=== PATIENT | male | born 1955 | race African-American/Black ===

== ENCOUNTER 2018-12-05 15:51 | Inpatient (IN) | payer MEDICAID ==
[~2018-12-05] VITALS: Ht 177.8 cm; Wt 69.9 kg
--- NOTE | 2018-12-05 16:22 | NUR ---
ED Nurse Note: Accu check result 469mg/dl reported to [facility].
--- NOTE | 2018-12-05 16:48 | Emergency Room Report ---
History of Present Illness General Chief Complaint: Abnormal Labs Source: Patient Present Illness HPI Disclaimer: Please note that this report is being documented using [employer] technology. This can lead to erroneous entry secondary to incorrect interpretation by the dictating instrument. HPI: 63-year-old male with a history of metastatic prostate cancer having undergone first chemotherapy session 4 days ago, insulin-dependent diabetes, polysubstance abuse, alcohol abuse presents for evaluation of elevated blood sugar. Patient has not had insulin in approximately 4 to 5 days that he states he was not being approved by his insurance company. He took his readings today at home showing a blood sugar of 499. He notes fatigue but denies abdominal cramping, vomiting, chest pain, shortness of breath, vertiginous symptoms, headache, double vision, neck or back pain, fever, dysuria, hematuria. He noted some loose stools over the past 2 days. No prior history of DKA. Last use of cocaine was last night. Last drink was yesterday. PMH: Insulin dependent diabetes, prostate cancer with metastases to right hip PSH: Prostatectomy Allergies: Denies Social Hx: Smokes cocaine, uses marijuana, regular alcohol use, regular tobacco use Allergies: Coded Allergies: No Known Allergies (Unverified , 12/05/18) Nursing Documentation-PMH Past Medical History: No History, Except For Hx Diabetes: Yes Hx Cancer: Yes - Prostate CA, metastatic to bone Review of Systems All Other Systems: negative except mentioned in HPI Physical Exam Vital Signs Date Time Temp Pulse Resp B/P (MAP) Pulse Ox O2 Delivery O2 Flow Rate FiO2 12/05/18 16:13 97.0 109 19 111/74 (86) 98 Room Air General: Awake and alert, no acute distress, thin and cachectic HEENT: NC/AT. EOMI. anicteric sclera. Dry knees membranes Cardiovascular: Tachycardic. S1 and S2 normal. No murmur appreciated Resp: Normal work of breathing. No cough, wheezing or crackles appreciated Abdomen: Abdomen is soft, nondistended. Nontender Skin: Intact. No abrasions, laceration or rash over the exposed skin MSK: Normal tone and bulk. Moving all extremities. No obvious deformity. Neuro: Awake and alert. Mentating appropriately. Medical Decision Making ER Course 63-year-old insulin-dependent diabetic with history of metastatic prostate cancer currently receiving chemotherapy presents for evaluation of elevated blood sugar readings at home. We will send extensive labs to evaluate for DKA. Patient is receiving IV fluids. Will monitor closely in the emergency department. May require admission depending on lab results. Laboratory Tests Test 12/05/18 16:15 12/05/18 16:40 12/05/18 17:30 Arterial Blood pH 7.423 (7.350-7.450) Arterial Blood Partial Pressure CO2 36.1 mmHg (35.0-45.0) Arterial Blood Partial Pressure O2 76.0 mmHg (75.0-100.0) Arterial Blood HCO3 23.0 mmol/L (22.0-26.0) Arterial Blood Oxygen Saturation 94.8 % (95-100) L Arterial Blood Base Excess -1.0 (-2-2) Noé Test Positive White Blood Count 2.9 K/UL (4.8-10.8) L Red Blood Count 3.76 M/UL (4.70-6.10) L Hemoglobin 11.2 G/DL (14.2-18.0) L Hematocrit 33.5 % (42.0-52.0) L Mean Corpuscular Volume 89 FL (80-99) Mean Corpuscular Hemoglobin 29.7 PG (27.0-31.0) Mean Corpuscular Hemoglobin Concent 33.4 G/DL (32.0-36.0) Red Cell Distribution Width 13.2 % (11.6-14.8) Platelet Count 59 K/UL (150-450) L Mean Platelet Volume 7.8 FL (6.5-10.1) Neutrophils (%) (Auto) % (45.0-75.0) Lymphocytes (%) (Auto) % (20.0-45.0) Monocytes (%) (Auto) % (1.0-10.0) Eosinophils (%) (Auto) % (0.0-3.0) Basophils (%) (Auto) % (0.0-2.0) Differential Total Cells Counted 100 Neutrophils % (Manual) 69 % (45-75) Lymphocytes % (Manual) 28 % (20-45) Monocytes % (Manual) 3 % (1-10) Eosinophils % (Manual) 0 % (0-3) Basophils % (Manual) 0 % (0-2) Band Neutrophils 0 % (0-8) Platelet Estimate Decreased L Platelet Morphology Normal Red Blood Cell Morphology Normal Sodium Level 127 MMOL/L (136-145) L Potassium Level 4.3 MMOL/L (3.5-5.1) Chloride Level 92 MMOL/L (98-107) L Carbon Dioxide Level 24 MMOL/L (21-32) Anion Gap 11 mmol/L (5-15) Blood Urea Nitrogen 31 mg/dL (7-18) H Creatinine 1.5 MG/DL (0.55-1.30) H Estimat Glomerular Filtration Rate 57.4 mL/min (>60) Glucose Level 493 MG/DL (74-106) H Calcium Level 8.4 MG/DL (8.5-10.1) L Magnesium Level 2.2 MG/DL (1.8-2.4) Total Bilirubin 0.3 MG/DL (0.2-1.0) Aspartate Amino Transf (AST/SGOT) 59 U/L (15-37) H Alanine Aminotransferase (ALT/SGPT) 31 U/L (12-78) Alkaline Phosphatase 1479 U/L (46-116) H Troponin I 0.000 ng/mL (0.000-0.056) Total Protein 7.3 G/DL (6.4-8.2) Albumin 3.4 G/DL (3.4-5.0) Globulin 3.9 g/dL Albumin/Globulin Ratio 0.9 (1.0-2.7) L Acetone Level Negative (NEGATIVE) Urine Color Pale yellow Urine Appearance Clear Urine pH 5 (4.5-8.0) Urine Specific [place] 1.015 (1.005-1.035) Urine Protein 3+ (NEGATIVE) H Urine Glucose (UA) 4+ (NEGATIVE) H Urine Ketones 1+ (NEGATIVE) H Urine Blood 2+ (NEGATIVE) H Urine Nitrite Negative (NEGATIVE) Urine Bilirubin Negative (NEGATIVE) Urine Urobilinogen Normal MG/DL (0.0-1.0) Urine Leukocyte Esterase 1+ (NEGATIVE) H Urine RBC 2-4 /HPF (0 - 0) H Urine WBC 0-2 /HPF (0 - 0) Urine Squamous Epithelial Cells None /LPF (NONE/OCC) Urine Bacteria Few /HPF (NONE) EKG Diagnostic Results EKG Time: 16:26 Rate: tachycardiac Rhythm: NSR ST Segments: no acute changes Other Impression Sinus tachycardia. Normal intervals. Slight left axis deviation. No acute ischemic changes Rhythm Strip Diag. Results Rhythm Strip Time: 16:26 EP Interpretation: yes Rate: 100s Reevaluation Time: 07:50 Last Vital Signs Date Time Temp Pulse Resp B/P (MAP) Pulse Ox O2 Delivery O2 Flow Rate FiO2 12/05/18 16:13 97.0 109 19 111/74 (86) 98 Room Air Status: unchanged Reevaluation Impression Labs show no anion gap, no acidosis, negative ketones. Patient has isolated hyperglycemia will be treated with intravenous insulin. Also hyponatremia consistent with dehydration from his recent diarrhea. He continues to receive IV fluids. He remains tachycardic and appears fatigued/weak. The patient is no longer able to get his own insulin and states he will not be able to for the next 3 days. He will be admitted to telemetry for further IV hydration, correction of his hyperglycemia, social work evaluation to assess his medication needs. He understands and agrees with this treatment plan. Disposition: ADMITTED INPATIENT Condition: Serious Grant Mcfarlane MD Dec 05, 2018 16:48
[2018-12-05] MEDS ORDERED: LORAZEPAM0.5 MG ORAL (16:57)
[2018-12-05] MEDS ORDERED: PROCHLORPERAZINE5 MG ORAL (16:57)
--- NOTE | 2018-12-05 16:58 | NUR ---
ED Nurse Note: pt relates he hasnt had insulin in 4 days. also recent start of chemo 1st dose for proastate cancer. denies n/v/ or abd pain. does relates cocaine use recently. does states some diarrhea recently. family at bs with pt. pt tolerates iv start and labs well.
--- NOTE | 2018-12-05 17:02 | NUR ---
ED Nurse Note: pt aware to obtain urine sample
[2018-12-05 17:34] LABS: HEMATOCRIT 33.5 % (42.0-52.0); HEMOGLOBIN 11.2 G/DL (14.2-18.0); MEAN CORPUSCULAR VOLUME 89 FL (80-99); PLATELET COUNT 59 K/UL (150-450); RED BLOOD COUNT 3.76 M/UL (4.70-6.10); RED CELL DISTRIBUTION WIDTH 13.2 % (11.6-14.8); WHITE BLOOD COUNT 2.9 K/UL (4.8-10.8)
[2018-12-05 17:41] LABS: ANION GAP 11 mmol/L (5-15); BLOOD UREA NITROGEN 31 mg/dL (7-18); CALCIUM 8.4 MG/DL (8.5-10.1); CARBON DIOXIDE 24 MMOL/L (21-32); CHLORIDE 92 MMOL/L (98-107); CREATININE 1.5 MG/DL (0.55-1.30); POTASSIUM 4.3 MMOL/L (3.5-5.1); SODIUM 127 MMOL/L (136-145)
[2018-12-05 17:44] LABS: APPEARANCE,URINE CLEAR; BILIRUBIN, URINE NEGATIVE (NEGATIVE); COLOR,URINE PALE YELLOW; GLUCOSE, URINE (UA) 4+ (NEGATIVE); KETONES,URINE 1+ (NEGATIVE); LEUKOCYTE ESTERASE ,URINE 1+ (NEGATIVE); NITRITE,URINE NEGATIVE (NEGATIVE); PH,URINE 5 (4.5-8.0); PROTEIN,URINE 3+ (NEGATIVE); UROBILINOGEN,URINE NORMAL MG/DL (0.0-1.0)
--- NOTE | 2018-12-05 17:47 | NUR ---
ED Nurse Note: voided urine sample sent as ordered. pt tolerating ivf well.
[2018-12-05 17:54] LABS: ALANINE AMINOTRANSFERASE 31 U/L (12-78); ALBUMIN 3.4 G/DL (3.4-5.0); ALBUMIN/GLOBULIN RATIO 0.9 (1.0-2.7); ALKALINE PHOSPHATASE 1479 U/L (46-116); ASPARTATE AMINO TRANSFERASE 59 U/L (15-37); BILIRUBIN,TOTAL 0.3 MG/DL (0.2-1.0)
[2018-12-05] MEDS ORDERED: Insulin Human Regular 100units/ml 3ml IV ONE (18:00)
--- NOTE | 2018-12-05 18:16 | NUR ---
ED Nurse Note: pt aware of plan for insulin and ivf with recheck accucheck when completed with possible dc home.
[2018-12-05 19:05] VITALS: BP 136/77
--- NOTE | 2018-12-05 19:14 | NUR ---
ED Nurse Note: pt aware to be admitted here and agrees.
--- NOTE | 2018-12-05 20:25 | NUR ---
ED Nurse Note: TELEPHONE REPORT GIVEN TO VINCENT CASTLE
--- NOTE | 2018-12-05 20:30 | NUR ---
ED Nurse Note: PT SENT UP WITH VINCENT BARROW AND [facility]FR[facility]O EMT. PT SHOWS NO ACUTE SIGNS OF DISTRESS. PT IS AOX4, ALL BELONGINGS GIVEN TO PT. VSS.
--- NOTE | 2018-12-05 21:00 | NUR ---
ADMISSION: rECVD pt. AOX4, RA, PT being admitted for hyperglycemia, bedtime BS 263, pt is ambulatory, skin is intact, will cotninue with plan of care
[2018-12-05] MEDS: NovoLOG Insulin Flexpen SUBQ SCH (22:06)
[2018-12-05] MEDS: Levemir Flexpen SUBQ SCH (22:07)
--- NOTE | 2018-12-05 23:15 | History and Physical Report ---
DATE OF ADMISSION: 12/05/2018 REASON FOR ADMISSION: Hyperglycemia. HISTORY OF PRESENT ILLNESS: The patient is a 63-year-old gentleman with known metastatic prostate cancer, undergoing his first chemotherapy session approximately four days ago. The patient is insulin dependent. Also, has a history of polysubstance and alcohol abuse. Presented to the emergency room, not feeling well when noted to have a blood sugar level of over 400. The patient was not in DKA. Serum sodium 127 with a creatinine of 1.5 and a serum glucose of 493. The patient states that he recently had his insurance change and he was trying to have his insulin pay for, however, due to insurance change, he ran out of medication, such for the emergency room for further evaluation and care. Currently, feeling just tired and fatigued, otherwise well. PAST MEDICAL HISTORY: 1. Insulin-dependent diabetes. 2. Prostate cancer with metastasis to right hip. PAST SURGICAL HISTORY: Prostatectomy. ALLERGIES: No known drug allergies. SOCIAL HISTORY: Known cocaine, marijuana, and alcohol regular use along with cigarettes. FAMILY HISTORY: Positive for hypertension. REVIEW OF SYSTEMS: NEUROLOGIC: The patient denies headache, change in vision, syncope, presyncopal episode. CARDIOVASCULAR: No current chest pain, palpitations, or angina. PULMONARY: No difficulty breathing, productive cough, or sputum. GASTROINTESTINAL/GENITOURINARY: No change in his bowel habits. No nausea, vomiting, or diarrhea. ENDOCRINOLOGY: No night sweats, fevers, or chills. LABORATORY DATA: Labs dated 12/05/2018. Acetone level negative. Hemoglobin 11.2, white cell count 2.9, and platelet count 59,000. Sodium 127, creatinine 1.5, troponin 0, alkaline phosphatase 1479. PHYSICAL EXAMINATION: VITAL SIGNS: Blood pressure 136/77, 99% oxygen saturation on room air, pulse 103, temperature 97.6 degrees. GENERAL: The patient is awake, alert, not in distress. HEENT: Extraocular muscles intact. No lymphadenopathy noted. Oropharyngeal mucosa clear and dry. CARDIOVASCULAR: S1, S2. No rubs or gallops. Regular rate. PULMONARY: Clear to auscultation bilaterally. No rales, rhonchi, or wheezes. ABDOMINAL: Soft, nontender. EXTREMITIES: No edema. ASSESSMENT AND PLAN: 1. Hyperglycemia, insulin-dependent diabetes. Secondary to the patient medical coverage, not being able to pay for his medication at this time. We will hydrate the patient and adjust his insulin doses during his inpatient stay. piping manager has been consulted to arrange for medications in the morning. Plan is if hyperglycemia is resolved, the patient is hydrated and feeling better, and has coverage for his insulin therapy, he will be discharged. 2. Metastatic prostate cancer. He has recently started chemotherapy. Plans to discharge tomorrow once we can secure his insulin medications. 3. Dehydration. We will continue IV fluids. 4. DVT prophylaxis with SCDs. 5. Acute kidney injury secondary to volume depletion. We will continue IV fluids. 6. Hyponatremia, pseudo in nature due to hyperglycemia. We will correct with IV fluids. Nico Avendano MD DR: LISANDRA/STACY JOB#: [id number] CC:
[2018-12-06] MEDS: NovoLOG Insulin Flexpen SUBQ SCH ×4 (05:52→20:57)
--- NOTE | 2018-12-06 06:07 | NUR ---
HAND-OFF: Report given to Chris KAUR.
--- NOTE | 2018-12-06 07:00 | NUR ---
NURSE NOTES: Nurse report given by VINCENT Nichols. Patient's awake, comfortable and AO x 4, denies pain, no s/s of distress or SOB. Bed at lowest position, break engaged, call light within reach, belonging bag is at bed side. IV site is running fluid, patent, asymptomatic. Will continue to monitor.
[2018-12-06 07:27] LABS: HEMATOCRIT 36.3 % (42.0-52.0); HEMOGLOBIN 11.9 G/DL (14.2-18.0); MEAN CORPUSCULAR VOLUME 92 FL (80-99); PLATELET COUNT 83 K/UL (150-450); RED BLOOD COUNT 3.96 M/UL (4.70-6.10); RED CELL DISTRIBUTION WIDTH 13.6 % (11.6-14.8); WHITE BLOOD COUNT 3.4 K/UL (4.8-10.8)
[2018-12-06 07:43] LABS: ANION GAP 9 mmol/L (5-15); BLOOD UREA NITROGEN 23 mg/dL (7-18); CALCIUM 8.1 MG/DL (8.5-10.1); CARBON DIOXIDE 23 MMOL/L (21-32); CHLORIDE 100 MMOL/L (98-107); CREATININE 1.3 MG/DL (0.55-1.30); POTASSIUM 4.3 MMOL/L (3.5-5.1); SODIUM 132 MMOL/L (136-145)
[2018-12-06 08:05] VITALS: BP 115/80
--- NOTE | 2018-12-06 08:26 | Nephrology Progress Note ---
Assessment/Plan Assessment/Plan: A/P 1) DM OOC- improving, insulin restarted - DC patient once insulin as outpt secured 2) Metastatic Prostate Cancer- chemo 5 days ago. DC back to his Urologist 3) Dehydration- IVFs 4) DVT prophylaxsis- SCDs 5) AP- due o prerenal. Cr down to 1.3 on IVFs Subjective Date patient seen: Dec 06, 2018 Time patient seen: 08:23 ROS Limited/Unobtainable: No Allergies: Coded Allergies: No Known Allergies (Unverified , 12/05/18) Subjective Patient in no distress. No CP or SOB Objective Last 24 Hour Vital Signs Date Time Temp Pulse Resp B/P (MAP) Pulse Ox O2 Delivery O2 Flow Rate FiO2 12/06/18 08:05 98.6 110 20 115/80 (92) 97 12/06/18 04:00 117 12/06/18 00:00 121 12/05/18 23:29 Room Air 12/05/18 20:30 97.4 104 23 135/78 98 Room Air 12/05/18 19:05 97.6 103 18 136/77 99 Room Air 12/05/18 16:13 97.0 109 19 111/74 (86) 98 Room Air Intake and Output 12/05/18 12/06/18 19:00 07:00 Intake Total 1000 ml 0 ml Output Total 1000 ml Balance 1000 ml -1000 ml Intake Oral 0 ml 0 ml IV Total 1000 ml Output Urine Total 1000 ml # Voids 3 Laboratory Tests 12/05/18 16:15: Arterial Blood pH 7.423, Arterial Blood Partial Pressure CO2 36.1, Arterial Blood Partial Pressure O2 76.0, Arterial Blood HCO3 23.0, Arterial Blood Oxygen Saturation 94.8L, Arterial Blood Base Excess -1.0, Noé Test Positive 12/05/18 16:40: White Blood Count 2.9L, Red Blood Count 3.76L, Hemoglobin 11.2L, Hematocrit 33.5L, Mean Corpuscular Volume 89, Mean Corpuscular Hemoglobin 29.7, Mean Corpuscular Hemoglobin Concent 33.4, Red Cell Distribution Width 13.2, Platelet Count 59L, Mean Platelet Volume 7.8, Neutrophils (%) (Auto) , Lymphocytes (%) ( Auto) , Monocytes (%) (Auto) , Eosinophils (%) (Auto) , Basophils (%) (Auto) , Differential Total Cells Counted 100, Neutrophils % (Manual) 69, Lymphocytes % ( Manual) 28, Monocytes % (Manual) 3, Eosinophils % (Manual) 0, Basophils % ( Manual) 0, Band Neutrophils 0, Platelet Estimate DecreasedL, Platelet Morphology Normal, Red Blood Cell Morphology Normal, Sodium Level 127L, Potassium Level 4.3, Chloride Level 92L, Carbon Dioxide Level 24, Anion Gap 11, Blood Urea Nitrogen 31H, Creatinine 1.5H, Estimat Glomerular Filtration Rate 57.4, Glucose Level 493H, Calcium Level 8.4L, Magnesium Level 2.2, Total Bilirubin 0.3, Aspartate Amino Transf (AST/SGOT) 59H, Alanine Aminotransferase ( ALT/SGPT) 31, Alkaline Phosphatase 1479H, Troponin I 0.000, Total Protein 7.3, Albumin 3.4, Globulin 3.9, Albumin/Globulin Ratio 0.9L, Acetone Level Negative 12/05/18 17:30: Urine Color Pale yellow, Urine Appearance Clear, Urine pH 5, Urine Specific [place] 1.015, Urine Protein 3+H, Urine Glucose (UA) 4+H, Urine Ketones 1+H, Urine Blood 2+H, Urine Nitrite Negative, Urine Bilirubin Negative, Urine Urobilinogen Normal, Urine Leukocyte Esterase 1+H, Urine RBC 2-4H, Urine WBC 0-2 , Urine Squamous Epithelial Cells None, Urine Bacteria Few 12/06/18 05:36: White Blood Count 3.4L, Red Blood Count 3.96L, Hemoglobin 11.9L, Hematocrit 36.3L, Mean Corpuscular Volume 92, Mean Corpuscular Hemoglobin 30.1, Mean Corpuscular Hemoglobin Concent 32.8, Red Cell Distribution Width 13.6, Platelet Count 83L, Mean Platelet Volume 7.2, Neutrophils (%) (Auto) , Lymphocytes (%) ( Auto) , Monocytes (%) (Auto) , Eosinophils (%) (Auto) , Basophils (%) (Auto) , Differential Total Cells Counted 100, Neutrophils % (Manual) 57, Lymphocytes % ( Manual) 40, Monocytes % (Manual) 3, Eosinophils % (Manual) 0, Basophils % ( Manual) 0, Band Neutrophils 0, Platelet Estimate DecreasedL, Platelet Morphology Normal, Sodium Level 132L, Potassium Level 4.3, Chloride Level 100, Carbon Dioxide Level 23, Anion Gap 9, Blood Urea Nitrogen 23H, Creatinine 1.3, Estimat Glomerular Filtration Rate > 60, Glucose Level 353#H, Calcium Level 8.1L , Hypochromasia 1+ Height (Feet): 5 Height (Inches): 10.00 Weight (Pounds): 160 General Appearance: no apparent distress, alert EENT: normal ENT inspection Neck: normal alignment, supple Cardiovascular: normal rate, regular rhythm Respiratory/Chest: lungs clear, normal breath sounds Abdomen: non tender, soft Edema: no edema noted Arm (L), no edema noted Arm (R), no edema noted Leg (L), no edema noted Leg (R), no edema noted Pedal (L), no edema noted Pedal (R), no edema noted Generalized Nico Avendano MD Dec 06, 2018 08:26
[2018-12-06] MEDS: Aspirin Baby 81mg ORAL SCH (09:52)
--- NOTE | 2018-12-06 11:20 | NUR ---
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
[2018-12-06 12:00] VITALS: BP 126/89
[2018-12-06 16:00] VITALS: BP 112/70
--- NOTE | 2018-12-06 19:10 | NUR ---
HAND-OFF: Report given to VINCENT Nichols. Plan of care endorsed. Patient's in stable condition.
[2018-12-06 20:00] VITALS: BP 154/95
[2018-12-06] MEDS: Levemir Flexpen SUBQ SCH (20:58)
[2018-12-07] VITALS: BP 140/87
[2018-12-07 04:00] VITALS: BP 140/87
--- NOTE | 2018-12-07 04:48 | NUR ---
NURSE NOTES: Recvd pt. Pt is AOX4, on room air with no sign of sob or resp distress. Bed in lowest position will continue with plan of care
[2018-12-07] MEDS: NovoLOG Insulin Flexpen SUBQ SCH ×4 (06:37→21:31)
--- NOTE | 2018-12-07 07:00 | NUR ---
NURSE NOTES: Nurse report given by VINCENT Nichols. Patient's in stable condition, no s/s of acute distress or SOB. Denies pain. IV is running fluid, patent and asymptomatic. will continue to monitor.
--- NOTE | 2018-12-07 07:00 | NUR ---
NURSE NOTES: Bed at lowest position, call light within reach, break engaged, will continue to monitor.
[2018-12-07 08:00] VITALS: BP 132/79
--- NOTE | 2018-12-07 08:13 | Nephrology Progress Note ---
Assessment/Plan Assessment/Plan: A/P 1) DM OOC- improving, insulin - DC patient once insulin as outpt secured - DC today 2) Metastatic Prostate Cancer- chemo 5 days ago. DC back to his Urologist 3) Dehydration- IVFs 4) DVT prophylaxsis- SCDs 5) AP- due o prerenal. Cr down to 1.3 on IVFs - am labs pending Subjective Date patient seen: Dec 07, 2018 Time patient seen: 08:11 ROS Limited/Unobtainable: No Allergies: Coded Allergies: No Known Allergies (Unverified , 12/05/18) Subjective Patient sleeping comfortably Objective Last 24 Hour Vital Signs Date Time Temp Pulse Resp B/P (MAP) Pulse Ox O2 Delivery O2 Flow Rate FiO2 12/07/18 08:07 Room Air 12/07/18 04:00 98.9 112 20 140/87 (104) 96 12/07/18 04:00 112 12/07/18 00:00 98.6 110 20 140/87 (104) 96 12/07/18 00:00 106 12/06/18 21:00 Room Air 12/06/18 20:00 99.0 116 18 154/95 (114) 97 12/06/18 20:00 129 12/06/18 16:00 118 12/06/18 16:00 96.6 84 18 112/70 (84) 96 12/06/18 12:00 98.3 85 18 126/89 (101) 97 12/06/18 12:00 108 12/06/18 09:00 Room Air Intake and Output 12/06/18 12/07/18 19:00 07:00 Intake Total 140 ml Balance 140 ml Intake Oral 140 ml # Voids 3 3 Height (Feet): 5 Height (Inches): 10.00 Weight (Pounds): 154 General Appearance: no apparent distress EENT: normal ENT inspection Neck: normal alignment, supple Cardiovascular: normal rate, regular rhythm Respiratory/Chest: lungs clear, normal breath sounds Abdomen: non tender, soft Edema: no edema noted Arm (L), no edema noted Arm (R), no edema noted Leg (L), no edema noted Leg (R), no edema noted Pedal (L), no edema noted Pedal (R), no edema noted Generalized Nico Avendano MD Dec 07, 2018 08:13
[2018-12-07 08:30] LABS: ANION GAP 10 mmol/L (5-15); BLOOD UREA NITROGEN 29 mg/dL (7-18); CALCIUM 7.9 MG/DL (8.5-10.1); CARBON DIOXIDE 20 MMOL/L (21-32); CHLORIDE 104 MMOL/L (98-107); CREATININE 1.2 MG/DL (0.55-1.30); POTASSIUM 4.6 MMOL/L (3.5-5.1); SODIUM 134 MMOL/L (136-145)
[2018-12-07] MEDS: Aspirin Baby 81mg ORAL SCH (09:00)
--- NOTE | 2018-12-07 10:30 | NUR ---
NURSE NOTES:HAND-OFF: Report given to VINCENT Turpin on 3E. Patient's being transferred safely to 3E. Patient's stable and ambulates, Ao x4. No s/s of distress or SOB, denies pain. Went over belonging list with patient before transferring and again with VINCENT Turpin on 3E. identification technician is removed. Transferred order is in. Insulin medications passed to the 3E charge nurse.
--- NOTE | 2018-12-07 10:30 | NUR ---
NURSE NOTES: REC'D FROM 2E. 63 YR OLD MALE WITH DX OF HYPERGLYCEMIA. AWAKE/ALERT. NO C/O PAIN. IN NO DISTRESS.
--- NOTE | 2018-12-07 10:35 | NUR ---
Social Work This SW received a consult to assist with a home safety evaluation, as well as patient will need insulin upon discharge. This Sw met with patient who appears alert/oriented, states he lives with his friend and remains independent with ADLs, ambulation (with a cane). Patient has Medi kyle and states will follow up with [facility] to obtain his insulin (will need a prescription). No other needs or concerns identified at this time. Nursing updated.
[2018-12-07 12:00] VITALS: BP 121/77
[2018-12-07 16:00] VITALS: BP 131/72
--- NOTE | 2018-12-07 19:00 | NUR ---
NURSE NOTES: RESTING IN BED. IN NO ACUTE DISTRESS.
--- NOTE | 2018-12-07 19:31 | NUR ---
HAND-OFF: Report given to John WILLIAM RN.
--- NOTE | 2018-12-07 19:46 | NUR ---
NURSE NOTES: Received report from VINCENT Turpin. Patient awake and alert. On room air, no signs of distress or labored breathing. IV intact, patent, and saline locked. Bed in lowest position. Will continue with plan of care.
[2018-12-07 20:00] VITALS: BP 108/66
[2018-12-07] MEDS ORDERED: Levemir Flexpen SUBQ SCH ×3 (21:00)
[2018-12-08] VITALS: BP 106/74
[2018-12-08] MEDS ORDERED: NovoLOG Insulin Flexpen SUBQ SCH
[2018-12-08] MEDS ORDERED: Zolpidem 5mg tab ORAL PRN (01:30)
[2018-12-08 04:00] VITALS: BP 109/68
[2018-12-08 05:31] LABS: ANION GAP 9 mmol/L (5-15); BLOOD UREA NITROGEN 20 mg/dL (7-18); CALCIUM 8.2 MG/DL (8.5-10.1); CARBON DIOXIDE 20 MMOL/L (21-32); CHLORIDE 106 MMOL/L (98-107); POTASSIUM 4.5 MMOL/L (3.5-5.1); SODIUM 135 MMOL/L (136-145)
[2018-12-08] MEDS: NovoLOG Insulin Flexpen SUBQ SCH ×2 (06:33→12:35)
--- NOTE | 2018-12-08 07:15 | NUR ---
HAND-OFF: Report given to VINCENT Rust.
[2018-12-08 08:00] VITALS: BP 104/68
--- NOTE | 2018-12-08 08:19 | NUR ---
NURSE NOTES: Pt received awake, eating breakfast. Will be monitored for s/s of hyperglycemic episode. Current plan of care will be followed. Pt is ambulatory, gait is steady. No signs of distress or complaints of pain at this time
[2018-12-08] MEDS: Aspirin Baby 81mg ORAL SCH ×2 (09:00→09:04)
--- NOTE | 2018-12-08 09:12 | NUR ---
NURSE NOTES: Pt noted with nose bleed . 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 ASA held will follow up with
--- NOTE | 2018-12-08 10:13 | Nephrology Progress Note ---
Assessment/Plan Assessment/Plan: A/P 1) DM OOC- glu 170 - DC patient on levemir and 70/30 - DC today 2) Metastatic Prostate Cancer- chemo 5 days ago. DC back to his Urologist 3) Dehydration- IVFs 4) DVT prophylaxsis- SCDs 5) AP- resolved Subjective Date patient seen: Dec 08, 2018 Time patient seen: 10:11 ROS Limited/Unobtainable: No Allergies: Coded Allergies: No Known Allergies (Unverified , 12/05/18) Subjective Patient glucose better. DC today Objective Last 24 Hour Vital Signs Date Time Temp Pulse Resp B/P (MAP) Pulse Ox O2 Delivery O2 Flow Rate FiO2 12/08/18 08:00 98.9 110 20 104/68 (80) 97 12/08/18 04:00 97.5 72 18 109/68 (82) 96 12/08/18 00:00 98.2 115 19 106/74 (85) 98 12/07/18 21:00 Room Air 12/07/18 20:00 97.5 112 18 108/66 (80) 97 12/07/18 16:00 97.1 77 20 131/72 (91) 94 12/07/18 12:00 97.2 72 21 121/77 (92) 99 Intake and Output 12/07/18 12/08/18 19:00 07:00 Intake Total 960 ml Output Total 1600 ml Balance -640 ml Intake Oral 960 ml Output Urine Total 1600 ml # Voids 2 4 Laboratory Tests 12/08/18 04:51: Sodium Level 135L, Potassium Level 4.5, Chloride Level 106, Carbon Dioxide Level 20L, Anion Gap 9, Blood Urea Nitrogen 20H, Creatinine 1.0, Estimat Glomerular Filtration Rate > 60, Glucose Level 170#H, Calcium Level 8.2L Height (Feet): 5 Height (Inches): 10.00 Weight (Pounds): 154 General Appearance: no apparent distress, alert EENT: normal ENT inspection Neck: normal alignment, supple Cardiovascular: normal rate, regular rhythm Respiratory/Chest: lungs clear, normal breath sounds Abdomen: non tender, soft Edema: no edema noted Arm (L), no edema noted Arm (R), no edema noted Leg (L), no edema noted Leg (R), no edema noted Pedal (L), no edema noted Pedal (R), no edema noted Generalized Nico Avendano MD Dec 08, 2018 10:13
--- NOTE | 2018-12-08 10:14 | Discharge Instructions ---
Discharge Instructions Discharge Instructions Services at Discharge: day care Diet: diabetic calorie control Resume Normal Activity?: Yes Activity: light activity Follow Up Orders Follow up PCP 1 week For Congestive Heart Failure Reminder Report to your physician any weight gain of 5 pounds or more in one week. Nico Avendano MD Dec 08, 2018 10:14
--- NOTE | 2018-12-08 11:32 | NUR ---
NURSE NOTES: Dr Araiza here gave clearance to discharge pt. Orders faxed to pharmacy. Per pt family member will pick him up at 1330. Diabetic Teaching and Safety measures provided. Diabetic food choices, placed in discharge packet. No questions at this time. Family Friend called to inquire about pt. Assembler Dc Field Ring asked pt for approval, with refusal. " She can ask me" Informed of [place]IP[place] laws and regulations. Current plan of care will be followed
[2018-12-08 12:00] VITALS: BP 118/79
[2018-12-08] MEDS ORDERED: Levemir Flexpen SUBQ SCH ×5 (14:06→21:00)
--- NOTE | 2018-12-08 15:00 | NUR ---
NURSE NOTES: Pt required encouragement to return to his room. Pt left his room and was downstairs smoking. Pt returned to room. " I just wanted some air" Pt teaching provided for insulin, onset and peak times for various insulin , regular, 70/30, and long acting insulin. Pt teaching on food combinations to stabilize blood sugar levels as well as what to do in a hypoglycemic crisis. Teaching reinforced in reference to areas on body to administer insulin and rotating spots to prevent scarring. IV removed insulin pens, safety needles, and information inserts provided. Verbalized understanding of pt teaching after reinforcement .
[2018-12-08] MEDS ORDERED: D5 1/2NS 1000ml IV ONE (15:29)
--- NOTE | 2018-12-09 14:44 | Discharge Summary ---
Discharge Summary Discharge Summary _ DATE OF ADMISSION: [] 12/05/2018 DATE OF DISCHARGE: 12/08/2018 DISCHARGED BY: Dr Sanford REASON FOR ADMISSION: 63 years old male with metastatic prostate cancer, status post chemotherapy session 4 days ago, insulin-dependent diabetes mellitus, polysubstance abuse , presented to emergency room with complaint of not feeling well. Vital signs revealed tachycardia. Laboratory work-up revealed leukopenia with WBC 2.9, hemoglobin 11.2 hematocrit 33.5. Platelet count 59. Sodium 127, anion gap 11. BUN 31, creatinine 1.5. AST 59, ALT 31. Troponin negative. Urinalysis revealed +3 protein ,+4 glucose, +1 ketones . EKG revealed sinus tachycardia , no acute ischemic changes. ABG revealed no evidence of acidosis. Patient was admitted to medical surgical floor for further management. HOSPITAL COURSE: Patient admitted and started on IV fluid . Blood sugar was managed with long-acting insulin , 70/30 insulin and sliding scale of short-acting insulin as needed. Acute kidney injury was likely due to volume depletion. Renal parameters and electrolytes were closely monitored. Electrolytes corrected as needed and nephrotoxins were avoided. Hyponatremia was pseudo hyponatremia due to hyperglycemia. With IV hydration sodium up to 135. BUN 20 creatinine 1.0 . Acute kidney injury resolved with rehydration. Glucose down to 170. Pancytopenia was likely due to recent chemotherapy . Patient clinically stabilized and was ready for discharge home. FINAL DIAGNOSES: Diabetes mellitus out of control Metastatic prostate cancer Acute kidney injury Dehydration DISCHARGE MEDICATIONS: See Medication Reconciliation list. DISCHARGE INSTRUCTIONS: Patient was discharged home . Follow up with primary care provider in one week. Follow-up with outpatient oncologist I have been assigned to dictate discharge summary for this account. I was not involved in the patient's management. Gunjan Moody NP Dec 09, 2018 14:44
== END 2018-12-08 15:30 | disposition home or self-care (01) | DRG 420 ==
LOC: EMR 18:00 → 2E 18:52 → EDBEDREQ 19:08 → EDBEDREQSVC 19:08 → EDBEDREQ 20:15 → 3E 12-07 10:33
DX: E11.65 Type 2 diabetes mellitus with hyperglycemia (principal); N17.9 Acute kidney failure, unspecified; D61.810 Antineoplastic chemotherapy induced pancytopenia; C61 Malignant neoplasm of prostate; E86.0 Dehydration; C79.89 Secondary malignant neoplasm of other specified sites; Z90.79 Acquired absence of other genital organ(s); E87.1 Hypo-osmolality and hyponatremia; F10.11 Alcohol abuse, in remission; F19.11 Other psychoactive substance abuse, in remission
CPT/HCPCS: 36415; 36600; 80048; 80053; 81003; 82009; 82803; 82962; 83735; 84484; 85007; 85025; 93005; 96361; 96374; 99285; J1815; S5561

== ENCOUNTER 2019-05-07 19:52 | Inpatient (IN) | payer MEDICAID ==
[~2019-05-07] VITALS: Ht 172.7 cm; Wt 58.7 kg
--- NOTE | 2019-05-07 19:50 | Emergency Room Report ---
History of Present Illness General Chief Complaint: Weakness Source: Patient Present Illness HPI 64-year-old male possible history of stage IV cancer patient hemorrhoid source he had chemo 2 weeks ago initially was on hospice then was switched to full code , over the past day he has been having fever/chills/body aches, no chest pain or shortness of breath, no nausea no vomiting, no known aggravating relieving factors severity is moderate, constant patient does endorse a dry cough, no dysuria patient presents for evaluation Allergies: Coded Allergies: No Known Allergies (Unverified , 12/05/18) Patient History Past Medical History: see triage record Social History: Reports: smoking, alcohol use, drug use Reviewed Nursing Documentation: PMH: Agreed; PSxH: Agreed Review of Systems All Other Systems: negative except mentioned in HPI Physical Exam Sp02 EP Interpretation: reviewed, normal General Appearance: alert, cachetic, Chronically Ill Head: normocephalic, atraumatic Eyes: bilateral eye PERRL, bilateral eye EOMI ENT: uvula midline, dry mucus membranes Neck: supple, thyroid normal, supple/symm/no masses Respiratory: lungs clear, no respiratory distress, no retraction, no accessory muscle use Cardiovascular #1: normal peripheral pulses, regular rate, rhythm, no edema, no gallop, no murmur Gastrointestinal: non tender, soft, no guarding, no rebound Musculoskeletal: normal inspection Neurologic: alert, oriented x3 Psychiatric: mood/affect normal Skin: no rash, warm/dry Medical Decision Making Diagnostic Impression: Primary Impression: Dehydration Additional Impression: Sepsis Qualified Codes: A41.9 - Sepsis, unspecified organism ER Course 64-year-old male history of stage IV cancer, metastatic, initially hospice now full code, receiving treatment Presents with fever and chills concerning for possible bacteremia, patient given cefepime, vancomycin additionally patient given 3 L of NS We will admit patient for immunocompromise state sepsis Broad-spectrum antibiotic started, pain well controlled Patient admitted to Dr. Gracia Laboratory Tests Test 05/07/19 20:20 05/07/19 21:30 White Blood Count 8.0 K/UL (4.8-10.8) Red Blood Count 4.53 M/UL (4.70-6.10) L Hemoglobin 12.8 G/DL (14.2-18.0) L Hematocrit 39.8 % (42.0-52.0) L Mean Corpuscular Volume 88 FL (80-99) Mean Corpuscular Hemoglobin 28.2 PG (27.0-31.0) Mean Corpuscular Hemoglobin Concent 32.2 G/DL (32.0-36.0) Red Cell Distribution Width 12.9 % (11.6-14.8) Platelet Count 186 K/UL (150-450) Mean Platelet Volume 6.0 FL (6.5-10.1) L Neutrophils (%) (Auto) % (45.0-75.0) Lymphocytes (%) (Auto) % (20.0-45.0) Monocytes (%) (Auto) % (1.0-10.0) Eosinophils (%) (Auto) % (0.0-3.0) Basophils (%) (Auto) % (0.0-2.0) Differential Total Cells Counted 100 Neutrophils % (Manual) 77 % (45-75) H Lymphocytes % (Manual) 5 % (20-45) L Monocytes % (Manual) 3 % (1-10) Eosinophils % (Manual) 0 % (0-3) Basophils % (Manual) 0 % (0-2) Band Neutrophils 15 % (0-8) H Platelet Estimate Adequate Platelet Morphology Normal Red Blood Cell Morphology Normal Prothrombin Time 12.5 SEC (9.30-11.50) H Prothrombin Time INR 1.2 (0.9-1.1) H PTT 32 SEC (23-33) Sodium Level 138 MMOL/L (136-145) Potassium Level 3.8 MMOL/L (3.5-5.1) Chloride Level 98 MMOL/L (98-107) Carbon Dioxide Level 24 MMOL/L (21-32) Anion Gap 16 mmol/L (5-15) H Blood Urea Nitrogen 33 mg/dL (7-18) H Creatinine 1.1 MG/DL (0.55-1.30) Estimate Glomerular Filtration Rate > 60 mL/min (>60) Glucose Level 282 MG/DL (74-106) H Lactic Acid Level 4.00 mmol/L (0.4-2.0) H Calcium Level 9.1 MG/DL (8.5-10.1) Phosphorus Level 2.6 MG/DL (2.5-4.9) Magnesium Level 2.2 MG/DL (1.8-2.4) Total Bilirubin 0.4 MG/DL (0.2-1.0) Aspartate Amino Transferase (AST) 33 U/L (15-37) Alanine Aminotransferase (ALT) 25 U/L (12-78) Alkaline Phosphatase 210 U/L (46-116) H Total Creatine Kinase 109 U/L (26-308) Pro-B-Type Natriuretic Peptide 687 pg/mL (0-125) H Total Protein 7.7 G/DL (6.4-8.2) Albumin 2.1 G/DL (3.4-5.0) L Globulin 5.6 g/dL Albumin/Globulin Ratio 0.4 (1.0-2.7) L Lipase 60 U/L (73-393) L Urine Color Pending Urine Appearance Pending Urine pH Pending Urine Specific [place] Pending Urine Protein Pending Urine Glucose (UA) Pending Urine Ketones Pending Urine Blood Pending Urine Nitrite Pending Urine Bilirubin Pending Urine Urobilinogen Pending Urine Leukocyte Esterase Pending EKG Diagnostic Results EKG Time: 20:14 EP Interpretation: Sinus tachycardia, rate 128, QTc 473, no acute ST elevations , left axis dev Rhythm Strip Diag. Results Rhythm Strip Time: 21:51 EP Interpretation: yes Rate: 121 Rhythm: other - Sinus tachycardia Chest X-Ray Diagnostic Results Chest X-Ray Diagnostic Results : Chest X-Ray Ordered: Yes # of Views/Limited/Complete: 1 View Indication: Other - Cough EP Interpretation: Yes Interpretation: no consolidation, no effusion, no pneumothorax, no acute cardiopulmonary disease Impression: No acute disease Electronically Signed by: Cedric Valdez MD Disposition: ADMITTED INPATIENT Condition: Stable Cedric Valdez MD May 07, 2019 19:50
[~2019-05-07 19:52] MED LIST: LORAZEPAM0.5 MG ORAL; PROCHLORPERAZINE5 MG ORAL
[2019-05-07 20:00] VITALS: BP 109/70
[2019-05-07] MEDS ORDERED: Vancomycin 1 GM in NS 275 ML IV ONE (20:00)
[2019-05-07] MEDS ORDERED: Cefepime HCl 2 GM in NS 110 ML IV ONE (20:00)
[2019-05-07] MEDS ORDERED: HYDROmorphone 1mg/ml Carpuject IVP ONE (20:00)
--- NOTE | 2019-05-07 20:00 | NUR ---
ED Nurse Note: Pt brought into ED from home by RA 68 for c/o generalized body pain. Pt has stage 4 cancer and is receiving chemo at this time. Pt is aaox4, breathing is normal and unlabored. 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 Pt states he did cocaine earlier today. Will continue to monitor.
--- NOTE | 2019-05-07 20:20 | NUR ---
ED Nurse Note: IV line established, blood drawn by RN and blood sent to lab. xray at bedside.
[2019-05-07] MEDS ORDERED: Vancomycin 1gm vial IVPB ONE (20:40)
[2019-05-07 20:48] LABS: HEMATOCRIT 39.8 % (42.0-52.0); HEMOGLOBIN 12.8 G/DL (14.2-18.0); MEAN CORPUSCULAR VOLUME 88 FL (80-99); PLATELET COUNT 186 K/UL (150-450); RED BLOOD COUNT 4.53 M/UL (4.70-6.10); RED CELL DISTRIBUTION WIDTH 12.9 % (11.6-14.8)
[2019-05-07 20:57] LABS: ANION GAP 16 mmol/L (5-15); BLOOD UREA NITROGEN 33 mg/dL (7-18); CALCIUM 9.1 MG/DL (8.5-10.1); CARBON DIOXIDE 24 MMOL/L (21-32); CHLORIDE 98 MMOL/L (98-107); CREATININE 1.1 MG/DL (0.55-1.30); POTASSIUM 3.8 MMOL/L (3.5-5.1); SODIUM 138 MMOL/L (136-145)
[2019-05-07 20:59] LABS: INR 1.2 (0.9-1.1)
[2019-05-07 21:07] LABS: ALANINE AMINOTRANSFERASE 25 U/L (12-78); ALBUMIN 2.1 G/DL (3.4-5.0); ALBUMIN/GLOBULIN RATIO 0.4 (1.0-2.7); ALKALINE PHOSPHATASE 210 U/L (46-116); ASPARTATE AMINO TRANSFERASE 33 U/L (15-37); BILIRUBIN,TOTAL 0.4 MG/DL (0.2-1.0); CREATINE KINASE 109 U/L (26-308); PHOSPHORUS 2.6 MG/DL (2.5-4.9)
[2019-05-07 21:55] LABS: APPEARANCE,URINE CLEAR; BILIRUBIN, URINE NEGATIVE (NEGATIVE); COLOR,URINE PALE YELLOW; GLUCOSE, URINE (UA) 4+ (NEGATIVE); KETONES,URINE 3+ (NEGATIVE); LEUKOCYTE ESTERASE ,URINE NEGATIVE (NEGATIVE); NITRITE,URINE NEGATIVE (NEGATIVE); PH,URINE 5 (4.5-8.0); PROTEIN,URINE 2+ (NEGATIVE); UROBILINOGEN,URINE NORMAL MG/DL (0.0-1.0)
[2019-05-07] MEDS ORDERED: Cefepime 2gm ONE (22:41)
[2019-05-07 23:00] VITALS: BP 117/77
--- NOTE | 2019-05-07 23:00 | NUR ---
ED Nurse Note: Pt is in no acute distress at this time. Pt is sleeping in bed comfortably, safety measures in place. IV fluids infusing as ordered. Pt HR is tachy at 114. Will continue to monitor.
--- NOTE | 2019-05-07 23:58 | History & Physical ---
History and Physical History & Physicial History and Physical HPI Patient is a 64-year-old man with previous history of stage IV Prostate cancer s /p recent chemotherapy 2 weeks ago, previously on hospice then was switched to full code, admitted with UTI, sepsis, complaining of fever/chills/body aches, dry cough, denies chest pain, no shortness of breath, no nausea no vomiting, denies dysuria. Allergies: No Known Allergies Past Medical History: Stage IV Prostate cancer s/p recent chemotherapy All Other Systems: negative except mentioned in HPI Physical Exam Vital signs noted General Appearance: alert, cachetic, chronically Ill appearing Head: normocephalic, atraumatic Eyes: bilateral eye PERRL, bilateral eye EOMI ENT: uvula midline, dry mucus membranes Neck: supple, thyroid normal, no LN, no masses, no neck stiffness Respiratory: lungs clear, no respiratory distress, no retraction, no accessory muscle use Cardiovascular: normal peripheral pulses, regular rate, rhythm, HS1, HS2 normal , no gallop, no murmur Gastrointestinal: non tender, soft, no guarding, no rebound Musculoskeletal: generally weak Neurologic: alert, oriented x3 Skin: no rash, warm/dry Impression: Dehydration Stage IV Prostate cancer s/p recent chemotherapy Sepsis Possible UTI Plan IV Antibiotics: cefepime, vancomycin 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 Monitor Labs PPX O2 PRN Pain medications Laboratory Tests Test 05/07/19 20:20 05/07/19 21:30 White Blood Count 8.0 K/UL (4.8-10.8) Red Blood Count 4.53 M/UL (4.70-6.10) L Hemoglobin 12.8 G/DL (14.2-18.0) L Hematocrit 39.8 % (42.0-52.0) L Mean Corpuscular Volume 88 FL (80-99) Mean Corpuscular Hemoglobin 28.2 PG (27.0-31.0) Mean Corpuscular Hemoglobin Concent 32.2 G/DL (32.0-36.0) Red Cell Distribution Width 12.9 % (11.6-14.8) Platelet Count 186 K/UL (150-450) Mean Platelet Volume 6.0 FL (6.5-10.1) L Neutrophils (%) (Auto) % (45.0-75.0) Lymphocytes (%) (Auto) % (20.0-45.0) Monocytes (%) (Auto) % (1.0-10.0) Eosinophils (%) (Auto) % (0.0-3.0) Basophils (%) (Auto) % (0.0-2.0) Differential Total Cells Counted 100 Neutrophils % (Manual) 77 % (45-75) H Lymphocytes % (Manual) 5 % (20-45) L Monocytes % (Manual) 3 % (1-10) Eosinophils % (Manual) 0 % (0-3) Basophils % (Manual) 0 % (0-2) Band Neutrophils 15 % (0-8) H Platelet Estimate Adequate Platelet Morphology Normal Red Blood Cell Morphology Normal Prothrombin Time 12.5 SEC (9.30-11.50) H Prothrombin Time INR 1.2 (0.9-1.1) H PTT 32 SEC (23-33) Sodium Level 138 MMOL/L (136-145) Potassium Level 3.8 MMOL/L (3.5-5.1) Chloride Level 98 MMOL/L (98-107) Carbon Dioxide Level 24 MMOL/L (21-32) Anion Gap 16 mmol/L (5-15) H Blood Urea Nitrogen 33 mg/dL (7-18) H Creatinine 1.1 MG/DL (0.55-1.30) Estimate Glomerular Filtration Rate > 60 mL/min (>60) Glucose Level 282 MG/DL (74-106) H Lactic Acid Level 4.00 mmol/L (0.4-2.0) H Calcium Level 9.1 MG/DL (8.5-10.1) Phosphorus Level 2.6 MG/DL (2.5-4.9) Magnesium Level 2.2 MG/DL (1.8-2.4) Total Bilirubin 0.4 MG/DL (0.2-1.0) Aspartate Amino Transferase (AST) 33 U/L (15-37) Alanine Aminotransferase (ALT) 25 U/L (12-78) Alkaline Phosphatase 210 U/L (46-116) H Total Creatine Kinase 109 U/L (26-308) Pro-B-Type Natriuretic Peptide 687 pg/mL (0-125) H Total Protein 7.7 G/DL (6.4-8.2) Albumin 2.1 G/DL (3.4-5.0) L Globulin 5.6 g/dL Albumin/Globulin Ratio 0.4 (1.0-2.7) L Lipase 60 U/L (73-393) L Urine Color Pending Urine Appearance Pending Urine pH Pending Urine Specific [place] Pending Urine Protein Pending Urine Glucose (UA) Pending Urine Ketones Pending Urine Blood Pending Urine Nitrite Pending Urine Bilirubin Pending Urine Urobilinogen Pending Urine Leukocyte Esterase Pending EKG Diagnostic Results EKG Time: 20:14 EKG: Sinus tachycardia, rate 128, QTc 473, no acute ST elevations, left axis deviation Chest X-Ray: no consolidation, no effusion, no pneumothorax, no acute cardiopulmonary disease Mamadou Charles MD May 07, 2019 23:58
[2019-05-08] VITALS (8 sets, daily range): BP systolic 112–133; BP diastolic 61–89
--- NOTE | 2019-05-08 01:00 | NUR ---
ED Nurse Note: Pt is sleeping comfortably at this time. No acute distress noted. Will continue to monitor. Vital signs are stable for pt as charted, ERMD aware of elevated HR.
--- NOTE | 2019-05-08 02:00 | NUR ---
ED Nurse Note: Pt placed in ta bed. Pt able to urinate at bedside via urinal.
--- NOTE | 2019-05-08 04:00 | NUR ---
ED Nurse Note: Pt is sleeping comfortably at this time. No acute distress noted. Will continue to monitor.
--- NOTE | 2019-05-08 06:30 | NUR ---
ED Nurse Note: Pt is still sleeping comfortably at this time, no acute distress noted. Vital signs are stable for patient as charted. Will continue to monitor.
--- NOTE | 2019-05-08 07:10 | NUR ---
HAND-OFF: Report given to VINCENT Delatorre and endorsed plan of care.
--- NOTE | 2019-05-08 07:11 | NUR ---
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
[2019-05-08] MEDS ORDERED: UNOBMED (07:37)
--- NOTE | 2019-05-08 08:02 | NUR ---
ED Nurse Note: patient transferred to 2E on ACLS protocol with all of his belongings, report given to and endorsed plan of care to VINCENT Bro.
--- NOTE | 2019-05-08 08:15 | NUR ---
NURSE NOTES: Patient transferred to Tele floor @ 08:15 via hospital bed, awake and alert, on room air no acute distress/SOB noted. Able to make needs known. group marketing vp placed, reading sinus tachy. Vital signs taken., Patient is in stable condition. belonging check done with transferring nurse. Iv on Left forearm patent, no bleeding or infiltration noted. Skin intact. Bed in low position and locked, Call light within reach. Encouraged to use call light when needed. Will continue plan of care.
--- NOTE | 2019-05-08 08:24 | General Progress Note ---
Assessment/Plan Assessment/Plan: Impression: Dehydration Stage IV Prostate cancer s/p recent chemotherapy Sepsis, possible Possible UTI Plan IV Antibiotics: cefepime, vancomycin; and check cultures IV fluids as sis [employer] MECH[employer]IC Medications Monitor Labs PPX O2 PRN Pain medications will follow up and assist with dc impression, plan, and exam edited and reviewed in detail care discussed with RN Subjective Allergies: Coded Allergies: No Known Allergies (Unverified , 12/05/18) Subjective reviewed care and discussed on iv hydration and antibiotics Objective Last 24 Hour Vital Signs Date Time Temp Pulse Resp B/P (MAP) Pulse Ox O2 Delivery O2 Flow Rate FiO2 05/08/19 08:02 99.3 102 22 121/72 98 Room Air 05/08/19 06:30 99.3 117 17 124/70 95 Room Air 05/08/19 05:00 113 19 117/67 95 Room Air 05/08/19 03:00 120 16 124/76 95 Room Air 05/08/19 01:00 100.2 122 17 133/72 95 Room Air 05/07/19 23:00 100.2 114 15 117/77 95 Room Air 05/07/19 21:12 100.2 05/07/19 20:00 100.2 130 20 109/70 95 Room Air 05/07/19 19:47 100.2 130 20 109/70 (83) 95 Room Air Intake and Output 05/07/19 05/08/19 19:00 07:00 Output Total 200 ml Balance -200 ml Output Urine Total 200 ml Laboratory Tests 05/07/19 20:20: White Blood Count 8.0, Red Blood Count 4.53L, Hemoglobin 12.8L, Hematocrit 39.8L , Mean Corpuscular Volume 88, Mean Corpuscular Hemoglobin 28.2, Mean Corpuscular Hemoglobin Concent 32.2, Red Cell Distribution Width 12.9, Platelet Count 186, Mean Platelet Volume 6.0L, Neutrophils (%) (Auto) , Lymphocytes (%) ( Auto) , Monocytes (%) (Auto) , Eosinophils (%) (Auto) , Basophils (%) (Auto) , Differential Total Cells Counted 100, Neutrophils % (Manual) 77H, Lymphocytes % (Manual) 5L, Monocytes % (Manual) 3, Eosinophils % (Manual) 0, Basophils % ( Manual) 0, Band Neutrophils 15H, Platelet Estimate Adequate, Platelet Morphology Normal, Red Blood Cell Morphology Normal, Prothrombin Time 12.5H, Prothromb Time International Ratio 1.2H, Activated Partial Thromboplast Time 32 , Sodium Level 138, Potassium Level 3.8, Chloride Level 98, Carbon Dioxide Level 24, Anion Gap 16H, Blood Urea Nitrogen 33H, Creatinine 1.1, Estimat Glomerular Filtration Rate > 60, Glucose Level 282H, Lactic Acid Level 4.00H, Calcium Level 9.1, Phosphorus Level 2.6, Magnesium Level 2.2, Total Bilirubin 0.4, Aspartate Amino Transf (AST/SGOT) 33, Alanine Aminotransferase (ALT/SGPT) 25, Alkaline Phosphatase 210H, Total Creatine Kinase 109, Pro-B-Type Natriuretic Peptide 687H, Total Protein 7.7, Albumin 2.1L, Globulin 5.6, Albumin /Globulin Ratio 0.4L, Lipase 60L 05/07/19 21:30: Urine Color Pale yellow, Urine Appearance Clear, Urine pH 5, Urine Specific [place] 1.015, Urine Protein 2+H, Urine Glucose (UA) 4+H, Urine Ketones 3+H, Urine Blood 2+H, Urine Nitrite Negative, Urine Bilirubin Negative, Urine Urobilinogen Normal, Urine Leukocyte Esterase Negative, Urine RBC 2-4H, Urine WBC 0-2, Urine Squamous Epithelial Cells None, Urine Bacteria Few, Urine Yeast ManyH 05/07/19 22:20: Lactic Acid Level 3.50H Height (Feet): 5 Height (Inches): 8.00 Weight (Pounds): 125 Objective WDWN NAD clear breath sounds bilaterally without rhonchi or wheeze [id number] without MRG NABS nontender no HSM no CCE nonfocal weak Jason Garcia MD May 08, 2019 08:24
[2019-05-08] MEDS: Heparin 5000 units/ml inj SUBQ SCH ×2 (10:07→20:51)
--- NOTE | 2019-05-08 11:33 | Diagnostic Imaging Report ---
Indication: Chest pain Technique: One view of the chest Comparison: 09/03/2005 Findings: Interim development of hazy opacity throughout the left mid and lower lung. The right lung and bilateral pleural spaces are clear. The heart size is normal. Impression: Left lung hazy infiltrate, likely pneumonia.
[2019-05-08] MEDS: NovoLOG Insulin Flexpen SUBQ SCH ×3 (11:51→20:50)
--- NOTE | 2019-05-08 12:15 | NUR ---
RD ASSESSMENT & RECOMMENDATIONS SEE CARE ACTIVITY FOR COMPLETE ASSESSMENT DAILY ESTIMATED NEEDS: Needs based on CA, underweight/ 55.6kg 30-40 kcals/kg 9217-0541 total kcals 1-2 g protein/kg 56-112 g total protein 25-30 mL/kg 7574-9293 total fluid mLs NUTRITION DIAGNOSIS: Increased kcal/prot needs R/T catabolic dx and underweight status as evidenced by h/o stage IV Prostate cancer s/p recent chemotherapy, pt @ 79% IBW, underweight BMI per guidelines. CURRENT DIET:CCHO MED, soft easy chew PO DIET RECOMMENDATIONS: CCHO MED/ texture as tolerated + Glucerna TID w/ meals ADDITIONAL RECOMMENDATIONS: * Calibtated or standing wt for accurate CBW * Monitor PO acceptance and tolerance -h/o stage 4 CA, s/p recent chemo * Consider appetite stimulant w/ continued poor PO intake * Monitor need for long acting insulin : BGs 200's, A1C 14.6 -> pt w/ poor PO at this time -> Monitor for hypoglycemia w/ continued poor PO
[2019-05-08] MEDS: Cefepime HCl 1 GM in D5W 55 ML IVPB SCH ×2 (12:23→20:49)
--- NOTE | 2019-05-08 15:20 | NUR ---
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
--- NOTE | 2019-05-08 16:45 | Consultation ---
DATE OF CONSULTATION: 05/08/2019 INFECTIOUS DISEASES CONSULTATION CONSULTING PHYSICIAN: Gumaro Barakat M.D. REFERRING PHYSICIAN: Jason Garcia M.D. REASON FOR CONSULTATION: Urinary tract infection. HISTORY OF PRESENTING ILLNESS: This is a 64-year-old gentleman with history of prostate cancer, diabetes, hypertension, who has had chemotherapy, who came in with fever, chills, and dry cough. He was found to have urinary tract infection and an Infectious Diseases consultation has been obtained for antibiotics. PAST MEDICAL HISTORY: 1. History of diabetes. 2. Hypertension. 3. Prostate cancer, status post chemotherapy. SOCIAL HISTORY: He is a smoker. He drinks alcohol. He smokes cocaine. FAMILY HISTORY: Noncontributory. REVIEW OF SYSTEMS: RESPIRATORY: He has fever and chills. He has a dry cough. No shortness of breath or chest pain. CARDIAC: No chest pain. No palpitations. No dizziness. No syncope. GASTROINTESTINAL: No nausea. No vomiting. No abdominal pain or diarrhea. MEDICATIONS: As an inpatient, he is on IV vancomycin, subcutaneous heparin, Tylenol, and Dilaudid. ALLERGIES: No known drug allergies. PHYSICAL EXAMINATION: VITAL SIGNS: Temperature of 99.3, T-max of 100.2, pulse of 102, respiratory rate 22, blood pressure 121/72, O2 saturation of 98%. HEENT: Pupils equally reactive to light and accommodation. Mouth appears clean without thrush. NECK: Supple. No adenopathy. No JVD. CARDIOVASCULAR: Regular rate and rhythm. No murmurs. LUNGS: Clear to auscultation bilaterally. No crackles. No wheezes. ABDOMEN: Soft and nontender. No organomegaly. EXTREMITIES: No cyanosis, no clubbing, no edema. LABORATORY AND DIAGNOSTIC DATA: White count of 8, hemoglobin 12.8, hematocrit 39.8, MCV 88, platelet count of 186. Sodium 138, potassium 3.8, chloride 98, bicarb 24, BUN 33, creatinine 1.1, glucose 282, calcium 9.1. Total bilirubin 0.4. AST 33, ALT 25, alkaline phosphatase 210. CK of 109. Beta natriuretic peptide 687. Total protein 7.7. Albumin 2.1. Lipase of 60. UA is showing 0 to 2 white cells. ASSESSMENT: This is a 64-year-old gentleman with history of diabetes, hypertension, prostate cancer, status post chemotherapy, who comes in with fever and chills and possible to have, 1. Urinary tract infection. 2. Would like to rule out pneumonia as a possibility. PLAN: 1. Continue IV vancomycin. 2. We will start the patient on cefepime. 3. We will order urine cultures. 4. We will follow up cultures and adjust antibiotics accordingly. I would like to thank, Dr. Garcia for this consultation. Gumaro Barakat M.D. DR: MARTI JOB#: [id number] CC: Jason Garcia M.D.; Fax#: [phone]
--- NOTE | 2019-05-08 19:46 | NUR ---
HAND-OFF: Report given to Tyrese/RN, Patient is in stable condition. Endorsed plan of care.
--- NOTE | 2019-05-08 19:49 | NUR ---
Received pt from VINCENT Bro. Pt is awake and resting in bed in no acute distress. Bed locked in lowest position, bed alarm on, call light within reach. Will continue with plan of care.
[2019-05-08] MEDS: Hydromorphone 0.5mg/0.5ml inj IVP PRN (19:53)
[2019-05-08] MEDS ORDERED: Vancomycin 1gm/D5W 275ml IVPB SCH ×2 (21:00)
[2019-05-09] VITALS: BP 133/77
[2019-05-09 04:00] VITALS: BP 123/75
[2019-05-09] MEDS: NovoLOG Insulin Flexpen SUBQ SCH ×4 (06:37→20:52)
[2019-05-09 07:11] LABS: HEMATOCRIT 32.8 % (42.0-52.0); HEMOGLOBIN 10.8 G/DL (14.2-18.0); MEAN CORPUSCULAR VOLUME 88 FL (80-99); PLATELET COUNT 127 K/UL (150-450); RED BLOOD COUNT 3.74 M/UL (4.70-6.10); RED CELL DISTRIBUTION WIDTH 12.9 % (11.6-14.8); WHITE BLOOD COUNT 7.1 K/UL (4.8-10.8)
--- NOTE | 2019-05-09 07:21 | NUR ---
HAND-OFF: Report given to VINCENT Bro, Patient is in stable condition. Endorsed plan of care.
--- NOTE | 2019-05-09 07:27 | NUR ---
NURSE NOTES: Received report from Tyrese/RN, Patient is asleep, lying semi-pascual's, resting comfortable, On room air, no acute distress/SOB noted. IV on left FA, patent, NS running at 100cc/hr. Bed in low position and locked, Call light within reach, Encouraged to use call light when needed. Will continue plan of care.
[2019-05-09 08:00] VITALS: BP 137/81
[2019-05-09 08:04] LABS: ANION GAP 12 mmol/L (5-15); BLOOD UREA NITROGEN 21 mg/dL (7-18); CALCIUM 8.1 MG/DL (8.5-10.1); CARBON DIOXIDE 24 MMOL/L (21-32); CHLORIDE 104 MMOL/L (98-107); CREATININE 0.8 MG/DL (0.55-1.30); SODIUM 140 MMOL/L (136-145)
[2019-05-09 08:19] LABS: POTASSIUM 2.7 MMOL/L (3.5-5.1)
[2019-05-09] MEDS: Cefepime HCl 1 GM in D5W 55 ML IVPB SCH ×2 (08:34→20:45)
[2019-05-09] MEDS: Hydromorphone 0.5mg/0.5ml inj IVP PRN ×4 (08:35→23:50)
[2019-05-09] MEDS: Heparin 5000 units/ml inj SUBQ SCH ×2 (08:36→20:43)
--- NOTE | 2019-05-09 08:45 | General Progress Note ---
Assessment/Plan Assessment/Plan: Impression: Dehydration Stage IV Prostate cancer s/p recent chemotherapy Sepsis, possible Possible UTI low K Plan IV Antibiotics: cefepime, vancomycin; and check cultures IV fluids as is ID follow up replace K [employer] Medications Monitor Labs PPX O2 PRN Pain medications will follow up and assist with dc impression, plan, and exam edited and reviewed in detail care discussed with RN Subjective Allergies: Coded Allergies: No Known Allergies (Unverified , 12/05/18) Subjective reviewed care and discussed on iv hydration and antibiotics low K Objective Last 24 Hour Vital Signs Date Time Temp Pulse Resp B/P (MAP) Pulse Ox O2 Delivery O2 Flow Rate FiO2 05/09/19 08:00 97.9 123 18 137/81 (99) 96 05/09/19 04:00 16 05/09/19 04:00 97.9 106 16 123/75 (91) 93 05/09/19 00:00 104 05/09/19 00:00 98.2 104 16 133/77 (95) 94 05/08/19 21:00 Room Air 05/08/19 20:00 116 05/08/19 20:00 98.1 116 20 112/61 (78) 93 05/08/19 16:00 97.8 114 20 113/65 (81) 100 05/08/19 16:00 114 05/08/19 12:00 97.9 114 20 117/89 (98) 91 05/08/19 12:00 116 05/08/19 11:56 Room Air Intake and Output 05/08/19 05/09/19 19:00 07:00 Intake Total 590 ml Output Total 1500 ml Balance -910 ml Intake Oral 590 ml Output Urine Total 1500 ml # Voids 2 Laboratory Tests 05/08/19 10:00: Hemoglobin A1c 14.6H 05/09/19 06:52: White Blood Count 7.1, Red Blood Count 3.74L, Hemoglobin 10.8L, Hematocrit 32.8L , Mean Corpuscular Volume 88, Mean Corpuscular Hemoglobin 28.8, Mean Corpuscular Hemoglobin Concent 32.8, Red Cell Distribution Width 12.9, Platelet Count 127L, Mean Platelet Volume 6.3L, Neutrophils (%) (Auto) , Lymphocytes (%) (Auto) , Monocytes (%) (Auto) , Eosinophils (%) (Auto) , Basophils (%) (Auto) , Neutrophils % (Manual) [Pending], Lymphocytes % (Manual) [Pending], Platelet Estimate [Pending], Platelet Morphology [Pending], Sodium Level 140, Potassium Level 2.7*L, Chloride Level 104, Carbon Dioxide Level 24, Anion Gap 12, Blood Urea Nitrogen 21H, Creatinine 0.8, Estimat Glomerular Filtration Rate > 60, Glucose Level 265H, Calcium Level 8.1L Height (Feet): 5 Height (Inches): 8.00 Weight (Pounds): 125 Objective WDWN NAD clear breath sounds bilaterally without rhonchi or wheeze [id number] without MRG NABS nontender no HSM no CCE nonfocal weak Jason Garcia MD May 09, 2019 08:45
--- NOTE | 2019-05-09 10:20 | Infectious Diseases Prog Note ---
Assessment/Plan Assessment/Plan A; 1. Urinary tract infection. 2. left lung pneumonia 3. Bacteremia 4. Prostate cancer 5. DM 6. HPN PLAN: 1. Continue IV vancomycin & cefepime. 3. We will follow cultures. Subjective ROS Limited/Unobtainable: No Constitutional: Reports: other - dosen't feel good Respiratory: Reports: productive cough Cardiovascular: Reports: no symptoms Gastrointestinal/Abdominal: Reports: no symptoms Genitourinary: Reports: no symptoms Musculoskeletal: Reports: pain, other - upper back pain Allergies: Coded Allergies: No Known Allergies (Unverified , 12/05/18) Objective Vital Signs Last 24 Hour Vital Signs Date Time Temp Pulse Resp B/P (MAP) Pulse Ox O2 Delivery O2 Flow Rate FiO2 05/09/19 08:00 97.9 123 18 137/81 (99) 96 05/09/19 04:00 16 05/09/19 04:00 97.9 106 16 123/75 (91) 93 05/09/19 00:00 104 05/09/19 00:00 98.2 104 16 133/77 (95) 94 05/08/19 21:00 Room Air 05/08/19 20:00 116 05/08/19 20:00 98.1 116 20 112/61 (78) 93 05/08/19 16:00 97.8 114 20 113/65 (81) 100 05/08/19 16:00 114 05/08/19 12:00 97.9 114 20 117/89 (98) 91 05/08/19 12:00 116 05/08/19 11:56 Room Air Height (Feet): 5 Height (Inches): 8.00 Weight (Pounds): 125 General Appearance: no acute distress HEENT: mucous membranes moist Respiratory/Chest: lungs clear Cardiovascular: tachycardia Abdomen: soft, non tender Genitourinary: other - condom catheter Extremities: no edema Neurologic/Psychiatric: alert, oriented x 3, responsive Microbiology Date/Time Source Procedure Growth Status 05/07/19 20:35 Blood Blood Culture - Preliminary Resulted 05/07/19 20:20 Blood Blood Culture - Preliminary NO GROWTH AFTER 24 HOURS Resulted 05/07/19 22:00 Nasal Nares - Final Complete 05/07/19 22:00 Nasal Nares - Final Complete 05/07/19 21:30 Urine,Clean Catch Urine Culture - Preliminary NO GROWTH AFTER 24 HOURS Resulted Laboratory Tests Test 05/09/19 06:52 White Blood Count 7.1 K/UL (4.8-10.8) Red Blood Count 3.74 M/UL (4.70-6.10) L Hemoglobin 10.8 G/DL (14.2-18.0) L Hematocrit 32.8 % (42.0-52.0) L Mean Corpuscular Volume 88 FL (80-99) Mean Corpuscular Hemoglobin 28.8 PG (27.0-31.0) Mean Corpuscular Hemoglobin Concent 32.8 G/DL (32.0-36.0) Red Cell Distribution Width 12.9 % (11.6-14.8) Platelet Count 127 K/UL (150-450) L Mean Platelet Volume 6.3 FL (6.5-10.1) L Neutrophils (%) (Auto) % (45.0-75.0) Lymphocytes (%) (Auto) % (20.0-45.0) Monocytes (%) (Auto) % (1.0-10.0) Eosinophils (%) (Auto) % (0.0-3.0) Basophils (%) (Auto) % (0.0-2.0) Neutrophils % (Manual) Pending Lymphocytes % (Manual) Pending Platelet Estimate Pending Platelet Morphology Pending Sodium Level 140 MMOL/L (136-145) Potassium Level 2.7 MMOL/L (3.5-5.1) *L Chloride Level 104 MMOL/L (98-107) Carbon Dioxide Level 24 MMOL/L (21-32) Anion Gap 12 mmol/L (5-15) Blood Urea Nitrogen 21 mg/dL (7-18) H Creatinine 0.8 MG/DL (0.55-1.30) Estimat Glomerular Filtration Rate > 60 mL/min (>60) Glucose Level 265 MG/DL (74-106) H Calcium Level 8.1 MG/DL (8.5-10.1) L Current Medications Medications (Trade) Dose Ordered Sig/Sanjeev Route PRN Reason Start Time Stop Time Status Last Admin Dose Admin Acetaminophen (Tylenol) 650 mg Q6H PRN ORAL Mild Pain/Temp > 100.5 05/08/19 08:45 06/07/19 08:44 Cefepime HCl 1 gm/ Dextrose 55 ml @ 110 mls/hr EVERY 12 HOURS IVPB 05/08/19 12:00 05/15/19 11:59 05/09/19 08:34 Dextrose (Dextrose 50%) 25 ml Q30M PRN IV Hypoglycemia 05/08/19 09:00 06/07/19 08:59 Dextrose (Dextrose 50%) 50 ml Q30M PRN IV Hypoglycemia 05/08/19 09:00 06/07/19 08:59 Heparin Sodium (Porcine) (Heparin 5000 units/ml) 5,000 units EVERY 12 HOURS SUBQ 05/08/19 09:00 06/07/19 08:59 05/08/19 20:51 Hydromorphone HCl (Dilaudid) 0.5 mg Q3H PRN IVP Severe Pain (Pain Scale 7-10) 05/08/19 08:45 05/15/19 08:44 05/09/19 08:35 Insulin Aspart (NovoLOG) BEFORE MEALS AND HS SUBQ 05/08/19 11:30 06/07/19 11:29 05/09/19 06:37 Ondansetron HCl (Zofran) 4 mg Q6H PRN IVP Nausea & Vomiting 05/08/19 16:45 06/07/19 16:44 Potassium Chloride (K-Dur) 40 meq ONCE ORAL 05/09/19 09:00 05/09/19 11:00 05/09/19 08:58 Sodium Chloride 1,000 ml @ 100 mls/hr Q10H IV 05/08/19 10:00 06/07/19 09:59 05/09/19 08:34 Vancomycin HCl (Vanco rx to dose) 1 ea DAILY PRN MISC per rx protocol 05/08/19 11:00 06/07/19 08:59 Vancomycin HCl 1 gm/Dextrose 275 ml @ 183.708 mls/hr Q24H IVPB 05/08/19 21:00 05/13/19 20:59 05/08/19 22:08 Rod Carballo MD May 09, 2019 10:20
--- NOTE | 2019-05-09 10:25 | CDS Physician Query ---
Clarification is required for compliance, coding accuracy, and to reflect severity of illness for this patient Dear Dr. Jason Garcia Date: 05/09/2019 Rn Lpn Cna/CDS Name: Eloisa Morillo Clinical Documentation states: HNP: 64-year-old man with previous history of stage IV Prostate cancer s/p recent chemotherapy 2 weeks ago... admitted with UTI, sepsis ED note: General Appearance: alert, cachetic, Chronically Ill RD note: Increased kcal/prot needs R/T catabolic dx and underweight status as evidenced by h/o stage IV Prostate cancer s/p recent chemotherapy, pt @ 79% IBW , underweight BMI per guidelines. BMI 19.0, Albumin 2.1 Please select the most appropriate option: [x] Protein/Calorie Malnutrition [] Mild [x] Moderate [] Severe [x] Hypoalbuminemia [x] Cachexia [] Underweight [] Intestinal malabsorption [] Other [] Unable to determine [] Not Applicable Present on Admission: [x] Yes [] No [] Clinically Undetermined Physician signature Date Please also document in your Progress Notes and/or Discharge Summary and indicate if the condition was present on admission. MTDD
[2019-05-09 12:00] VITALS: BP 116/69
--- NOTE | 2019-05-09 13:40 | NUR ---
PT NOTE Received MD order for PT evaluation. Patient declining to participate with PT at this time, c/o LBP rated at 9/10 (medicated earlier for pain per RN). Per patient he lives with 3 friends in a second floor apartment without elevator access. Prior to hospitalization patient was independent with all functional mobility without an assistive device. Will follow up tomorrow, Adali RN notified.
--- NOTE | 2019-05-09 15:50 | NUR ---
CASE MANAGEMENT:REVIEW 05/09/19 SI: POSSIBLE SEPSIS. DEHYDRATION STAGE IV PROSTATE CANCER S/P RECENT CHEMOTHERAPY 98.2 123 18 137/81 96% ON RA K-2.7 PLT-127 IS: IV VANCOMYCIN Q24 IV CEFEPIME Q12 IVF@100/HR HEPARIN SQ Q12 IV DILAUDID Q3HRS PRN : TELEMETRY STATUS DCP: FROM HOME
[2019-05-09 16:00] VITALS: BP 117/74
--- NOTE | 2019-05-09 17:58 | NUR ---
NURSE NOTES: Patient got skin tear on Left ankle, 7cm by 5.6cm received order from for treatment. Order carried out with wound care nurse/ Mahendra.
--- NOTE | 2019-05-09 19:28 | NUR ---
HAND-OFF: Report given to Maryanne/RN, Patient is in stable condition. Endorsed plan of care.
--- NOTE | 2019-05-09 19:38 | NUR ---
NURSE NOTES: Received report from VINCENT Bro. Patient is awake lying semi-pascual's; resting comfortably. No signs of acute distress noted; complains of pain. Friend at bedside. AOx4; able to make needs known. Checked IV site; patent and flushed. No erythema, bleeding, or infiltration noted. Condom catheter draining well to gravity. Bed at lowest position, brakes on, siderails up x3. Call light within reach. Will continue to monitor.
[2019-05-09 20:00] VITALS: BP 141/97
[2019-05-09] MEDS ORDERED: Vancomycin 1gm/D5W 275ml IVPB SCH ×2 (22:00)
[2019-05-10] VITALS: BP 132/88
--- NOTE | 2019-05-10 01:21 | NUR ---
NURSE NOTES: Notified Dr. Garcia regarding patient's potassium level of 3.2. Awaiting callback.
[2019-05-10 04:00] VITALS: BP 144/79
--- NOTE | 2019-05-10 05:55 | NUR ---
NURSE NOTES: Received new order from Dr. Garcia. Noted and carried out.
[2019-05-10] MEDS: NovoLOG Insulin Flexpen SUBQ SCH ×4 (05:59→22:06)
--- NOTE | 2019-05-10 07:36 | NUR ---
HAND-OFF: Report given to VINCENT Brunner. Patient is asleep lying semi-pascual's; resting comfortably. In stable condition.
[2019-05-10 07:40] LABS: HEMATOCRIT 35.6 % (42.0-52.0); HEMOGLOBIN 11.3 G/DL (14.2-18.0); MEAN CORPUSCULAR VOLUME 89 FL (80-99); PLATELET COUNT 127 K/UL (150-450); RED BLOOD COUNT 4.01 M/UL (4.70-6.10); WHITE BLOOD COUNT 7.2 K/UL (4.8-10.8)
--- NOTE | 2019-05-10 07:40 | NUR ---
NURSE NOTES: Received report from VINCENT Madden. Patient in bed resting, no active s/s cardiac, respiratory distress noticed at this time. Patient AOx4, ST with HR 112. Patient on room air, IV on left FA 20G, asymptomatic, patent, intact. IVF running as prescribed rate. Endorsed KCl replacement given last night. Bed in lowest position, side rails upx3, call light within reach, bed alarm on. Will continue to monitor.
[2019-05-10 07:53] LABS: ANION GAP 10 mmol/L (5-15); BLOOD UREA NITROGEN 21 mg/dL (7-18); CALCIUM 8.1 MG/DL (8.5-10.1); CARBON DIOXIDE 25 MMOL/L (21-32); CHLORIDE 106 MMOL/L (98-107); CREATININE 0.7 MG/DL (0.55-1.30); POTASSIUM 3.3 MMOL/L (3.5-5.1); SODIUM 141 MMOL/L (136-145)
[2019-05-10 08:00] VITALS: BP 120/76
[2019-05-10] MEDS: Hydromorphone 0.5mg/0.5ml inj IVP PRN ×3 (08:09→22:02)
[2019-05-10] MEDS: Cefepime HCl 1 GM in D5W 55 ML IVPB SCH (08:09)
[2019-05-10] MEDS: Heparin 5000 units/ml inj SUBQ SCH ×2 (08:53→21:54)
--- NOTE | 2019-05-10 10:52 | Infectious Diseases Prog Note ---
Assessment/Plan Assessment/Plan antibiotics : vancomycin iv, cefepime A 1. streptococcus sepsis 2. pneumonia 3. prostate cancer 4. diabetes mellitus 5. hypertension P 1. d/c iv vancomycin, cefepime 2. start ceftriaxone 3. 2 d echo 4. will follow up cultures Subjective Constitutional: Denies: fever, chills Respiratory: Denies: shortness of breath, dry cough Gastrointestinal/Abdominal: Denies: nausea, vomiting, diarrhea Musculoskeletal: Reports: pain Allergies: Coded Allergies: No Known Allergies (Unverified , 12/05/18) Objective Vital Signs Last 24 Hour Vital Signs Date Time Temp Pulse Resp B/P (MAP) Pulse Ox O2 Delivery O2 Flow Rate FiO2 05/10/19 04:00 112 05/10/19 04:00 98.2 102 18 144/79 (100) 96 05/10/19 00:00 104 05/10/19 00:00 98.1 105 19 132/88 (103) 91 05/09/19 21:00 Room Air 05/09/19 20:00 98.2 102 18 141/97 (112) 93 05/09/19 20:00 102 05/09/19 16:00 102 05/09/19 16:00 98.1 104 18 117/74 (88) 95 05/09/19 12:00 105 05/09/19 12:00 98.2 99 20 116/69 (85) 96 Height (Feet): 5 Height (Inches): 8.00 Weight (Pounds): 129 Respiratory/Chest: lungs clear Cardiovascular: normal rate, regular rhythm, no gallop/murmur Abdomen: soft, non tender Extremities: no edema Microbiology Date/Time Source Procedure Growth Status 05/07/19 20:35 Blood Blood Culture - Preliminary Strep Species, Alpha Hemolytic Resulted 05/07/19 20:20 Blood Blood Culture - Preliminary Strep Species, Alpha Hemolytic Resulted 05/07/19 22:00 Nasal Nares - Final Complete 05/07/19 22:00 Nasal Nares - Final Complete 05/07/19 21:30 Urine,Clean Catch Urine Culture - Preliminary Resulted Laboratory Tests Test 05/09/19 12:45 05/10/19 00:50 05/10/19 07:17 Potassium Level 2.9 MMOL/L (3.5-5.1) L 3.2 MMOL/L (3.5-5.1) L 3.3 MMOL/L (3.5-5.1) L White Blood Count 7.2 K/UL (4.8-10.8) Red Blood Count 4.01 M/UL (4.70-6.10) L Hemoglobin 11.3 G/DL (14.2-18.0) L Hematocrit 35.6 % (42.0-52.0) L Mean Corpuscular Volume 89 FL (80-99) Mean Corpuscular Hemoglobin 28.2 PG (27.0-31.0) Mean Corpuscular Hemoglobin Concent 31.7 G/DL (32.0-36.0) L Red Cell Distribution Width 15.0 % (11.6-14.8) H Platelet Count 127 K/UL (150-450) L Mean Platelet Volume 7.0 FL (6.5-10.1) Neutrophils (%) (Auto) % (45.0-75.0) Lymphocytes (%) (Auto) % (20.0-45.0) Monocytes (%) (Auto) % (1.0-10.0) Eosinophils (%) (Auto) % (0.0-3.0) Basophils (%) (Auto) % (0.0-2.0) Neutrophils % (Manual) Pending Lymphocytes % (Manual) Pending Platelet Estimate Pending Platelet Morphology Pending Sodium Level 141 MMOL/L (136-145) Chloride Level 106 MMOL/L (98-107) Carbon Dioxide Level 25 MMOL/L (21-32) Anion Gap 10 mmol/L (5-15) Blood Urea Nitrogen 21 mg/dL (7-18) H Creatinine 0.7 MG/DL (0.55-1.30) Estimat Glomerular Filtration Rate > 60 mL/min (>60) Glucose Level 288 MG/DL (74-106) H Calcium Level 8.1 MG/DL (8.5-10.1) L Current Medications Medications (Trade) Dose Ordered Sig/Sanjeev Route PRN Reason Start Time Stop Time Status Last Admin Dose Admin Acetaminophen (Tylenol) 650 mg Q6H PRN ORAL Mild Pain/Temp > 100.5 05/08/19 08:45 06/07/19 08:44 05/10/19 10:40 Cefepime HCl 1 gm/ Dextrose 55 ml @ 110 mls/hr EVERY 12 HOURS IVPB 05/08/19 12:00 05/15/19 11:59 05/10/19 08:09 Dextrose (Dextrose 50%) 25 ml Q30M PRN IV Hypoglycemia 05/08/19 09:00 06/07/19 08:59 Dextrose (Dextrose 50%) 50 ml Q30M PRN IV Hypoglycemia 05/08/19 09:00 06/07/19 08:59 Heparin Sodium (Porcine) (Heparin 5000 units/ml) 5,000 units EVERY 12 HOURS SUBQ 05/08/19 09:00 06/07/19 08:59 05/08/19 20:51 Hydromorphone HCl (Dilaudid) 0.5 mg Q3H PRN IVP Severe Pain (Pain Scale 7-10) 05/08/19 08:45 05/15/19 08:44 05/10/19 08:09 Insulin Aspart (NovoLOG) BEFORE MEALS AND HS SUBQ 05/08/19 11:30 06/07/19 11:29 05/10/19 05:59 Ondansetron HCl (Zofran) 4 mg Q6H PRN IVP Nausea & Vomiting 05/08/19 16:45 06/07/19 16:44 Sodium Chloride 1,000 ml @ 100 mls/hr Q10H IV 05/08/19 10:00 06/07/19 09:59 05/10/19 01:54 Vancomycin HCl (Vanco rx to dose) 1 ea DAILY PRN MISC per rx protocol 05/08/19 11:00 06/07/19 08:59 Vancomycin HCl 1 gm/Dextrose 275 ml @ 183.708 mls/hr Q24H IVPB 05/09/19 22:00 05/14/19 21:59 05/09/19 22:51 Gumaro Barakat MD May 10, 2019 10:52
[2019-05-10 12:00] VITALS: BP 112/79
--- NOTE | 2019-05-10 12:13 | Pulmonology Progress Note ---
Assessment/Plan Assessment/Plan Pulmonary Progress Note Assessment/Plan: Impression: Dehydration Stage IV Prostate cancer s/p recent chemotherapy Strep Sepsis Pneumonia low K Plan IV Antibiotics: ceftriaxone per iD IV fluids as is ID follow replace K [employer]GER Medications Monitor Labs PPX O2 PRN Pain medications dc planning - ? SNF impression, plan, and exam edited and reviewed in detail care discussed with RN Subjective Allergies: Coded Allergies: No Known Allergies (Unverified , 12/05/18) Subjective reviewed care and discussed on iv hydration and antibiotics low K Objective Vital Signs Noted Laboratory Tests 05/08/19 10:00: Hemoglobin A1c 14.6H 05/09/19 06:52: White Blood Count 7.1, Red Blood Count 3.74L, Hemoglobin 10.8L, Hematocrit 32.8L , Mean Corpuscular Volume 88, Mean Corpuscular Hemoglobin 28.8, Mean Corpuscular Hemoglobin Concent 32.8, Red Cell Distribution Width 12.9, Platelet Count 127L, Mean Platelet Volume 6.3L, Neutrophils (%) (Auto) , Lymphocytes (%) (Auto) , Monocytes (%) (Auto) , Eosinophils (%) (Auto) , Basophils (%) (Auto) , Neutrophils % (Manual) [Pending], Lymphocytes % (Manual) [Pending], Platelet Estimate [Pending], Platelet Morphology [Pending], Sodium Level 140, Potassium Level 2.7*L, Chloride Level 104, Carbon Dioxide Level 24, Anion Gap 12, Blood Urea Nitrogen 21H, Creatinine 0.8, Estimat Glomerular Filtration Rate > 60, Glucose Level 265H, Calcium Level 8.1L Height (Feet): 5 Height (Inches): 8.00 Weight (Pounds): 125 Objective WDWN NAD clear breath sounds bilaterally without rhonchi or wheeze [id number] without MRG NABS nontender no HSM no CCE nonfocal weak Subjective ROS Limited/Unobtainable: No Allergies: Coded Allergies: No Known Allergies (Unverified , 12/05/18) Objective Last 24 Hour Vital Signs Date Time Temp Pulse Resp B/P (MAP) Pulse Ox O2 Delivery O2 Flow Rate FiO2 05/10/19 04:00 112 05/10/19 04:00 98.2 102 18 144/79 (100) 96 05/10/19 00:00 104 05/10/19 00:00 98.1 105 19 132/88 (103) 91 05/09/19 21:00 Room Air 05/09/19 20:00 98.2 102 18 141/97 (112) 93 05/09/19 20:00 102 05/09/19 16:00 102 05/09/19 16:00 98.1 104 18 117/74 (88) 95 Intake and Output 05/09/19 05/10/19 19:00 07:00 Intake Total 460 ml 1440 ml Output Total 2700 ml Balance 460 ml -1260 ml Intake Oral 360 ml 200 ml IV Total 100 ml 1240 ml Output Urine Total 2700 ml # Voids 3 Microbiology Date/Time Source Procedure Growth Status 05/07/19 20:35 Blood Blood Culture - Preliminary Strep Species, Alpha Hemolytic Resulted 05/07/19 20:20 Blood Blood Culture - Preliminary Strep Species, Alpha Hemolytic Resulted 05/07/19 22:00 Nasal Nares - Final Complete 05/07/19 22:00 Nasal Nares - Final Complete 05/07/19 21:30 Urine,Clean Catch Urine Culture - Preliminary Resulted Laboratory Tests 05/09/19 12:45: Potassium Level 2.9L 05/10/19 00:50: Potassium Level 3.2L 05/10/19 07:17: Potassium Level 3.3L, White Blood Count 7.2, Red Blood Count 4.01L, Hemoglobin 11.3L, Hematocrit 35.6L, Mean Corpuscular Volume 89, Mean Corpuscular Hemoglobin 28.2, Mean Corpuscular Hemoglobin Concent 31.7L, Red Cell Distribution Width 15.0H, Platelet Count 127L, Mean Platelet Volume 7.0, Neutrophils (%) (Auto) , Lymphocytes (%) (Auto) , Monocytes (%) (Auto) , Eosinophils (%) (Auto) , Basophils (%) (Auto) , Differential Total Cells Counted 100, Neutrophils % (Manual) 86H, Lymphocytes % (Manual) 8L, Monocytes % (Manual) 6, Eosinophils % (Manual) 0, Basophils % (Manual) 0, Band Neutrophils 0 , Platelet Estimate DecreasedL, Platelet Morphology Normal, Anisocytosis 1+, Sodium Level 141, Chloride Level 106, Carbon Dioxide Level 25, Anion Gap 10, Blood Urea Nitrogen 21H, Creatinine 0.7, Estimat Glomerular Filtration Rate > 60 , Glucose Level 288H, Calcium Level 8.1L Current Medications Medications (Trade) Dose Ordered Sig/Sanjeev Route PRN Reason Start Time Stop Time Status Last Admin Dose Admin Acetaminophen (Tylenol) 650 mg Q6H PRN ORAL Mild Pain/Temp > 100.5 05/08/19 08:45 06/07/19 08:44 05/10/19 10:40 Ceftriaxone Sodium 1 gm/ Dextrose 55 ml @ 110 mls/hr Q24H IVPB 05/10/19 14:00 05/17/19 13:59 Dextrose (Dextrose 50%) 25 ml Q30M PRN IV Hypoglycemia 05/08/19 09:00 06/07/19 08:59 Dextrose (Dextrose 50%) 50 ml Q30M PRN IV Hypoglycemia 05/08/19 09:00 06/07/19 08:59 Heparin Sodium (Porcine) (Heparin 5000 units/ml) 5,000 units EVERY 12 HOURS SUBQ 05/08/19 09:00 06/07/19 08:59 05/08/19 20:51 Hydromorphone HCl (Dilaudid) 0.5 mg Q3H PRN IVP Severe Pain (Pain Scale 7-10) 05/08/19 08:45 05/15/19 08:44 05/10/19 08:09 Insulin Aspart (NovoLOG) BEFORE MEALS AND HS SUBQ 05/08/19 11:30 06/07/19 11:29 05/10/19 05:59 Ondansetron HCl (Zofran) 4 mg Q6H PRN IVP Nausea & Vomiting 05/08/19 16:45 06/07/19 16:44 Sodium Chloride 1,000 ml @ 100 mls/hr Q10H IV 05/08/19 10:00 06/07/19 09:59 05/10/19 01:54 Mamadou Charles MD May 10, 2019 12:13
--- NOTE | 2019-05-10 14:07 | NUR ---
CASE MANAGEMENT:REVIEW 05/10/19 SI: SEPSIS. PNA. DEHYDRATION STAGE IV PROSTATE CANCER S/P RECENT CHEMOTHERAPY 98.2 112 18 144/79 96% ON RA PLT-127 K-3.3 IS: IV ROCEPHIN Q24 IV KCL Q1HRS X2 IVF@100/HR IV DILAUDID Q3HRS PRN : TELEMETRY STATUS DCP: FROM HOME PLAN: PT MARGA
[2019-05-10] MEDS: cefTRIAXone 1 GM in D5W 55 ML IVPB SCH (15:36)
[2019-05-10 16:00] VITALS: BP 122/83
--- NOTE | 2019-05-10 16:29 | NUR ---
DISCHARGE PLANNING DISCHARGE PLANNING ORDER NOTED FOR HOME HEALTH
--- NOTE | 2019-05-10 18:50 | NUR ---
HAND-OFF: Report given to VINCENT Gregorio.
--- NOTE | 2019-05-10 19:15 | NUR ---
NURSE NOTES: Received report from VINCENT Gregorio. Patient is awake lying semi-pascual's; resting comfortably. No signs of acute distress noted; complains of pain. AOx4; able to make needs known. Checked IV site, lines, and IV rate; patent and running. No erythema, bleeding, or infiltration noted. Bed at lowest position, brakes on, siderails up x3. Call light within reach. Will continue to monitor.
[2019-05-10 20:00] VITALS: BP 93/57
[2019-05-11] VITALS: BP 124/79
[2019-05-11] MEDS: Hydromorphone 0.5mg/0.5ml inj IVP PRN ×6 (02:05→23:18)
[2019-05-11 04:00] VITALS: BP 117/71
[2019-05-11] MEDS: NovoLOG Insulin Flexpen SUBQ SCH ×3 (06:51→16:30)
[2019-05-11 07:08] LABS: BASOPHILS % (AUTO) 0.2 % (0.0-2.0); EOSINOPHILS % (AUTO) 0.1 % (0.0-3.0); HEMATOCRIT 31.4 % (42.0-52.0); HEMOGLOBIN 10.2 G/DL (14.2-18.0); LYMPHOCYTES % (AUTO) 8.8 % (20.0-45.0); MEAN CORPUSCULAR VOLUME 88 FL (80-99); MONOCYTES % (AUTO) 7.5 % (1.0-10.0); NEUTROPHILS % (AUTO) 83.4 % (45.0-75.0); PLATELET COUNT 122 K/UL (150-450); RED BLOOD COUNT 3.56 M/UL (4.70-6.10); RED CELL DISTRIBUTION WIDTH 15.2 % (11.6-14.8); WHITE BLOOD COUNT 9.3 K/UL (4.8-10.8)
[2019-05-11 07:18] LABS: ANION GAP 6 mmol/L (5-15); BLOOD UREA NITROGEN 18 mg/dL (7-18); CARBON DIOXIDE 27 MMOL/L (21-32); CHLORIDE 107 MMOL/L (98-107); CREATININE 0.7 MG/DL (0.55-1.30); POTASSIUM 3.3 MMOL/L (3.5-5.1); SODIUM 140 MMOL/L (136-145)
--- NOTE | 2019-05-11 07:31 | NUR ---
HAND-OFF: Report given to VINCENT Latham. Patient is asleep lying semi-pascual's; resting comfortably. In stable condition.
--- NOTE | 2019-05-11 07:42 | NUR ---
NURSE NOTES: Received patient from Charles Madden. Patient is awake lying comfortably in bed. No complain of pain or discomfort. Fall precautions in place. Call osborn within patients reach. Will follow.
[2019-05-11 08:00] VITALS: BP 133/81
--- NOTE | 2019-05-11 08:14 | General Progress Note ---
Assessment/Plan Assessment/Plan: Impression: Dehydration Stage IV Prostate cancer s/p recent chemotherapy Sepsis, possible Possible UTI low K Sepsis Plan IV Antibiotics: ceftriaxone dc fluids ID follow up replace K [employer] CHIEF Medications Monitor Labs PPX O2 PRN Pain medications await ID clearance impression, plan, and exam edited and reviewed in detail care discussed with RN Subjective Allergies: Coded Allergies: No Known Allergies (Unverified , 12/05/18) Subjective reviewed care and discussed on iv antibiotics low K Objective Last 24 Hour Vital Signs Date Time Temp Pulse Resp B/P (MAP) Pulse Ox O2 Delivery O2 Flow Rate FiO2 05/11/19 04:00 92 05/11/19 04:00 98.1 97 17 117/71 (86) 98 05/11/19 00:00 91 05/11/19 00:00 97.7 96 18 124/79 (94) 95 05/10/19 21:00 Room Air 05/10/19 20:00 100 05/10/19 20:00 97.3 101 16 93/57 (69) 97 05/10/19 16:00 102 05/10/19 16:00 98.2 108 18 122/83 (96) 95 05/10/19 12:00 105 05/10/19 12:00 97.7 98 18 112/79 (90) 95 05/10/19 09:00 Room Air Intake and Output 05/10/19 05/11/19 19:00 07:00 Intake Total 300 ml 1437 ml Output Total 1000 ml 800 ml Balance -700 ml 637 ml Intake Oral 200 ml 240 ml IV Total 100 ml 1197 ml Output Urine Total 1000 ml 800 ml # Bowel Movements 1 Laboratory Tests 05/11/19 05:30: White Blood Count 9.3, Red Blood Count 3.56L, Hemoglobin 10.2L, Hematocrit 31.4L , Mean Corpuscular Volume 88, Mean Corpuscular Hemoglobin 28.7, Mean Corpuscular Hemoglobin Concent 32.6, Red Cell Distribution Width 15.2H, Platelet Count 122L, Mean Platelet Volume 7.9, Neutrophils (%) (Auto) 83.4H, Lymphocytes (%) (Auto) 8.8L, Monocytes (%) (Auto) 7.5, Eosinophils (%) (Auto) 0.1, Basophils (%) (Auto) 0.2, Sodium Level 140, Potassium Level 3.3L, Chloride Level 107, Carbon Dioxide Level 27, Anion Gap 6, Blood Urea Nitrogen 18, Creatinine 0.7, Estimat Glomerular Filtration Rate > 60, Glucose Level 212H, Calcium Level 8.0L Height (Feet): 5 Height (Inches): 8.00 Weight (Pounds): 129 Objective WDWN NAD clear breath sounds bilaterally without rhonchi or wheeze [id number] without MRG NABS nontender no HSM no CCE nonfocal weak Jason Garcia MD May 11, 2019 08:14
[2019-05-11] MEDS: Heparin 5000 units/ml inj SUBQ SCH ×2 (08:41→20:12)
--- NOTE | 2019-05-11 11:56 | Infectious Diseases Prog Note ---
Assessment/Plan Assessment/Plan A; 1. Urinary tract infection. 2. left lung pneumonia 3. Pneumococcal sepsis 4. Prostate cancer 5. DM 6. HPN PLAN: 1. Continue ceftriaxone 2. We will follow cultures. Subjective ROS Limited/Unobtainable: No Constitutional: Reports: no symptoms Respiratory: Reports: productive cough Gastrointestinal/Abdominal: Reports: no symptoms Genitourinary: Reports: no symptoms Musculoskeletal: Reports: pain, other - back pain Allergies: Coded Allergies: No Known Allergies (Unverified , 12/05/18) Objective Vital Signs Last 24 Hour Vital Signs Date Time Temp Pulse Resp B/P (MAP) Pulse Ox O2 Delivery O2 Flow Rate FiO2 05/11/19 09:00 Room Air 05/11/19 08:00 109 05/11/19 08:00 97.3 104 19 133/81 (98) 94 05/11/19 04:00 92 05/11/19 04:00 98.1 97 17 117/71 (86) 98 05/11/19 00:00 91 05/11/19 00:00 97.7 96 18 124/79 (94) 95 05/10/19 21:00 Room Air 05/10/19 20:00 100 05/10/19 20:00 97.3 101 16 93/57 (69) 97 05/10/19 16:00 102 05/10/19 16:00 98.2 108 18 122/83 (96) 95 05/10/19 12:00 105 05/10/19 12:00 97.7 98 18 112/79 (90) 95 Height (Feet): 5 Height (Inches): 8.00 Weight (Pounds): 129 General Appearance: no acute distress Respiratory/Chest: lungs clear Cardiovascular: tachycardia Abdomen: soft, non tender Extremities: no edema Skin: ulcers Neurologic/Psychiatric: alert, responsive Laboratory Tests Test 05/11/19 05:30 White Blood Count 9.3 K/UL (4.8-10.8) Red Blood Count 3.56 M/UL (4.70-6.10) L Hemoglobin 10.2 G/DL (14.2-18.0) L Hematocrit 31.4 % (42.0-52.0) L Mean Corpuscular Volume 88 FL (80-99) Mean Corpuscular Hemoglobin 28.7 PG (27.0-31.0) Mean Corpuscular Hemoglobin Concent 32.6 G/DL (32.0-36.0) Red Cell Distribution Width 15.2 % (11.6-14.8) H Platelet Count 122 K/UL (150-450) L Mean Platelet Volume 7.9 FL (6.5-10.1) Neutrophils (%) (Auto) 83.4 % (45.0-75.0) H Lymphocytes (%) (Auto) 8.8 % (20.0-45.0) L Monocytes (%) (Auto) 7.5 % (1.0-10.0) Eosinophils (%) (Auto) 0.1 % (0.0-3.0) Basophils (%) (Auto) 0.2 % (0.0-2.0) Sodium Level 140 MMOL/L (136-145) Potassium Level 3.3 MMOL/L (3.5-5.1) L Chloride Level 107 MMOL/L (98-107) Carbon Dioxide Level 27 MMOL/L (21-32) Anion Gap 6 mmol/L (5-15) Blood Urea Nitrogen 18 mg/dL (7-18) Creatinine 0.7 MG/DL (0.55-1.30) Estimat Glomerular Filtration Rate > 60 mL/min (>60) Glucose Level 212 MG/DL (74-106) H Calcium Level 8.0 MG/DL (8.5-10.1) L Current Medications Medications (Trade) Dose Ordered Sig/Sanjeev Route PRN Reason Start Time Stop Time Status Last Admin Dose Admin Acetaminophen (Tylenol) 650 mg Q6H PRN ORAL Mild Pain/Temp > 100.5 05/08/19 08:45 06/07/19 08:44 05/10/19 16:53 Ceftriaxone Sodium 1 gm/ Dextrose 55 ml @ 110 mls/hr Q24H IVPB 05/10/19 14:00 05/17/19 13:59 05/10/19 15:36 Dextrose (Dextrose 50%) 25 ml Q30M PRN IV Hypoglycemia 05/08/19 09:00 06/07/19 08:59 Dextrose (Dextrose 50%) 50 ml Q30M PRN IV Hypoglycemia 05/08/19 09:00 06/07/19 08:59 Heparin Sodium (Porcine) (Heparin 5000 units/ml) 5,000 units EVERY 12 HOURS SUBQ 05/08/19 09:00 06/07/19 08:59 05/11/19 08:41 Hydromorphone HCl (Dilaudid) 0.5 mg Q3H PRN IVP Severe Pain (Pain Scale 7-10) 05/08/19 08:45 05/15/19 08:44 05/11/19 08:39 Insulin Aspart (NovoLOG) BEFORE MEALS AND HS SUBQ 05/08/19 11:30 06/07/19 11:29 05/11/19 06:51 Ondansetron HCl (Zofran) 4 mg Q6H PRN IVP Nausea & Vomiting 05/08/19 16:45 06/07/19 16:44 Potassium Chloride (K-Dur) 40 meq ONCE ORAL 05/11/19 11:15 05/11/19 12:15 Sodium Chloride 1,000 ml @ 100 mls/hr Q10H IV 05/08/19 10:00 06/07/19 09:59 05/11/19 08:00 Rod Carballo MD May 11, 2019 11:56
[2019-05-11 12:00] VITALS: BP 128/68
[2019-05-11] MEDS: cefTRIAXone 1 GM in D5W 55 ML IVPB SCH (13:12)
--- NOTE | 2019-05-11 15:35 | NUR ---
CASE MANAGEMENT:REVIEW 05/11/19 SI: SEPSIS. PNA.BACTEREMIA. DEHYDRATION STAGE IV PROSTATE CANCER S/P RECENT CHEMOTHERAPY 97.3 104 19 133/81 94% ON RA H/H-10.2/31.4 K-3.3 IS: IV ROCEPHIN Q24 IVF@100/HR HEPARIN SQ Q12 IV DILAUDID Q3HRS PRN : TELEMETRY STATUS DCP: FROM HOME PLAN: NOT READY FOR DISCHARGE TODAY PER ID...... BLOOD CULTURE (+) STREP PNEUMONIAE...WAITING FOR BLOOD CULTURE SENSITIVITY BEFORE DISCHARGE PLAN: PT MARGA
[2019-05-11 16:00] VITALS: BP 131/63
--- NOTE | 2019-05-11 19:42 | NUR ---
HAND-OFF: Report given to Charles Oscar. Plan iof care endorsed.
--- NOTE | 2019-05-11 19:45 | NUR ---
NURSE NOTES: Patient is awake with eyes closed, in supine position, resting comfortably. No signs of acute distress noted; mild complaints of pain, however cannot receive pain med at this time. AOx4; able to make needs known. Checked IV site, patent and asymptomatic. No erythema, bleeding, or infiltration noted. Bed at lowest position, locked, siderails up x3. Call light within reach. Will continue to monitor.
[2019-05-11 20:00] VITALS: BP 123/76
--- NOTE | 2019-05-11 20:02 | NUR ---
NURSE NOTES: Pt will be transferred to 4th floor to 409.
--- NOTE | 2019-05-11 21:26 | NUR ---
TRANSFER TO FLOOR: Patient transferred to 4th floor [id number],Report given to VINCENT Brito. Belongings signed and accounted for. Pt in no acute distress. Is resting at this time.
--- NOTE | 2019-05-11 23:37 | NUR ---
NURSE NOTES: Pt transferred from tele @ 2049. Report received from VINCENT Ferguson. AAO x 4, on room air. Belongings reviewed. Vitals stable. Able to make needs known. IV intact and running IVF. No acute distress noted. Bed locked, lowest position, alarm on, side rails up, call light within reach. Will continue to monitor.
[2019-05-12] VITALS: BP 109/63
[2019-05-12 04:00] VITALS: BP 111/73
[2019-05-12] MEDS: Hydromorphone 0.5mg/0.5ml inj IVP PRN ×5 (05:02→20:17)
[2019-05-12] MEDS: NovoLOG Insulin Flexpen SUBQ SCH ×4 (05:50→20:26)
--- NOTE | 2019-05-12 06:53 | NUR ---
NURSE NOTES: Received call from kim Maradiaga that pt has strptococcus PNA from blood Addendum: 05/12/19 at 0656 by TRAVON URIBE RN RN NURSE NOTES: Left message to Dr. Haris Hooper Waiting for call back.
--- NOTE | 2019-05-12 07:06 | NUR ---
HAND-OFF: Report given to VINCENT Soares.
--- NOTE | 2019-05-12 07:08 | NUR ---
NURSE NOTES: received report from VINCENT Brito. patient in bed. sleeping. no respiratory distress noted. no facial grimacing. IV on LFA running NS@ 100/hr. bed in the lowest position and locked. call light within reach. will continue to provide plan of care.
[2019-05-12 08:00] VITALS: BP 127/88
--- NOTE | 2019-05-12 08:08 | NUR ---
P.T Note: late entry for 05/11/2019 1300 P.T evaluation completed and and tx initiated. Please refer to P.T evaluation for current functional status. Pt is alert, O x 4 . Pt denied c/o pain but generalized weakness and poor energy . Pt currently require extended time and intermittent rest breaks to initiate and complete mobility tasks. MIN A X 1 for transfers, MIN A X for bed mobilities. Pt too weak to ambulate at this time. Overall poor activity tolerance. Pt will benefit from skilled P.T services to improve his strength and endurance to increase mobility independence and safety. Recommend home P.T and FWW at [place]. Thank you for this referral.
--- NOTE | 2019-05-12 08:39 | General Progress Note ---
Assessment/Plan Assessment/Plan: Impression: Dehydration Stage IV Prostate cancer s/p recent chemotherapy Sepsis, possible Possible UTI low K Sepsis Plan IV Antibiotics: ceftriaxone ? PO ID follow up and clearance Monitor Labs PPX O2 PRN Pain medications home with HH when cleared impression, plan, and exam edited and reviewed in detail care discussed with RN Subjective Allergies: Coded Allergies: No Known Allergies (Unverified , 12/05/18) Subjective reviewed care and discussed on iv antibiotics awaiting ID clearance Objective Last 24 Hour Vital Signs Date Time Temp Pulse Resp B/P (MAP) Pulse Ox O2 Delivery O2 Flow Rate FiO2 05/12/19 04:00 99.5 100 16 111/73 (86) 92 05/12/19 00:00 97.2 91 14 109/63 (78) 95 05/11/19 21:00 Room Air 05/11/19 20:03 101 05/11/19 20:00 97.9 100 16 123/76 (92) 98 05/11/19 16:00 104 05/11/19 16:00 98.1 105 20 131/63 (85) 97 05/11/19 12:00 96.8 60 20 128/68 (88) 97 05/11/19 12:00 107 05/11/19 09:00 Room Air Intake and Output 05/11/19 05/12/19 19:00 07:00 Intake Total 1000 ml 1700 ml Output Total 1200 ml Balance -200 ml 1700 ml Intake Oral 1000 ml IV Total 700 ml Other 1000 ml Output Urine Total 1200 ml # Voids 3 Height (Feet): 5 Height (Inches): 8.00 Weight (Pounds): 129 Objective WDWN NAD clear breath sounds bilaterally without rhonchi or wheeze [id number] without MRG NABS nontender no HSM no CCE nonfocal weak Jason Garcia MD May 12, 2019 08:39
[2019-05-12] MEDS: Heparin 5000 units/ml inj SUBQ SCH ×2 (08:59→20:22)
--- NOTE | 2019-05-12 10:06 | NUR ---
RD ASSESSMENT & RECOMMENDATIONS SEE CARE ACTIVITY FOR COMPLETE ASSESSMENT DAILY ESTIMATED NEEDS: Needs based on CA, underweight/ 55.6kg 30-40 kcals/kg 6390-9530 total kcals 1-2 g protein/kg 56-112 g total protein 25-30 mL/kg 8444-5124 total fluid mLs NUTRITION DIAGNOSIS: Increased kcal/prot needs R/T catabolic dx and underweight status as evidenced by h/o stage IV Prostate cancer s/p recent chemotherapy, pt @ 79% IBW, underweight BMI per guidelines. CURRENT DIET:CCHO MED, soft easy chew PO DIET RECOMMENDATIONS: CCHO MED/ texture as tolerated + Glucerna TID w/ meals ADDITIONAL RECOMMENDATIONS: * Calibtated or standing wt for accurate CBW * Monitor PO acceptance and tolerance-> variable -h/o stage 4 CA, s/p recent chemo * Consider appetite stimulant w/ continued poor PO intake * Monitor need for long acting insulin : BGs 200's, A1C 14.6 -> pt w/ poor PO at this time, monitor for hypoglycemia * Add snacks in b/w meals
--- NOTE | 2019-05-12 10:14 | NUR ---
CASE MANAGEMENT:REVIEW 05/12/19 SI: SEPSIS. PNA.BACTEREMIA. DEHYDRATION STAGE IV PROSTATE CANCER S/P RECENT CHEMOTHERAPY 97.7 82 17 127/88 96% ON RA IS: IV ROCEPHIN Q24 IVF@100/HR HEPARIN SQ Q12 IV DILAUDID Q3HRS PRN : TELEMETRY STATUS DCP: FROM HOME
[2019-05-12 12:00] VITALS: BP 94/60
--- NOTE | 2019-05-12 12:21 | Infectious Diseases Prog Note ---
Assessment/Plan Assessment/Plan A; 1. Urinary tract infection. 2. left lung pneumonia 3. Pneumococcal sepsis 4. Prostate cancer 5. DM 6. HPN PLAN: 1. Can be discharged with PO Bactrim X 4 days 2. We will follow cultures. Subjective ROS Limited/Unobtainable: No Constitutional: Denies: fever Respiratory: Reports: productive cough Cardiovascular: Reports: no symptoms Gastrointestinal/Abdominal: Reports: no symptoms Genitourinary: Reports: no symptoms Allergies: Coded Allergies: No Known Allergies (Unverified , 12/05/18) Objective Vital Signs Last 24 Hour Vital Signs Date Time Temp Pulse Resp B/P (MAP) Pulse Ox O2 Delivery O2 Flow Rate FiO2 05/12/19 09:00 Room Air 05/12/19 08:00 97.7 82 17 127/88 (101) 96 05/12/19 04:00 99.5 100 16 111/73 (86) 92 05/12/19 00:00 97.2 91 14 109/63 (78) 95 05/11/19 21:00 Room Air 05/11/19 20:03 101 05/11/19 20:00 97.9 100 16 123/76 (92) 98 05/11/19 16:00 104 05/11/19 16:00 98.1 105 20 131/63 (85) 97 Height (Feet): 5 Height (Inches): 8.00 Weight (Pounds): 129 General Appearance: no acute distress HEENT: mucous membranes moist Respiratory/Chest: lungs clear Cardiovascular: normal rate Abdomen: soft, non tender Extremities: no edema Neurologic/Psychiatric: alert, oriented x 3, responsive Current Medications Medications (Trade) Dose Ordered Sig/Sanjeev Route PRN Reason Start Time Stop Time Status Last Admin Dose Admin Acetaminophen (Tylenol) 650 mg Q6H PRN ORAL Mild Pain/Temp > 100.5 05/11/19 21:35 06/10/19 21:34 Ceftriaxone Sodium 1 gm/ Dextrose 55 ml @ 110 mls/hr Q24H IVPB 05/12/19 14:00 05/17/19 13:59 Dextrose (Dextrose 50%) 25 ml Q30M PRN IV Hypoglycemia 05/11/19 21:30 06/07/19 08:59 Dextrose (Dextrose 50%) 50 ml Q30M PRN IV Hypoglycemia 05/11/19 21:30 06/07/19 08:59 Heparin Sodium (Porcine) (Heparin 5000 units/ml) 5,000 units EVERY 12 HOURS SUBQ 05/12/19 09:00 06/07/19 08:59 Hydromorphone HCl (Dilaudid) 0.5 mg Q3H PRN IVP Severe Pain (Pain Scale 7-10) 05/11/19 23:45 05/15/19 08:44 05/12/19 09:05 Insulin Aspart (NovoLOG) BEFORE MEALS AND HS SUBQ 05/12/19 06:30 06/07/19 11:29 05/12/19 12:17 Ondansetron HCl (Zofran) 4 mg Q6H PRN IVP Nausea & Vomiting 05/11/19 21:50 06/07/19 21:49 Sodium Chloride 1,000 ml @ 100 mls/hr Q10H IV 05/11/19 22:00 06/07/19 21:59 05/12/19 08:00 Rod Carballo MD May 12, 2019 12:21
--- NOTE | 2019-05-12 15:00 | NUR ---
P.T. NOTES ADDENDUM S/P: APPROACHED PATIENT'S ROOM 3X TODAY. EACH TIME PATIENT DECLINED P.T. TX. RN. NOTIFIED. WILL F/U NEXT TX. TIME AND CONT W/P.T. PLAN. RSABADO.
[2019-05-12] MEDS: cefTRIAXone 1 GM in D5W 55 ML IVPB SCH (15:31)
[2019-05-12 16:00] VITALS: BP 92/62
--- NOTE | 2019-05-12 19:10 | NUR ---
NURSE NOTES: Pt received in bed awake, able to make needs known, call light within reach, no c/o pain or signs of distress, head of bed elevated, will continue to monitor.
--- NOTE | 2019-05-12 19:10 | NUR ---
HAND-OFF: Report given to VINCENT Galindo.
[2019-05-12 20:00] VITALS: BP 114/74
[2019-05-13] VITALS: BP 118/72
[2019-05-13] MEDS: Hydromorphone 0.5mg/0.5ml inj IVP PRN ×7 (01:06→23:42)
[2019-05-13 04:00] VITALS: BP 112/67
[2019-05-13] MEDS: NovoLOG Insulin Flexpen SUBQ SCH ×4 (06:12→20:35)
--- NOTE | 2019-05-13 07:25 | NUR ---
HAND-OFF: Report given to VINCENT stein.
--- NOTE | 2019-05-13 07:29 | NUR ---
NURSE NOTES: Received report from VINCENT Navarrete. Patient in bed, alert, and eating breakfast. On room air, no signs of distress or labored breathing. IV intact, patent, and infusing IV fluids. Bed in lowest position with call light in reach. Will continue with plan of care.
[2019-05-13 08:00] VITALS: BP 99/70
[2019-05-13] MEDS: Heparin 5000 units/ml inj SUBQ SCH ×2 (09:00→20:36)
--- NOTE | 2019-05-13 09:01 | General Progress Note ---
Assessment/Plan Assessment/Plan: Impression: Dehydration Stage IV Prostate cancer s/p recent chemotherapy Sepsis, possible Possible UTI low K Sepsis Hematuria, resolved Plan PO bactrim dc home impression, plan, and exam edited and reviewed in detail care discussed with RN Subjective Allergies: Coded Allergies: No Known Allergies (Unverified , 12/05/18) Subjective reviewed care and discussed cleared by ID patient notes she needs rehab Objective Last 24 Hour Vital Signs Date Time Temp Pulse Resp B/P (MAP) Pulse Ox O2 Delivery O2 Flow Rate FiO2 05/13/19 04:00 97.6 93 16 112/67 (82) 96 05/13/19 00:00 98.1 105 18 118/72 (87) 98 05/12/19 21:00 Room Air 05/12/19 20:00 97.9 106 16 114/74 (87) 90 05/12/19 16:00 98.1 97 18 92/62 (72) 98 05/12/19 12:00 97.8 85 19 94/60 (71) 98 Intake and Output 05/12/19 05/13/19 19:00 07:00 Intake Total 1910 ml 2400 ml Output Total 400 ml Balance 1510 ml 2400 ml Intake Oral 800 ml 1400 ml IV Total 1110 ml 1000 ml Output Urine Total 400 ml # Voids 5 Height (Feet): 5 Height (Inches): 8.00 Weight (Pounds): 129 Objective WDWN NAD clear breath sounds bilaterally without rhonchi or wheeze [id number] without MRG NABS nontender no HSM no CCE nonfocal weak Jason Garcia MD May 13, 2019 09:01
--- NOTE | 2019-05-13 11:49 | Infectious Diseases Prog Note ---
Assessment/Plan Assessment/Plan A; 1. Urinary tract infection. 2. left lung pneumonia 3. Pneumococcal sepsis 4. Prostate cancer 5. DM 6. HPN PLAN: 1. Can be discharged with PO Bactrim X 4 days 2. We will follow cultures. Subjective ROS Limited/Unobtainable: Yes Constitutional: Reports: no symptoms Musculoskeletal: Reports: pain, other - in left knee Allergies: Coded Allergies: No Known Allergies (Unverified , 12/05/18) Objective Vital Signs Last 24 Hour Vital Signs Date Time Temp Pulse Resp B/P (MAP) Pulse Ox O2 Delivery O2 Flow Rate FiO2 05/13/19 09:00 Room Air 05/13/19 08:00 97.8 119 19 99/70 (80) 94 05/13/19 04:00 97.6 93 16 112/67 (82) 96 05/13/19 00:00 98.1 105 18 118/72 (87) 98 05/12/19 21:00 Room Air 05/12/19 20:00 97.9 106 16 114/74 (87) 90 05/12/19 16:00 98.1 97 18 92/62 (72) 98 05/12/19 12:00 97.8 85 19 94/60 (71) 98 Height (Feet): 5 Height (Inches): 8.00 Weight (Pounds): 129 General Appearance: no acute distress HEENT: mucous membranes moist Respiratory/Chest: lungs clear Cardiovascular: tachycardia Abdomen: soft, non tender Extremities: no edema Skin: ulcers, other - left knee Neurologic/Psychiatric: alert, responsive Current Medications Medications (Trade) Dose Ordered Sig/Sanjeev Route PRN Reason Start Time Stop Time Status Last Admin Dose Admin Acetaminophen (Tylenol) 650 mg Q6H PRN ORAL Mild Pain/Temp > 100.5 05/11/19 21:35 06/10/19 21:34 Ceftriaxone Sodium 1 gm/ Dextrose 55 ml @ 110 mls/hr Q24H IVPB 05/12/19 14:00 05/17/19 13:59 05/12/19 15:31 Dextrose (Dextrose 50%) 25 ml Q30M PRN IV Hypoglycemia 05/11/19 21:30 06/07/19 08:59 Dextrose (Dextrose 50%) 50 ml Q30M PRN IV Hypoglycemia 05/11/19 21:30 06/07/19 08:59 Heparin Sodium (Porcine) (Heparin 5000 units/ml) 5,000 units EVERY 12 HOURS SUBQ 05/12/19 09:00 06/07/19 08:59 Hydromorphone HCl (Dilaudid) 0.5 mg Q3H PRN IVP Severe Pain (Pain Scale 7-10) 05/11/19 23:45 05/15/19 08:44 05/13/19 11:26 Insulin Aspart (NovoLOG) BEFORE MEALS AND HS SUBQ 05/12/19 06:30 06/07/19 11:29 05/13/19 06:12 Ondansetron HCl (Zofran) 4 mg Q6H PRN IVP Nausea & Vomiting 05/11/19 21:50 06/07/19 21:49 Sodium Chloride 1,000 ml @ 100 mls/hr Q10H IV 05/11/19 22:00 06/07/19 21:59 05/13/19 03:48 Rod Carballo MD May 13, 2019 11:49
[2019-05-13 12:00] VITALS: BP 96/61
[2019-05-13] MEDS: cefTRIAXone 1 GM in D5W 55 ML IVPB SCH (15:09)
[2019-05-13 16:00] VITALS: BP 99/70
--- NOTE | 2019-05-13 19:20 | NUR ---
HAND-OFF: Report given to VINCENT Navarrete.
--- NOTE | 2019-05-13 19:41 | NUR ---
NURSE NOTES: Pt received in bed awake, no c/o pain, able to make needs known, call light within reach, will continue to monitor.
[2019-05-13 20:00] VITALS: BP 106/76
[2019-05-14] VITALS: BP 115/70
[2019-05-14] MEDS: Hydromorphone 0.5mg/0.5ml inj IVP PRN ×6 (03:32→20:36)
[2019-05-14 04:00] VITALS: BP 118/74
[2019-05-14] MEDS: NovoLOG Insulin Flexpen SUBQ SCH ×4 (06:13→20:36)
--- NOTE | 2019-05-14 07:35 | NUR ---
HAND-OFF: Report given to VINCENT Lucero.
--- NOTE | 2019-05-14 07:48 | General Progress Note ---
Assessment/Plan Assessment/Plan: Impression: Dehydration Stage IV Prostate cancer s/p recent chemotherapy Sepsis, possible Possible UTI low K Sepsis Hematuria, resolved Plan PO bactrim dc home pending PT eval and safety clearance impression, plan, and exam edited and reviewed in detail care discussed with RN Subjective Allergies: Coded Allergies: No Known Allergies (Unverified , 12/05/18) Subjective reviewed care and discussed cleared by ID dc held due to safe discharge Objective Last 24 Hour Vital Signs Date Time Temp Pulse Resp B/P (MAP) Pulse Ox O2 Delivery O2 Flow Rate FiO2 05/14/19 04:00 97.8 103 20 118/74 (89) 95 05/14/19 00:00 98.4 95 22 115/70 (85) 97 05/13/19 21:00 Room Air 05/13/19 20:00 97.6 102 20 106/76 (86) 95 05/13/19 16:00 98.0 86 18 99/70 (80) 97 05/13/19 12:00 97.6 101 18 96/61 (73) 91 05/13/19 09:00 Room Air 05/13/19 08:00 97.8 119 19 99/70 (80) 94 Intake and Output 05/13/19 05/14/19 19:00 07:00 Intake Total 1800 ml Balance 1800 ml Other 1800 ml Height (Feet): 5 Height (Inches): 8.00 Weight (Pounds): 129 Objective WDWN NAD clear breath sounds bilaterally without rhonchi or wheeze [id number] without MRG NABS nontender no HSM no CCE nonfocal weak Jason Garcia MD May 14, 2019 07:48
[2019-05-14 08:00] VITALS: BP 110/79
--- NOTE | 2019-05-14 08:20 | NUR ---
NURSE NOTES: received patient in bed, no complaint of pain or discomfort. Receiving IVF through RFA access, no sign of infiltration or leakage noted. Bed locked at the lowest position possible, call light within easy reach, siderails up x2. Urinal at the bedside. Will continue to monitor patient and follow up with the plan of care.
[2019-05-14] MEDS: Heparin 5000 units/ml inj SUBQ SCH ×2 (08:25→21:00)
[2019-05-14 12:00] VITALS: BP 100/66
[2019-05-14] MEDS: cefTRIAXone 1 GM in D5W 55 ML IVPB SCH (13:43)
[2019-05-14] MEDS ORDERED: Tubing IV Secondary IV ONE (15:42)
[2019-05-14 16:00] VITALS: BP 122/83
--- NOTE | 2019-05-14 20:00 | NUR ---
NURSE NOTES: Received patient comfortably resting in bed, no SOB noted, watching television.
[2019-05-14 20:19] VITALS: BP 92/66
[2019-05-15] MEDS: Hydromorphone 0.5mg/0.5ml inj IVP PRN ×5 (00:20→15:09)
[2019-05-15 00:24] VITALS: BP 114/70
[2019-05-15 04:19] VITALS: BP 112/74
[2019-05-15] MEDS: NovoLOG Insulin Flexpen SUBQ SCH ×3 (05:18→16:31)
[2019-05-15] MEDS: Levemir Flexpen SUBQ SCH ×2 (05:18→12:07)
--- NOTE | 2019-05-15 07:07 | NUR ---
HAND-OFF: Report given to Jazmine Ayoub RN.
[2019-05-15 08:00] VITALS: BP 111/75
--- NOTE | 2019-05-15 08:03 | General Progress Note ---
Assessment/Plan Assessment/Plan: Impression: Dehydration Stage IV Prostate cancer s/p recent chemotherapy Sepsis, possible Possible UTI low K Sepsis Hematuria, resolved diabetes Plan PO bactrim ? dc in am dc home pending PT eval and safety clearance [facility] impression, plan, and exam edited and reviewed in detail care discussed with RN Subjective Allergies: Coded Allergies: No Known Allergies (Unverified , 12/05/18) Subjective reviewed care and discussed cleared by ID dc held due to safe discharge sugars elevated Objective Last 24 Hour Vital Signs Date Time Temp Pulse Resp B/P (MAP) Pulse Ox O2 Delivery O2 Flow Rate FiO2 05/15/19 04:33 98.0 05/15/19 04:19 98.0 102 23 112/74 (87) 97 05/15/19 00:24 98.2 100 20 114/70 (85) 98 05/14/19 21:32 Room Air 05/14/19 20:19 97.8 102 20 92/66 (75) 96 05/14/19 17:53 98.1 05/14/19 16:00 98.1 109 19 122/83 (96) 99 05/14/19 12:00 98.9 98 19 100/66 (77) 94 05/14/19 09:00 Room Air Intake and Output 05/14/19 05/15/19 19:00 07:00 Intake Total 1355 ml 4200 ml Output Total 1850 ml Balance 1355 ml 2350 ml Intake Oral 1800 ml IV Total 155 ml 1200 ml Other 1200 ml 1200 ml Output Urine Total 1850 ml # Voids 2 4 # Bowel Movements 1 Height (Feet): 5 Height (Inches): 8.00 Weight (Pounds): 129 Objective WDWN NAD clear breath sounds bilaterally without rhonchi or wheeze [id number] without MRG NABS nontender no HSM no CCE nonfocal weak Jason Garcia MD May 15, 2019 08:03
[2019-05-15] MEDS: Heparin 5000 units/ml inj SUBQ SCH (09:00)
--- NOTE | 2019-05-15 09:05 | NUR ---
DISCHARGE PLANNING FAXED CLINICALS TO [facility] T:[phone] Addendum: 05/15/19 at 1113 by JIGAR PATRICIA CM DIVYA WITH [facility] CALLED STATING SHE DOES NOT HAVE ANY MALE BEDS SHE IS ANTICIPATING D/C BUT NO MALES. Addendum: 05/15/19 at 1157 by TURNER OLSEN LVN LVN DR CESAR NOTIFIED OF ABOVE FAXED CLINICALS TO [facility]
--- NOTE | 2019-05-15 11:35 | Infectious Diseases Prog Note ---
Assessment/Plan Assessment/Plan antibiotics : ceftriaxone A 1. streptococcus sepsis 2. pneumonia 3. prostate cancer 4. diabetes mellitus 5. hypertension P 1. d/c ceftriaxone 2. start and continue po levoquin 5 more days 3. will follow up cultures Subjective Constitutional: Denies: fever, chills Respiratory: Denies: shortness of breath, dry cough Gastrointestinal/Abdominal: Denies: nausea, vomiting, diarrhea Musculoskeletal: Reports: pain Allergies: Coded Allergies: No Known Allergies (Unverified , 12/05/18) Objective Vital Signs Last 24 Hour Vital Signs Date Time Temp Pulse Resp B/P (MAP) Pulse Ox O2 Delivery O2 Flow Rate FiO2 05/15/19 09:00 98.0 05/15/19 08:00 98.2 101 17 111/75 (87) 95 05/15/19 04:19 98.0 102 23 112/74 (87) 97 05/15/19 00:24 98.2 100 20 114/70 (85) 98 05/14/19 21:32 Room Air 05/14/19 20:19 97.8 102 20 92/66 (75) 96 05/14/19 17:53 98.1 05/14/19 16:00 98.1 109 19 122/83 (96) 99 05/14/19 12:00 98.9 98 19 100/66 (77) 94 Height (Feet): 5 Height (Inches): 8.00 Weight (Pounds): 129 Respiratory/Chest: lungs clear Cardiovascular: normal rate, regular rhythm, no gallop/murmur Abdomen: soft, non tender Extremities: other - + edema Current Medications Medications (Trade) Dose Ordered Sig/Sanjeev Route PRN Reason Start Time Stop Time Status Last Admin Dose Admin Acetaminophen (Tylenol) 650 mg Q6H PRN ORAL Mild Pain/Temp > 100.5 05/11/19 21:35 06/10/19 21:34 Ceftriaxone Sodium 1 gm/ Dextrose 55 ml @ 110 mls/hr Q24H IVPB 05/12/19 14:00 05/17/19 13:59 05/14/19 13:43 Dextrose (Dextrose 50%) 25 ml Q30M PRN IV Hypoglycemia 05/11/19 21:30 06/07/19 08:59 Dextrose (Dextrose 50%) 50 ml Q30M PRN IV Hypoglycemia 05/11/19 21:30 06/07/19 08:59 Heparin Sodium (Porcine) (Heparin 5000 units/ml) 5,000 units EVERY 12 HOURS SUBQ 05/12/19 09:00 06/07/19 08:59 Hydromorphone HCl (Dilaudid) 0.5 mg Q3H PRN IVP Severe Pain (Pain Scale 7-10) 05/14/19 20:45 05/18/19 05:44 05/15/19 08:30 Insulin Aspart (NovoLOG) BEFORE MEALS AND HS SUBQ 05/12/19 06:30 06/07/19 11:29 05/15/19 05:18 Insulin Detemir (Levemir) 8 units BIDBL SUBQ 05/15/19 06:30 06/14/19 06:29 05/15/19 05:18 Ondansetron HCl (Zofran) 4 mg Q6H PRN IVP Nausea & Vomiting 05/11/19 21:50 06/07/19 21:49 Sodium Chloride 1,000 ml @ 100 mls/hr Q10H IV 05/11/19 22:00 06/07/19 21:59 05/15/19 04:03 Gumaro Barakat MD May 15, 2019 11:35
[2019-05-15 12:00] VITALS: BP 128/84
[2019-05-15] MEDS ORDERED: Levofloxacin 500mg tab ORAL SCH (12:00)
[2019-05-15] MEDS ORDERED: Levemir Flexpen SUBQ SCH (13:15)
--- NOTE | 2019-05-15 14:00 | NUR ---
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
--- NOTE | 2019-05-15 15:09 | NUR ---
DISCHARGE PLANNED PATIENT HAS BEEN ACCEPTED TO: [facility] [id number] [address] [address] SKILLED NURSING T: [phone] FOR NURSE TO NURSE REPORT [facility] HAS BEEN ARRANGED FOR 1730 BUS INFO CONSULTANT
[2019-05-15 16:00] VITALS: BP 96/64
--- NOTE | 2019-05-15 17:00 | NUR ---
NURSE NOTES: Patient has been discharged to [facility], report given to facility's nurse coffee supervisor Sameer. Patient signed belongings list and left with all his belongigns. Patient left with 2L O2/min, baseline tachycardia, notified Sameer RN. Patient left by [place] to ambulance [facility], report given to EMT Mumtaz Elmore from [phone]. Patient is in stable condition, no respiratory distress noted. MAYUR Roach was notified of patient's discharge and transportation to [facility].
[2019-05-15 17:56] VITALS: BP 96/64
[2019-05-16] MEDS ORDERED: Levemir Flexpen SUBQ SCH (06:30)
--- NOTE | 2019-05-16 08:13 | Discharge Summary ---
Discharge Summary Discharge Summary _ DATE OF ADMISSION: 05/07/2019 DATE OF DISCHARGE: 05/15/2019 DISCHARGED BY: Dr. Garcia REASON FOR ADMISSION: 64 years old male with possible history of stage IV cancer , had chemo 2 weeks ago , initially was on hospice and then switched to full code, presented with fever, chills , body aches and dry cough. He denied chest pain or shortness of breath; he denied dysuria. He denied nausea , vomiting or abdominal pain . Patient was febrile , tachycardic. Lactic acid 4.0. Chest x-ray revealed left lung infiltrate , likely pneumonia. EKG revealed sinus tachycardia , no acute ischemic changes . Septic work-up initiated . Patient pancultured , started on empiric antibiotics and admitted for further management. CONSULTANTS: ID specialist Dr. Barakat HOSPITAL COURSE: Patient admitted to medical surgical floor . Patient started on IV fluids and continued on broad-spectrum antibiotic . ID specialist followed. Blood culture revealed Strep pneumonia. Influenza swab was negative . Urine culture revealed [place]. Antibiotic regimen was optimized as per ID specialist recommendation. Prior to discharge IV antibiotic changed to oral to complete the course as outpatient. No leukocytosis , fevers resolved. Renal parameters and electrolytes were closely monitored. Potassium was replaced , magnesium stable. With IV hydration BUN from 33 down to 18 , creatinine 0.7. Blood sugar was managed with sliding scale of insulin and long-acting Levemir was initiated. Dose was uptitrated due to uncontrolled blood sugar. Hemoglobin A1c over 14. Diabetic diet provided. Patient was counseled on importance of compliance with medication regimen. Patient will need further optimization of antiglycemic regimen to bring blood sugar under control. DVT prophylaxis provided. Home medication resumed. Blood pressure was closely monitored and remained stable without antihypertensive medication. Patient had evidence of hematuria , which resolved , possibly was related to UTI. Hemoglobin and hematocrit remained at the baseline ; prior to discharge hemoglobin 10.2 hematocrit 31.4. Patient was working with physical therapist. Per physical therapist, patient will benefit from the intermediate facility placement and skilled PT services. Protein supplements provided as per registered respiratory technician recommendation. Placement was found and secured at the intermediate facility . Patient was stable for transfer. FINAL DIAGNOSES: Sepsis with Streptococci bacteremia Pneumonia Probable UTI Stage IV prostate cancer , status post recent therapy Dehydration Hypokalemia Diabetes mellitus [id number] Hypertension Hematuria Moderate protein calorie malnutrition with cachexia and hypoalbuminemia DISCHARGE MEDICATIONS: List of medication was sent to accepting facility DISCHARGE INSTRUCTIONS: Patient was discharged to the intermediate facility. Follow up with medical doctor at the facility. I have been assigned to dictate discharge summary for this account. I was not involved in the patient's management. Gunjan Moody NP May 16, 2019 08:13
== END 2019-05-15 18:25 | DRG 871 ==
LOC: EDBD 19:52 → EMR 20:10 → 2E 21:40 → EDBEDREQSVC 21:51 → EDBEDREQ 21:51 → 4E 05-11 21:28
DX: A40.9 Streptococcal sepsis, unspecified (principal); J18.9 Pneumonia, unspecified organism; E44.0 Moderate protein-calorie malnutrition; N39.0 Urinary tract infection, site not specified; Z68.1 Body mass index [BMI] 19.9 or less, adult; E86.0 Dehydration; C61 Malignant neoplasm of prostate; E87.6 Hypokalemia; E11.65 Type 2 diabetes mellitus with hyperglycemia; I10 Essential (primary) hypertension; F17.200 Nicotine dependence, unspecified, uncomplicated
CPT/HCPCS: 36415; 71045; 80048; 80053; 81003; 82550; 82962; 83036; 83605; 83690; 83735; 83880; 84100; 84132; 85007; 85025; 85610; 85730; 86710; 87040; 87086; 87181; 93005; 93306; 96365; 96368; 96375; 99285; J1815; J2405; J7030; J8499; S5561

== ENCOUNTER 2019-06-18 22:04 | Inpatient (IN) | payer MEDICAID ==
[~2019-06-18] VITALS: Ht 180.3 cm; Wt 55.8 kg
[~2019-06-18 22:04] MED LIST changes: +UNOBMED
--- NOTE | 2019-06-18 22:16 | NUR ---
ED Nurse Note: Pt brought in by ambulance from [facility], staff reported pt with worsening pitting edema in bilateral legs. Pt spo2 in 80's on roomair, placed on 2L nc, 96%, pt placed on pvc monitor. Pt denies sob, pt is A&OX4
--- NOTE | 2019-06-18 22:16 | Emergency Room Report ---
History of Present Illness General Chief Complaint: Edema Source: Patient, Medical Record, EMS Present Illness HPI This is a 64-year-old male who is a detention patient. He has a history of stage IV prostate cancer. He is bedbound. He presents with complaint of lower extremity edema. This is been ongoing issue for months progressively worse. He was admitted here last month for dehydration. He denies any shortness of breath. No fever chills but no nausea no vomiting. Throbbing pain. Swelling is bilateral. Denies any chest pain. Nothing made it better. Nothing made it worse. Allergies: Coded Allergies: No Known Allergies (Unverified , 12/05/18) Patient History Past Medical History: see triage record, old chart reviewed, DM, HTN Past Surgical History: other Pertinent Family History: none Social History: Denies: smoking Immunizations: other Reviewed Nursing Documentation: PMH: Agreed; PSxH: Agreed Nursing Documentation-PMH Hx Diabetes: Yes Hx Cancer: Yes - Bone Review of Systems Eye: Denies: eye pain, blurred vision ENT: Denies: ear pain, nose congestion, throat swelling Respiratory: Denies: cough, shortness of breath Cardiovascular: Denies: chest pain, palpitations Gastrointestinal: Denies: abdominal pain, diarrhea, nausea, vomiting Musculoskeletal: Denies: back pain, joint pain Skin: Denies: rash Neurological: Denies: headache, numbness Endocrine: Denies: increased thirst, increased urine Hematologic/Lymphatic: Denies: easy bruising All Other Systems: negative except mentioned in HPI Physical Exam Vital Signs Date Time Temp Pulse Resp B/P (MAP) Pulse Ox O2 Delivery O2 Flow Rate FiO2 06/18/19 22:05 99.0 102 20 124/68 (86) Room Air Vitals normal. Pulse ox 100% Sp02 EP Interpretation: reviewed, normal General Appearance: well appearing, no apparent distress, alert Head: normocephalic, atraumatic Eyes: bilateral eye PERRL, bilateral eye EOMI ENT: hearing grossly normal, normal pharynx Neck: full range of motion, supple, no meningismus Respiratory: chest non-tender, rales Cardiovascular #1: regular rate, rhythm, no murmur Gastrointestinal: normal bowel sounds, non tender, no mass, no organomegaly, no bruit, non-distended Musculoskeletal: back normal, normal range of motion, swelling - 1-2+ pitting edema Psychiatric: mood/affect normal Medical Decision Making Diagnostic Impression: Primary Impression: CHF exacerbation Qualified Codes: I50.9 - Heart failure, unspecified Additional Impressions: Diabetes mellitus Qualified Codes: E11.9 - Type 2 diabetes mellitus without complications; 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 He has CHF. No evidence of ACS, PE, dissection. White count is elevated. This may be secondary to UTI. Patient is otherwise comfortable. Lasix given. Patient will be admitted for further work-up and ACS rule out. EKG Diagnostic Results Rate: normal Rhythm: NSR ST Segments: other - NSST changes Rhythm Strip Diag. Results EP Interpretation: yes Rate: 99 Rhythm: NSR, no PVC's, no ectopy Chest X-Ray Diagnostic Results Chest X-Ray Diagnostic Results : Chest X-Ray Ordered: Yes # of Views/Limited/Complete: 1 View Indication: Shortness of Breath EP Interpretation: Yes Interpretation: no consolidation, no pneumothorax, other - Vascular congestion Impression: Other - chf Electronically Signed by: Vince Sorensen MD Last Vital Signs Date Time Temp Pulse Resp B/P (MAP) Pulse Ox O2 Delivery O2 Flow Rate FiO2 06/18/19 22:05 99.0 102 20 124/68 (86) Room Air Status: improved Disposition: ADMITTED INPATIENT Condition: Serious Vince Sorensen MD Jun 18, 2019 22:16
[2019-06-18 22:18] VITALS: BP 124/68
[2019-06-18 22:30] LABS: HEMATOCRIT 22.6 % (42.0-52.0); HEMOGLOBIN 7.4 G/DL (14.2-18.0); MEAN CORPUSCULAR VOLUME 85 FL (80-99); PLATELET COUNT 150 K/UL (150-450); RED BLOOD COUNT 2.64 M/UL (4.70-6.10); RED CELL DISTRIBUTION WIDTH 20.1 % (11.6-14.8); WHITE BLOOD COUNT 16.9 K/UL (4.8-10.8)
[2019-06-18] MEDS ORDERED: LEVEMIR100 UNIT/1 SUBQ (22:37)
[2019-06-18] MEDS ORDERED: NOVOLOG100 UNIT/4 SQ (22:37)
[2019-06-18] MEDS ORDERED: NORCO 5-325 TA1 EACH ORAL (22:37)
[2019-06-18] MEDS ORDERED: ACETAMINOPHEN500 M5 ORAL (22:37)
[2019-06-18 22:55] LABS: ANION GAP 11 mmol/L (5-15); BLOOD UREA NITROGEN 13 mg/dL (7-18); CALCIUM 7.9 MG/DL (8.5-10.1); CARBON DIOXIDE 27 MMOL/L (21-32); CHLORIDE 106 MMOL/L (98-107); CREATININE 0.8 MG/DL (0.55-1.30); SODIUM 142 MMOL/L (136-145)
[2019-06-18 23:00] LABS: POTASSIUM 2.7 MMOL/L (3.5-5.1)
[2019-06-18 23:19] LABS: BILIRUBIN, URINE NEGATIVE (NEGATIVE); COLOR,URINE PALE YELLOW; GLUCOSE, URINE (UA) 4+ (NEGATIVE); KETONES,URINE NEGATIVE (NEGATIVE); LEUKOCYTE ESTERASE ,URINE 2+ (NEGATIVE); NITRITE,URINE NEGATIVE (NEGATIVE); PH,URINE 6.5 (4.5-8.0); PROTEIN,URINE 2+ (NEGATIVE); UROBILINOGEN,URINE NORMAL MG/DL (0.0-1.0)
[2019-06-18 23:33] LABS: APPEARANCE,URINE CLOUDY
[2019-06-19] VITALS (10 sets, daily range): BP systolic 106–141; BP diastolic 64–88
[2019-06-19] MEDS ORDERED: cefTRIAXone 1 GM in NS 55 ML IVPB ONE ×2
--- NOTE | 2019-06-19 00:20 | NUR ---
ED Nurse Note: Pt with 2 episodes of diarrhea, urinated 1400ml pale yellow urine
--- NOTE | 2019-06-19 01:00 | NUR ---
ED Nurse Note: ERMD aware of hemoglobin levels, receiving nurse notififed.
--- NOTE | 2019-06-19 01:05 | NUR ---
TRANSFER TO FLOOR: Patient transferred to as ordered, per Dr Garcia. Report given to VINCENT Thomas. Belongings and medications given to . Family and or S/O informed of transfer.
--- NOTE | 2019-06-19 01:15 | NUR ---
NURSE NOTES: ADMITTED PATIENT FROM ER. PATIENT ALERT AND ORIENTED X4, DENIES PAIN AT THIS TIME. BELONGINGS CHECKED. PATIENT DECLINED TO PUT VALUABLES IN HOSPITAL SAFE. PLACED PATIENT ON A MONITOR, SR ON TELE. NOTED SMALL WOUND ON SACRAL AREA, RIGHT ANKLE AND LEFT KNEE, PICTURE TAKEN. PLAN OF CARE REVIEWED.
--- NOTE | 2019-06-19 02:15 | NUR ---
NURSE NOTES: CALLED DR. CESAR FOR ADMISSION ORDERS. AWAITING MD CALL.
[2019-06-19] MEDS ORDERED: MULTIVITAMINS1 EAC8 ORAL (02:33)
--- NOTE | 2019-06-19 07:15 | NUR ---
NURSE NOTES: DR. CESAR CALLED WITH NEW ORDERS.
--- NOTE | 2019-06-19 07:16 | NUR ---
HAND-OFF: Report given to Sandie CADET RN.PATIENT ASLEEP, NO SIGNS OF DISTRESS NOTED.
--- NOTE | 2019-06-19 07:33 | NUR ---
NURSE NOTES: Received report from Martha KAUR. Pt in bed awake an orientedx3. On 2LPM via N/C. Call light and urinal within easy reach. Bed in lowest position and locked. IV site right hand 20G SL patent and asymptomatic. Side railsx3 up for safety. Will continue to plan of care.
--- NOTE | 2019-06-19 07:46 | NUR ---
NURSE NOTES: PER DR. CESAR NO ORDER DVT PROPHYLAXIS AT THIS TIME.
[2019-06-19] MEDS ORDERED: Levemir Flexpen SUBQ SCH ×2 (09:00→21:00)
[2019-06-19] MEDS ORDERED: cefTRIAXone 1gm/D5W 55ml IVPB SCH ×2 (09:00)
--- NOTE | 2019-06-19 09:25 | Diagnostic Imaging Report ---
Indication: Shortness of Technique: One view of the chest Comparison: 05/07/2019 Findings: Interim development of fairly extensive bilateral diffuse interstitial and airspace disease. Interim development of bilateral pleural effusions. The heart size is upper limits normal. There are degenerative changes of the thoracic spine Impression: Bilateral interstitial and airspace infiltrates versus edema, new since prior study 05/07/2019 Bilateral pleural effusions
[2019-06-19 09:51] LABS: HEMATOCRIT 22.5 % (42.0-52.0); HEMOGLOBIN 7.5 G/DL (14.2-18.0); MEAN CORPUSCULAR VOLUME 84 FL (80-99); PLATELET COUNT 155 K/UL (150-450); RED BLOOD COUNT 2.67 M/UL (4.70-6.10); RED CELL DISTRIBUTION WIDTH 20.4 % (11.6-14.8); WHITE BLOOD COUNT 13.8 K/UL (4.8-10.8)
[2019-06-19 10:09] LABS: ANION GAP 8 mmol/L (5-15); BLOOD UREA NITROGEN 11 mg/dL (7-18); CALCIUM 7.9 MG/DL (8.5-10.1); CARBON DIOXIDE 30 MMOL/L (21-32); CHLORIDE 104 MMOL/L (98-107); CREATININE 0.7 MG/DL (0.55-1.30); POTASSIUM 3.3 MMOL/L (3.5-5.1); SODIUM 142 MMOL/L (136-145)
--- NOTE | 2019-06-19 11:15 | NUR ---
RADIOLOGY DEPT., CHEST X-RAY DONE.-P.DYE
--- NOTE | 2019-06-19 11:27 | NUR ---
RD ASSESSMENT & RECOMMENDATIONS SEE CARE ACTIVITY FOR COMPLETE ASSESSMENT DAILY ESTIMATED NEEDS: Needs based on CA, 68.2kg 30-35 kcals/kg 1079-1793 total kcals 1-2 g protein/kg 68-136 g total protein 25-30 mL/kg 4962-6594 total fluid mLs NUTRITION DIAGNOSIS: Increased kcal/prot needs R/T catabolic dx and underweight status as evidenced by h/o stage IV Prostate cancer s/p chemotherapy, pt @87% IBW. CURRENT DIET: Cardiac PO DIET RECOMMENDATIONS--->>> CCHO MED/ texture as tolerated + Glucerna TID w/ meals ADDITIONAL RECOMMENDATIONS: * Calibrated bed scale wt for accurate CBW * Monitor po intake, need for snacks -h/o stage 4 CA, w/ chemo * BG in the 300's, consider increasing levemir -> rec HgA1C * WOUND CARE: add JERRY BID + Vit C 250mg daily F/up w/ WC eval
[2019-06-19] MEDS: NovoLOG Insulin Flexpen SUBQ SCH ×3 (11:50→21:17)
--- NOTE | 2019-06-19 11:57 | Diagnostic Imaging Report ---
. Indication: Shortness of breath Technique: One view of the chest Comparison: 06/18/2019 Findings: Again demonstrated are bilateral large pleural effusions, right greater than left. Generalized interstitial and airspace opacities appear slightly increased. The heart size is normal. Impression: Increased interstitial and airspace infiltrates versus edema, over one day. Persistent large bilateral pleural effusions
--- NOTE | 2019-06-19 12:30 | NUR ---
NURSE NOTES: Ice packs applied.
--- NOTE | 2019-06-19 12:55 | Diagnostic Imaging Report ---
Indication: Pain in both legs, ulcers, bilateral leg edema Technique: Grayscale and duplex images of the bilateral lower extremity veins Comparison: Findings: Bilaterally, grayscale and duplex images demonstrate no evidence of intraluminal thrombus. Normal phasic Doppler waveforms, demonstrating normal augmentation response and no evidence of valvular insufficiency. Greater saphenous vein(s) and tibial veins are patent. Normal compressibility. Incidentally noted is a cyst in the left popliteal fossa measuring 3.4 x 1.1 cm. Also noted is bilateral edema of the subcutaneous fat Impression: Negative for evidence of lower extremity deep venous thrombosis bilaterally Bilateral lower extremity edema Incidental finding left posterior popliteal fossa presumed popliteal cyst
--- NOTE | 2019-06-19 13:46 | Consultation ---
History of Present Illness General Date patient seen: Jun 19, 2019 Reason for Hospitalization: Edema Present Illness HPI This is a very pleasant 64-year-old male with multiple medical comorbidities and known history of stage IV prostate cancer with history of lower extremity edema who presents with worsening edema lower extremities for the past few days. Patient is a long term resident who is otherwise awake alert and responsive stating he feels well but notes some heaviness in his legs and feet. No nausea vomiting fever chills. Labs showed leukocytosis and abnormal electrolyte. Patient admitted for further care and management. Considerations for lower extremity cellulitis given the edema and infectious process as well as multiple wounds being identified surgery called to evaluate and assist with care. Patient seen, patient [place], chart reviewed. Patient states he is near 6 5 tall and hangs over most beds. States his heel rests on a lot of the bedpost occasionally. States he has decreased feeling in his lower extremities. Allergies: Coded Allergies: No Known Allergies (Unverified , 12/05/18) Medication History Scheduled Insulin Detemir (Levemir), 5 UNITS SUBQ BIDAC, (Reported) Lorazepam* (Lorazepam*), Unknown Dose ORAL THREE TIMES A DAY, (Reported) Multivitamin With Minerals (Multivitamins With Minerals*), 1 TAB ORAL DAILY, ( Reported) Prochlorperazine Maleate* (Compazine*), Unknown Dose ORAL Q6H, (Reported) Scheduled PRN Acetaminophen (Acetaminophen), 325 MG ORAL Q4H PRN for Prn Headache/Temp > 101, (Reported) Hydrocodone Bit/Acetaminophen 5-325* (Caballo 5-325*), 1 TAB ORAL Q4H PRN for For Pain, (Reported) Miscellaneous Medications Insulin Aspart (Novolog), 100 UNIT SQ, (Reported) Unable to Obtain Medications (Unable To Obtain Meds), (Reported) Patient History History Provided By: Patient, Medical Record, PMD Healthcare decision maker Resuscitation status Full Code Advanced Directive on File Past Medical/Surgical History Past Medical/Surgical History: (1) Leukocytosis (2) Malnutrition (3) Decubitus skin ulcer (4) Deep tissue injury (5) Abnormal laboratory test result (6) UTI (urinary tract infection) (7) Diabetes mellitus (8) Anemia (9) CHF exacerbation Review of Systems Review of Symptoms General ROS: no weight loss or fever Psychological ROS: no depression or mood changes, no memory loss Ophthalmic ROS: no visual changes or eye irritation ENT ROS: no nasal congestion, hearing loss, dizziness Allergy and Immunology ROS: no allergic symptoms or urticaria Hematological and Lymphatic ROS: no swollen glands, unusual bleeding or bruising Endocrine ROS: no polyuria, polydipsia, weight changes, temperature intolerance Respiratory ROS: no cough, shortness of breath, or wheezing Cardiovascular ROS: no chest pain or dyspnea on exertion Gastrointestinal ROS: denies abdominal pain, bright red blood in stool. Musculoskeletal ROS: no myalgias or arthralgias Neurological ROS: no TIA or stroke symptoms Dermatological ROS: no new or changing skin lesions, rashes or pruritis Physical Exam Physical Exam General appearance: alert, cooperative, no distress, appears stated age Head: Normocephalic, without obvious abnormality, atraumatic Eyes: conjunctivae/corneas clear. PERRL, EOM's intact. Fundi benign Throat: Lips, mucosa, and tongue normal. Teeth and gums normal Neck: supple, symmetrical, trachea midline, no adenopathy, thyroid: not enlarged, symmetric, no tenderness/mass/nodules, no carotid bruit and no JVD Lungs: clear to auscultation bilaterally Heart: regular rate and rhythm, S1, S2 normal, no murmur, click, rub or gallop Abdomen: soft, non-tender. Bowel sounds normal. No masses, no organomegaly Extremities: extremities edema Pulses: 2+ and symmetric Skin: Skin color, texture, turgor normal. No rashes or lesions Neurologic: Grossly normal Last 24 Hour Vital Signs Date Time Temp Pulse Resp B/P (MAP) Pulse Ox O2 Delivery O2 Flow Rate FiO2 06/19/19 13:28 100.0 06/19/19 12:00 95 06/19/19 12:00 98.2 80 20 141/78 (99) 97 06/19/19 09:00 Room Air 06/19/19 08:00 94 06/19/19 08:00 97.4 96 22 134/86 (102) 94 06/19/19 06:00 97.7 88 20 132/88 (103) 90 06/19/19 04:00 91 06/19/19 04:00 97.7 88 20 132/88 (103) 90 06/19/19 03:09 Nasal Cannula 2.0 06/19/19 01:30 98.0 96 24 132/81 (98) 90 06/19/19 01:05 99.0 102 20 124/68 84 Room Air 06/19/19 00:30 98.4 96 18 118/72 100 Nasal Cannula 2.0 06/18/19 22:18 99.0 102 20 124/68 84 Room Air 06/18/19 22:18 102 20 Room Air 06/18/19 22:05 99.0 102 20 124/68 (86) Room Air Intake and Output 06/18/19 06/19/19 19:00 07:00 Intake Total 240 ml Output Total 600 ml Balance -360 ml Intake Oral 240 ml Output Urine Total 600 ml # Voids 3 Laboratory Tests Test 06/18/19 22:20 06/18/19 22:22 06/18/19 23:20 06/19/19 08:05 White Blood Count 16.9 K/UL (4.8-10.8) H 13.8 K/UL (4.8-10.8) H Red Blood Count 2.64 M/UL (4.70-6.10) L 2.67 M/UL (4.70-6.10) L Hemoglobin 7.4 G/DL (14.2-18.0) L 7.5 G/DL (14.2-18.0) L Hematocrit 22.6 % (42.0-52.0) L 22.5 % (42.0-52.0) L Mean Corpuscular Volume 85 FL (80-99) 84 FL (80-99) Mean Corpuscular Hemoglobin 28.0 PG (27.0-31.0) 28.0 PG (27.0-31.0) Mean Corpuscular Hemoglobin Concent 32.7 G/DL (32.0-36.0) 33.1 G/DL (32.0-36.0) Red Cell Distribution Width 20.1 % (11.6-14.8) H 20.4 % (11.6-14.8) H Platelet Count 150 K/UL (150-450) 155 K/UL (150-450) Mean Platelet Volume 6.8 FL (6.5-10.1) 7.1 FL (6.5-10.1) Neutrophils (%) (Auto) % (45.0-75.0) % (45.0-75.0) Lymphocytes (%) (Auto) % (20.0-45.0) % (20.0-45.0) Monocytes (%) (Auto) % (1.0-10.0) % (1.0-10.0) Eosinophils (%) (Auto) % (0.0-3.0) % (0.0-3.0) Basophils (%) (Auto) % (0.0-2.0) % (0.0-2.0) Differential Total Cells Counted 100 100 Neutrophils % (Manual) 75 % (45-75) 75 % (45-75) Lymphocytes % (Manual) 15 % (20-45) L 20 % (20-45) Monocytes % (Manual) 5 % (1-10) 3 % (1-10) Eosinophils % (Manual) 0 % (0-3) 1 % (0-3) Basophils % (Manual) 0 % (0-2) 1 % (0-2) Band Neutrophils 5 % (0-8) 0 % (0-8) Platelet Estimate Adequate Adequate Platelet Morphology Normal Normal Hypochromasia 2+ 3+ Anisocytosis 2+ 2+ Microcytosis 1+ Macrocytosis Occasional Sodium Level 142 MMOL/L (136-145) 142 MMOL/L (136-145) Potassium Level 2.7 MMOL/L (3.5-5.1) *L 3.3 MMOL/L (3.5-5.1) L Chloride Level 106 MMOL/L (98-107) 104 MMOL/L (98-107) Carbon Dioxide Level 27 MMOL/L (21-32) 30 MMOL/L (21-32) Anion Gap 11 mmol/L (5-15) 8 mmol/L (5-15) Blood Urea Nitrogen 13 mg/dL (7-18) 11 mg/dL (7-18) Creatinine 0.8 MG/DL (0.55-1.30) 0.7 MG/DL (0.55-1.30) Estimat Glomerular Filtration Rate > 60 mL/min (>60) > 60 mL/min (>60) Glucose Level 381 MG/DL (74-106) H 340 MG/DL (74-106) H Calcium Level 7.9 MG/DL (8.5-10.1) L 7.9 MG/DL (8.5-10.1) L Troponin I 0.010 ng/mL (0.000-0.056) Pro-B-Type Natriuretic Peptide 1352 pg/mL (0-125) H Urine Color Pale yellow Urine Appearance Cloudy Urine pH 6.5 (4.5-8.0) Urine Specific [place]orman 1.010 (1.005-1.035) Urine Protein 2+ (NEGATIVE) H Urine Glucose (UA) 4+ (NEGATIVE) H Urine Ketones Negative (NEGATIVE) Urine Blood 1+ (NEGATIVE) H Urine Nitrite Negative (NEGATIVE) Urine Bilirubin Negative (NEGATIVE) Urine Urobilinogen Normal MG/DL (0.0-1.0) Urine Leukocyte Esterase 2+ (NEGATIVE) H Urine RBC 0-2 /HPF (0 - 0) H Urine WBC 20-30 /HPF (0 - 0) H Urine Squamous Epithelial Cells None /LPF (NONE/OCC) Urine Bacteria Moderate /HPF (NONE) H Urine Yeast Many /HPF (NONE) H Urine Opiates Screen Negative (NEGATIVE) Urine Barbiturates Screen Negative (NEGATIVE) Phencyclidine (PCP) Screen Negative (NEGATIVE) Urine Amphetamines Screen Negative (NEGATIVE) Urine Benzodiazepines Screen Negative (NEGATIVE) Urine Cocaine Screen Negative (NEGATIVE) Urine Marijuana (THC) Screen Negative (NEGATIVE) Spherocytes 1+ Height (Feet): 5 Height (Inches): 11.00 Weight (Pounds): 174 Medications Current Medications Medications (Trade) Dose Ordered Sig/Sanjeev Route PRN Reason Start Time Stop Time Status Last Admin Dose Admin Acetaminophen (Tylenol) 650 mg Q6H PRN ORAL Mild Pain/Temp > 100.5 06/19/19 07:45 07/19/19 07:44 06/19/19 12:06 Acetaminophen/ Hydrocodone Bitart (Caballo 5/325) 1 tab Q4H PRN ORAL Moderate Pain (Pain Scale 4-6) 06/19/19 07:45 06/26/19 07:44 Ceftriaxone Sodium 1 gm/ Dextrose 55 ml @ 110 mls/hr Q24H IVPB 06/19/19 21:00 06/26/19 20:59 Dextrose (Dextrose 50%) 25 ml Q30M PRN IV Hypoglycemia 06/19/19 07:45 07/19/19 07:44 Dextrose (Dextrose 50%) 50 ml Q30M PRN IV Hypoglycemia 06/19/19 07:45 07/19/19 07:44 Furosemide (Lasix) 40 mg DAILY IV 06/19/19 09:00 07/19/19 08:59 06/19/19 08:57 Insulin Aspart (NovoLOG) BEFORE MEALS AND HS SUBQ 06/19/19 11:30 07/19/19 11:29 06/19/19 11:50 Insulin Detemir (Levemir) 5 units Q12HR SUBQ 06/19/19 21:00 07/19/19 20:59 Multivitamins (Multivitamins) 1 tab DAILY ORAL 06/19/19 09:00 07/19/19 08:59 06/19/19 08:57 Potassium Chloride (K-Dur) 40 meq DAILY ORAL 06/19/19 12:00 07/19/19 11:59 06/19/19 11:23 Assessment/Plan Problem List: (1) Leukocytosis Assessment & Plan: Patient presents with leukocytosis abnormal labs. Bilateral lower extremity edema. Multiple decubitus ulcers. UTI. UTI likely etiology of patient's leukocytosis and infectious process. The wounds were evaluated and unlikely etiology. Lower extremity edema unlikely cellulitis. We will continue to follow the recommendations monitor. Antibiotics as per ID. Trend labs. ICD Codes: D72.829 - Elevated white blood cell count, unspecified SNOMED: 019053414, 248174962 (2) Decubitus skin ulcer Assessment & Plan: Patient presents on admission with multiple decubitus ulcer. Stage III a somewhat resolving sacral decubitus ulcer 2 cm x 1 cm x 5 mm deep no active drainage no signs of active acute infection. Right trochanteric resolving deep tissue injury with Skin changes Bilateral heel boggy nontender Patient is very tall and feet hanging over the side of the bed occasionally and states that when he is not in the hospital his feet are occasionally on the bedpost. Discussed this with patient and information given as well as care plan. Wash sacral decubitus ulcer daily with normal saline apply Thera honey followed by protective foam dressing. Skin protectant to bilateral trochanteric hips followed by foam dressing Keep heels elevated with pillows. Do not allow heels to be on the bedpost but extension necessary Foam dressings for heels thank you will follow with recommendations Nutritional optimization ICD Codes: L89.90 - Pressure ulcer of unspecified site, unspecified stage SNOMED: 575048022 (3) Malnutrition Assessment & Plan: DAILY ESTIMATED NEEDS: Needs based on CA, 68.2kg 30-35 kcals/kg 5781-7296 total kcals 1-2 g protein/kg 68-136 g total protein 25-30 mL/kg 7272-2335 total fluid mLs NUTRITION DIAGNOSIS: Increased kcal/prot needs R/T catabolic dx and underweight status as evidenced by h/o stage IV Prostate cancer s/p chemotherapy, pt @87% IBW. CURRENT DIET: Cardiac PO DIET RECOMMENDATIONS--->>> CCHO MED/ texture as tolerated + Glucerna TID w/ meals ADDITIONAL RECOMMENDATIONS: * Calibrated bed scale wt for accurate CBW * Monitor po intake, need for snacks -h/o stage 4 CA, w/ chemo * BG in the 300's, consider increasing levemir -> rec HgA1C * WOUND CARE: add JERRY BID + Vit C 250mg daily F/up w/ WC eval ICD Codes: E46 - Unspecified protein-calorie malnutrition SNOMED: 44009190 (4) Deep tissue injury ICD Codes: T14.8XXA - Other injury of unspecified body region, initial encounter SNOMED: 383048710 Juan Carlos Tucker Jun 19, 2019 13:46
--- NOTE | 2019-06-19 14:04 | NUR ---
NURSE NOTES:WOUND CARE NOTES:Pt presented on admission with full thickness sacral pressure injury (L)1.1cm x (W)0.5cm x (D)0.6cm. Base of wound is moist and pink. Borders are macerated. Periwound is black and fluctuant. Pt complained of tenderness when palpated. Full thickness pressure injury R hip. Biofilm at base of wound. Edges adherent to base of wound. Periwound is black without induration or fluctuance.(L)0.6cm x (W)0.7cm. Wound L knee with semi-detached necrotic cap, moist erythematous borders. No exudate noted. Periwound without erythema induration or fluctuance (L)8cm x (W)8.3cm. Unstageable pressure injury lateral R malleolus. Base of wound has 100% dry yellow cap. Edges adherent to base of wound. Periwound is black and indurated with marginal erythema.(L)2cm x (W)2cm. Both heels are dry, firm and blanchable. Tx.plan:Cleanse Sacral wound with Saline. Apply Therahoney. Apply Moisture Barrier periwound.Cover with Optifoam drsg every 3 days and prn. Cleanse wound R hip with Saline. Apply Therahoney. Apply Cavilon Periwound. Cover with Optifoam drsg every 3 days and prn. Apply Betadine to R knee. Cover with Optifoam drsg. Change every 3days and prn. Apply Betadine to R lateral malleolus. Cover with Optifoam drsg. Change every 3 days and prn. Apply Cavilon Skin Barrier to both heels.Cover each heel with Optifoam drsg. Change every 7 days and prn. Reposition at least every 2hours or as tolerated. Off-load heels with pillow.
--- NOTE | 2019-06-19 15:30 | History and Physical Report ---
DATE OF ADMISSION: 06/18/2019 REASON FOR ADMISSION: Congestive heart failure. HISTORY OF PRESENT ILLNESS: This is a 64-year-old male admitted from the retirement with worsening lower extremity edema. The patient has a history of stage IV prostate cancer, bedbound, poorly ambulatory. The patient is noted with progressive edema and presents for further evaluation and intervention. PAST MEDICAL HISTORY: Diabetes, hypertension, and prostate cancer. MEDICATIONS: Reviewed. ALLERGIES: Reviewed. SOCIAL HISTORY: Currently in a retirement. Nonsmoker and nondrinker. REVIEW OF SYSTEMS: Otherwise negative. PHYSICAL EXAMINATION: GENERAL: A well-developed male, chronically ill. VITAL SIGNS: Reviewed, otherwise stable. HEENT: Negative. NECK: Supple. LUNGS: Clear. CARDIAC: S1 and S2. Regular rate and rhythm. ABDOMEN: Soft. EXTREMITIES: With noted edema. LABORATORY DATA: Reviewed. Potassium 2.7, blood sugar elevated. BNP 1352. Urine tox screen is negative. White cell count 16.9, hemoglobin 10.4. IMPRESSION: 1. Anemia. 2. Congestive heart failure. 3. Lower extremity edema, concern for DVT. 4. Prostate cancer. 5. Leukocytosis, possibly leukemoid. 6. Diabetes. 7. Low potassium. RECOMMENDATIONS: 1. Supportive care. 2. Resume retirement medications. 3. Obtain duplex. 4. Transfuse. 5. Wound care. 6. Empiric antibiotics. 7. ID evaluation. 8. Potassium replaced by the ER physician. We will follow up labs and recommend further. 9. Monitor blood sugars and discharge the patient back to the [facility] facility when improved. Jason Garcia M.D. DR: ABIOLA JOB#: [id number] CC: AMADEO
--- NOTE | 2019-06-19 15:52 | NUR ---
NURSE NOTES: Per previous shift RNMartha dr. stated that the patient does not need DVT PPX
--- NOTE | 2019-06-19 17:50 | NUR ---
NURSE NOTES: Made Dr. Garcia aware that the patient has been running low grade fever since 11:30am. Blood transfusion will be started after fever subsided as ordered.
--- NOTE | 2019-06-19 18:35 | NUR ---
NURSE NOTES: 1 unit of blood transfusion started
[2019-06-19] MEDS ORDERED: ACETAMINOPHEN325 M1 ORAL (18:48)
--- NOTE | 2019-06-19 19:20 | NUR ---
NURSE NOTES: Report received from VINCENT Del Rio
--- NOTE | 2019-06-19 19:27 | NUR ---
HAND-OFF: Report given to Benjy KAUR. Pt remains stable.
--- NOTE | 2019-06-19 19:35 | NUR ---
Seen pt for initial rounding, resting in bed. PRBC transfusion in progress, infusing well to right hand intact/patent. no sx noted, resp even, no discomfort noted. VS stable. continue to monitor.
[2019-06-19] MEDS: cefTRIAXone 1gm/D5W 55ml IVPB SCH ×2 (21:16)
--- NOTE | 2019-06-19 21:45 | NUR ---
NURSE NOTES: Pt completed transfusion, VS stable. No sob, denies pain, pt tolerated transfusion well, asymptomatic. cleared up all tubing and bag, completed form for labs.
[2019-06-20 04:00] VITALS: BP 127/79
[2019-06-20] MEDS: NovoLOG Insulin Flexpen SUBQ SCH ×4 (05:58→20:40)
--- NOTE | 2019-06-20 07:15 | NUR ---
HAND-OFF: Report given to Quang Mojica RN.
[2019-06-20 08:00] VITALS: BP 114/68
--- NOTE | 2019-06-20 08:22 | NUR ---
CASE MANAGEMENT:INITITAL REVIEW 64YR OLD MALE BIBA FROM [facility] CC: EDEMA SI:CHF EXACERBATION . DM . ANEMIA . UTI 99.0 102 84 124/68 86% ON RA WBC 16.9 H/H 7.4/22.6 K+ 2.7 BG 361 CA+ 7.9 BNP 1352 IS:IV KCL X1 IV ROCEPHIN X1 IV LASIX X1 K-DUR X1 CHEST X-RAY-SOB- BILATERAL PLEURAL EFFUSION EKG- NSR \: RETURING TO [facility] WHEN STABLE PLAN: X1 BLOOD TX PRBC CHEST X-RAY REPEAT CASE MANAGEMENT: REVIEW 06/19/19 SI:CHF EXACERBATION . DM . ANEMIA . UTI 99.9 81 16 121/64 94% ON RA WBC 13.8 H/H 7.5/22.5 K+ 3.3 BG 340 CA+ 7.9 IS:IV ROCEPHIN Q24HR IV LASIX QD K-DUR PO QD LEVEMIR SQ BID NOVOLOG SQ AC&HS TYLENOL Q6HR.PRN \: RETURNING TO [facility] WHEN STABLE PLAN: X1 BLOOD TX PRBC CHEST X-RAY REPEAT PATIENT AND POA REQUESTING NEW PLACEMENT
--- NOTE | 2019-06-20 08:34 | NUR ---
NURSE NOTES: Received report from Benjy RN. Pt in bed awake and orientedx4 and able to make needs known. IV site in right hand 20G SL patent and asymptomatic. On O2 2LPM via N/C. Side railsx2 up for safety. Bed in lowest position and locked. Call light and urinal within easy each. Will continue to plan of care.
[2019-06-20] MEDS ORDERED: Tubing IV Secondary IV ONE (08:50)
--- NOTE | 2019-06-20 09:03 | General Progress Note ---
Assessment/Plan Assessment/Plan: 1. Anemia. 2. Congestive heart failure. 3. Lower extremity edema, concern for DVT. 4. Prostate cancer. 5. Leukocytosis, possibly leukemoid. 6. Diabetes. 7. Low potassium. PLAN adjust levimir repeat labs ID to follow monitor HH wound care dc planning in am if stable impression, plan, and exam edited and reviewed in detail care discussed with RN Subjective Allergies: Coded Allergies: No Known Allergies (Unverified , 12/05/18) Subjective improved alert Objective Last 24 Hour Vital Signs Date Time Temp Pulse Resp B/P (MAP) Pulse Ox O2 Delivery O2 Flow Rate FiO2 06/20/19 04:24 98.6 06/20/19 04:00 99 06/20/19 04:00 98.6 91 18 127/79 (95) 96 06/20/19 00:00 93 06/19/19 23:22 99.1 96 17 130/74 (92) 94 06/19/19 21:00 99.1 94 16 115/70 (85) 95 06/19/19 21:00 Room Air 06/19/19 20:00 99.9 81 16 121/64 (83) 94 06/19/19 20:00 98 06/19/19 18:30 98.9 06/19/19 18:20 100.2 06/19/19 17:00 100.0 06/19/19 16:00 104 06/19/19 16:00 99.6 100 20 106/64 (78) 94 06/19/19 15:39 99.0 06/19/19 14:55 99.6 06/19/19 13:28 100.0 06/19/19 12:00 95 06/19/19 12:00 98.2 80 20 141/78 (99) 97 Intake and Output 06/19/19 06/20/19 19:00 07:00 Intake Total 720 ml 340 ml Output Total 3050 ml 1300 ml Balance -2330 ml -960 ml Intake Oral 720 ml 340 ml Output Urine Total 3050 ml 1300 ml # Bowel Movements 2 1 Height (Feet): 5 Height (Inches): 11.00 Weight (Pounds): 174 Objective WDWN NAD clear breath sounds bilaterally without rhonchi or wheeze [id number] without MRG NABS nontender no HSM no CC minimal edema nonfocal Ishaaya,Jason M MD Jun 20, 2019 09:02
--- NOTE | 2019-06-20 10:12 | Surgery Progress Note ---
Surgery Progress Note Subjective Additional Comments no acute events comfortable stable labs noted Objective Last 24 Hour Vital Signs Date Time Temp Pulse Resp B/P (MAP) Pulse Ox O2 Delivery O2 Flow Rate FiO2 06/20/19 04:24 98.6 06/20/19 04:00 99 06/20/19 04:00 98.6 91 18 127/79 (95) 96 06/20/19 00:00 93 06/19/19 23:22 99.1 96 17 130/74 (92) 94 06/19/19 21:00 99.1 94 16 115/70 (85) 95 06/19/19 21:00 Room Air 06/19/19 20:00 99.9 81 16 121/64 (83) 94 06/19/19 20:00 98 06/19/19 18:30 98.9 06/19/19 18:20 100.2 06/19/19 17:00 100.0 06/19/19 16:00 104 06/19/19 16:00 99.6 100 20 106/64 (78) 94 06/19/19 15:39 99.0 06/19/19 14:55 99.6 06/19/19 13:28 100.0 06/19/19 12:00 95 06/19/19 12:00 98.2 80 20 141/78 (99) 97 I&O Intake and Output 06/19/19 06/20/19 19:00 07:00 Intake Total 720 ml 340 ml Output Total 3050 ml 1300 ml Balance -2330 ml -960 ml Intake Oral 720 ml 340 ml Output Urine Total 3050 ml 1300 ml # Bowel Movements 2 1 Dressing: other Wound: other Drains: other Cardiovascular: RSR Respiratory: decreased breath sounds Abdomen: soft, non-tender, present bowel sounds Extremities: no cyanosis, other Plan Problems: (1) Leukocytosis Assessment & Plan: Patient presents with leukocytosis abnormal labs. Bilateral lower extremity edema. Multiple decubitus ulcers. UTI. UTI likely etiology of patient's leukocytosis and infectious process. The wounds were evaluated and unlikely etiology. Lower extremity edema unlikely cellulitis. We will continue to follow the recommendations monitor. Antibiotics as per ID. Trend labs. (2) Decubitus skin ulcer Assessment & Plan: Patient presents on admission with multiple decubitus ulcer. Stage III a somewhat resolving sacral decubitus ulcer 2 cm x 1 cm x 5 mm deep no active drainage no signs of active acute infection. Right trochanteric resolving deep tissue injury with Skin changes Bilateral heel boggy nontender Patient is very tall and feet hanging over the side of the bed occasionally and states that when he is not in the hospital his feet are occasionally on the bedpost. Discussed this with patient and information given as well as care plan. Wash sacral decubitus ulcer daily with normal saline apply Thera honey followed by protective foam dressing. Skin protectant to bilateral trochanteric hips followed by foam dressing Keep heels elevated with pillows. Do not allow heels to be on the bedpost but extension necessary Foam dressings for heels thank you will follow with recommendations Nutritional optimization presented on admission with full thickness sacral pressure injury (L)1.1cm x (W) 0.5cm x (D)0.6cm. Base of wound is moist and pink. Borders are macerated. Periwound is black and fluctuant. Pt complained of tenderness when palpated. Full thickness stage 3 pressure injury R hip. Biofilm at base of wound. Edges adherent to base of wound. Periwound is black without induration or fluctuance.( L)0.6cm x (W)0.7cm. Wound L knee with semi-detached necrotic cap, moist erythematous borders. No exudate noted. Periwound without erythema induration or fluctuance (L)8cm x (W) 8.3cm. Unstageable pressure injury lateral R malleolus. Base of wound has 100% dry yellow cap. Edges adherent to base of wound. Periwound is black and indurated with marginal erythema.(L)2cm x (W)2cm. Both heels are dry, firm and blanchable. Tx.plan: Cleanse Sacral wound with Saline. Apply Therahoney. Apply Moisture Barrier periwound.Cover with Optifoam drsg every 3 days and prn. Cleanse wound R hip with Saline. Apply Therahoney. Apply Cavilon Periwound. Cover with Optifoam drsg every 3 days and prn. Apply Betadine to R knee. Cover with Optifoam drsg. Change every 3days and prn. Apply Betadine to R lateral malleolus. Cover with Optifoam drsg. Change every 3 days and prn. Apply Cavilon Skin Barrier to both heels.Cover each heel with Optifoam drsg. Change every 7 days and prn. Reposition at least every 2hours or as tolerated. Off-load heels with pillow. (3) Malnutrition Assessment & Plan: DAILY ESTIMATED NEEDS: Needs based on CA, 68.2kg 30-35 kcals/kg 7417-9223 total kcals 1-2 g protein/kg 68-136 g total protein 25-30 mL/kg 8876-9841 total fluid mLs NUTRITION DIAGNOSIS: Increased kcal/prot needs R/T catabolic dx and underweight status as evidenced by h/o stage IV Prostate cancer s/p chemotherapy, pt @87% IBW. CURRENT DIET: Cardiac PO DIET RECOMMENDATIONS--->>> CCHO MED/ texture as tolerated + Glucerna TID w/ meals ADDITIONAL RECOMMENDATIONS: * Calibrated bed scale wt for accurate CBW * Monitor po intake, need for snacks -h/o stage 4 CA, w/ chemo * BG in the 300's, consider increasing levemir -> rec HgA1C * WOUND CARE: add JERRY BID + Vit C 250mg daily F/up w/ WC eval (4) Deep tissue injury Juan Carlos Tucker Jun 20, 2019 10:12
[2019-06-20 10:30] LABS: BASOPHILS % (AUTO) 2.1 % (0.0-2.0); EOSINOPHILS % (AUTO) 0.5 % (0.0-3.0); HEMATOCRIT 27.6 % (42.0-52.0); HEMOGLOBIN 9.2 G/DL (14.2-18.0); LYMPHOCYTES % (AUTO) 26.5 % (20.0-45.0); MEAN CORPUSCULAR VOLUME 84 FL (80-99); MONOCYTES % (AUTO) 8.8 % (1.0-10.0); NEUTROPHILS % (AUTO) 62.1 % (45.0-75.0); PLATELET COUNT 169 K/UL (150-450); RED BLOOD COUNT 3.28 M/UL (4.70-6.10); RED CELL DISTRIBUTION WIDTH 20.2 % (11.6-14.8); WHITE BLOOD COUNT 13.1 K/UL (4.8-10.8)
[2019-06-20 10:43] LABS: ANION GAP 8 mmol/L (5-15); BLOOD UREA NITROGEN 11 mg/dL (7-18); CALCIUM 8.3 MG/DL (8.5-10.1); CARBON DIOXIDE 32 MMOL/L (21-32); CHLORIDE 102 MMOL/L (98-107); CREATININE 0.7 MG/DL (0.55-1.30); POTASSIUM 3.4 MMOL/L (3.5-5.1); SODIUM 142 MMOL/L (136-145)
--- NOTE | 2019-06-20 10:56 | NUR ---
P.T Note: P.T evaluation completed and treatment initiated. Please refer to P.T evaluation for current functional status. Pt is alert , O x 4, pleasant and cooperative. No c/o pain. Pt is appeared generally weak and deconditioned affecting overall mobility independence. Pt. currently requires MIN A X 1 for bed mobility and MOD A X 1 for transfer activities. Pt c/o fatigue and mild SOB after ambulating 5-6 unsteady steps using the FWW , MIN. A x 1. Vitals were stable all throughout. Skilled P.T service is warranted to increased his strength, balance and endurance to increase his mobility independence and safety. Recommend DC to SNF with further rehab intervention DC. Thank you for this referral.
--- NOTE | 2019-06-20 11:05 | CDS Physician Query ---
Clarification is required for compliance, coding accuracy, and to reflect severity of illness for this patient Dear Dr. Tucker Date: 06.20.19 CDS: Sharla Cerrato Please select the most appropriate option:Needs based on CA, 68.2kg [id number] kcals/kg 9402-3164 total kcals 1-2 g protein/kg 68-136 g total protein 25-30 mL/kg 8035-5033 total fluid mLs NUTRITION DIAGNOSIS: Increased kcal/prot needs R/T catabolic dx and underweight status as evidenced by h/o stage IV Prostate cancer s/p chemotherapy, pt @87% IBW. CURRENT DIET: Cardiac PO DIET RECOMMENDATIONS--->>> CCHO MED/ texture as tolerated + Glucerna TID w/ meals [ ] Protein/Calorie Malnutrition [ ] Mild [ xx] Moderate [ ] Severe [ ] Hypoalbuminemia [ ] Cachexia [ ] Underweight [ ] Intestinal malabsorption [ ] Other [ ] Unable to determine [ ] Not Applicable Present on Admission: [ xx] Yes [ ] No [ ] Clinically Undetermined Physician signature Date Please also document in your Progress Notes and/or Discharge Summary and indicate if the condition was present on admission. MTDD
--- NOTE | 2019-06-20 11:18 | CDS Physician Query ---
Clarification is required for compliance, coding accuracy, and to reflect severity of illness for this patient Dear Dr. Gtz Date: 06.20.19 CDS: Sharla Cerrato "Heart Failure / CHF" documented in progress note. IV lasix 40 mg administered. Please Clarify: Acuity [ ] Acute [ ] Chronic [ x] Acute on Chronic Type [ x] Systolic [ ] Diastolic [ ] Systolic & Diastolic (Combined) [ ] Other: Present on Admission: [x ] Yes [ ] No [ ] Clinically Undetermined Physician signature Date Please also document in your Progress Notes and/or Discharge Summary and indicate if the condition was present on admission. MTDD
--- NOTE | 2019-06-20 11:35 | NUR ---
NURSE NOTES: Novolog 5units given due to NPO status for and US
[2019-06-20 12:00] VITALS: BP 121/65
--- NOTE | 2019-06-20 12:05 | NUR ---
CASE MANAGEMENT: REVIEW 06/20/19 SI:CHF EXACERBATION . DM . ANEMIA . UTI . BILATERAL LE EDEMA 98.6 94 20 114/68 94% ON RA WBC 13.1 H/H 9.2/27.6 K+ 3.4 BG 341 CA+ 8.3 IS:IV ROCEPHIN Q24HR IV LASIX QD K-DUR PO QD LEVEMIR SQ BID NOVOLOG SQ AC&HS TYLENOL Q6HR.PRN \: RETURNING TO [facility] WHEN STABLE PLAN: X1 BLOOD TX PRBC CHEST X-RAY REPEAT PATIENT AND POA REQUESTING NEW PLACEMENT PATIENT NEEDS TO APPLY FOR SECONDARY INSURANCE TO TRANSFER OUT OF CURRENT [facility] ABD - RO ABSCESS
--- NOTE | 2019-06-20 14:00 | Consultation ---
DATE OF CONSULTATION: 06/20/2019 INFECTIOUS DISEASES CONSULTATION CONSULTING PHYSICIAN: Gumaro Barakat M.D. REFERRING PHYSICIAN: Jason Garcia M.D. REASON FOR CONSULTATION: Leukocytosis. HISTORY OF PRESENTING ILLNESS: This is a 64-year-old gentleman with history of diabetes, hypertension, prostate cancer who came in with fever, cough, shortness of breath, and lower extremity edema. He was found to have a leukocytosis and an Infectious Diseases consultation has been obtained for antibiotics. PAST MEDICAL HISTORY: 1. History of diabetes. 2. Hypertension. 3. Hypercholesterolemia. 4. History of prostate cancer. SOCIAL HISTORY: He used to be a smoker. He does not smoke anymore. He used to drink alcohol. He does not drink anymore. No history of drug use. FAMILY HISTORY: Noncontributory. REVIEW OF SYSTEMS: RESPIRATORY: He had fever and chills. He had cough that is improved. He has shortness of breath that is improved. No chest pain. CARDIAC: No chest pain. No palpitation. No dizziness. No syncope. GASTROINTESTINAL: No nausea. No vomiting. No abdominal pain or diarrhea. MEDICATIONS: As an inpatient, he is on insulin, ceftriaxone, furosemide, multivitamin, [place], Tylenol. ALLERGIES: No known drug allergies. PHYSICAL EXAMINATION: VITAL SIGNS: Temperature of 98.6, T-max of 100.2, pulse of 94, respiratory rate 20, blood pressure 114/68, O2 saturation of 94%. HEENT: Pupils equally reactive to light and accommodation. Mouth appears clean without thrush. NECK: Supple. No adenopathy. No JVD. CARDIOVASCULAR: Regular rate and rhythm. No murmurs. LUNGS: Clear to auscultation bilaterally. No crackles. No wheezes. ABDOMEN: Soft, nontender. No organomegaly. EXTREMITIES: No cyanosis. No clubbing. Edema noted bilaterally. LABORATORY AND DIAGNOSTIC DATA: White count 13.1 today, white count of 16.9 on 06/18/2019, hemoglobin 9.2, hematocrit 27.6, MCV 84, platelet count 169 with neutrophils of 62%. Sodium 142, potassium 3.4, chloride 102, bicarb 32, BUN 11, creatinine 0.7, glucose 341, calcium 8.3. Beta natriuretic peptide 1352. UA showing 20 to 30 white cells. Urine cultures are pending. Stool for C. difficile colitis is negative. Chest x-ray is showing increased interstitial and airspace infiltrates versus edema. Persistent large bilateral pleural effusion. Ultrasound of legs showed no evidence of DVT. ASSESSMENT: This is a 64-year-old gentleman with history of diabetes, hypertension, hypercholesterolemia, and prostate cancer who comes in with fever, cough, shortness of breath and is found to have. 1. Likely urinary tract infection. 2. Leukocytosis is improving. 3. Prostate cancer. 4. Hypertension. PLAN: 1. Continue ceftriaxone for now. 2. We will follow up cultures and adjust antibiotics accordingly. 3. We will order an ultrasound of abdomen. I would like to thank, Dr. Garcia, for this consultation. Gumaro Barakat M.D. DR: LIO JOB#: [id number] CC: Jason Garcia M.D.; Fax#: [phone]
[2019-06-20 16:00] VITALS: BP 121/79
--- NOTE | 2019-06-20 16:55 | Diagnostic Imaging Report ---
Indication: Abdominal pain Technique: Grayscale and duplex Doppler imaging of the abdomen performed. Comparison: None Findings: The liver is unremarkable. Doppler interrogation of the main portal vein shows patency with hepatopedal, monophasic flow. There is no biliary ductal dilatation identified. Gallbladder is unremarkable. CBD is 4 mm. Bilateral pleural effusions are demonstrated. There is trace ascites. There is prominence in the area of the pancreatic head. There demonstrated part of the aorta and IVC show no definite abnormalities. Both kidneys appear echogenic. There is no hydronephrosis. IMPRESSION: Bilateral pleural effusions Prominent pancreatic head. This may be related to body habitus. Consider further evaluation with contrast CT. Trace ascites Suspected medical renal disease.
[2019-06-20] MEDS: Lomotil 2.5mg tab ORAL PRN (17:30)
--- NOTE | 2019-06-20 19:46 | NUR ---
HAND-OFF: Report given to Evelia KAUR. Pt remains stable.
--- NOTE | 2019-06-20 19:47 | NUR ---
NURSE NOTES: Received report from Galina Abel at Tele unit. Pt is AO x3 calm and comfortable. Call light is within reach. Bed is in the lowest position and rails are upx3. Will continue to follow the plan of care.
[2019-06-20 20:00] VITALS: BP 118/83
[2019-06-20] MEDS: cefTRIAXone 1gm/D5W 55ml IVPB SCH ×2 (20:38)
[2019-06-20] MEDS: Levemir Flexpen SUBQ SCH (20:40)
[2019-06-20] MEDS: HYDROcodone/Acetamin 5/325 tab ORAL PRN (20:59)
[2019-06-21] VITALS: BP 118/68
[2019-06-21 04:00] VITALS: BP 111/75
[2019-06-21] MEDS: NovoLOG Insulin Flexpen SUBQ SCH ×4 (06:28→21:30)
--- NOTE | 2019-06-21 07:36 | NUR ---
HAND-OFF: Report given to Magdalena KAUR.
[2019-06-21 07:42] LABS: ANION GAP 10 mmol/L (5-15); BLOOD UREA NITROGEN 12 mg/dL (7-18); CALCIUM 7.9 MG/DL (8.5-10.1); CARBON DIOXIDE 28 MMOL/L (21-32); CHLORIDE 106 MMOL/L (98-107); CREATININE 0.7 MG/DL (0.55-1.30); POTASSIUM 3.3 MMOL/L (3.5-5.1); SODIUM 144 MMOL/L (136-145)
[2019-06-21 08:00] VITALS: BP 107/73
[2019-06-21 08:00] LABS: HEMOGLOBIN 8.2 G/DL (14.2-18.0); MEAN CORPUSCULAR VOLUME 86 FL (80-99); PLATELET COUNT 171 K/UL (150-450); RED BLOOD COUNT 2.91 M/UL (4.70-6.10); RED CELL DISTRIBUTION WIDTH 18.9 % (11.6-14.8); WHITE BLOOD COUNT 19.8 K/UL (4.8-10.8)
--- NOTE | 2019-06-21 08:00 | NUR ---
NURSE NOTES: RECVD PT. PT IS AOX4, PT IS ON NC @2L AND LYING IN BED COMFORTABLY. PT APPEARS TO BE IN NO DISTRESS. BED IN LOWEST POSITION, CALL LIGHT WITHIN REACH, WILL CONTINUE WITH PLAN OF CARE
[2019-06-21] MEDS: Levemir Flexpen SUBQ SCH ×2 (09:33→21:30)
[2019-06-21] MEDS: Lomotil 2.5mg tab ORAL PRN (09:41)
--- NOTE | 2019-06-21 10:18 | Infectious Diseases Prog Note ---
Assessment/Plan Assessment/Plan antibiotics : ceftriaxone A 1. UTI 2. pneumonia 3. pleural effusions, large 4. leucocytosis increasing 5. prostate cancer P 1. start zosyn 2. d/c ceftriaxone 3. sputum culture 4. consider thoracentesis 5. will follow up cultures Subjective Constitutional: Denies: fever, chills Respiratory: Denies: shortness of breath, dry cough Gastrointestinal/Abdominal: Denies: nausea, vomiting, diarrhea Musculoskeletal: Denies: pain Allergies: Coded Allergies: No Known Allergies (Unverified , 12/05/18) Objective Vital Signs Last 24 Hour Vital Signs Date Time Temp Pulse Resp B/P (MAP) Pulse Ox O2 Delivery O2 Flow Rate FiO2 06/21/19 09:00 Room Air 06/21/19 08:00 96.6 89 20 107/73 (84) 96 06/21/19 04:00 90 06/21/19 04:00 99.1 90 16 111/75 (87) 95 06/21/19 00:00 99.0 97 16 118/68 (85) 94 06/21/19 00:00 95 06/20/19 21:00 Room Air 06/20/19 20:00 98 06/20/19 20:00 99.9 98 18 118/83 (95) 93 06/20/19 16:00 99.1 94 20 121/79 (93) 94 06/20/19 16:00 96 06/20/19 12:00 88 06/20/19 12:00 98.1 96 20 121/65 (83) 95 Height (Feet): 5 Height (Inches): 11.00 Weight (Pounds): 149 Respiratory/Chest: lungs clear Cardiovascular: normal rate, regular rhythm, no gallop/murmur Abdomen: soft, non tender Extremities: no edema Microbiology Date/Time Source Procedure Growth Status 06/19/19 00:00 Nasal Nares MRSA Culture - Final Staphylococcus Aureus - Mrsa Complete 06/19/19 09:30 Stool Clostridium difficile Toxin Assay - Final Complete 06/18/19 22:22 Urine,Clean Catch Urine Culture - Preliminary Mixed Gram Positive Organism Resulted 06/19/19 00:00 Rectum - Final NO CARBAPENEM-RESISTANT ENTEROBACTERI... Complete 06/19/19 00:00 Rectum VRE Culture - Final NO VANCOMYCIN RESISTANT ENTEROCOCCUS ... Complete Laboratory Tests Test 06/21/19 06:09 White Blood Count 19.8 K/UL (4.8-10.8) #H Red Blood Count 2.91 M/UL (4.70-6.10) L Hemoglobin 8.2 G/DL (14.2-18.0) L Hematocrit 25.0 % (42.0-52.0) L Mean Corpuscular Volume 86 FL (80-99) Mean Corpuscular Hemoglobin 28.3 PG (27.0-31.0) Mean Corpuscular Hemoglobin Concent 32.9 G/DL (32.0-36.0) Red Cell Distribution Width 18.9 % (11.6-14.8) H Platelet Count 171 K/UL (150-450) Mean Platelet Volume 7.7 FL (6.5-10.1) Neutrophils (%) (Auto) % (45.0-75.0) Lymphocytes (%) (Auto) % (20.0-45.0) Monocytes (%) (Auto) % (1.0-10.0) Eosinophils (%) (Auto) % (0.0-3.0) Basophils (%) (Auto) % (0.0-2.0) Differential Total Cells Counted 100 Neutrophils % (Manual) 56 % (45-75) Lymphocytes % (Manual) 31 % (20-45) Monocytes % (Manual) 10 % (1-10) Eosinophils % (Manual) 0 % (0-3) Basophils % (Manual) 0 % (0-2) Band Neutrophils 3 % (0-8) Nucleated Red Blood Cells 2 /100 WBC Platelet Estimate Adequate Platelet Morphology Normal Anisocytosis 1+ Target Cells 1+ Sodium Level 144 MMOL/L (136-145) Potassium Level 3.3 MMOL/L (3.5-5.1) L Chloride Level 106 MMOL/L (98-107) Carbon Dioxide Level 28 MMOL/L (21-32) Anion Gap 10 mmol/L (5-15) Blood Urea Nitrogen 12 mg/dL (7-18) Creatinine 0.7 MG/DL (0.55-1.30) Estimat Glomerular Filtration Rate > 60 mL/min (>60) Glucose Level 194 MG/DL (74-106) #H Calcium Level 7.9 MG/DL (8.5-10.1) L Current Medications Medications (Trade) Dose Ordered Sig/Sanjeev Route PRN Reason Start Time Stop Time Status Last Admin Dose Admin Acetaminophen (Tylenol) 650 mg Q6H PRN ORAL Mild Pain/Temp > 100.5 06/19/19 07:45 07/19/19 07:44 06/20/19 03:54 Acetaminophen/ Hydrocodone Bitart ([place] 5/325) 1 tab Q4H PRN ORAL Moderate Pain (Pain Scale 4-6) 06/19/19 07:45 06/26/19 07:44 06/20/19 20:59 Ascorbic Acid (Vitamin C) 250 mg TWICE A DAY ORAL 06/21/19 18:00 07/21/19 17:59 Ceftriaxone Sodium 1 gm/ Dextrose 55 ml @ 110 mls/hr Q24H IVPB 06/19/19 21:00 06/26/19 20:59 06/20/19 20:38 Dextrose (Dextrose 50%) 25 ml Q30M PRN IV Hypoglycemia 06/19/19 07:45 07/19/19 07:44 Dextrose (Dextrose 50%) 50 ml Q30M PRN IV Hypoglycemia 06/19/19 07:45 07/19/19 07:44 Diphenoxylate HCl/ Atropine (Lomotil) 2.5 mg Q6H PRN ORAL Diarrhea 06/20/19 16:45 07/20/19 16:44 06/21/19 09:41 Furosemide (Lasix) 40 mg DAILY IV 06/19/19 09:00 07/19/19 08:59 06/21/19 09:22 Insulin Aspart (NovoLOG) BEFORE MEALS AND HS SUBQ 06/19/19 11:30 07/19/19 11:29 06/21/19 06:28 Insulin Detemir (Levemir) 10 units Q12HR SUBQ 06/20/19 21:00 07/19/19 20:59 06/21/19 09:33 Multivitamins (Multivitamins) 1 tab DAILY ORAL 06/19/19 09:00 07/19/19 08:59 06/21/19 09:23 Potassium Chloride (K-Dur) 40 meq DAILY ORAL 06/19/19 12:00 07/19/19 11:59 06/21/19 09:23 Gumaro Barakat MD Jun 21, 2019 10:18
--- NOTE | 2019-06-21 11:01 | NUR ---
CASE MANAGEMENT: REVIEW 06/21/19 SI:BILATERAL PLEURAL EFFUSION . TRACE ASCITES . CHF EXACERBATION . DM . ANEMIA . UTI . BILATERAL LE EDEMA 99.1 90 16 111/75 95% ON RA WBC 19.8 H/H 8.2/25.0 K+ 3.3 BG 194 CA+ 7.9 IS:IV ROCEPHIN Q24HR IV LASIX QD K-DUR PO QD LEVEMIR SQ BID NOVOLOG SQ AC&HS TYLENOL Q6HR.PRN MTV PO QD \: RETURNING TO [facility] WHEN STABLE PLAN: X1 BLOOD TX PRBC CHEST X-RAY REPEAT PATIENT AND POA REQUESTING NEW PLACEMENT - SENT CLINICALS TO- NO ONE ACCEPTING PATIENT NEEDS TO APPLY FOR SECONDARY INSURANCE TO TRANSFER OUT OF CURRENT [facility] ABD - RO ABSCESS DC IV ABX CONTROL FEVERS
[2019-06-21 12:00] VITALS: BP 122/71
--- NOTE | 2019-06-21 12:53 | Pulmonology Progress Note ---
Assessment/Plan Assessment/Plan Pulmonary Progress Note Assessment/Plan: 1. Anemia. 2. Congestive heart failure. 3. Lower extremity edema, concern for DVT. 4. Prostate cancer. 5. Leukocytosis, possibly leukemoid. 6. Diabetes. 7. Low potassium. PLAN adjust levimir repeat labs ID to follow monitor [facility] wound care dc planning impression, plan, and exam edited and reviewed in detail care discussed with RN Subjective Allergies: Coded Allergies: No Known Allergies Subjective improved sob, less leg swelling alert Objective Vital Signs Noted Height (Feet): 5 Height (Inches): 11.00 Weight (Pounds): 174 Objective WDWN NAD clear breath sounds bilaterally, no crackles [id number] without MRG NABS nontender no HSM no CC minimal edema nonfocal Subjective ROS Limited/Unobtainable: No Allergies: Coded Allergies: No Known Allergies (Unverified , 12/05/18) Objective Last 24 Hour Vital Signs Date Time Temp Pulse Resp B/P (MAP) Pulse Ox O2 Delivery O2 Flow Rate FiO2 06/21/19 12:00 98.5 94 19 122/71 (88) 96 06/21/19 09:00 Room Air 06/21/19 08:00 96.6 89 20 107/73 (84) 96 06/21/19 08:00 92 06/21/19 04:00 90 06/21/19 04:00 99.1 90 16 111/75 (87) 95 06/21/19 00:00 99.0 97 16 118/68 (85) 94 06/21/19 00:00 95 06/20/19 21:00 Room Air 06/20/19 20:00 98 06/20/19 20:00 99.9 98 18 118/83 (95) 93 06/20/19 16:00 99.1 94 20 121/79 (93) 94 06/20/19 16:00 96 Intake and Output 06/20/19 06/21/19 18:59 06:59 Intake Total 500 ml Output Total 4800 ml Balance -4300 ml Intake Oral 500 ml Output Urine Total 4800 ml # Voids 5 3 # Bowel Movements 6 2 Microbiology Date/Time Source Procedure Growth Status 06/19/19 00:00 Nasal Nares MRSA Culture - Final Staphylococcus Aureus - Mrsa Complete 06/19/19 09:30 Stool Clostridium difficile Toxin Assay - Final Complete 06/18/19 22:22 Urine,Clean Catch Urine Culture - Preliminary Mixed Gram Positive Organism Resulted 06/19/19 00:00 Rectum - Final NO CARBAPENEM-RESISTANT ENTEROBACTERI... Complete 06/19/19 00:00 Rectum VRE Culture - Final NO VANCOMYCIN RESISTANT ENTEROCOCCUS ... Complete Laboratory Tests 06/21/19 06:09: White Blood Count 19.8#H, Red Blood Count 2.91L, Hemoglobin 8.2L, Hematocrit 25.0L, Mean Corpuscular Volume 86, Mean Corpuscular Hemoglobin 28.3, Mean Corpuscular Hemoglobin Concent 32.9, Red Cell Distribution Width 18.9H, Platelet Count 171, Mean Platelet Volume 7.7, Neutrophils (%) (Auto) , Lymphocytes (%) (Auto) , Monocytes (%) (Auto) , Eosinophils (%) (Auto) , Basophils (%) (Auto) , Differential Total Cells Counted 100, Neutrophils % ( Manual) 56, Lymphocytes % (Manual) 31, Monocytes % (Manual) 10, Eosinophils % ( Manual) 0, Basophils % (Manual) 0, Band Neutrophils 3, Nucleated Red Blood Cells 2, Platelet Estimate Adequate, Platelet Morphology Normal, Anisocytosis 1+ , Target Cells 1+, Sodium Level 144, Potassium Level 3.3L, Chloride Level 106, Carbon Dioxide Level 28, Anion Gap 10, Blood Urea Nitrogen 12, Creatinine 0.7, Estimat Glomerular Filtration Rate > 60, Glucose Level 194#H, Calcium Level 7.9L Current Medications Medications (Trade) Dose Ordered Sig/Sanjeev Route PRN Reason Start Time Stop Time Status Last Admin Dose Admin Acetaminophen (Tylenol) 650 mg Q6H PRN ORAL Mild Pain/Temp > 100.5 06/19/19 07:45 07/19/19 07:44 06/20/19 03:54 Acetaminophen/ Hydrocodone Bitart ([place] 5/325) 1 tab Q4H PRN ORAL Moderate Pain (Pain Scale 4-6) 06/19/19 07:45 06/26/19 07:44 06/20/19 20:59 Ascorbic Acid (Vitamin C) 250 mg TWICE A DAY ORAL 06/21/19 18:00 07/21/19 17:59 Dextrose (Dextrose 50%) 25 ml Q30M PRN IV Hypoglycemia 06/19/19 07:45 07/19/19 07:44 Dextrose (Dextrose 50%) 50 ml Q30M PRN IV Hypoglycemia 06/19/19 07:45 07/19/19 07:44 Diphenoxylate HCl/ Atropine (Lomotil) 2.5 mg Q6H PRN ORAL Diarrhea 06/20/19 16:45 07/20/19 16:44 06/21/19 09:41 Furosemide (Lasix) 40 mg DAILY IV 06/19/19 09:00 07/19/19 08:59 06/21/19 09:22 Insulin Aspart (NovoLOG) BEFORE MEALS AND HS SUBQ 06/19/19 11:30 07/19/19 11:29 06/21/19 06:28 Insulin Detemir (Levemir) 10 units Q12HR SUBQ 06/20/19 21:00 07/19/19 20:59 06/21/19 09:33 Multivitamins (Multivitamins) 1 tab DAILY ORAL 06/19/19 09:00 07/19/19 08:59 06/21/19 09:23 Piperacillin Sod/ Tazobactam Sod 3.375 gm/Sodium Chloride 110 ml @ 27.5 mls/hr EVERY 8 HOURS IVPB 06/21/19 14:00 06/26/19 13:59 Potassium Chloride (K-Dur) 40 meq DAILY ORAL 06/19/19 12:00 07/19/19 11:59 06/21/19 09:23 Mamadou Charles MD Jun 21, 2019 12:53
--- NOTE | 2019-06-21 13:33 | Surgery Progress Note ---
Surgery Progress Note Subjective Symptoms: improved Additional Comments US noted exam stable leukocytosis 19k Objective Last 24 Hour Vital Signs Date Time Temp Pulse Resp B/P (MAP) Pulse Ox O2 Delivery O2 Flow Rate FiO2 06/21/19 12:00 91 06/21/19 12:00 98.5 94 19 122/71 (88) 96 06/21/19 09:00 Room Air 06/21/19 08:00 96.6 89 20 107/73 (84) 96 06/21/19 08:00 92 06/21/19 04:00 90 06/21/19 04:00 99.1 90 16 111/75 (87) 95 06/21/19 00:00 99.0 97 16 118/68 (85) 94 06/21/19 00:00 95 06/20/19 21:00 Room Air 06/20/19 20:00 98 06/20/19 20:00 99.9 98 18 118/83 (95) 93 06/20/19 16:00 99.1 94 20 121/79 (93) 94 06/20/19 16:00 96 I&O Intake and Output 06/20/19 06/21/19 19:00 07:00 Intake Total 500 ml Output Total 4800 ml Balance -4300 ml Intake Oral 500 ml Output Urine Total 4800 ml # Voids 5 3 # Bowel Movements 6 2 Dressing: saturated Wound: clean Cardiovascular: RSR Respiratory: clear Abdomen: soft, non-tender, present bowel sounds Extremities: no cyanosis, other Laboratory Tests Test 06/21/19 06:09 White Blood Count 19.8 K/UL (4.8-10.8) #H Red Blood Count 2.91 M/UL (4.70-6.10) L Hemoglobin 8.2 G/DL (14.2-18.0) L Hematocrit 25.0 % (42.0-52.0) L Mean Corpuscular Volume 86 FL (80-99) Mean Corpuscular Hemoglobin 28.3 PG (27.0-31.0) Mean Corpuscular Hemoglobin Concent 32.9 G/DL (32.0-36.0) Red Cell Distribution Width 18.9 % (11.6-14.8) H Platelet Count 171 K/UL (150-450) Mean Platelet Volume 7.7 FL (6.5-10.1) Neutrophils (%) (Auto) % (45.0-75.0) Lymphocytes (%) (Auto) % (20.0-45.0) Monocytes (%) (Auto) % (1.0-10.0) Eosinophils (%) (Auto) % (0.0-3.0) Basophils (%) (Auto) % (0.0-2.0) Differential Total Cells Counted 100 Neutrophils % (Manual) 56 % (45-75) Lymphocytes % (Manual) 31 % (20-45) Monocytes % (Manual) 10 % (1-10) Eosinophils % (Manual) 0 % (0-3) Basophils % (Manual) 0 % (0-2) Band Neutrophils 3 % (0-8) Nucleated Red Blood Cells 2 /100 WBC Platelet Estimate Adequate Platelet Morphology Normal Anisocytosis 1+ Target Cells 1+ Sodium Level 144 MMOL/L (136-145) Potassium Level 3.3 MMOL/L (3.5-5.1) L Chloride Level 106 MMOL/L (98-107) Carbon Dioxide Level 28 MMOL/L (21-32) Anion Gap 10 mmol/L (5-15) Blood Urea Nitrogen 12 mg/dL (7-18) Creatinine 0.7 MG/DL (0.55-1.30) Estimat Glomerular Filtration Rate > 60 mL/min (>60) Glucose Level 194 MG/DL (74-106) #H Calcium Level 7.9 MG/DL (8.5-10.1) L Plan Problems: (1) Leukocytosis Assessment & Plan: Patient presents with leukocytosis abnormal labs. Bilateral lower extremity edema. Multiple decubitus ulcers. UTI. UTI likely etiology of patient's leukocytosis and infectious process. The wounds were evaluated and unlikely etiology. Lower extremity edema unlikely cellulitis. We will continue to follow the recommendations monitor. Antibiotics as per ID. Trend labs. The liver is unremarkable. Doppler interrogation of the main portal vein shows patency with hepatopedal, monophasic flow. There is no biliary ductal dilatation identified. Gallbladder is unremarkable. CBD is 4 mm. Bilateral pleural effusions are demonstrated. There is trace ascites. There is prominence in the area of the pancreatic head. There demonstrated part of the aorta and IVC show no definite abnormalities. Both kidneys appear echogenic. There is no hydronephrosis. IMPRESSION: Bilateral pleural effusions Prominent pancreatic head. This may be related to body habitus. Consider further evaluation with contrast CT. Trace ascites Suspected medical renal disease. (2) Decubitus skin ulcer Assessment & Plan: Patient presents on admission with multiple decubitus ulcer. Stage III a somewhat resolving sacral decubitus ulcer 2 cm x 1 cm x 5 mm deep no active drainage no signs of active acute infection. Right trochanteric resolving deep tissue injury with Skin changes Bilateral heel boggy nontender Patient is very tall and feet hanging over the side of the bed occasionally and states that when he is not in the hospital his feet are occasionally on the bedpost. Discussed this with patient and information given as well as care plan. Wash sacral decubitus ulcer daily with normal saline apply Thera honey followed by protective foam dressing. Skin protectant to bilateral trochanteric hips followed by foam dressing Keep heels elevated with pillows. Do not allow heels to be on the bedpost but extension necessary Foam dressings for heels thank you will follow with recommendations Nutritional optimization presented on admission with full thickness sacral pressure injury (L)1.1cm x (W) 0.5cm x (D)0.6cm. Base of wound is moist and pink. Borders are macerated. Periwound is black and fluctuant. Pt complained of tenderness when palpated. Full thickness stage 3 pressure injury R hip. Biofilm at base of wound. Edges adherent to base of wound. Periwound is black without induration or fluctuance.( L)0.6cm x (W)0.7cm. Wound L knee with semi-detached necrotic cap, moist erythematous borders. No exudate noted. Periwound without erythema induration or fluctuance (L)8cm x (W) 8.3cm. Unstageable pressure injury lateral R malleolus. Base of wound has 100% dry yellow cap. Edges adherent to base of wound. Periwound is black and indurated with marginal erythema.(L)2cm x (W)2cm. Both heels are dry, firm and blanchable. Tx.plan: Cleanse Sacral wound with Saline. Apply Therahoney. Apply Moisture Barrier periwound.Cover with Optifoam drsg every 3 days and prn. Cleanse wound R hip with Saline. Apply Therahoney. Apply Cavilon Periwound. Cover with Optifoam drsg every 3 days and prn. Apply Betadine to R knee. Cover with Optifoam drsg. Change every 3days and prn. Apply Betadine to R lateral malleolus. Cover with Optifoam drsg. Change every 3 days and prn. Apply Cavilon Skin Barrier to both heels.Cover each heel with Optifoam drsg. Change every 7 days and prn. Reposition at least every 2hours or as tolerated. Off-load heels with pillow. (3) Malnutrition Assessment & Plan: DAILY ESTIMATED NEEDS: Needs based on CA, 68.2kg 30-35 kcals/kg [id number] total kcals 1-2 g protein/kg 68-136 g total protein 25-30 mL/kg 4591-3798 total fluid mLs NUTRITION DIAGNOSIS: Increased kcal/prot needs R/T catabolic dx and underweight status as evidenced by h/o stage IV Prostate cancer s/p chemotherapy, pt @87% IBW. CURRENT DIET: Cardiac PO DIET RECOMMENDATIONS--->>> CCHO MED/ texture as tolerated + Glucerna TID w/ meals ADDITIONAL RECOMMENDATIONS: * Calibrated bed scale wt for accurate CBW * Monitor po intake, need for snacks -h/o stage 4 CA, w/ chemo * BG in the 300's, consider increasing levemir -> rec HgA1C * WOUND CARE: add JERRY BID + Vit C 250mg daily F/up w/ WC eval (4) Deep tissue injury Juan Carlos Tucker Jun 21, 2019 13:33
[2019-06-21] MEDS: Piperacillin/Tazobactam 3.375 GM in NS 110 ML IVPB SCH ×2 (14:05→21:29)
[2019-06-21 16:00] VITALS: BP 119/80
[2019-06-21] MEDS: Ascorbic Acid 500mg tab ORAL SCH (17:48)
--- NOTE | 2019-06-21 19:30 | NUR ---
NURSE NOTES: Received report from VINCENT Nichols. Patient is in bed, awake, alert, and responsive. Breathing regular and unlabored with no s/s of SOB noted at this time. Patient denies any pain or discomfort at this time. IV access on the R hand, intact, patent, and saline locked. Bed remains in lowest position, breaks engaged, and call light is within reach at all times. All other needs attended to, patient remains stable, will continue to monitor.
[2019-06-21 20:00] VITALS: BP 119/65
--- NOTE | 2019-06-21 21:15 | NUR ---
NURSE NOTES: Patient requested sleeping medication due to inability to sleep well throughout the night. Informed primary MD in regards to patient's request. No response yet, will await for orders.
[2019-06-22] VITALS: BP 118/72
[2019-06-22 04:00] VITALS: BP 123/76
[2019-06-22] MEDS: Piperacillin/Tazobactam 3.375 GM in NS 110 ML IVPB SCH ×3 (05:54→20:56)
[2019-06-22] MEDS: NovoLOG Insulin Flexpen SUBQ SCH ×4 (05:55→20:54)
--- NOTE | 2019-06-22 07:26 | NUR ---
HAND-OFF: Report given to VINCENT Nichols. Patient remains stable, plan of care endorsed.
--- NOTE | 2019-06-22 07:56 | NUR ---
NURSE NOTES: recvd pt. Pt is AOX4, Pt is on NC @2L with no sign of sob or resp distress. Pt has IV site intact with no sign of redness or infiltration. Bed in lowest locked position, call light within reach, will continue with plan of care
[2019-06-22 08:00] VITALS: BP 120/77
--- NOTE | 2019-06-22 08:09 | General Progress Note ---
Assessment/Plan Assessment/Plan: 1. Anemia. 2. Congestive heart failure. 3. Lower extremity edema, 4. Prostate cancer. 5. Leukocytosis, possibly leukemoid. 6. Diabetes. 7. Low potassium. 8. pleural effusions PLAN monitor blood sugars tap repeat labs ID to follow monitor wound care dc planning pending improvement impression, plan, and exam edited and reviewed in detail care discussed with RN Subjective Allergies: Coded Allergies: No Known Allergies (Unverified , 12/05/18) Subjective large effusions wbc worse alert Objective Last 24 Hour Vital Signs Date Time Temp Pulse Resp B/P (MAP) Pulse Ox O2 Delivery O2 Flow Rate FiO2 06/22/19 04:00 98.4 100 20 123/76 (92) 99 06/22/19 04:00 95 06/22/19 00:00 98.4 103 20 118/72 (87) 95 06/22/19 00:00 100 06/21/19 21:00 Room Air 06/21/19 20:00 102 06/21/19 20:00 98.2 101 20 119/65 (83) 94 06/21/19 16:00 97.3 88 17 119/80 (93) 97 06/21/19 16:00 105 06/21/19 12:00 91 06/21/19 12:00 98.5 94 19 122/71 (88) 96 06/21/19 09:00 Room Air Intake and Output 06/21/19 06/22/19 19:00 07:00 Intake Total 1200 ml Balance 1200 ml Other 1200 ml # Voids 6 # Bowel Movements 1 2 Labs Test 06/20/19 10:00 06/21/19 06:09 White Blood Count 13.1 K/UL (4.8-10.8) 19.8 K/UL (4.8-10.8) Red Blood Count 3.28 M/UL (4.70-6.10) 2.91 M/UL (4.70-6.10) Hemoglobin 9.2 G/DL (14.2-18.0) 8.2 G/DL (14.2-18.0) Hematocrit 27.6 % (42.0-52.0) 25.0 % (42.0-52.0) Mean Corpuscular Volume 84 FL (80-99) 86 FL (80-99) Mean Corpuscular Hemoglobin 28.1 PG (27.0-31.0) 28.3 PG (27.0-31.0) Mean Corpuscular Hemoglobin Concent 33.3 G/DL (32.0-36.0) 32.9 G/DL (32.0-36.0) Red Cell Distribution Width 20.2 % (11.6-14.8) 18.9 % (11.6-14.8) Platelet Count 169 K/UL (150-450) 171 K/UL (150-450) Mean Platelet Volume 7.4 FL (6.5-10.1) 7.7 FL (6.5-10.1) Neutrophils (%) (Auto) 62.1 % (45.0-75.0) % (45.0-75.0) Lymphocytes (%) (Auto) 26.5 % (20.0-45.0) % (20.0-45.0) Monocytes (%) (Auto) 8.8 % (1.0-10.0) % (1.0-10.0) Eosinophils (%) (Auto) 0.5 % (0.0-3.0) % (0.0-3.0) Basophils (%) (Auto) 2.1 % (0.0-2.0) % (0.0-2.0) Sodium Level 142 MMOL/L (136-145) 144 MMOL/L (136-145) Potassium Level 3.4 MMOL/L (3.5-5.1) 3.3 MMOL/L (3.5-5.1) Chloride Level 102 MMOL/L (98-107) 106 MMOL/L (98-107) Carbon Dioxide Level 32 MMOL/L (21-32) 28 MMOL/L (21-32) Anion Gap 8 mmol/L (5-15) 10 mmol/L (5-15) Blood Urea Nitrogen 11 mg/dL (7-18) 12 mg/dL (7-18) Creatinine 0.7 MG/DL (0.55-1.30) 0.7 MG/DL (0.55-1.30) Estimat Glomerular Filtration Rate > 60 mL/min (>60) > 60 mL/min (>60) Glucose Level 341 MG/DL (74-106) 194 MG/DL (74-106) Calcium Level 8.3 MG/DL (8.5-10.1) 7.9 MG/DL (8.5-10.1) Differential Total Cells Counted 100 Neutrophils % (Manual) 56 % (45-75) Lymphocytes % (Manual) 31 % (20-45) Monocytes % (Manual) 10 % (1-10) Eosinophils % (Manual) 0 % (0-3) Basophils % (Manual) 0 % (0-2) Band Neutrophils 3 % (0-8) Nucleated Red Blood Cells 2 /100 WBC Platelet Estimate Adequate Platelet Morphology Normal Anisocytosis 1+ Target Cells 1+ Height (Feet): 5 Height (Inches): 11.00 Weight (Pounds): 149 Objective WDWN NAD reduced breath sounds bilaterally without rhonchi or wheeze [id number] without MRG NABS nontender no HSM no CC minimal edema nonfocal Jason Garcia MD Jun 22, 2019 08:09
[2019-06-22] MEDS: Ascorbic Acid 500mg tab ORAL SCH ×2 (09:07→17:46)
[2019-06-22] MEDS: Levemir Flexpen SUBQ SCH ×2 (09:08→20:54)
[2019-06-22 09:25] LABS: INR 1.1 (0.9-1.1)
--- NOTE | 2019-06-22 11:04 | Infectious Diseases Prog Note ---
Assessment/Plan Assessment/Plan 1. UTI 2. pneumonia 3. pleural effusions, large 4. leucocytosis increasing 5. prostate cancer 6. 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 Continue Zosyn 2. Add IV Vancomycin 3. f/u CBC 4. consider thoracentesis 5. will follow up cultures Subjective ROS Limited/Unobtainable: No Constitutional: Reports: no symptoms Respiratory: Reports: shortness of breath, dry cough Cardiovascular: Reports: no symptoms Gastrointestinal/Abdominal: Reports: no symptoms Genitourinary: Reports: frequency Allergies: Coded Allergies: No Known Allergies (Unverified , 12/05/18) Objective Vital Signs Last 24 Hour Vital Signs Date Time Temp Pulse Resp B/P (MAP) Pulse Ox O2 Delivery O2 Flow Rate FiO2 06/22/19 08:18 Room Air 06/22/19 08:00 99.1 96 20 120/77 (91) 96 06/22/19 08:00 100 06/22/19 04:00 98.4 100 20 123/76 (92) 99 06/22/19 04:00 95 06/22/19 00:00 98.4 103 20 118/72 (87) 95 06/22/19 00:00 100 06/21/19 21:00 Room Air 06/21/19 20:00 102 06/21/19 20:00 98.2 101 20 119/65 (83) 94 06/21/19 16:00 97.3 88 17 119/80 (93) 97 06/21/19 16:00 105 06/21/19 12:00 91 06/21/19 12:00 98.5 94 19 122/71 (88) 96 Height (Feet): 5 Height (Inches): 11.00 Weight (Pounds): 149 HEENT: mucous membranes moist Respiratory/Chest: lungs clear Cardiovascular: normal rate Abdomen: soft, non tender Extremities: no edema Skin: ulcers, other - sacrum, left knee & R ankle pressure ulcers Neurologic/Psychiatric: alert, responsive Musculoskeletal: atrophy Laboratory Tests Test 06/22/19 08:50 Prothrombin Time 11.9 SEC (9.30-11.50) H Prothromb Time International Ratio 1.1 (0.9-1.1) Activated Partial Thromboplast Time 29 SEC (23-33) Current Medications Medications (Trade) Dose Ordered Sig/Sanjeev Route PRN Reason Start Time Stop Time Status Last Admin Dose Admin Acetaminophen (Tylenol) 650 mg Q6H PRN ORAL Mild Pain/Temp > 100.5 06/19/19 07:45 07/19/19 07:44 06/20/19 03:54 Acetaminophen/ Hydrocodone Bitart ([place] 5/325) 1 tab Q4H PRN ORAL Moderate Pain (Pain Scale 4-6) 06/19/19 07:45 06/26/19 07:44 06/20/19 20:59 Ascorbic Acid (Vitamin C) 250 mg TWICE A DAY ORAL 06/21/19 18:00 07/21/19 17:59 06/22/19 09:07 Dextrose (Dextrose 50%) 25 ml Q30M PRN IV Hypoglycemia 06/19/19 07:45 07/19/19 07:44 Dextrose (Dextrose 50%) 50 ml Q30M PRN IV Hypoglycemia 06/19/19 07:45 07/19/19 07:44 Diphenoxylate HCl/ Atropine (Lomotil) 2.5 mg Q6H PRN ORAL Diarrhea 06/20/19 16:45 07/20/19 16:44 06/21/19 09:41 Furosemide (Lasix) 40 mg DAILY IV 06/19/19 09:00 07/19/19 08:59 06/22/19 09:07 Insulin Aspart (NovoLOG) BEFORE MEALS AND HS SUBQ 06/19/19 11:30 07/19/19 11:29 06/22/19 05:55 Insulin Detemir (Levemir) 10 units Q12HR SUBQ 06/20/19 21:00 07/19/19 20:59 06/22/19 09:08 Multivitamins (Multivitamins) 1 tab DAILY ORAL 06/19/19 09:00 07/19/19 08:59 06/22/19 09:07 Piperacillin Sod/ Tazobactam Sod 3.375 gm/Sodium Chloride 110 ml @ 27.5 mls/hr EVERY 8 HOURS IVPB 06/21/19 14:00 06/26/19 13:59 06/22/19 05:54 Potassium Chloride (K-Dur) 40 meq DAILY ORAL 06/19/19 12:00 07/19/19 11:59 06/22/19 09:07 Rod Carballo MD Jun 22, 2019 11:04
--- NOTE | 2019-06-22 11:29 | Surgery Progress Note ---
Surgery Progress Note Subjective Additional Comments no acute events resting comfortable dressings intact doing well no complaints Objective Last 24 Hour Vital Signs Date Time Temp Pulse Resp B/P (MAP) Pulse Ox O2 Delivery O2 Flow Rate FiO2 06/22/19 08:18 Room Air 06/22/19 08:00 99.1 96 20 120/77 (91) 96 06/22/19 08:00 100 06/22/19 04:00 98.4 100 20 123/76 (92) 99 06/22/19 04:00 95 06/22/19 00:00 98.4 103 20 118/72 (87) 95 06/22/19 00:00 100 06/21/19 21:00 Room Air 06/21/19 20:00 102 06/21/19 20:00 98.2 101 20 119/65 (83) 94 06/21/19 16:00 97.3 88 17 119/80 (93) 97 06/21/19 16:00 105 06/21/19 12:00 91 06/21/19 12:00 98.5 94 19 122/71 (88) 96 I&O Intake and Output 06/21/19 06/22/19 19:00 07:00 Intake Total 1200 ml Balance 1200 ml Other 1200 ml # Voids 6 # Bowel Movements 1 2 Dressing: dry Wound: clean Cardiovascular: RSR Respiratory: clear Abdomen: soft, non-tender, present bowel sounds Extremities: no cyanosis, other Laboratory Tests Test 06/22/19 08:50 Prothrombin Time 11.9 SEC (9.30-11.50) H Prothromb Time International Ratio 1.1 (0.9-1.1) Activated Partial Thromboplast Time 29 SEC (23-33) Plan Problems: (1) Leukocytosis Assessment & Plan: Patient presents with leukocytosis abnormal labs. Bilateral lower extremity edema. Multiple decubitus ulcers. UTI. UTI likely etiology of patient's leukocytosis and infectious process. The wounds were evaluated and unlikely etiology. Lower extremity edema unlikely cellulitis. We will continue to follow the recommendations monitor. Antibiotics as per ID. Trend labs. The liver is unremarkable. Doppler interrogation of the main portal vein shows patency with hepatopedal, monophasic flow. There is no biliary ductal dilatation identified. Gallbladder is unremarkable. CBD is 4 mm. Bilateral pleural effusions are demonstrated. There is trace ascites. There is prominence in the area of the pancreatic head. There demonstrated part of the aorta and IVC show no definite abnormalities. Both kidneys appear echogenic. There is no hydronephrosis. IMPRESSION: Bilateral pleural effusions Prominent pancreatic head. This may be related to body habitus. Consider further evaluation with contrast CT. Trace ascites Suspected medical renal disease. (2) Decubitus skin ulcer Assessment & Plan: Patient presents on admission with multiple decubitus ulcer. Stage III a somewhat resolving sacral decubitus ulcer 2 cm x 1 cm x 5 mm deep no active drainage no signs of active acute infection. Right trochanteric resolving deep tissue injury with Skin changes Bilateral heel boggy nontender Patient is very tall and feet hanging over the side of the bed occasionally and states that when he is not in the hospital his feet are occasionally on the bedpost. Discussed this with patient and information given as well as care plan. Wash sacral decubitus ulcer daily with normal saline apply Thera honey followed by protective foam dressing. Skin protectant to bilateral trochanteric hips followed by foam dressing Keep heels elevated with pillows. Do not allow heels to be on the bedpost but extension necessary Foam dressings for heels thank you will follow with recommendations Nutritional optimization presented on admission with full thickness sacral pressure injury (L)1.1cm x (W) 0.5cm x (D)0.6cm. Base of wound is moist and pink. Borders are macerated. Periwound is black and fluctuant. Pt complained of tenderness when palpated. Full thickness stage 3 pressure injury R hip. Biofilm at base of wound. Edges adherent to base of wound. Periwound is black without induration or fluctuance.( L)0.6cm x (W)0.7cm. Wound L knee with semi-detached necrotic cap, moist erythematous borders. No exudate noted. Periwound without erythema induration or fluctuance (L)8cm x (W) 8.3cm. Unstageable pressure injury lateral R malleolus. Base of wound has 100% dry yellow cap. Edges adherent to base of wound. Periwound is black and indurated with marginal erythema.(L)2cm x (W)2cm. Both heels are dry, firm and blanchable. Tx.plan: Cleanse Sacral wound with Saline. Apply Therahoney. Apply Moisture Barrier periwound.Cover with Optifoam fouziag every 3 days and prn. Cleanse wound R hip with Saline. Apply Therahoney. Apply Cavilon Periwound. Cover with Optifoam drsg every 3 days and prn. Apply Betadine to R knee. Cover with Optifoam drsg. Change every 3days and prn. Apply Betadine to R lateral malleolus. Cover with Optifoam drsg. Change every 3 days and prn. Apply Cavilon Skin Barrier to both heels.Cover each heel with Optifoam drsg. Change every 7 days and prn. Reposition at least every 2hours or as tolerated. Off-load heels with pillow. nutritional optimization improving d/c planning (3) Malnutrition Assessment & Plan: DAILY ESTIMATED NEEDS: Needs based on CA, 68.2kg 30-35 kcals/kg 0466-5263 total kcals 1-2 g protein/kg 68-136 g total protein 25-30 mL/kg 2122-6395 total fluid mLs NUTRITION DIAGNOSIS: Increased kcal/prot needs R/T catabolic dx and underweight status as evidenced by h/o stage IV Prostate cancer s/p chemotherapy, pt @87% IBW. CURRENT DIET: Cardiac PO DIET RECOMMENDATIONS--->>> CCHO MED/ texture as tolerated + Glucerna TID w/ meals ADDITIONAL RECOMMENDATIONS: * Calibrated bed scale wt for accurate CBW * Monitor po intake, need for snacks -h/o stage 4 CA, w/ chemo * BG in the 300's, consider increasing levemir -> rec HgA1C * WOUND CARE: add JERRY BID + Vit C 250mg daily F/up w/ WC eval moderate given condition bmi 20, hx cancer nutritional optimization alb 2 (4) Deep tissue injury Juan Carlos Tucker Jun 22, 2019 11:29
[2019-06-22 12:00] VITALS: BP 105/76
--- NOTE | 2019-06-22 12:09 | NUR ---
RD ASSESSMENT & RECOMMENDATIONS SEE CARE ACTIVITY FOR COMPLETE ASSESSMENT DAILY ESTIMATED NEEDS: Needs based on CA, wound 68.2kg 30-35 kcals/kg 1342-9070 total kcals 1.25-2 g protein/kg 85-136 g total protein 25-30 mL/kg 4709-5715 total fluid mLs NUTRITION DIAGNOSIS: Increased kcal/prot needs R/T catabolic dx, wound, and underweight status as evidenced by h/o stage IV Prostate cancer s/p chemotherapy, pt @87% IBW, pt w/ stage 3 sacral wound. CURRENT DIET: Regular-> now CCHO MED W/ HIGH PROT. PO DIET RECOMMENDATIONS: CCHO MED/ texture as tolerated + 2X proteins ADDITIONAL RECOMMENDATIONS: * Calibrated bed scale wt for accurate CBW * Monitor po intake, need for snacks- Pt w/ good po intake -h/o stage 4 CA, w/ chemo * BG in the 300's, consider increasing levemir- now at 15units BID -> rec HgA1C * WOUND CARE: add JERRY BID + Vit C 250mg BID, continue MVI qd .
--- NOTE | 2019-06-22 13:01 | Pre-Procedure Note/Attestation ---
Pre-Procedure Note/Attestation Complete Prior to Procedure Planned Procedure: right Procedure Narrative: THORACENTESIS Indications for Procedure Pre-Operative Diagnosis: Pleural effusion Attestation I attest that I discussed the nature of the procedure; its benefits; risks and complications; and alternatives (and the risks and benefits of such alternatives ), prior to the procedure, with the patient (or the patient's legal technical services representative). I attest that, if there was a reasonable possibility of needing a blood transfusion, the patient (or the patient's legal technical services representative) was given the [facility] standardized written summary, pursuant to the [place] Blood Safety Act ([place] Health and Safety Code # 1645, as amended). I attest that I re-evaluated the patient just prior to the surgery and that there has been no change in the patient's H&P, except as documented below: Ed Medina MD Jun 22, 2019 13:01
--- NOTE | 2019-06-22 13:02 | Brief Operative Note ---
Immediate Post Operative Note Operative Note Pre-op Diagnosis: Pleural effusion Procedure: Thoracentesis Post-op Diagnosis: same as pre-op Surgeon: Adela Chavez Specimen: yes - 50 ml fluid sent to lab Complications: none Condition: stable Fluids: none Implant(s) used?: No Ed Chavez MD Jun 22, 2019 13:02
--- NOTE | 2019-06-22 13:09 | Diagnostic Imaging Report ---
Indication: Shortness of breath, status post thoracentesis Technique: One view of the chest Comparison: 06/19/2019 Findings: Interim complete or near complete resolution of previously demonstrated right pleural effusion. There is still some blunting of the right costophrenic sulcus and indistinctness of the right hemidiaphragm. This may reflect residual pleural fluid or atelectasis. No pneumothorax is demonstrated. Left-sided pleural effusion is unchanged. Borderline interstitial congestive changes persist Impression: Markedly decreased right pleural effusion, status post thoracentesis. No radiographically evident complication
[2019-06-22] MEDS: Vancomycin 1.5gm/NS Premix q24h IVPB SCH (13:31)
--- NOTE | 2019-06-22 13:33 | Diagnostic Imaging Report ---
Indications: Pleural effusion Technique: Ultrasound used to localize optimal puncture site. Sterile prepping and draping right chest. Local anesthesia with 1% lidocaine. Under real-time ultrasound guidance, puncture pleural space using thoracentesis needle. Stylet removed. Catheter placed to suction. Total 1100 milliliters of fluid aspirated. Patient tolerated procedure well, without immediate complication. Findings: Followup sonography demonstrates complete resolution of pleural fluid. Impression: Successful ultrasound-guided thoracentesis, yielding 1100 milliliters of fluid
[2019-06-22 16:00] VITALS: BP 129/79
--- NOTE | 2019-06-22 19:06 | NUR ---
HAND-OFF: Report given to Fabiana KAUR.
--- NOTE | 2019-06-22 19:33 | NUR ---
NURSE NOTES: Received report from VINCENT Nichols. Patient is in bed, awake, alert and responsive. Breathing regular and unlabored with no s/s of SOB noted at this time. Patient remains on a NC 2L, saturations remain in the 90's. Patient denies any pain or discomfort at this time. IV patent, intact, and saline locked. Bed remains in the lowest positions, breaks engaged, and call light is within reach at all times. All other needs attended to, patient remains stable, will continue to monitor.
[2019-06-22 20:00] VITALS: BP 149/59
[2019-06-23] VITALS: BP 113/80
[2019-06-23 04:00] VITALS: BP 119/60
[2019-06-23] MEDS: Piperacillin/Tazobactam 3.375 GM in NS 110 ML IVPB SCH ×3 (06:44→21:08)
[2019-06-23] MEDS: NovoLOG Insulin Flexpen SUBQ SCH ×4 (06:44→21:15)
[2019-06-23 07:08] LABS: HEMATOCRIT 28.7 % (42.0-52.0); HEMOGLOBIN 9.4 G/DL (14.2-18.0); MEAN CORPUSCULAR VOLUME 87 FL (80-99); PLATELET COUNT 179 K/UL (150-450); RED BLOOD COUNT 3.28 M/UL (4.70-6.10); RED CELL DISTRIBUTION WIDTH 19.8 % (11.6-14.8)
[2019-06-23 07:16] LABS: WHITE BLOOD COUNT 25.6 K/UL (4.8-10.8)
--- NOTE | 2019-06-23 07:30 | NUR ---
NURSE NOTES: Received pt from DIVYA KAUR. Pt is awake and alert, pt is in RA, no SOB or acute respiratory distress noted. pt has intact iv access RFA 22G SL. Pt is eating breakfast by observation. pt is on continues cardiac monitoring. all neds attended, bed is locked and is in the lowest position, call light within easy reach. will continue to monitor.
--- NOTE | 2019-06-23 07:42 | NUR ---
HAND-OFF: Report given to VINCENT Pruitt. Patient is stable, plan of care endorsed.
[2019-06-23 08:00] VITALS: BP 106/73
--- NOTE | 2019-06-23 08:29 | General Progress Note ---
Assessment/Plan Assessment/Plan: 1. Anemia. 2. Congestive heart failure. 3. Lower extremity edema, 4. Prostate cancer. 5. Leukocytosis, possibly leukemoid. 6. Diabetes. 7. Low potassium. 8. pleural effusions s/p tap PLAN monitor blood sugars tap completed repeat labs ID to follow; wbc worse and needs to be addressed monitor HH wound care dc planning on hold pending wbc improvement impression, plan, and exam edited and reviewed in detail care discussed with RN Subjective Allergies: Coded Allergies: No Known Allergies (Unverified , 12/05/18) Subjective large effusions snd s/p tap wbc worse but appears nontoxic alert Objective Last 24 Hour Vital Signs Date Time Temp Pulse Resp B/P (MAP) Pulse Ox O2 Delivery O2 Flow Rate FiO2 06/23/19 04:00 97.7 94 18 119/60 (79) 95 06/23/19 04:00 94 06/23/19 00:00 96.6 99 18 113/80 (91) 96 06/23/19 00:00 97 06/22/19 21:00 Room Air 06/22/19 20:00 99.3 104 19 149/59 (89) 96 06/22/19 20:00 103 06/22/19 16:00 99 06/22/19 16:00 99.7 99 20 129/79 (96) 96 06/22/19 12:00 95 06/22/19 12:00 100.9 97 20 105/76 (86) 96 Intake and Output 06/22/19 06/23/19 19:00 07:00 Intake Total 600 ml Output Total 4200 ml Balance -3600 ml Intake Oral 600 ml Output Urine Total 4200 ml # Voids 8 2 # Bowel Movements 1 1 Laboratory Tests 06/22/19 08:50: Prothrombin Time 11.9H, Prothromb Time International Ratio 1.1, Activated Partial Thromboplast Time 29 06/23/19 05:54: White Blood Count 25.6*H, Red Blood Count 3.28L, Hemoglobin 9.4L, Hematocrit 28.7L, Mean Corpuscular Volume 87, Mean Corpuscular Hemoglobin 28.5, Mean Corpuscular Hemoglobin Concent 32.6, Red Cell Distribution Width 19.8H, Platelet Count 179, Mean Platelet Volume 7.1, Neutrophils (%) (Auto) , Lymphocytes (%) (Auto) , Monocytes (%) (Auto) , Eosinophils (%) (Auto) , Basophils (%) (Auto) , Neutrophils % (Manual) [Pending], Lymphocytes % (Manual) [Pending], Platelet Estimate [Pending], Platelet Morphology [Pending] Height (Feet): 5 Height (Inches): 11.00 Weight (Pounds): 149 Objective WDWN NAD reduced breath sounds bilaterally without rhonchi or wheeze; now improved [id number] without MRG NABS nontender no HSM no CC minimal edema alert and oriented nonfocal Jason Garcia MD Jun 23, 2019 08:29
--- NOTE | 2019-06-23 08:46 | NUR ---
CASE MANAGEMENT: REVIEW 06/22/19 SI:SP THORACENTESIS . BILATERAL PLEURAL EFFUSION . TRACE ASCITES . CHF EXACERBATION . DM . ANEMIA . UTI . BILATERAL LE EDEMA 100.9 97 20 105/76 96% ON RA PT 11.9 IS:IV ROCEPHIN Q24HR IV LASIX QD K-DUR PO QD LEVEMIR SQ BID NOVOLOG SQ AC&HS TYLENOL Q6HR.PRN MTV PO QD \: RETURNING TO [facility] WHEN STABLE PLAN: X1 BLOOD TX PRBC CHEST X-RAY REPEAT PATIENT AND POA REQUESTING NEW PLACEMENT - SENT CLINICALS TO- NO ONE ACCEPTING PATIENT NEEDS TO APPLY FOR SECONDARY INSURANCE TO TRANSFER OUT OF CURRENT [facility] ABD - RO ABSCESS DC IV ABX CONTROL [facility] CASE MANAGEMENT: REVIEW 06/23/19 SI:SP THORACENTESIS . BILATERAL PLEURAL EFFUSION . TRACE ASCITES . CHF EXACERBATION . DM . ANEMIA . UTI . BILATERAL LE EDEMA 98.5 96 20 106/73 97% ON RA WBC 25.6 H/H 9.4/28.7 IS:IV ZOSYN TID IV VANCOMYCIN Q24 IV LASIX QD K-DUR PO QD LEVEMIR SQ BID NOVOLOG SQ AC&HS TYLENOL Q6HR.PRN MTV PO QD \: RETURNING TO [facility] WHEN STABLE PLAN: S/P THORACENTESIS -YIELD 50ML CHEST X-RAY REPEAT -Left-sided pleural effusion is unchanged; decreased right pleural effusion
[2019-06-23] MEDS: Ascorbic Acid 500mg tab ORAL SCH ×2 (08:50→18:08)
[2019-06-23] MEDS: HYDROcodone/Acetamin 5/325 tab ORAL PRN (08:57)
[2019-06-23] MEDS: Lomotil 2.5mg tab ORAL PRN (09:52)
[2019-06-23] MEDS: Levemir Flexpen SUBQ SCH ×2 (09:56→18:11)
--- NOTE | 2019-06-23 10:00 | NUR ---
NURSE NOTES: Dr ALVAREZ visited pt and is aware about WBC 25.6, she will F/U. will continue to monitor.
--- NOTE | 2019-06-23 10:15 | Infectious Diseases Prog Note ---
"Assessment/Plan Assessment/Plan antibiotics : vancomycin iv, zosyn A 1. UTI 2. pneumonia 3. pleural effusions s/p thoracentesis 4. leucocytosis increasing 5. prostate cancer P 1. continue iv vancomycin, zosyn 2. CT chest | abdomen | pelvis 3. will follow up cultures Subjective Constitutional: Denies: fever, chills Respiratory: Reports: shortness of breath - decreased; Denies: dry cough Gastrointestinal/Abdominal: Reports: diarrhea - decreased; Denies: nausea, vomiting Musculoskeletal: Denies: pain Allergies: Coded Allergies: No Known Allergies (Unverified , 12/05/18) Objective Vital Signs Last 24 Hour Vital Signs Date Time Temp Pulse Resp B/P (MAP) Pulse Ox O2 Delivery O2 Flow Rate FiO2 06/23/19 08:00 98.5 96 20 106/73 (84) 97 06/23/19 04:00 97.7 94 18 119/60 (79) 95 06/23/19 04:00 94 06/23/19 00:00 96.6 99 18 113/80 (91) 96 06/23/19 00:00 97 06/22/19 21:00 Room Air 06/22/19 20:00 99.3 104 19 149/59 (89) 96 06/22/19 20:00 103 06/22/19 16:00 99 06/22/19 16:00 99.7 99 20 129/79 (96) 96 06/22/19 12:00 95 06/22/19 12:00 100.9 97 20 105/76 (86) 96 Height (Feet): 5 Height (Inches): 11.00 Weight (Pounds): 149 Respiratory/Chest: lungs clear Cardiovascular: normal rate, regular rhythm, no gallop/murmur Abdomen: soft, non tender Extremities: no edema Laboratory Tests Test 06/23/19 05:54 White Blood Count 25.6 K/UL (4.8-10.8) *H Red Blood Count 3.28 M/UL (4.70-6.10) L Hemoglobin 9.4 G/DL (14.2-18.0) L Hematocrit 28.7 % (42.0-52.0) L Mean Corpuscular Volume 87 FL (80-99) Mean Corpuscular Hemoglobin 28.5 PG (27.0-31.0) Mean Corpuscular Hemoglobin Concent 32.6 G/DL (32.0-36.0) Red Cell Distribution Width 19.8 % (11.6-14.8) H Platelet Count 179 K/UL (150-450) Mean Platelet Volume 7.1 FL (6.5-10.1) Neutrophils (%) (Auto) % (45.0-75.0) Lymphocytes (%) (Auto) % (20.0-45.0) Monocytes (%) (Auto) % (1.0-10.0) Eosinophils (%) (Auto) % (0.0-3.0) Basophils (%) (Auto) % (0.0-2.0) Neutrophils % (Manual) Pending Lymphocytes % (Manual) Pending Platelet Estimate Pending Platelet Morphology Pending Current Medications Medications (Trade) Dose Ordered Sig/Sanjeev Route PRN Reason Start Time Stop Time Status Last Admin Dose Admin Acetaminophen (Tylenol) 650 mg Q6H PRN ORAL Mild Pain/Temp > 100.5 06/19/19 07:45 07/19/19 07:44 06/20/19 03:54 Acetaminophen/ Hydrocodone Bitart (Mather 5/325) 1 tab Q4H PRN ORAL Moderate Pain (Pain Scale 4-6) 06/19/19 07:45 06/26/19 07:44 06/23/19 08:57 Ascorbic Acid (Vitamin C) 250 mg TWICE A DAY ORAL 06/21/19 18:00 07/21/19 17:59 06/23/19 08:50 Dextrose (Dextrose 50%) 25 ml Q30M PRN IV Hypoglycemia 06/19/19 07:45 07/19/19 07:44 Dextrose (Dextrose 50%) 50 ml Q30M PRN IV Hypoglycemia 06/19/19 07:45 07/19/19 07:44 Diphenoxylate HCl/ Atropine (Lomotil) 2.5 mg Q6H PRN ORAL Diarrhea 06/20/19 16:45 07/20/19 16:44 06/23/19 09:52 Furosemide (Lasix) 40 mg DAILY IV 06/19/19 09:00 07/19/19 08:59 06/23/19 08:50 Insulin Aspart (NovoLOG) BEFORE MEALS AND HS SUBQ 06/19/19 11:30 07/19/19 11:29 06/23/19 06:44 Insulin Detemir (Levemir) 15 units BID SUBQ 06/22/19 21:00 07/22/19 20:59 06/23/19 09:56 Multivitamins (Multivitamins) 1 tab DAILY ORAL 06/19/19 09:00 07/19/19 08:59 06/23/19 08:49 Piperacillin Sod/ Tazobactam Sod 3.375 gm/Sodium Chloride 110 ml @ 27.5 mls/hr EVERY 8 HOURS IVPB 06/21/19 14:00 06/26/19 13:59 06/23/19 06:44 Potassium Chloride (K-Dur) 40 meq DAILY ORAL 06/19/19 12:00 07/19/19 11:59 06/23/19 08:50 Vancomycin HCl (Vanco rx to dose) 1 ea DAILY PRN MISC Per rx protocol 06/22/19 11:15 07/22/19 11:14 Vancomycin/Sodium Chloride 275 ml @ 137.5 mls/ hr Q24H IVPB 06/22/19 12:00 06/27/19 11:59 06/22/19 13:31 Zolpidem Tartrate (Ambien) 5 mg HSPRN PRN ORAL Insomnia 06/22/19 11:00 06/29/19 10:59 Gumaro Barakat MD Jun 23, 2019 10:15"
[2019-06-23] MEDS ORDERED: Omnipaque-300 100ml vial INJ PRN (10:21)
[2019-06-23 12:00] VITALS: BP 100/55
[2019-06-23] MEDS: Vancomycin 1.5gm/NS Premix q24h IVPB SCH (12:39)
--- NOTE | 2019-06-23 14:28 | Surgery Progress Note ---
Surgery Progress Note Subjective Symptoms: improved Objective Last 24 Hour Vital Signs Date Time Temp Pulse Resp B/P (MAP) Pulse Ox O2 Delivery O2 Flow Rate FiO2 06/23/19 12:00 98.1 94 20 100/55 (70) 94 06/23/19 11:54 94 06/23/19 09:00 Room Air 06/23/19 08:13 99 06/23/19 08:00 98.5 96 20 106/73 (84) 97 06/23/19 04:00 97.7 94 18 119/60 (79) 95 06/23/19 04:00 94 06/23/19 00:00 96.6 99 18 113/80 (91) 96 06/23/19 00:00 97 06/22/19 21:00 Room Air 06/22/19 20:00 99.3 104 19 149/59 (89) 96 06/22/19 20:00 103 06/22/19 16:00 99 06/22/19 16:00 99.7 99 20 129/79 (96) 96 I&O Intake and Output 06/22/19 06/23/19 19:00 07:00 Intake Total 600 ml Output Total 4200 ml Balance -3600 ml Intake Oral 600 ml Output Urine Total 4200 ml # Voids 8 2 # Bowel Movements 1 1 Dressing: saturated Wound: clean Cardiovascular: RSR Respiratory: clear Abdomen: soft, flat, non-tender, present bowel sounds Extremities: no cyanosis Laboratory Tests Test 06/23/19 05:54 White Blood Count 25.6 K/UL (4.8-10.8) *H Red Blood Count 3.28 M/UL (4.70-6.10) L Hemoglobin 9.4 G/DL (14.2-18.0) L Hematocrit 28.7 % (42.0-52.0) L Mean Corpuscular Volume 87 FL (80-99) Mean Corpuscular Hemoglobin 28.5 PG (27.0-31.0) Mean Corpuscular Hemoglobin Concent 32.6 G/DL (32.0-36.0) Red Cell Distribution Width 19.8 % (11.6-14.8) H Platelet Count 179 K/UL (150-450) Mean Platelet Volume 7.1 FL (6.5-10.1) Neutrophils (%) (Auto) % (45.0-75.0) Lymphocytes (%) (Auto) % (20.0-45.0) Monocytes (%) (Auto) % (1.0-10.0) Eosinophils (%) (Auto) % (0.0-3.0) Basophils (%) (Auto) % (0.0-2.0) Differential Total Cells Counted 100 Neutrophils % (Manual) 72 % (45-75) Lymphocytes % (Manual) 19 % (20-45) L Monocytes % (Manual) 9 % (1-10) Eosinophils % (Manual) 0 % (0-3) Basophils % (Manual) 0 % (0-2) Band Neutrophils 0 % (0-8) Nucleated Red Blood Cells 3 /100 WBC Platelet Estimate Adequate Platelet Morphology Normal Polychromasia 2+ Hypochromasia 1+ Anisocytosis 2+ Plan Problems: (1) Leukocytosis Assessment & Plan: Patient presents with leukocytosis abnormal labs. Bilateral lower extremity edema. Multiple decubitus ulcers. UTI. UTI likely etiology of patient's leukocytosis and infectious process. The wounds were evaluated and unlikely etiology. Lower extremity edema unlikely cellulitis. We will continue to follow the recommendations monitor. Antibiotics as per ID. Trend labs. The liver is unremarkable. Doppler interrogation of the main portal vein shows patency with hepatopedal, monophasic flow. There is no biliary ductal dilatation identified. Gallbladder is unremarkable. CBD is 4 mm. Bilateral pleural effusions are demonstrated. There is trace ascites. There is prominence in the area of the pancreatic head. There demonstrated part of the aorta and IVC show no definite abnormalities. Both kidneys appear echogenic. There is no hydronephrosis. IMPRESSION: Bilateral pleural effusions Prominent pancreatic head. This may be related to body habitus. Consider further evaluation with contrast CT. Trace ascites Suspected medical renal disease. (2) Decubitus skin ulcer Assessment & Plan: Patient presents on admission with multiple decubitus ulcer. Stage III a somewhat resolving sacral decubitus ulcer 2 cm x 1 cm x 5 mm deep no active drainage no signs of active acute infection. Right trochanteric resolving deep tissue injury with Skin changes Bilateral heel boggy nontender Patient is very tall and feet hanging over the side of the bed occasionally and states that when he is not in the hospital his feet are occasionally on the bedpost. Discussed this with patient and information given as well as care plan. Wash sacral decubitus ulcer daily with normal saline apply Thera honey followed by protective foam dressing. Skin protectant to bilateral trochanteric hips followed by foam dressing Keep heels elevated with pillows. Do not allow heels to be on the bedpost but extension necessary Foam dressings for heels thank you will follow with recommendations Nutritional optimization presented on admission with full thickness sacral pressure injury (L)1.1cm x (W) 0.5cm x (D)0.6cm. Base of wound is moist and pink. Borders are macerated. Periwound is black and fluctuant. Pt complained of tenderness when palpated. Full thickness stage 3 pressure injury R hip. Biofilm at base of wound. Edges adherent to base of wound. Periwound is black without induration or fluctuance.( L)0.6cm x (W)0.7cm. Wound L knee with semi-detached necrotic cap, moist erythematous borders. No exudate noted. Periwound without erythema induration or fluctuance (L)8cm x (W) 8.3cm. Unstageable pressure injury lateral R malleolus. Base of wound has 100% dry yellow cap. Edges adherent to base of wound. Periwound is black and indurated with marginal erythema.(L)2cm x (W)2cm. Both heels are dry, firm and blanchable. Tx.plan: Cleanse Sacral wound with Saline. Apply Therahoney. Apply Moisture Barrier periwound.Cover with Optifoam drsg every 3 days and prn. Cleanse wound R hip with Saline. Apply Therahoney. Apply Cavilon Periwound. Cover with Optifoam drsg every 3 days and prn. Apply Betadine to R knee. Cover with Optifoam drsg. Change every 3days and prn. Apply Betadine to R lateral malleolus. Cover with Optifoam drsg. Change every 3 days and prn. Apply Cavilon Skin Barrier to both heels.Cover each heel with Optifoam drsg. Change every 7 days and prn. Reposition at least every 2hours or as tolerated. Off-load heels with pillow. nutritional optimization improving d/c planning (3) Malnutrition Assessment & Plan: DAILY ESTIMATED NEEDS: Needs based on CA, 68.2kg 30-35 kcals/kg total kcals 1-2 g protein/kg 68-136 g total protein 25-30 mL/kg 4073-9381 total fluid mLs NUTRITION DIAGNOSIS: Increased kcal/prot needs R/T catabolic dx and underweight status as evidenced by h/o stage IV Prostate cancer s/p chemotherapy, pt @87% IBW. CURRENT DIET: Cardiac PO DIET RECOMMENDATIONS--->>> CCHO MED/ texture as tolerated + Glucerna TID w/ meals ADDITIONAL RECOMMENDATIONS: * Calibrated bed scale wt for accurate CBW * Monitor po intake, need for snacks -h/o stage 4 CA, w/ chemo * BG in the 300's, consider increasing levemir -> rec HgA1C * WOUND CARE: add JERRY BID + Vit C 250mg daily F/up w/ WC eval moderate given condition bmi 20, hx cancer nutritional optimization alb 2 (4) Deep tissue injury Juan Carlos Tucker Jun 23, 2019 14:28
--- NOTE | 2019-06-23 14:30 | NUR ---
NURSE NOTES: SPUTUM SPECIMEN SENT TO LAB, WAITING FOR RESULT.
[2019-06-23 16:00] VITALS: BP 116/58
--- NOTE | 2019-06-23 18:27 | Diagnostic Imaging Report ---
CLINICAL INDICATION:Shortness of breath, pleural effusion, hematuria, urinary tract infection, pneumonia, leukocytosis, history of prostate cancer TECHNIQUE: Patient ingested oral contrast . IV administration nonionic contrast Spiral acquisitions obtained through the chest, abdomen, and pelvis. Multiplanar reconstructions were generated. Total dose length product 432 mGycm. CTDIvol(s) one, 181, 4, 4 mGy. Radiation dose was minimized using automated exposure control COMPARISON: No comparison chest CTs. Reference made to prior abdomen pelvis CT dated 09/01/2005 FINDINGS There is generalized anasarca. There is edema of the subcutaneous fat, mediastinal, abdominal and pelvic fat as well as bilateral pleural effusions and pulmonary parenchymal groundglass opacity. This somewhat limits inherent soft tissue contrast Chest: There are bilateral moderate to large pleural effusions. These result in compressive atelectatic changes of the posterior lower lobes bilaterally. There is also groundglass opacity throughout much of the upper and lower lobes. The right middle lobe appears to be spared. There is more irregular opacity with architectural distortion in the left central/perihilar lung. This appears to be associated with a slight degree of bronchiectasis. The heart size is normal. No mediastinal or hilar mass or adenopathy. There are coronary artery calcifications noted. No axillary or chest wall mass or adenopathy demonstrated. The bones demonstrate diffuse osteosclerosis. There are degenerative changes of the mid thoracic spine. There is marked endplate irregularity at T7-8. Abdomen pelvis: Previously demonstrated hiatal hernia is not evident on this exam. The stomach and duodenum are unremarkable. There is evident. There is interim surgery of the cecum and ascending colon region with anastomotic nicky and surgical clips in place, probably related to the cecal mass demonstrated on prior CT scan. No evidence of colonic diverticulosis or diverticulitis. No small bowel distention or small bowel wall thickening. No definite free intraperitoneal fluid. The liver, gallbladder, bile ducts, pancreas, spleen, adrenals, kidneys are unremarkable. No pelvic mass or adenopathy. Surgical hardware is seen in the right hip, also evident previously. The bones demonstrate diffuse osteosclerosis. A few osteolytic lesions are also seen in the right iliac bone. Previously demonstrated fat-containing bilateral inguinal hernias are not evident currently. IMPRESSION: Bilateral moderate to large pleural effusions. Resultant compressive atelectatic changes of both lower lobes Groundglass opacity throughout much of the upper and lower lobes, likely reflects parenchymal edema, but could also represent infectious/inflammatory process. Correlate with clinical findings Evidence of anasarca elsewhere, with diffuse edema of the subcutaneous, mediastinal, and mesenteric and pelvic fat Irregular left upper lung opacities with architectural distortion, probably an area of scarring/cicatrization. Mass or infiltrate much less likely Diffuse osteosclerosis, consistent with stated clinical history of metastatic prostate carcinoma Endplate irregularity of the mid thoracic spine as describe. This is probably due to degenerative change. Infectious spondylitis and less likely but not completely excludable. Correlate with clinical findings, consider MRI if there is clinical suspicion for such Evidence of interim right colon surgery. Evidence of right hip surgery, also previously noted Coronary artery calcifications The CT scanner at [facility] is accredited by the [employer] and the scans are performed using protocols designed to limit radiation exposure to as low as reasonably achievable to attain images of sufficient resolution adequate for diagnostic evaluation.
--- NOTE | 2019-06-23 19:41 | NUR ---
NURSE NOTES: pt is awake and stable, report given to RENUKA KAUR.
--- NOTE | 2019-06-23 19:50 | NUR ---
NURSE NOTES: Received pt from VINCENT Pruitt. Pt awake, alert, and talkative. Bed in lowest position. Call light within reach. Will continue to monitor.
[2019-06-23 20:00] VITALS: BP 89/51
[2019-06-23] MEDS: Zolpidem 5mg tab ORAL PRN (22:10)
[2019-06-24] VITALS: BP 97/62
[2019-06-24 04:00] VITALS: BP 100/70
[2019-06-24] MEDS: Piperacillin/Tazobactam 3.375 GM in NS 110 ML IVPB SCH ×4 (06:37→21:28)
[2019-06-24] MEDS: NovoLOG Insulin Flexpen SUBQ SCH ×4 (06:41→20:40)
--- NOTE | 2019-06-24 07:56 | NUR ---
HAND-OFF: Report given to VINCENT Del Rio. Pt stable.
[2019-06-24 08:00] VITALS: BP 113/71
--- NOTE | 2019-06-24 08:10 | NUR ---
NURSE NOTES: Received report from Lizabeth KAUR. Pt in bed awake and orientedx3. Denied SOB. IV site in right forearm 22g SL patent and asymptomatic running with IV Zosyn. Call light within easy reach. Denied SOB. Bed in lowest position and locked. Side railx2 up for safety. Will continue to plan of care.
[2019-06-24] MEDS: Ascorbic Acid 500mg tab ORAL SCH ×2 (09:37→17:19)
[2019-06-24] MEDS: Levemir Flexpen SUBQ SCH ×2 (09:57→17:17)
--- NOTE | 2019-06-24 10:25 | General Progress Note ---
Assessment/Plan Assessment/Plan: 1. Anemia. 2. Congestive heart failure. 3. Lower extremity edema, 4. Prostate cancer. 5. Leukocytosis, possibly leukemoid. 6. Diabetes. 7. Low potassium. 8. pleural effusions s/p tap PLAN monitor blood sugars repeat labs ID to follow; wbc worse and needs to be addressed monitor HH wound care as is dc planning on hold pending wbc improvement impression, plan, and exam edited and reviewed in detail care discussed with RN Subjective Allergies: Coded Allergies: No Known Allergies (Unverified , 12/05/18) Subjective large effusions snd s/p tap wbc repeat pending alert Objective Last 24 Hour Vital Signs Date Time Temp Pulse Resp B/P (MAP) Pulse Ox O2 Delivery O2 Flow Rate FiO2 06/24/19 08:00 97 06/24/19 08:00 98.8 99 20 113/71 (85) 100 06/24/19 04:00 94 06/24/19 04:00 97.6 97 16 100/70 (80) 97 06/24/19 00:00 99 06/24/19 00:00 98.0 98 16 97/62 (74) 97 06/23/19 21:00 Room Air 06/23/19 20:00 95 06/23/19 20:00 97.9 96 16 89/51 (64) 99 06/23/19 16:23 91 06/23/19 16:00 98.3 91 20 116/58 (77) 96 06/23/19 12:00 98.1 94 20 100/55 (70) 94 06/23/19 11:54 94 Intake and Output 06/23/19 06/24/19 19:00 07:00 Intake Total 731.0 ml Output Total 0 ml Balance 731.0 ml 0 ml Intake Oral 236 ml IV Total 495.0 ml Stool Total 0 ml # Voids 2 5 # Bowel Movements 2 1 Height (Feet): 5 Height (Inches): 11.00 Weight (Pounds): 149 Objective WDWN NAD reduced breath sounds bilaterally without rhonchi or wheeze; now improved [id number] without MRG NABS nontender no HSM no CC minimal edema alert and oriented nonfocal Jason Garcia MD Jun 24, 2019 10:25
--- NOTE | 2019-06-24 10:52 | Infectious Diseases Prog Note ---
Assessment/Plan Assessment/Plan 1. UTI 2. pneumonia 3. pleural effusions, s/p thoracentesis 4. leucocytosis increasing 5. prostate cancer 6. 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 Continue Zosyn & IV Vancomycin 2. f/u CBC 3.will follow up cultures Subjective ROS Limited/Unobtainable: No Constitutional: Reports: no symptoms Respiratory: Reports: no symptoms Cardiovascular: Reports: no symptoms Gastrointestinal/Abdominal: Reports: no symptoms Genitourinary: Reports: no symptoms Allergies: Coded Allergies: No Known Allergies (Unverified , 12/05/18) Objective Vital Signs Last 24 Hour Vital Signs Date Time Temp Pulse Resp B/P (MAP) Pulse Ox O2 Delivery O2 Flow Rate FiO2 06/24/19 09:00 Room Air 06/24/19 08:00 97 06/24/19 08:00 98.8 99 20 113/71 (85) 100 06/24/19 04:00 94 06/24/19 04:00 97.6 97 16 100/70 (80) 97 06/24/19 00:00 99 06/24/19 00:00 98.0 98 16 97/62 (74) 97 06/23/19 21:00 Room Air 06/23/19 20:00 95 06/23/19 20:00 97.9 96 16 89/51 (64) 99 06/23/19 16:23 91 06/23/19 16:00 98.3 91 20 116/58 (77) 96 06/23/19 12:00 98.1 94 20 100/55 (70) 94 06/23/19 11:54 94 Height (Feet): 5 Height (Inches): 11.00 Weight (Pounds): 149 General Appearance: no acute distress HEENT: mucous membranes moist Respiratory/Chest: lungs clear Cardiovascular: normal rate Abdomen: soft, non tender Extremities: no edema Neurologic/Psychiatric: alert, oriented x 3, responsive Current Medications Medications (Trade) Dose Ordered Sig/Sanjeev Route PRN Reason Start Time Stop Time Status Last Admin Dose Admin Acetaminophen (Tylenol) 650 mg Q6H PRN ORAL Mild Pain/Temp > 100.5 06/19/19 07:45 07/19/19 07:44 06/20/19 03:54 Acetaminophen/ Hydrocodone Bitart ([place] 5/325) 1 tab Q4H PRN ORAL Moderate Pain (Pain Scale 4-6) 06/19/19 07:45 06/26/19 07:44 06/23/19 08:57 Ascorbic Acid (Vitamin C) 250 mg TWICE A DAY ORAL 06/21/19 18:00 07/21/19 17:59 06/24/19 09:37 Barium Sulfate (Readi-Cat 2) 450 ml NOW PRN ORAL Radiology Procedure 06/23/19 10:30 06/25/19 10:16 Dextrose (Dextrose 50%) 25 ml Q30M PRN IV Hypoglycemia 06/19/19 07:45 07/19/19 07:44 Dextrose (Dextrose 50%) 50 ml Q30M PRN IV Hypoglycemia 06/19/19 07:45 07/19/19 07:44 Diphenoxylate HCl/ Atropine (Lomotil) 2.5 mg Q6H PRN ORAL Diarrhea 06/20/19 16:45 07/20/19 16:44 06/23/19 09:52 Furosemide (Lasix) 40 mg DAILY IV 06/19/19 09:00 07/19/19 08:59 06/24/19 09:36 Insulin Aspart (NovoLOG) BEFORE MEALS AND HS SUBQ 06/19/19 11:30 07/19/19 11:29 06/24/19 06:41 Insulin Detemir (Levemir) 15 units BID SUBQ 06/22/19 21:00 07/22/19 20:59 06/24/19 09:57 Iohexol (OMNIPAQUE-300 100ml) 100 ml ONCE PRN INJ RADIOLOGY 06/23/19 10:21 06/25/19 23:59 Multivitamins (Multivitamins) 1 tab DAILY ORAL 06/19/19 09:00 07/19/19 08:59 06/24/19 09:37 Piperacillin Sod/ Tazobactam Sod 3.375 gm/Sodium Chloride 110 ml @ 27.5 mls/hr EVERY 8 HOURS IVPB 06/21/19 14:00 06/26/19 13:59 06/24/19 06:37 Potassium Chloride (K-Dur) 40 meq DAILY ORAL 06/19/19 12:00 07/19/19 11:59 06/24/19 09:36 Vancomycin HCl (Vanco rx to dose) 1 ea DAILY PRN MISC Per rx protocol 06/22/19 11:15 07/22/19 11:14 Vancomycin/Sodium Chloride 275 ml @ 137.5 mls/ hr Q24H IVPB 06/22/19 12:00 06/27/19 11:59 06/23/19 12:39 Zolpidem Tartrate (Ambien) 5 mg HSPRN PRN ORAL Insomnia 06/22/19 11:00 06/29/19 10:59 06/23/19 22:10 Rod Carballo MD Jun 24, 2019 10:52
[2019-06-24 12:00] VITALS: BP 111/50
[2019-06-24] MEDS: Vancomycin 1.5gm/NS Premix q24h IVPB SCH (12:29)
--- NOTE | 2019-06-24 14:08 | Surgery Progress Note ---
Surgery Progress Note Subjective Additional Comments no acute events Objective Last 24 Hour Vital Signs Date Time Temp Pulse Resp B/P (MAP) Pulse Ox O2 Delivery O2 Flow Rate FiO2 06/24/19 12:00 98.8 96 20 111/50 (70) 100 06/24/19 09:00 Room Air 06/24/19 08:00 97 06/24/19 08:00 98.8 99 20 113/71 (85) 100 06/24/19 04:00 94 06/24/19 04:00 97.6 97 16 100/70 (80) 97 06/24/19 00:00 99 06/24/19 00:00 98.0 98 16 97/62 (74) 97 06/23/19 21:00 Room Air 06/23/19 20:00 95 06/23/19 20:00 97.9 96 16 89/51 (64) 99 06/23/19 16:23 91 06/23/19 16:00 98.3 91 20 116/58 (77) 96 I&O Intake and Output 06/23/19 06/24/19 19:00 07:00 Intake Total 731.0 ml Output Total 0 ml Balance 731.0 ml 0 ml Intake Oral 236 ml IV Total 495.0 ml Stool Total 0 ml # Voids 2 5 # Bowel Movements 2 1 Dressing: other Wound: other Drains: other Cardiovascular: RSR Respiratory: decreased breath sounds Abdomen: soft, present bowel sounds, other Extremities: no cyanosis Plan Problems: (1) Leukocytosis Assessment & Plan: Patient presents with leukocytosis abnormal labs. Bilateral lower extremity edema. Multiple decubitus ulcers. UTI. UTI likely etiology of patient's leukocytosis and infectious process. The wounds were evaluated and unlikely etiology. Lower extremity edema unlikely cellulitis. We will continue to follow the recommendations monitor. Antibiotics as per ID. Trend labs. The liver is unremarkable. Doppler interrogation of the main portal vein shows patency with hepatopedal, monophasic flow. There is no biliary ductal dilatation identified. Gallbladder is unremarkable. CBD is 4 mm. Bilateral pleural effusions are demonstrated. There is trace ascites. There is prominence in the area of the pancreatic head. There demonstrated part of the aorta and IVC show no definite abnormalities. Both kidneys appear echogenic. There is no hydronephrosis. IMPRESSION: Bilateral pleural effusions Prominent pancreatic head. This may be related to body habitus. Consider further evaluation with contrast CT. Trace ascites Suspected medical renal disease. (2) Decubitus skin ulcer Assessment & Plan: Patient presents on admission with multiple decubitus ulcer. Stage III a somewhat resolving sacral decubitus ulcer 2 cm x 1 cm x 5 mm deep no active drainage no signs of active acute infection. Right trochanteric resolving deep tissue injury with Skin changes Bilateral heel boggy nontender Patient is very tall and feet hanging over the side of the bed occasionally and states that when he is not in the hospital his feet are occasionally on the bedpost. Discussed this with patient and information given as well as care plan. Wash sacral decubitus ulcer daily with normal saline apply Thera honey followed by protective foam dressing. Skin protectant to bilateral trochanteric hips followed by foam dressing Keep heels elevated with pillows. Do not allow heels to be on the bedpost but extension necessary Foam dressings for heels thank you will follow with recommendations Nutritional optimization presented on admission with full thickness sacral pressure injury (L)1.1cm x (W) 0.5cm x (D)0.6cm. Base of wound is moist and pink. Borders are macerated. Periwound is black and fluctuant. Pt complained of tenderness when palpated. Full thickness stage 3 pressure injury R hip. Biofilm at base of wound. Edges adherent to base of wound. Periwound is black without induration or fluctuance.( L)0.6cm x (W)0.7cm. Wound L knee with semi-detached necrotic cap, moist erythematous borders. No exudate noted. Periwound without erythema induration or fluctuance (L)8cm x (W) 8.3cm. Unstageable pressure injury lateral R malleolus. Base of wound has 100% dry yellow cap. Edges adherent to base of wound. Periwound is black and indurated with marginal erythema.(L)2cm x (W)2cm. Both heels are dry, firm and blanchable. Tx.plan: Cleanse Sacral wound with Saline. Apply Therahoney. Apply Moisture Barrier periwound.Cover with Optifoam drsg every 3 days and prn. Cleanse wound R hip with Saline. Apply Therahoney. Apply Cavilon Periwound. Cover with Optifoam drsg every 3 days and prn. Apply Betadine to R knee. Cover with Optifoam drsg. Change every 3days and prn. Apply Betadine to R lateral malleolus. Cover with Optifoam drsg. Change every 3 days and prn. Apply Cavilon Skin Barrier to both heels.Cover each heel with Optifoam drsg. Change every 7 days and prn. Reposition at least every 2hours or as tolerated. Off-load heels with pillow. nutritional optimization improving d/c planning (3) Malnutrition Assessment & Plan: DAILY ESTIMATED NEEDS: Needs based on CA, 68.2kg 30-35 kcals/kg 6912-6416 total kcals 1-2 g protein/kg 68-136 g total protein 25-30 mL/kg 7757-7619 total fluid mLs NUTRITION DIAGNOSIS: Increased kcal/prot needs R/T catabolic dx and underweight status as evidenced by h/o stage IV Prostate cancer s/p chemotherapy, pt @87% IBW. CURRENT DIET: Cardiac PO DIET RECOMMENDATIONS--->>> CCHO MED/ texture as tolerated + Glucerna TID w/ meals ADDITIONAL RECOMMENDATIONS: * Calibrated bed scale wt for accurate CBW * Monitor po intake, need for snacks -h/o stage 4 CA, w/ chemo * BG in the 300's, consider increasing levemir -> rec HgA1C * WOUND CARE: add JERRY BID + Vit C 250mg daily F/up w/ WC eval moderate given condition bmi 20, hx cancer nutritional optimization alb 2 (4) Deep tissue injury Juan Carlos Tucker Jun 24, 2019 14:08
[2019-06-24] MEDS: Lomotil 2.5mg tab ORAL PRN ×2 (14:40→20:34)
[2019-06-24 15:39] VITALS: BP 104/59
--- NOTE | 2019-06-24 19:18 | NUR ---
HAND-OFF: Report given to Lizabeth KAUR. Pt remains stable.
--- NOTE | 2019-06-24 19:44 | NUR ---
NURSE NOTES: RECEIVED PT FROM PRANAY RN. PT AWAKE, ALERT, AND TALKATIVE. BED IN LOWEST POSITION. CALL LIGHT WITHIN REACH. M/S ORDER WAS MADE AWARE TO PT AND CHARGE NURSE. WILL CONTINUE TO MONITOR.
[2019-06-24 20:00] VITALS: BP 91/54
[2019-06-24] MEDS: Zolpidem 5mg tab ORAL PRN (20:34)
--- NOTE | 2019-06-24 21:00 | NUR ---
TRANSFER TO FLOOR: Patient transferred to ast, per primary MD. Report given to Emma, RN. Belongings and medications given to RN. Family and or S/O informed of transfer. Tele box removed
--- NOTE | 2019-06-24 21:00 | NUR ---
NURSE NOTES: PATIENT WAS SAFELY TRANSFERRED TO UNIT VIA HOSPITAL BED. REPORT GIVEN BY VINCENT GRAYSON. BELONGING LIST REVIEWED AND SIGNED. PATIENT IS AWAKE, AAOX4, ON ROOM AIR, NO ACUTE DISTRESS NOTED. IV ON FOREARM IS INTACT AND PATENT.WOUND PICTURES TAKEN AND UPLOADED. PERFORMED WOUND CARE. BED IS LOCKED AND LOW, BED ALARMS ACTIVE, SIDE RAILS UPX2, AND CALL LIGHT IS WITHIN REACH. WILL CONTINUE TO MONITOR.
[2019-06-24] MEDS ORDERED: Omnipaque-300 100ml vial INJ ONE (21:30)
[2019-06-24] MEDS ORDERED: HYDROcodone/Acetamin 5/325 tab ORAL PRN (21:45)
[2019-06-25] VITALS: BP 139/72
[2019-06-25 04:00] VITALS: BP 102/67
[2019-06-25] MEDS: NovoLOG Insulin Flexpen SUBQ SCH ×4 (06:30→21:04)
[2019-06-25] MEDS: Piperacillin/Tazobactam 3.375 GM in NS 110 ML IVPB SCH ×3 (06:58→21:02)
--- NOTE | 2019-06-25 07:28 | NUR ---
HAND-OFF: Report given to VINCENT Lucero.
--- NOTE | 2019-06-25 07:36 | NUR ---
NURSE NOTES: received patient in bed, awake, alert, no complaint of pain or discomfort, no signs of distress. R wrist IV access saline locked. Bed locked at lowest position possible, call light within easy reach, siderails up x2, on bed alarm. Will continue to monitor patient and follow up on the POC. Addendum: 06/25/19 at 0758 by MARKELL CRAFT RN NURSE NOTES: IV site: RFA IV access, no R wrist.
[2019-06-25 08:00] VITALS: BP 108/66
[2019-06-25] MEDS: Ascorbic Acid 500mg tab ORAL SCH ×2 (08:31→16:57)
--- NOTE | 2019-06-25 08:52 | General Progress Note ---
Assessment/Plan Assessment/Plan: 1. Anemia. 2. Congestive heart failure. 3. Lower extremity edema, 4. Prostate cancer. with mets to bone 5. Leukocytosis, possibly leukemoid. 6. Diabetes. 7. Low potassium. 8. pleural effusions s/p tap; persistent 9. anasarca PLAN monitor blood sugars and adjust repeat labs pending ID - on antibiotics monitor HH wound care as is dc planning on hold impression, plan, and exam edited and reviewed in detail care discussed with RN Subjective Allergies: Coded Allergies: No Known Allergies (Unverified , 12/05/18) Subjective wbc elevated nontoxic on antibiotics alert Objective Last 24 Hour Vital Signs Date Time Temp Pulse Resp B/P (MAP) Pulse Ox O2 Delivery O2 Flow Rate FiO2 06/25/19 04:00 99.6 101 20 102/67 (79) 95 06/25/19 00:00 97.8 89 20 139/72 (94) 96 06/24/19 21:00 Room Air 06/24/19 20:00 98.5 104 21 91/54 (66) 95 06/24/19 16:00 102 06/24/19 15:39 98.9 106 20 104/59 (74) 100 06/24/19 12:00 95 06/24/19 12:00 98.8 96 20 111/50 (70) 100 06/24/19 09:00 Room Air Intake and Output 06/24/19 06/25/19 19:00 07:00 Intake Total 1640 ml Output Total 3300 ml 650 ml Balance -1660 ml -650 ml Intake Oral 1640 ml Output Urine Total 3300 ml 650 ml # Voids 4 # Bowel Movements 3 2 Height (Feet): 5 Height (Inches): 11.00 Weight (Pounds): 149 Objective WDWN NAD reduced breath sounds bilaterally without rhonchi or wheeze; now improved [id number] without MRG NABS nontender no HSM no CC minimal edema alert and oriented nonfocal Jason Garcia MD Jun 25, 2019 08:52
[2019-06-25] MEDS: Levemir Flexpen SUBQ SCH ×2 (08:59→18:27)
--- NOTE | 2019-06-25 10:59 | Infectious Diseases Prog Note ---
Assessment/Plan Assessment/Plan antibiotics : vancomycin iv, zosyn A 1. UTI 2. pneumonia 3. pleural effusions s/p thoracentesis 4. leucocytosis increasing 5. metastatic prostate cancer P 1. continue zosyn 2 more days 2. d/c iv vancomycin 3. will follow up cultures Subjective Constitutional: Denies: fever, chills Respiratory: Denies: shortness of breath, dry cough Gastrointestinal/Abdominal: Denies: nausea, vomiting, diarrhea Musculoskeletal: Reports: pain Allergies: Coded Allergies: No Known Allergies (Unverified , 12/05/18) Objective Vital Signs Last 24 Hour Vital Signs Date Time Temp Pulse Resp B/P (MAP) Pulse Ox O2 Delivery O2 Flow Rate FiO2 06/25/19 08:00 99.4 98 19 108/66 (80) 97 06/25/19 04:00 99.6 101 20 102/67 (79) 95 06/25/19 00:00 97.8 89 20 139/72 (94) 96 06/24/19 21:00 Room Air 06/24/19 20:00 98.5 104 21 91/54 (66) 95 06/24/19 16:00 102 06/24/19 15:39 98.9 106 20 104/59 (74) 100 06/24/19 12:00 95 06/24/19 12:00 98.8 96 20 111/50 (70) 100 Height (Feet): 5 Height (Inches): 11.00 Weight (Pounds): 149 Respiratory/Chest: lungs clear Cardiovascular: normal rate, regular rhythm, no gallop/murmur Abdomen: soft, non tender Extremities: no edema Microbiology Date/Time Source Procedure Growth Status 06/23/19 14:15 Sputum Gram Stain - Final Complete 06/23/19 14:15 Sputum Sputum Culture - Final NORMAL UPPER RESPIRATORY LINA PRESENT Complete Current Medications Medications (Trade) Dose Ordered Sig/Sanjeev Route PRN Reason Start Time Stop Time Status Last Admin Dose Admin Acetaminophen (Tylenol) 650 mg Q6H PRN ORAL Mild Pain/Temp > 100.5 06/24/19 21:30 07/24/19 21:29 Acetaminophen/ Hydrocodone Bitart ([place] 5/325) 1 tab Q4H PRN ORAL Moderate Pain (Pain Scale 4-6) 06/24/19 21:45 06/26/19 21:44 Ascorbic Acid (Vitamin C) 250 mg TWICE A DAY ORAL 06/25/19 09:00 07/21/19 17:59 06/25/19 08:31 Barium Sulfate (Readi-Cat 2) 450 ml NOW PRN ORAL Radiology Procedure 06/25/19 10:30 06/26/19 10:16 Dextrose (Dextrose 50%) 25 ml Q30M PRN IV Hypoglycemia 06/24/19 21:45 07/19/19 07:44 Dextrose (Dextrose 50%) 50 ml Q30M PRN IV Hypoglycemia 06/24/19 21:45 07/19/19 07:44 Diphenoxylate HCl/ Atropine (Lomotil) 2.5 mg Q6H PRN ORAL Diarrhea 06/24/19 21:30 07/20/19 21:29 Furosemide (Lasix) 40 mg DAILY IV 06/25/19 09:00 07/19/19 08:59 06/25/19 08:30 Insulin Aspart (NovoLOG) BEFORE MEALS AND HS SUBQ 06/25/19 06:30 07/19/19 11:29 Insulin Detemir (Levemir) 15 units BID SUBQ 06/25/19 09:00 07/22/19 20:59 06/25/19 08:59 Multivitamins (Multivitamins) 1 tab DAILY ORAL 06/25/19 09:00 07/19/19 08:59 06/25/19 08:31 Piperacillin Sod/ Tazobactam Sod 3.375 gm/Sodium Chloride 110 ml @ 27.5 mls/hr EVERY 8 HOURS IVPB 06/24/19 22:00 06/26/19 13:59 06/25/19 06:58 Potassium Chloride (K-Dur) 40 meq DAILY ORAL 06/25/19 09:00 07/19/19 11:59 06/25/19 08:30 Vancomycin HCl (Vanco rx to dose) 1 ea DAILY PRN MISC Per rx protocol 06/25/19 09:00 07/22/19 11:14 Vancomycin/Sodium Chloride 275 ml @ 137.5 mls/ hr Q24H IVPB 06/25/19 12:00 06/27/19 11:59 Zolpidem Tartrate (Ambien) 5 mg HSPRN PRN ORAL Insomnia 06/24/19 21:30 07/01/19 21:29 Gumaro Barakat MD Jun 25, 2019 10:59
[2019-06-25 11:21] LABS: HEMATOCRIT 28.7 % (42.0-52.0); HEMOGLOBIN 9.1 G/DL (14.2-18.0); MEAN CORPUSCULAR VOLUME 88 FL (80-99); PLATELET COUNT 177 K/UL (150-450); RED BLOOD COUNT 3.27 M/UL (4.70-6.10)
[2019-06-25 12:00] VITALS: BP 105/69
[2019-06-25] MEDS ORDERED: Vancomycin 1.5gm/NS Premix 275 ML IVPB SCH (12:00)
[2019-06-25 12:01] LABS: WHITE BLOOD COUNT 25.3 K/UL (4.8-10.8)
--- NOTE | 2019-06-25 12:25 | NUR ---
NURSE NOTES: nurse left urgent message to dr Barakat regarding T 100.9F. Just spoken previously to dr Barakat regarding WBC 25.3, no further order as value is trending down from previous WBC of 25.6 on 06/23/2019.
--- NOTE | 2019-06-25 14:28 | NUR ---
PT note Attempted to see patient for treatment but patient was fast asleep; unable to be aroused.
[2019-06-25 16:00] VITALS: BP 115/70
--- NOTE | 2019-06-25 19:39 | NUR ---
HAND-OFF: Report given to VINCENT Durand.
[2019-06-25 20:00] VITALS: BP 102/69
--- NOTE | 2019-06-25 20:19 | NUR ---
NURSE NOTES: Received patient in bed, awake, alert and able to make needs known. Breathing regular and unlabored with no s/s of SOB noted at this time. Patient remains on a NC 2L, saturations remain in the 90's. Patient denies any pain or discomfort at this time. IV patent, intact, and saline locked. Bed remains in the lowest positions, breaks engaged, and call light is within reach at all times. Will monitor blood sugar closely.
[2019-06-25] MEDS: Zolpidem 5mg tab ORAL PRN (21:44)
[2019-06-26] VITALS: BP 110/74
[2019-06-26 04:00] VITALS: BP 118/68
[2019-06-26] MEDS: Piperacillin/Tazobactam 3.375 GM in NS 110 ML IVPB SCH ×3 (06:12→21:37)
[2019-06-26] MEDS: NovoLOG Insulin Flexpen SUBQ SCH ×4 (06:14→20:16)
[2019-06-26] MEDS: Lomotil 2.5mg tab ORAL PRN ×2 (06:48→20:15)
--- NOTE | 2019-06-26 07:25 | NUR ---
HAND-OFF: Report given to VINCENT Lucero.
--- NOTE | 2019-06-26 07:40 | NUR ---
NURSE NOTES: received patient in bed, asleep, no signs of distress. RFA IV access saline locked. Bed locked at lowest position possible, call light within easy reach, siderails up x2, on bed alarm. Will continue to monitor patient and follow up on the POC.
[2019-06-26 08:00] VITALS: BP 109/73
--- NOTE | 2019-06-26 08:46 | General Progress Note ---
Assessment/Plan Assessment/Plan: 1. Anemia. 2. Congestive heart failure. 3. Lower extremity edema, 4. Prostate cancer. with mets to bone 5. Leukocytosis, possibly leukemoid. 6. Diabetes. 7. Low potassium. 8. pleural effusions s/p tap; persistent 9. anasarca PLAN monitor blood sugars and adjust repeat labs pending ID - on antibiotics monitor HH wound care as is dc planning on hold pending improvement of wbc impression, plan, and exam edited and reviewed in detail care discussed with RN Subjective Allergies: Coded Allergies: No Known Allergies (Unverified , 12/05/18) Subjective wbc elevated nontoxic on antibiotics alert Objective Last 24 Hour Vital Signs Date Time Temp Pulse Resp B/P (MAP) Pulse Ox O2 Delivery O2 Flow Rate FiO2 06/26/19 04:00 97.8 100 18 118/68 (85) 96 06/26/19 00:00 98.9 89 18 110/74 (86) 98 06/25/19 21:15 Room Air 06/25/19 20:00 99.0 94 18 102/69 (80) 98 06/25/19 16:00 98.9 96 18 115/70 (85) 98 06/25/19 13:27 99.1 06/25/19 12:00 100.9 91 15 105/69 (81) 98 06/25/19 09:00 Room Air Intake and Output 06/25/19 06/26/19 19:00 07:00 Intake Total 1350.0 ml Output Total 1200 ml Balance 1350.0 ml -1200 ml Intake Oral 1240 ml IV Total 110.0 ml Output Urine Total 1200 ml # Voids 10 3 # Bowel Movements 1 3 Laboratory Tests 06/25/19 11:05: White Blood Count 25.3*H, Red Blood Count 3.27L, Hemoglobin 9.1L, Hematocrit 28.7L, Mean Corpuscular Volume 88, Mean Corpuscular Hemoglobin 27.9, Mean Corpuscular Hemoglobin Concent 31.8L, Red Cell Distribution Width 20.0H, Platelet Count 177, Mean Platelet Volume 6.1L, Neutrophils (%) (Auto) , Lymphocytes (%) (Auto) , Monocytes (%) (Auto) , Eosinophils (%) (Auto) , Basophils (%) (Auto) , Differential Total Cells Counted 100, Neutrophils % ( Manual) 71, Lymphocytes % (Manual) 25, Monocytes % (Manual) 4, Eosinophils % ( Manual) 0, Basophils % (Manual) 0, Band Neutrophils 0, Nucleated Red Blood Cells 4, Platelet Estimate Adequate, Platelet Morphology Normal, Hypochromasia 2 +, Anisocytosis 2+ Height (Feet): 5 Height (Inches): 11.00 Weight (Pounds): 149 Objective WDWN NAD reduced breath sounds bilaterally without rhonchi or wheeze; now improved [id number] without MRG NABS nontender no HSM no CC minimal edema alert and oriented nonfocal Jason Garcia MD Jun 26, 2019 08:46
[2019-06-26 08:55] LABS: HEMATOCRIT 28.3 % (42.0-52.0); HEMOGLOBIN 9.1 G/DL (14.2-18.0); MEAN CORPUSCULAR VOLUME 87 FL (80-99); PLATELET COUNT 176 K/UL (150-450); RED BLOOD COUNT 3.25 M/UL (4.70-6.10); RED CELL DISTRIBUTION WIDTH 20.2 % (11.6-14.8); WHITE BLOOD COUNT 21.8 K/UL (4.8-10.8)
[2019-06-26] MEDS: Ascorbic Acid 500mg tab ORAL SCH ×2 (09:26→17:19)
[2019-06-26] MEDS: Levemir Flexpen SUBQ SCH ×2 (09:29→17:14)
--- NOTE | 2019-06-26 10:58 | Infectious Diseases Prog Note ---
Assessment/Plan Assessment/Plan antibiotics : zosyn A 1. UTI 2. pneumonia 3. pleural effusions s/p thoracentesis 4. leucocytosis increasing 5. metastatic prostate cancer P 1. continue zosyn 1 more day 2. stool for c.diff 3. will follow up cultures Subjective Constitutional: Denies: fever, chills Respiratory: Denies: shortness of breath, dry cough Gastrointestinal/Abdominal: Reports: diarrhea; Denies: nausea, vomiting Musculoskeletal: Denies: pain Allergies: Coded Allergies: No Known Allergies (Unverified , 12/05/18) Objective Vital Signs Last 24 Hour Vital Signs Date Time Temp Pulse Resp B/P (MAP) Pulse Ox O2 Delivery O2 Flow Rate FiO2 06/26/19 08:00 98.9 94 18 109/73 (85) 99 06/26/19 04:00 97.8 100 18 118/68 (85) 96 06/26/19 00:00 98.9 89 18 110/74 (86) 98 06/25/19 21:15 Room Air 06/25/19 20:00 99.0 94 18 102/69 (80) 98 06/25/19 16:00 98.9 96 18 115/70 (85) 98 06/25/19 13:27 99.1 06/25/19 12:00 100.9 91 15 105/69 (81) 98 Height (Feet): 5 Height (Inches): 11.00 Weight (Pounds): 149 Respiratory/Chest: lungs clear Cardiovascular: normal rate, regular rhythm, no gallop/murmur Abdomen: soft, non tender Extremities: no edema Microbiology Date/Time Source Procedure Growth Status 06/23/19 14:15 Sputum Gram Stain - Final Complete 06/23/19 14:15 Sputum Sputum Culture - Final NORMAL UPPER RESPIRATORY LINA PRESENT Complete Laboratory Tests Test 06/25/19 11:05 06/26/19 08:35 White Blood Count 25.3 K/UL (4.8-10.8) *H 21.8 K/UL (4.8-10.8) H Red Blood Count 3.27 M/UL (4.70-6.10) L 3.25 M/UL (4.70-6.10) L Hemoglobin 9.1 G/DL (14.2-18.0) L 9.1 G/DL (14.2-18.0) L Hematocrit 28.7 % (42.0-52.0) L 28.3 % (42.0-52.0) L Mean Corpuscular Volume 88 FL (80-99) 87 FL (80-99) Mean Corpuscular Hemoglobin 27.9 PG (27.0-31.0) 28.0 PG (27.0-31.0) Mean Corpuscular Hemoglobin Concent 31.8 G/DL (32.0-36.0) L 32.3 G/DL (32.0-36.0) Red Cell Distribution Width 20.0 % (11.6-14.8) H 20.2 % (11.6-14.8) H Platelet Count 177 K/UL (150-450) 176 K/UL (150-450) Mean Platelet Volume 6.1 FL (6.5-10.1) L 6.2 FL (6.5-10.1) L Neutrophils (%) (Auto) % (45.0-75.0) % (45.0-75.0) Lymphocytes (%) (Auto) % (20.0-45.0) % (20.0-45.0) Monocytes (%) (Auto) % (1.0-10.0) % (1.0-10.0) Eosinophils (%) (Auto) % (0.0-3.0) % (0.0-3.0) Basophils (%) (Auto) % (0.0-2.0) % (0.0-2.0) Differential Total Cells Counted 100 100 Neutrophils % (Manual) 71 % (45-75) 77 % (45-75) H Lymphocytes % (Manual) 25 % (20-45) 18 % (20-45) L Monocytes % (Manual) 4 % (1-10) 4 % (1-10) Eosinophils % (Manual) 0 % (0-3) 1 % (0-3) Basophils % (Manual) 0 % (0-2) 0 % (0-2) Band Neutrophils 0 % (0-8) 0 % (0-8) Nucleated Red Blood Cells 4 /100 WBC Platelet Estimate Adequate Adequate Platelet Morphology Normal Normal Hypochromasia 2+ 2+ Anisocytosis 2+ 2+ Current Medications Medications (Trade) Dose Ordered Sig/Sanjeev Route PRN Reason Start Time Stop Time Status Last Admin Dose Admin Acetaminophen (Tylenol) 650 mg Q6H PRN ORAL Mild Pain/Temp > 100.5 06/24/19 21:30 07/24/19 21:29 06/25/19 12:57 Acetaminophen/ Hydrocodone Bitart ([place] 5/325) 1 tab Q4H PRN ORAL Moderate Pain (Pain Scale 4-6) 06/24/19 21:45 06/26/19 21:44 Ascorbic Acid (Vitamin C) 250 mg TWICE A DAY ORAL 06/25/19 09:00 07/21/19 17:59 06/26/19 09:26 Dextrose (Dextrose 50%) 25 ml Q30M PRN IV Hypoglycemia 06/24/19 21:45 07/19/19 07:44 Dextrose (Dextrose 50%) 50 ml Q30M PRN IV Hypoglycemia 06/24/19 21:45 07/19/19 07:44 Diphenoxylate HCl/ Atropine (Lomotil) 2.5 mg Q6H PRN ORAL Diarrhea 06/24/19 21:30 07/20/19 21:29 06/26/19 06:48 Furosemide (Lasix) 40 mg DAILY IV 06/25/19 09:00 07/19/19 08:59 06/26/19 09:25 Insulin Aspart (NovoLOG) BEFORE MEALS AND HS SUBQ 06/25/19 06:30 07/19/19 11:29 06/26/19 06:14 Insulin Detemir (Levemir) 15 units BID SUBQ 06/25/19 09:00 07/22/19 20:59 06/26/19 09:29 Multivitamins (Multivitamins) 1 tab DAILY ORAL 06/25/19 09:00 07/19/19 08:59 06/26/19 09:26 Piperacillin Sod/ Tazobactam Sod 3.375 gm/Sodium Chloride 110 ml @ 27.5 mls/hr EVERY 8 HOURS IVPB 06/24/19 22:00 06/27/19 23:59 06/26/19 06:12 Potassium Chloride (K-Dur) 40 meq DAILY ORAL 06/25/19 09:00 07/19/19 11:59 06/26/19 09:26 Zolpidem Tartrate (Ambien) 5 mg HSPRN PRN ORAL Insomnia 06/24/19 21:30 07/01/19 21:29 06/25/19 21:44 Gumaro Barakat MD Jun 26, 2019 10:58
--- NOTE | 2019-06-26 11:38 | Surgery Progress Note ---
Surgery Progress Note Subjective Additional Comments states he feels well leukocytosis improving ct reviewed labs reviewed exam stable Objective Last 24 Hour Vital Signs Date Time Temp Pulse Resp B/P (MAP) Pulse Ox O2 Delivery O2 Flow Rate FiO2 06/26/19 08:00 98.9 94 18 109/73 (85) 99 06/26/19 04:00 97.8 100 18 118/68 (85) 96 06/26/19 00:00 98.9 89 18 110/74 (86) 98 06/25/19 21:15 Room Air 06/25/19 20:00 99.0 94 18 102/69 (80) 98 06/25/19 16:00 98.9 96 18 115/70 (85) 98 06/25/19 13:27 99.1 06/25/19 12:00 100.9 91 15 105/69 (81) 98 I&O Intake and Output 06/25/19 06/26/19 19:00 07:00 Intake Total 1350.0 ml Output Total 1200 ml Balance 1350.0 ml -1200 ml Intake Oral 1240 ml IV Total 110.0 ml Output Urine Total 1200 ml # Voids 10 3 # Bowel Movements 1 3 Dressing: saturated Wound: clean Cardiovascular: RSR Respiratory: clear Abdomen: soft, non-tender, present bowel sounds Extremities: no cyanosis, pulses, other Laboratory Tests Test 06/26/19 08:35 White Blood Count 21.8 K/UL (4.8-10.8) H Red Blood Count 3.25 M/UL (4.70-6.10) L Hemoglobin 9.1 G/DL (14.2-18.0) L Hematocrit 28.3 % (42.0-52.0) L Mean Corpuscular Volume 87 FL (80-99) Mean Corpuscular Hemoglobin 28.0 PG (27.0-31.0) Mean Corpuscular Hemoglobin Concent 32.3 G/DL (32.0-36.0) Red Cell Distribution Width 20.2 % (11.6-14.8) H Platelet Count 176 K/UL (150-450) Mean Platelet Volume 6.2 FL (6.5-10.1) L Neutrophils (%) (Auto) % (45.0-75.0) Lymphocytes (%) (Auto) % (20.0-45.0) Monocytes (%) (Auto) % (1.0-10.0) Eosinophils (%) (Auto) % (0.0-3.0) Basophils (%) (Auto) % (0.0-2.0) Differential Total Cells Counted 100 Neutrophils % (Manual) 77 % (45-75) H Lymphocytes % (Manual) 18 % (20-45) L Monocytes % (Manual) 4 % (1-10) Eosinophils % (Manual) 1 % (0-3) Basophils % (Manual) 0 % (0-2) Band Neutrophils 0 % (0-8) Platelet Estimate Adequate Platelet Morphology Normal Hypochromasia 2+ Anisocytosis 2+ Plan Problems: (1) Leukocytosis Assessment & Plan: Patient presents with leukocytosis abnormal labs. Bilateral lower extremity edema. Multiple decubitus ulcers. UTI. UTI likely etiology of patient's leukocytosis and infectious process. The wounds were evaluated and unlikely etiology. Lower extremity edema unlikely cellulitis. We will continue to follow the recommendations monitor. Antibiotics as per ID. Trend labs. The liver is unremarkable. Doppler interrogation of the main portal vein shows patency with hepatopedal, monophasic flow. There is no biliary ductal dilatation identified. Gallbladder is unremarkable. CBD is 4 mm. Bilateral pleural effusions are demonstrated. There is trace ascites. There is prominence in the area of the pancreatic head. There demonstrated part of the aorta and IVC show no definite abnormalities. Both kidneys appear echogenic. There is no hydronephrosis. IMPRESSION: Bilateral pleural effusions Prominent pancreatic head. This may be related to body habitus. Consider further evaluation with contrast CT. Trace ascites IMPRESSION: Bilateral moderate to large pleural effusions. Resultant compressive atelectatic changes of both lower lobes Groundglass opacity throughout much of the upper and lower lobes, likely reflects parenchymal edema, but could also represent infectious/inflammatory process. Correlate with clinical findings Evidence of anasarca elsewhere, with diffuse edema of the subcutaneous, mediastinal, and mesenteric and pelvic fat Irregular left upper lung opacities with architectural distortion, probably an area of scarring/cicatrization. Mass or infiltrate much less likely Diffuse osteosclerosis, consistent with stated clinical history of metastatic prostate carcinoma Endplate irregularity of the mid thoracic spine as describe. This is probably due to degenerative change. Infectious spondylitis and less likely but not completely excludable. Correlate with clinical findings, consider MRI if there is clinical suspicion for such Evidence of interim right colon surgery. Evidence of right hip surgery, also previously noted Coronary artery calcifications (2) Decubitus skin ulcer Assessment & Plan: Patient presents on admission with multiple decubitus ulcer. Stage III a somewhat resolving sacral decubitus ulcer 2 cm x 1 cm x 5 mm deep no active drainage no signs of active acute infection. Right trochanteric resolving deep tissue injury with Skin changes Bilateral heel boggy nontender Patient is very tall and feet hanging over the side of the bed occasionally and states that when he is not in the hospital his feet are occasionally on the bedpost. Discussed this with patient and information given as well as care plan. Wash sacral decubitus ulcer daily with normal saline apply Thera honey followed by protective foam dressing. Skin protectant to bilateral trochanteric hips followed by foam dressing Keep heels elevated with pillows. Do not allow heels to be on the bedpost but extension necessary Foam dressings for heels thank you will follow with recommendations Nutritional optimization presented on admission with full thickness sacral pressure injury (L)1.1cm x (W) 0.5cm x (D)0.6cm. Base of wound is moist and pink. Borders are macerated. Periwound is black and fluctuant. Pt complained of tenderness when palpated. Full thickness stage 3 pressure injury R hip. Biofilm at base of wound. Edges adherent to base of wound. Periwound is black without induration or fluctuance.( L)0.6cm x (W)0.7cm. Wound L knee with semi-detached necrotic cap, moist erythematous borders. No exudate noted. Periwound without erythema induration or fluctuance (L)8cm x (W) 8.3cm. Unstageable pressure injury lateral R malleolus. Base of wound has 100% dry yellow cap. Edges adherent to base of wound. Periwound is black and indurated with marginal erythema.(L)2cm x (W)2cm. Both heels are dry, firm and blanchable. Tx.plan: Cleanse Sacral wound with Saline. Apply Therahoney. Apply Moisture Barrier periwound.Cover with Optifoam drsg every 3 days and prn. Cleanse wound R hip with Saline. Apply Therahoney. Apply Cavilon Periwound. Cover with Optifoam drsg every 3 days and prn. Apply Betadine to R knee. Cover with Optifoam drsg. Change every 3days and prn. Apply Betadine to R lateral malleolus. Cover with Optifoam drsg. Change every 3 days and prn. Apply Cavilon Skin Barrier to both heels.Cover each heel with Optifoam drsg. Change every 7 days and prn. Reposition at least every 2hours or as tolerated. Off-load heels with pillow. nutritional optimization improving d/c planning (3) Malnutrition Assessment & Plan: DAILY ESTIMATED NEEDS: Needs based on CA, 68.2kg 30-35 kcals/kg 0555-4565 total kcals 1-2 g protein/kg 68-136 g total protein 25-30 mL/kg 4381-6667 total fluid mLs NUTRITION DIAGNOSIS: Increased kcal/prot needs R/T catabolic dx and underweight status as evidenced by h/o stage IV Prostate cancer s/p chemotherapy, pt @87% IBW. CURRENT DIET: Cardiac PO DIET RECOMMENDATIONS--->>> CCHO MED/ texture as tolerated + Glucerna TID w/ meals ADDITIONAL RECOMMENDATIONS: * Calibrated bed scale wt for accurate CBW * Monitor po intake, need for snacks -h/o stage 4 CA, w/ chemo * BG in the 300's, consider increasing levemir -> rec HgA1C * WOUND CARE: add JERRY BID + Vit C 250mg daily F/up w/ WC eval moderate given condition bmi 20, hx cancer nutritional optimization alb 2 (4) Deep tissue injury Juan Carlos Tucker Jun 26, 2019 11:38
[2019-06-26 12:00] VITALS: BP 128/83
--- NOTE | 2019-06-26 13:01 | NUR ---
RD ASSESSMENT & RECOMMENDATIONS SEE CARE ACTIVITY FOR COMPLETE ASSESSMENT DAILY ESTIMATED NEEDS: Needs based on CA, wound 68.2kg 30-35 kcals/kg 6964-7700 total kcals 1.25-2 g protein/kg 85-136 g total protein 25-30 mL/kg 8510-3320 total fluid mLs NUTRITION DIAGNOSIS: Increased kcal/prot needs R/T catabolic dx, wound, and underweight status as evidenced by h/o stage IV Prostate cancer s/p chemotherapy, pt @87% IBW, pt w/ stage 3 sacral wound. CURRENT DIET: Regular-> now CCHO MED W/ HIGH PROT. PO DIET RECOMMENDATIONS: CCHO MED/ texture as tolerated + 2X proteins ADDITIONAL RECOMMENDATIONS: * Calibrated bed scale wt for accurate CBW (on lasix as well) * Monitor po intake, need for snacks- Pt w/ good po intake -h/o stage 4 CA, w/ chemo * BG in the 300's, consider increasing levemir- now at 15units BID * WOUND CARE: add JERRY BID + Vit C 250mg BID, continue MVI qd * Updated chem panel while on lasix for eval of lytes .
[2019-06-26 16:00] VITALS: BP 98/66
--- NOTE | 2019-06-26 16:06 | NUR ---
P.T Weekly Progress Notes: Pt being seen in P.T and responding well to tx. Pt able to perform and complete bed mobility and transfer activities on SBA level. Pt able to ambulate and tolerate distance of 150 ft using the FWW: SBA X 1. Overall Fair+ endurance. Will continue with POC.
--- NOTE | 2019-06-26 16:29 | NUR ---
CASE MANAGEMENT: REVIEW 06/24/19 SI:SP THORACENTESIS . BILATERAL PLEURAL EFFUSION . TRACE ASCITES . CHF EXACERBATION . DM . ANEMIA . UTI . BILATERAL LE EDEMA 98.9 94 18 128/83 98% ON RA WBC 21.8 H/H 9.05/23.3 IS:IV ZOSYN TID IV LASIX QD K-DUR PO QD LEVEMIR SQ BID NOVOLOG SQ AC&HS TYLENOL Q6HR.PRN MTV PO QD \: [facility]URNING TO [facility] WHEN STABLE PLAN: MONITOR H/H LEVEL
--- NOTE | 2019-06-26 16:52 | Consultation ---
History of Present Illness General Chief Complaint: Edema Present Illness Allergies: Coded Allergies: No Known Allergies (Unverified , 12/05/18) Medication History Scheduled Insulin Detemir (Levemir), 5 UNITS SUBQ BIDAC, (Reported) Multivitamin With Minerals (Multivitamins With Minerals*), 1 TAB ORAL DAILY, ( Reported) Scheduled PRN Acetaminophen* (Acetaminophen 325MG Tablet*), 650 MG ORAL Q4H PRN for For Pain, (Reported) Hydrocodone Bit/Acetaminophen 5-325* (Taylor 5-325*), 1 TAB ORAL Q4H PRN for For Pain, (Reported) Miscellaneous Medications Insulin Aspart (Novolog), 100 UNIT SQ, (Reported) Discontinued Medications Acetaminophen (Acetaminophen), 325 MG ORAL Q4H PRN for Prn Headache/Temp > 101, (Reported) Discontinued Reason: Prescription changed Lorazepam* (Lorazepam*), Unknown Dose ORAL THREE TIMES A DAY, (Reported) Discontinued Reason: Therapy completed Prochlorperazine Maleate* (Compazine*), Unknown Dose ORAL Q6H, (Reported) Discontinued Reason: Therapy completed Unable to Obtain Medications (Unable To Obtain Meds), (Reported) Discontinued Reason: Therapy completed Patient History Healthcare decision maker Resuscitation status Full Code Advanced Directive on File Physical Exam Last 24 Hour Vital Signs Date Time Temp Pulse Resp B/P (MAP) Pulse Ox O2 Delivery O2 Flow Rate FiO2 06/26/19 12:00 98.0 97 18 128/83 (98) 98 06/26/19 09:00 Room Air 06/26/19 08:00 98.9 94 18 109/73 (85) 99 06/26/19 04:00 97.8 100 18 118/68 (85) 96 06/26/19 00:00 98.9 89 18 110/74 (86) 98 06/25/19 21:15 Room Air 06/25/19 20:00 99.0 94 18 102/69 (80) 98 Intake and Output 06/25/19 06/26/19 19:00 07:00 Intake Total 1350.0 ml Output Total 1200 ml Balance 1350.0 ml -1200 ml Intake Oral 1240 ml IV Total 110.0 ml Output Urine Total 1200 ml # Voids 10 3 # Bowel Movements 1 3 Laboratory Tests Test 06/26/19 08:35 White Blood Count 21.8 K/UL (4.8-10.8) H Red Blood Count 3.25 M/UL (4.70-6.10) L Hemoglobin 9.1 G/DL (14.2-18.0) L Hematocrit 28.3 % (42.0-52.0) L Mean Corpuscular Volume 87 FL (80-99) Mean Corpuscular Hemoglobin 28.0 PG (27.0-31.0) Mean Corpuscular Hemoglobin Concent 32.3 G/DL (32.0-36.0) Red Cell Distribution Width 20.2 % (11.6-14.8) H Platelet Count 176 K/UL (150-450) Mean Platelet Volume 6.2 FL (6.5-10.1) L Neutrophils (%) (Auto) % (45.0-75.0) Lymphocytes (%) (Auto) % (20.0-45.0) Monocytes (%) (Auto) % (1.0-10.0) Eosinophils (%) (Auto) % (0.0-3.0) Basophils (%) (Auto) % (0.0-2.0) Differential Total Cells Counted 100 Neutrophils % (Manual) 77 % (45-75) H Lymphocytes % (Manual) 18 % (20-45) L Monocytes % (Manual) 4 % (1-10) Eosinophils % (Manual) 1 % (0-3) Basophils % (Manual) 0 % (0-2) Band Neutrophils 0 % (0-8) Platelet Estimate Adequate Platelet Morphology Normal Hypochromasia 2+ Anisocytosis 2+ Height (Feet): 5 Height (Inches): 11.00 Weight (Pounds): 149 Medications Current Medications Medications (Trade) Dose Ordered Sig/Sanjeev Route PRN Reason Start Time Stop Time Status Last Admin Dose Admin Acetaminophen (Tylenol) 650 mg Q6H PRN ORAL Mild Pain/Temp > 100.5 06/24/19 21:30 07/24/19 21:29 06/25/19 12:57 Acetaminophen/ Hydrocodone Bitart (Taylor 5/325) 1 tab Q4H PRN ORAL Moderate Pain (Pain Scale 4-6) 06/24/19 21:45 06/26/19 21:44 Ascorbic Acid (Vitamin C) 250 mg TWICE A DAY ORAL 06/25/19 09:00 07/21/19 17:59 06/26/19 09:26 Dextrose (Dextrose 50%) 25 ml Q30M PRN IV Hypoglycemia 06/24/19 21:45 07/19/19 07:44 Dextrose (Dextrose 50%) 50 ml Q30M PRN IV Hypoglycemia 06/24/19 21:45 07/19/19 07:44 Diphenoxylate HCl/ Atropine (Lomotil) 2.5 mg Q6H PRN ORAL Diarrhea 06/24/19 21:30 07/20/19 21:29 06/26/19 06:48 Furosemide (Lasix) 40 mg DAILY IV 06/25/19 09:00 07/19/19 08:59 06/26/19 09:25 Insulin Aspart (NovoLOG) BEFORE MEALS AND HS SUBQ 06/25/19 06:30 07/19/19 11:29 06/26/19 13:08 Insulin Detemir (Levemir) 15 units BID SUBQ 06/25/19 09:00 07/22/19 20:59 06/26/19 09:29 Multivitamins (Multivitamins) 1 tab DAILY ORAL 06/25/19 09:00 07/19/19 08:59 06/26/19 09:26 Piperacillin Sod/ Tazobactam Sod 3.375 gm/Sodium Chloride 110 ml @ 27.5 mls/hr EVERY 8 HOURS IVPB 06/24/19 22:00 06/27/19 23:59 06/26/19 13:03 Potassium Chloride (K-Dur) 40 meq DAILY ORAL 06/25/19 09:00 07/19/19 11:59 06/26/19 09:26 Zolpidem Tartrate (Ambien) 5 mg HSPRN PRN ORAL Insomnia 06/24/19 21:30 07/01/19 21:29 06/25/19 21:44 Assessment/Plan Assessment/Plan: Oncology Consultaiton Date patient seen: Jun 19, 2019 Reason for Hospitalization: Edema RFC: High Wbc and anemia, prostate ca ID This is a very pleasant 64-year-old male with multiple medical comorbidities and known history of stage IV prostate cancer with history of lower extremity edema who presents with worsening edema lower extremities for the past few days. Patient is a care home resident who is otherwise awake alert and responsive stating he feels well but notes some heaviness in his legs and feet. No nausea vomiting fever chills. Labs showed leukocytosis and abnormal electrolyte. Patient admitted for further care and management. Considerations for lower extremity cellulitis given the edema and infectious process as well as multiple wounds being identified surgery called to evaluate and assist with care. Patient seen, [place], chart reviewed. Patient states he is near 6 5 tall and hangs over most beds. States his heel rests on a lot of the bedpost occasionally. States he has decreased feeling in his lower extremities. Noted to have a wbc that has persisted in spite of abx, case reviewed as per id recs, finishing course of abx, pending potential dc Coded Allergies: No Known Allergies (Unverified , 12/05/18) Medication History Scheduled Insulin Detemir (Levemir), 5 UNITS SUBQ BIDAC, (Reported) Lorazepam* (Lorazepam*), Unknown Dose ORAL THREE TIMES A DAY, (Reported) Multivitamin With Minerals (Multivitamins With Minerals*), 1 TAB ORAL DAILY, ( Reported) Prochlorperazine Maleate* (Compazine*), Unknown Dose ORAL Q6H, (Reported) Scheduled PRN Acetaminophen (Acetaminophen), 325 MG ORAL Q4H PRN for Prn Headache/Temp > 101, (Reported) Hydrocodone Bit/Acetaminophen 5-325* (Taylor 5-325*), 1 TAB ORAL Q4H PRN for For Pain, (Reported) Miscellaneous Medications Insulin Aspart (Novolog), 100 UNIT SQ, (Reported) Unable to Obtain Medications (Unable To Obtain Meds), (Reported) Patient History History Provided By: Patient, Medical Record, PMD Healthcare decision maker Resuscitation status Full Code Advanced Directive on File Past Medical/Surgical History: (1) Leukocytosis (2) Malnutrition (3) Decubitus skin ulcer (4) Deep tissue injury (5) Abnormal laboratory test result (6) UTI (urinary tract infection) (7) Diabetes mellitus (8) Anemia (9) CHF exacerbation ROS (review of systems): Constitutional: No fever, no chills, no night sweats, no fatigue Skin: No rashes, lumps, itchiness, dryness HEENT: No PRADO, ear ache, visual changes, double vision, nosebleeds Breasts: No lumps, pain, discharge Pulmonary: No cough, sputum, shortness of breath, coughing up blood Cardiovascular: No chest pain, tightness, palpitations, syncope, PND GI: No nausea, vomiting, diarrhea, melena, hematochezia, change in appetite, : No dysuria, frequency, urgency, urinary incontinence, foamy urine Musculoskeletal: No joint swelling or muscle pain, trauma, back pain Neurologic: No dizziness, fainting, seizures, changes in smell or taste Psychiatric: No nervousness, stress, or depression, anxiety, hallucinations Endocrine: No weight change, heat or cold intolerance, tremor, insomnia Physical Exam: Vitals: reviewed General: NAD HEENT: nc, at Neck: supple Chest: clear breath sounds bilaterally Cardiovascular: RRR, no s3, s4 Abd: soft, nt, nd Ext: no cce labs: noted Imaging: reviewed Assessment and Recs: # Leukocytosis/elevated white blood cell count, unspecified likely related to underlying stress reaction, smoking v more likely infection (has had a persistent uti/pna) --> ALSO may be malignancy related(but less likely because when came in 04/2019 was wnl, now elevated, more likely infection related --> have reviewed peripheral smear and bandemia/neutrophilia noted(does have some early nucleated cells) --> continue antibiotics if they have been started by ID team --> monitor for resolution --> will hold off FLOW CYTOMETRY given infection more likely cause # Stage IV prostate cancer, on admission poa --> outpatient management, will review treatment course --> trend psa as needed # Pneumonia --> is now on abx --> as per id # Pleural effusions s/p thoracentesis --> repeat thora s per pulm --> cytology reviewed, is neg for malignancy # UTi s/p abx # Decub ulceration The timing of this note does not necessarily reflect the time of the patient was seen. Greatly appreciate consultation. Eliseo Biggs MD Jun 26, 2019 16:52
[2019-06-26 18:28] LABS: INR 1.1 (0.9-1.1)
[2019-06-26 18:37] LABS: % IRON SATURATION 11 % (15-50); IRON 23 ug/dL (50-175); TOTAL IRON BINDING CAPACITY 210 ug/dL (250-450)
[2019-06-26 20:00] VITALS: BP 125/65
--- NOTE | 2019-06-26 20:00 | NUR ---
NURSE NOTES: Received patient in bed, awake, alert and able to make needs known. Breathing regular and unlabored with no s/s of SOB noted at this time. Patient remains on a NC 2L. Patient denies any pain or discomfort at this time. IV patent, intact, and saline locked. Bed remains in the lowest positions, breaks engaged, and call light is within reach at all times. Will monitor blood sugar closely.
[2019-06-26] MEDS: Zolpidem 5mg tab ORAL PRN (20:15)
[2019-06-27] VITALS: BP 112/66
[2019-06-27 04:00] VITALS: BP 112/74
[2019-06-27] MEDS: Piperacillin/Tazobactam 3.375 GM in NS 110 ML IVPB SCH ×3 (05:03→21:47)
[2019-06-27] MEDS: NovoLOG Insulin Flexpen SUBQ SCH ×4 (06:06→20:32)
[2019-06-27 06:24] LABS: HEMATOCRIT 27.7 % (42.0-52.0); HEMOGLOBIN 8.9 G/DL (14.2-18.0); MEAN CORPUSCULAR VOLUME 87 FL (80-99); PLATELET COUNT 190 K/UL (150-450); RED BLOOD COUNT 3.17 M/UL (4.70-6.10); RED CELL DISTRIBUTION WIDTH 19.8 % (11.6-14.8); WHITE BLOOD COUNT 20.3 K/UL (4.8-10.8)
--- NOTE | 2019-06-27 06:53 | Hematology/Onc Progress Note ---
Assessment/Plan Assessment/Plan Assessment and Recs: # Leukocytosis/elevated white blood cell count, unspecified likely related to underlying stress reaction, smoking v more likely infection (has had a persistent uti/pna) --> ALSO may be malignancy related(but less likely because when came in 04/2019 was wnl, now elevated, more likely infection related --> have reviewed peripheral smear and bandemia/neutrophilia noted(does have some early nucleated cells) --> continue antibiotics if they have been started by ID team --> monitor for resolution --> will hold off FLOW CYTOMETRY given infection more likely cause --> wbc 25-->22-->20 # Stage IV prostate cancer, on admission poa --> outpatient management, will review treatment course --> trend psa is 94 --> has received chemo at [facility] x 4 weeks --> has received lupron in the past --> return to outpatient oncology # Pneumonia --> is now on abx --> as per id # Pleural effusions s/p thoracentesis --> repeat thora s per pulm --> cytology reviewed, is neg for malignancy # UTi s/p abx # Decub ulceration The timing of this note does not necessarily reflect the time of the patient was seen. Greatly appreciate consultation. Subjective Constitutional: Denies: no symptoms, chills, fever, malaise, weakness, other HEENT: Denies: no symptoms, eye pain, blurred vision, tearing, double vision, ear pain, ear discharge, nose pain, nose congestion, throat pain, throat swelling, mouth pain, mouth swelling, other Respiratory: Denies: no symptoms, cough, shortness of breath, SOB with excertion, SOB at rest, sputum, wheezing, other Gastrointestinal/Abdominal: Denies: no symptoms, abdomen distended, abdominal pain, black stools, tarry stools, blood in stool, constipated, diarrhea, difficulty swallowing, nausea, poor appetite, poor fluid intake, rectal bleeding , vomiting, other Genitourinary: Denies: no symptoms, burning, discharge, frequency, flank pain, hematuria, incontinence, pain, urgency, other Neurologic/Psychiatric: Denies: no symptoms, anxiety, depressed, emotional problems, headache, numbness, paresthesia, pre-existing deficit, seizure, tingling, tremors, weakness, other Endocrine: Denies: no symptoms, excessive sweating, flushing, intolerance to cold, intolerance to heat, increased hunger, increased thirst, increased urine, unexplained weight gain, unexplained weight loss, other Hematologic/Lymphatic: Denies: no symptoms, anemia, easy bleeding, easy bruising, adenopathy, other Allergies: Coded Allergies: No Known Allergies (Unverified , 12/05/18) Subjective 3/3: no events, no bleeding, psa is 94, no events, no changes, dw him re chemo Objective Objective Current Medications Medications (Trade) Dose Ordered Sig/Sanjeev Route PRN Reason Start Time Stop Time Status Last Admin Dose Admin Acetaminophen (Tylenol) 650 mg Q6H PRN ORAL Mild Pain/Temp > 100.5 06/24/19 21:30 07/24/19 21:29 06/27/19 00:08 Ascorbic Acid (Vitamin C) 250 mg TWICE A DAY ORAL 06/25/19 09:00 07/21/19 17:59 06/26/19 17:19 Dextrose (Dextrose 50%) 25 ml Q30M PRN IV Hypoglycemia 06/24/19 21:45 07/19/19 07:44 Dextrose (Dextrose 50%) 50 ml Q30M PRN IV Hypoglycemia 06/24/19 21:45 07/19/19 07:44 Diphenoxylate HCl/ Atropine (Lomotil) 2.5 mg Q6H PRN ORAL Diarrhea 06/24/19 21:30 07/20/19 21:29 06/26/19 20:15 Furosemide (Lasix) 40 mg DAILY IV 06/25/19 09:00 07/19/19 08:59 06/26/19 09:25 Insulin Aspart (NovoLOG) BEFORE MEALS AND HS SUBQ 06/25/19 06:30 07/19/19 11:29 06/27/19 06:06 Insulin Detemir (Levemir) 15 units BID SUBQ 06/25/19 09:00 07/22/19 20:59 06/26/19 17:14 Multivitamins (Multivitamins) 1 tab DAILY ORAL 06/25/19 09:00 07/19/19 08:59 06/26/19 09:26 Piperacillin Sod/ Tazobactam Sod 3.375 gm/Sodium Chloride 110 ml @ 27.5 mls/hr EVERY 8 HOURS IVPB 06/24/19 22:00 06/27/19 23:59 06/27/19 05:03 Potassium Chloride (K-Dur) 40 meq DAILY ORAL 06/25/19 09:00 07/19/19 11:59 06/26/19 09:26 Zolpidem Tartrate (Ambien) 5 mg HSPRN PRN ORAL Insomnia 06/24/19 21:30 07/01/19 21:29 06/26/19 20:15 Last 24 Hour Vital Signs Date Time Temp Pulse Resp B/P (MAP) Pulse Ox O2 Delivery O2 Flow Rate FiO2 06/27/19 04:00 99.0 94 20 112/74 (87) 99 06/27/19 01:00 99.5 06/27/19 00:00 101.0 91 20 112/66 (81) 99 06/26/19 21:58 Room Air 06/26/19 20:00 98.1 78 20 125/65 (85) 99 06/26/19 16:00 97.7 98 18 98/66 (77) 99 06/26/19 12:00 98.0 97 18 128/83 (98) 98 06/26/19 09:00 Room Air 06/26/19 08:00 98.9 94 18 109/73 (85) 99 06/26/19 04:00 97.8 100 18 118/68 (85) 96 06/26/19 00:00 98.9 89 18 110/74 (86) 98 06/25/19 21:15 Room Air 06/25/19 20:00 99.0 94 18 102/69 (80) 98 06/25/19 16:00 98.9 96 18 115/70 (85) 98 06/25/19 12:00 100.9 91 15 105/69 (81) 98 06/25/19 09:00 Room Air 06/25/19 08:00 99.4 98 19 108/66 (80) 97 Intake and Output 06/26/19 06/27/19 19:00 07:00 Intake Total 960 ml Output Total 1200 ml Balance -240 ml Intake Oral 960 ml Output Urine Total 1200 ml # Voids 3 # Bowel Movements 2 Labs Test 06/25/19 11:05 06/26/19 08:35 06/26/19 17:20 3/3/20 04:35 White Blood Count 25.3 K/UL (4.8-10.8) 21.8 K/UL (4.8-10.8) 20.3 K/UL (4.8-10.8) Red Blood Count 3.27 M/UL (4.70-6.10) 3.25 M/UL (4.70-6.10) 3.17 M/UL (4.70-6.10) Hemoglobin 9.1 G/DL (14.2-18.0) 9.1 G/DL (14.2-18.0) 8.9 G/DL (14.2-18.0) Hematocrit 28.7 % (42.0-52.0) 28.3 % (42.0-52.0) 27.7 % (42.0-52.0) Mean Corpuscular Volume 88 FL (80-99) 87 FL (80-99) 87 FL (80-99) Mean Corpuscular Hemoglobin 27.9 PG (27.0-31.0) 28.0 PG (27.0-31.0) 28.1 PG (27.0-31.0) Mean Corpuscular Hemoglobin Concent 31.8 G/DL (32.0-36.0) 32.3 G/DL (32.0-36.0) 32.2 G/DL (32.0-36.0) Red Cell Distribution Width 20.0 % (11.6-14.8) 20.2 % (11.6-14.8) 19.8 % (11.6-14.8) Platelet Count 177 K/UL (150-450) 176 K/UL (150-450) 190 K/UL (150-450) Mean Platelet Volume 6.1 FL (6.5-10.1) 6.2 FL (6.5-10.1) 7.8 FL (6.5-10.1) Neutrophils (%) (Auto) % (45.0-75.0) % (45.0-75.0) % (45.0-75.0) Lymphocytes (%) (Auto) % (20.0-45.0) % (20.0-45.0) % (20.0-45.0) Monocytes (%) (Auto) % (1.0-10.0) % (1.0-10.0) % (1.0-10.0) Eosinophils (%) (Auto) % (0.0-3.0) % (0.0-3.0) % (0.0-3.0) Basophils (%) (Auto) % (0.0-2.0) % (0.0-2.0) % (0.0-2.0) Differential Total Cells Counted 100 100 Neutrophils % (Manual) 71 % (45-75) 77 % (45-75) Lymphocytes % (Manual) 25 % (20-45) 18 % (20-45) Monocytes % (Manual) 4 % (1-10) 4 % (1-10) Eosinophils % (Manual) 0 % (0-3) 1 % (0-3) Basophils % (Manual) 0 % (0-2) 0 % (0-2) Band Neutrophils 0 % (0-8) 0 % (0-8) Nucleated Red Blood Cells 4 /100 WBC Platelet Estimate Adequate Adequate Platelet Morphology Normal Normal Hypochromasia 2+ 2+ Anisocytosis 2+ 2+ Reticulocyte Count 2.1 % (0.5-2.0) Prothrombin Time 11.3 SEC (9.30-11.50) Prothromb Time International Ratio 1.1 (0.9-1.1) Iron Level 23 ug/dL (50-175) Total Iron Binding Capacity 210 ug/dL (250-450) Percent Iron Saturation 11 % (15-50) Unsaturated Iron Binding 187 ug/dL (112-346) Ferritin 1031 NG/ML (8-388) Prostate Specific Antigen 93.29 ng/mL (0.13-4.0) Thyroid Stimulating Hormone (TSH) 2.858 uiU/mL (0.358-3.740) Height (Feet): 5 Height (Inches): 11.00 Weight (Pounds): 149 Objective Vitals: reviewed General: NAD HEENT: nc, at Neck: supple Chest: clear breath sounds bilaterally Cardiovascular: RRR, no s3, s4 Abd: soft, nt, nd Ext: no cce Eliseo Biggs MD Jun 27, 2019 06:53
--- NOTE | 2019-06-27 07:13 | NUR ---
HAND-OFF: Report given to VINCENT Maldonado.
--- NOTE | 2019-06-27 07:46 | NUR ---
NURSE NOTES: Patient alert x4; on room air, no sing of distress and shortness of breath; no sing of chest pain; IV Right For-Arm 22G Zosyn running; Urinal within reach; side rails up x2, breaks engaged, bed at lowest position, breaks engaged; call light within reach; will keep monitoring.
[2019-06-27 08:00] VITALS: BP 110/62
[2019-06-27] MEDS: Ascorbic Acid 500mg tab ORAL SCH ×2 (08:18→17:53)
[2019-06-27] MEDS: Levemir Flexpen SUBQ SCH ×2 (08:21→17:53)
--- NOTE | 2019-06-27 09:08 | General Progress Note ---
Assessment/Plan Assessment/Plan: 1. Anemia. 2. Congestive heart failure. 3. Lower extremity edema, 4. Prostate cancer. with mets to bone 5. Leukocytosis, possibly leukemoid. 6. Diabetes. 7. Low potassium. 8. pleural effusions s/p tap; persistent 9. anasarca PLAN monitor blood sugars and adjust repeat labs pending ID - on antibiotics monitor HH wound care as is dc planning on hold pending improvement of wbc impression, plan, and exam edited and reviewed in detail care discussed with RN Subjective Allergies: Coded Allergies: No Known Allergies (Unverified , 12/05/18) Subjective wbc elevated nontoxic on antibiotics alert Objective Last 24 Hour Vital Signs Date Time Temp Pulse Resp B/P (MAP) Pulse Ox O2 Delivery O2 Flow Rate FiO2 06/27/19 08:00 98.0 94 20 110/62 (78) 98 06/27/19 04:00 99.0 94 20 112/74 (87) 99 06/27/19 01:00 99.5 06/27/19 00:00 101.0 91 20 112/66 (81) 99 06/26/19 21:58 Room Air 06/26/19 20:00 98.1 78 20 125/65 (85) 99 06/26/19 16:00 97.7 98 18 98/66 (77) 99 06/26/19 12:00 98.0 97 18 128/83 (98) 98 Intake and Output 06/26/19 06/27/19 19:00 07:00 Intake Total 960 ml Output Total 1200 ml 500 ml Balance -240 ml -500 ml Intake Oral 960 ml Output Urine Total 1200 ml 500 ml # Voids 3 # Bowel Movements 2 Laboratory Tests 06/26/19 17:20: Reticulocyte Count 2.1H, Prothrombin Time 11.3, Prothromb Time International Ratio 1.1, Iron Level 23L, Total Iron Binding Capacity 210L, Percent Iron Saturation 11L, Unsaturated Iron Binding 187, Ferritin 1031H, Carcinoembryonic Antigen [Pending], Prostate Specific Antigen 93.29H, Thyroid Stimulating Hormone (TSH) 2.858 06/27/19 04:35: White Blood Count 20.3H, Red Blood Count 3.17L, Hemoglobin 8.9L, Hematocrit 27.7L, Mean Corpuscular Volume 87, Mean Corpuscular Hemoglobin 28.1, Mean Corpuscular Hemoglobin Concent 32.2, Red Cell Distribution Width 19.8H, Platelet Count 190, Mean Platelet Volume 7.8, Neutrophils (%) (Auto) , Lymphocytes (%) (Auto) , Monocytes (%) (Auto) , Eosinophils (%) (Auto) , Basophils (%) (Auto) , Neutrophils % (Manual) [Pending], Lymphocytes % (Manual) [Pending], Platelet Estimate [Pending], Platelet Morphology [Pending] Height (Feet): 5 Height (Inches): 11.00 Weight (Pounds): 149 Objective WDWN NAD reduced breath sounds bilaterally without rhonchi or wheeze; now improved [id number] without MRG NABS nontender no HSM no CC minimal edema alert and oriented nonfocal Jason Garcia MD Jun 27, 2019 09:08
--- NOTE | 2019-06-27 09:45 | NUR ---
NURSE NOTES: Stool collected for OB and C.Diff; waiting for result;
--- NOTE | 2019-06-27 10:37 | Infectious Diseases Prog Note ---
Assessment/Plan Assessment/Plan antibiotics : zosyn A 1. UTI 2. pneumonia 3. pleural effusions s/p thoracentesis 4. leucocytosis improving 5. metastatic prostate cancer 6. fever P 1. continue zosyn 2. blood culture 3. UA and urine culture 4. will follow up cultures Subjective Constitutional: Denies: fever, chills Respiratory: Denies: shortness of breath, dry cough Gastrointestinal/Abdominal: Denies: nausea, vomiting, diarrhea Musculoskeletal: Denies: pain Allergies: Coded Allergies: No Known Allergies (Unverified , 12/05/18) Objective Vital Signs Last 24 Hour Vital Signs Date Time Temp Pulse Resp B/P (MAP) Pulse Ox O2 Delivery O2 Flow Rate FiO2 06/27/19 09:00 Room Air 06/27/19 08:00 98.0 94 20 110/62 (78) 98 06/27/19 04:00 99.0 94 20 112/74 (87) 99 06/27/19 01:00 99.5 06/27/19 00:00 101.0 91 20 112/66 (81) 99 06/26/19 21:58 Room Air 06/26/19 20:00 98.1 78 20 125/65 (85) 99 06/26/19 16:00 97.7 98 18 98/66 (77) 99 06/26/19 12:00 98.0 97 18 128/83 (98) 98 Height (Feet): 5 Height (Inches): 11.00 Weight (Pounds): 149 Respiratory/Chest: lungs clear Cardiovascular: normal rate, regular rhythm, no gallop/murmur Abdomen: soft, non tender Extremities: no edema Skin: ulcers - left knee Laboratory Tests Test 06/26/19 17:20 06/27/19 04:35 06/27/19 09:23 Reticulocyte Count 2.1 % (0.5-2.0) H Prothrombin Time 11.3 SEC (9.30-11.50) Prothromb Time International Ratio 1.1 (0.9-1.1) Iron Level 23 ug/dL (50-175) L Total Iron Binding Capacity 210 ug/dL (250-450) L Percent Iron Saturation 11 % (15-50) L Unsaturated Iron Binding 187 ug/dL (112-346) Ferritin 1031 NG/ML (8-388) H Carcinoembryonic Antigen Pending Prostate Specific Antigen 93.29 ng/mL (0.13-4.0) H Thyroid Stimulating Hormone (TSH) 2.858 uiU/mL (0.358-3.740) White Blood Count 20.3 K/UL (4.8-10.8) H Red Blood Count 3.17 M/UL (4.70-6.10) L Hemoglobin 8.9 G/DL (14.2-18.0) L Hematocrit 27.7 % (42.0-52.0) L Mean Corpuscular Volume 87 FL (80-99) Mean Corpuscular Hemoglobin 28.1 PG (27.0-31.0) Mean Corpuscular Hemoglobin Concent 32.2 G/DL (32.0-36.0) Red Cell Distribution Width 19.8 % (11.6-14.8) H Platelet Count 190 K/UL (150-450) Mean Platelet Volume 7.8 FL (6.5-10.1) Neutrophils (%) (Auto) % (45.0-75.0) Lymphocytes (%) (Auto) % (20.0-45.0) Monocytes (%) (Auto) % (1.0-10.0) Eosinophils (%) (Auto) % (0.0-3.0) Basophils (%) (Auto) % (0.0-2.0) Neutrophils % (Manual) Pending Lymphocytes % (Manual) Pending Platelet Estimate Pending Platelet Morphology Pending Stool Occult Blood Pending Current Medications Medications (Trade) Dose Ordered Sig/Sanjeev Route PRN Reason Start Time Stop Time Status Last Admin Dose Admin Acetaminophen (Tylenol) 650 mg Q6H PRN ORAL Mild Pain/Temp > 100.5 06/24/19 21:30 07/24/19 21:29 06/27/19 00:08 Ascorbic Acid (Vitamin C) 250 mg TWICE A DAY ORAL 06/25/19 09:00 07/21/19 17:59 06/27/19 08:18 Dextrose (Dextrose 50%) 25 ml Q30M PRN IV Hypoglycemia 06/24/19 21:45 07/19/19 07:44 Dextrose (Dextrose 50%) 50 ml Q30M PRN IV Hypoglycemia 06/24/19 21:45 07/19/19 07:44 Diphenoxylate HCl/ Atropine (Lomotil) 2.5 mg Q6H PRN ORAL Diarrhea 06/24/19 21:30 07/20/19 21:29 06/26/19 20:15 Furosemide (Lasix) 40 mg DAILY IV 06/25/19 09:00 07/19/19 08:59 06/27/19 08:18 Insulin Aspart (NovoLOG) BEFORE MEALS AND HS SUBQ 06/25/19 06:30 07/19/19 11:29 06/27/19 06:06 Insulin Detemir (Levemir) 15 units BID SUBQ 06/25/19 09:00 07/22/19 20:59 06/27/19 08:21 Multivitamins (Multivitamins) 1 tab DAILY ORAL 06/25/19 09:00 07/19/19 08:59 06/27/19 08:18 Piperacillin Sod/ Tazobactam Sod 3.375 gm/Sodium Chloride 110 ml @ 27.5 mls/hr EVERY 8 HOURS IVPB 06/24/19 22:00 06/27/19 23:59 06/27/19 05:03 Potassium Chloride (K-Dur) 40 meq DAILY ORAL 06/25/19 09:00 07/19/19 11:59 06/27/19 08:18 Zolpidem Tartrate (Ambien) 5 mg HSPRN PRN ORAL Insomnia 06/24/19 21:30 07/01/19 21:29 06/26/19 20:15 Gumaro Barakat MD Jun 27, 2019 10:37
[2019-06-27 12:00] VITALS: BP 107/68
--- NOTE | 2019-06-27 13:23 | NUR ---
NURSE NOTES: Urine collected and dropped to the lab; waiting for result;
[2019-06-27 13:26] LABS: APPEARANCE,URINE CLEAR; BILIRUBIN, URINE NEGATIVE (NEGATIVE); COLOR,URINE PALE YELLOW; GLUCOSE, URINE (UA) 4+ (NEGATIVE); KETONES,URINE NEGATIVE (NEGATIVE); LEUKOCYTE ESTERASE ,URINE NEGATIVE (NEGATIVE); NITRITE,URINE NEGATIVE (NEGATIVE); PH,URINE 5 (4.5-8.0); PROTEIN,URINE NEGATIVE (NEGATIVE); UROBILINOGEN,URINE NORMAL MG/DL (0.0-1.0)
[2019-06-27 16:00] VITALS: BP 112/65
--- NOTE | 2019-06-27 16:05 | Surgery Progress Note ---
Surgery Progress Note Subjective Symptoms: improved, pain absent, tolerating diet, passing flatus, BM Objective Last 24 Hour Vital Signs Date Time Temp Pulse Resp B/P (MAP) Pulse Ox O2 Delivery O2 Flow Rate FiO2 06/27/19 12:00 97.8 94 20 107/68 (81) 98 06/27/19 09:00 Room Air 06/27/19 08:00 98.0 94 20 110/62 (78) 98 06/27/19 04:00 99.0 94 20 112/74 (87) 99 06/27/19 01:00 99.5 06/27/19 00:00 101.0 91 20 112/66 (81) 99 06/26/19 21:58 Room Air 06/26/19 20:00 98.1 78 20 125/65 (85) 99 I&O Intake and Output 06/26/19 06/27/19 19:00 07:00 Intake Total 960 ml 27.5 ml Output Total 1200 ml 500 ml Balance -240 ml -472.5 ml Intake Oral 960 ml IV Total 27.5 ml Output Urine Total 1200 ml 500 ml # Voids 3 # Bowel Movements 2 Dressing: dry Wound: clean Cardiovascular: RSR Respiratory: clear Abdomen: soft, non-tender, present bowel sounds Extremities: no cyanosis Laboratory Tests Test 06/26/19 17:20 06/27/19 04:35 06/27/19 09:23 06/27/19 13:05 Reticulocyte Count 2.1 % (0.5-2.0) H Prothrombin Time 11.3 SEC (9.30-11.50) Prothromb Time International Ratio 1.1 (0.9-1.1) Iron Level 23 ug/dL (50-175) L Total Iron Binding Capacity 210 ug/dL (250-450) L Percent Iron Saturation 11 % (15-50) L Unsaturated Iron Binding 187 ug/dL (112-346) Ferritin 1031 NG/ML (8-388) H Carcinoembryonic Antigen 31.4 ng/mL (0.0-4.7) H Prostate Specific Antigen 93.29 ng/mL (0.13-4.0) H Thyroid Stimulating Hormone (TSH) 2.858 uiU/mL (0.358-3.740) White Blood Count 20.3 K/UL (4.8-10.8) H Red Blood Count 3.17 M/UL (4.70-6.10) L Hemoglobin 8.9 G/DL (14.2-18.0) L Hematocrit 27.7 % (42.0-52.0) L Mean Corpuscular Volume 87 FL (80-99) Mean Corpuscular Hemoglobin 28.1 PG (27.0-31.0) Mean Corpuscular Hemoglobin Concent 32.2 G/DL (32.0-36.0) Red Cell Distribution Width 19.8 % (11.6-14.8) H Platelet Count 190 K/UL (150-450) Mean Platelet Volume 7.8 FL (6.5-10.1) Neutrophils (%) (Auto) % (45.0-75.0) Lymphocytes (%) (Auto) % (20.0-45.0) Monocytes (%) (Auto) % (1.0-10.0) Eosinophils (%) (Auto) % (0.0-3.0) Basophils (%) (Auto) % (0.0-2.0) Differential Total Cells Counted 100 Neutrophils % (Manual) 80 % (45-75) H Lymphocytes % (Manual) 14 % (20-45) L Monocytes % (Manual) 5 % (1-10) Eosinophils % (Manual) 1 % (0-3) Basophils % (Manual) 0 % (0-2) Band Neutrophils 0 % (0-8) Platelet Estimate Adequate Platelet Morphology Normal Polychromasia Hypochromasia 1+ Anisocytosis 1+ Stool Occult Blood Pending Urine Color Pale yellow Urine Appearance Clear Urine pH 5 (4.5-8.0) Urine Specific [place] 1.005 (1.005-1.035) Urine Protein Negative (NEGATIVE) Urine Glucose (UA) 4+ (NEGATIVE) H Urine Ketones Negative (NEGATIVE) Urine Blood Negative (NEGATIVE) Urine Nitrite Negative (NEGATIVE) Urine Bilirubin Negative (NEGATIVE) Urine Urobilinogen Normal MG/DL (0.0-1.0) Urine Leukocyte Esterase Negative (NEGATIVE) Plan Problems: (1) Leukocytosis Assessment & Plan: Patient presents with leukocytosis abnormal labs. Bilateral lower extremity edema. Multiple decubitus ulcers. UTI. UTI likely etiology of patient's leukocytosis and infectious process. The wounds were evaluated and unlikely etiology. Lower extremity edema unlikely cellulitis. We will continue to follow the recommendations monitor. Antibiotics as per ID. Trend labs. The liver is unremarkable. Doppler interrogation of the main portal vein shows patency with hepatopedal, monophasic flow. There is no biliary ductal dilatation identified. Gallbladder is unremarkable. CBD is 4 mm. Bilateral pleural effusions are demonstrated. There is trace ascites. There is prominence in the area of the pancreatic head. There demonstrated part of the aorta and IVC show no definite abnormalities. Both kidneys appear echogenic. There is no hydronephrosis. IMPRESSION: Bilateral pleural effusions Prominent pancreatic head. This may be related to body habitus. Consider further evaluation with contrast CT. Trace ascites IMPRESSION: Bilateral moderate to large pleural effusions. Resultant compressive atelectatic changes of both lower lobes Groundglass opacity throughout much of the upper and lower lobes, likely reflects parenchymal edema, but could also represent infectious/inflammatory process. Correlate with clinical findings Evidence of anasarca elsewhere, with diffuse edema of the subcutaneous, mediastinal, and mesenteric and pelvic fat Irregular left upper lung opacities with architectural distortion, probably an area of scarring/cicatrization. Mass or infiltrate much less likely Diffuse osteosclerosis, consistent with stated clinical history of metastatic prostate carcinoma Endplate irregularity of the mid thoracic spine as describe. This is probably due to degenerative change. Infectious spondylitis and less likely but not completely excludable. Correlate with clinical findings, consider MRI if there is clinical suspicion for such Evidence of interim right colon surgery. Evidence of right hip surgery, also previously noted Coronary artery calcifications (2) Decubitus skin ulcer Assessment & Plan: Patient presents on admission with multiple decubitus ulcer. Stage III a somewhat resolving sacral decubitus ulcer 2 cm x 1 cm x 5 mm deep no active drainage no signs of active acute infection. Right trochanteric resolving deep tissue injury with Skin changes Bilateral heel boggy nontender Patient is very tall and feet hanging over the side of the bed occasionally and states that when he is not in the hospital his feet are occasionally on the bedpost. Discussed this with patient and information given as well as care plan. Wash sacral decubitus ulcer daily with normal saline apply Thera honey followed by protective foam dressing. Skin protectant to bilateral trochanteric hips followed by foam dressing Keep heels elevated with pillows. Do not allow heels to be on the bedpost but extension necessary Foam dressings for heels thank you will follow with recommendations Nutritional optimization presented on admission with full thickness sacral pressure injury (L)1.1cm x (W) 0.5cm x (D)0.6cm. Base of wound is moist and pink. Borders are macerated. Periwound is black and fluctuant. Pt complained of tenderness when palpated. Full thickness stage 3 pressure injury R hip. Biofilm at base of wound. Edges adherent to base of wound. Periwound is black without induration or fluctuance.( L)0.6cm x (W)0.7cm. Wound L knee with semi-detached necrotic cap, moist erythematous borders. No exudate noted. Periwound without erythema induration or fluctuance (L)8cm x (W) 8.3cm. Unstageable pressure injury lateral R malleolus. Base of wound has 100% dry yellow cap. Edges adherent to base of wound. Periwound is black and indurated with marginal erythema.(L)2cm x (W)2cm. Both heels are dry, firm and blanchable. Tx.plan: Cleanse Sacral wound with Saline. Apply Therahoney. Apply Moisture Barrier periwound.Cover with Optifoam drsg every 3 days and prn. Cleanse wound R hip with Saline. Apply Therahoney. Apply Cavilon Periwound. Cover with Optifoam drsg every 3 days and prn. Apply Betadine to R knee. Cover with Optifoam drsg. Change every 3days and prn. Apply Betadine to R lateral malleolus. Cover with Optifoam drsg. Change every 3 days and prn. Apply Cavilon Skin Barrier to both heels.Cover each heel with Optifoam drsg. Change every 7 days and prn. Reposition at least every 2hours or as tolerated. Off-load heels with pillow. nutritional optimization improving d/c planning (3) Malnutrition Assessment & Plan: DAILY ESTIMATED NEEDS: Needs based on CA, 68.2kg 30-35 kcals/kg 3439-4655 total kcals 1-2 g protein/kg 68-136 g total protein 25-30 mL/kg 7172-4447 total fluid mLs NUTRITION DIAGNOSIS: Increased kcal/prot needs R/T catabolic dx and underweight status as evidenced by h/o stage IV Prostate cancer s/p chemotherapy, pt @87% IBW. CURRENT DIET: Cardiac PO DIET RECOMMENDATIONS--->>> CCHO MED/ texture as tolerated + Glucerna TID w/ meals ADDITIONAL RECOMMENDATIONS: * Calibrated bed scale wt for accurate CBW * Monitor po intake, need for snacks -h/o stage 4 CA, w/ chemo * BG in the 300's, consider increasing levemir -> rec HgA1C * WOUND CARE: add JERRY BID + Vit C 250mg daily F/up w/ WC eval moderate given condition bmi 20, hx cancer nutritional optimization alb 2 (4) Deep tissue injury Juan Carlos Tucker Jun 27, 2019 16:05
--- NOTE | 2019-06-27 16:19 | NUR ---
NURSE NOTES:WOUND CARE FOLLOW-UP NOTES : Sacral pressure injury resolving. base of wound is pink and and dry. No evidence of further skin breakdown periwound. R hip pressure injury resolved. Hyperpigmentation noted. Non-tender when palpated. Wound L knee with stable,dry necrotic cap. Semi-detached borders. No erythema ,odor or exudate noted. Periwound without erythema or induration. Unstageable pressure injury R lateral malleolus Base of wound has 100% dry necrotic cap. Periwound is black, indurated and Non-tender when palpated. No odor noted.Both heels are dry,firm and easily blanchable. No new skin concerns noted. Wound Tx are effective and continued as ordered. All wound prevention protocols continued as care-planned.
--- NOTE | 2019-06-27 16:42 | NUR ---
CASE MANAGEMENT: REVIEW 06/26/19 SI:SP THORACENTESIS . BILATERAL PLEURAL EFFUSION . TRACE ASCITES . CHF EXACERBATION . DM . ANEMIA . UTI . BILATERAL LE EDEMA 101.0 91 20 112/66 99% ON RA WBC 20.3 H/H 8.9/27.7 STOOL OB -PENDING IS:IV ZOSYN TID IV LASIX QD K-DUR PO QD LEVEMIR SQ BID NOVOLOG SQ AC&HS TYLENOL Q6HR.PRN MTV PO QD \: RETURNING TO [facility] WHEN STABLE PLAN: CONTROL FEVER MONITOR LAB LEVELS CONTROL DIARRHEA
--- NOTE | 2019-06-27 19:19 | NUR ---
HAND-OFF: Report given to VINCENT Mota.
--- NOTE | 2019-06-27 19:53 | NUR ---
NURSE NOTES: Patient awake in bed, alert and oriented x4, no complaints of pain at this time but he wants his sleeping pill tonight. Bed in lowest and lock engaged. Will continue to monitor.
[2019-06-27 20:00] VITALS: BP 94/59
[2019-06-27] MEDS: Zolpidem 5mg tab ORAL PRN (20:16)
[2019-06-28] VITALS: BP 113/71
[2019-06-28 04:00] VITALS: BP 120/77
[2019-06-28] MEDS: Piperacillin/Tazobactam 3.375 GM in NS 110 ML IVPB SCH ×3 (05:34→21:00)
[2019-06-28] MEDS: NovoLOG Insulin Flexpen SUBQ SCH ×4 (05:49→20:18)
[2019-06-28 06:49] LABS: HEMATOCRIT 28.1 % (42.0-52.0); HEMOGLOBIN 8.9 G/DL (14.2-18.0); MEAN CORPUSCULAR VOLUME 88 FL (80-99); PLATELET COUNT 202 K/UL (150-450); RED BLOOD COUNT 3.21 M/UL (4.70-6.10); RED CELL DISTRIBUTION WIDTH 18.8 % (11.6-14.8); WHITE BLOOD COUNT 21.6 K/UL (4.8-10.8)
--- NOTE | 2019-06-28 07:20 | NUR ---
HAND-OFF: Report given to VINCENT Soares.
[2019-06-28 08:00] VITALS: BP 104/66
--- NOTE | 2019-06-28 08:03 | NUR ---
NURSE NOTES: received report from VINCENT Martin. patient in bed. A&Ox4. verbally responsive no respiratory distress noted. no pain this time. IV on RFA 22 saline lock intact. bed in the lowest position and locked. call light within reach. will continue to provide plan of care.
[2019-06-28] MEDS: Ascorbic Acid 500mg tab ORAL SCH ×2 (08:34→17:28)
[2019-06-28] MEDS: Levemir Flexpen SUBQ SCH ×2 (08:38→17:30)
--- NOTE | 2019-06-28 10:23 | Pulmonology Progress Note ---
Assessment/Plan Assessment/Plan Pulmonary Progress Note Assessment/Plan: 1. Anemia. 2. Congestive heart failure. 3. Lower extremity edema, 4. Prostate cancer. with mets to bone 5. Leukocytosis, possibly leukemoid. 6. Diabetes. 7. Low potassium. 8. pleural effusions s/p tap; reduced 9. anasarca PLAN monitor blood sugars and adjust repeat labs pending ID - on antibiotics monitor HH wound care as is dc planning on hold pending improvement of wbc impression, plan, and exam edited and reviewed in detail care discussed with RN Subjective Allergies: Coded Allergies: No Known Allergies (Unverified , 12/05/18) Subjective wbc elevated nontoxic on antibiotics alert Objective Vital Signs Noted Laboratory Tests 06/25/19 11:05: White Blood Count 25.3*H, Red Blood Count 3.27L, Hemoglobin 9.1L, Hematocrit 28.7L, Mean Corpuscular Volume 88, Mean Corpuscular Hemoglobin 27.9, Mean Corpuscular Hemoglobin Concent 31.8L, Red Cell Distribution Width 20.0H, Platelet Count 177, Mean Platelet Volume 6.1L, Neutrophils (%) (Auto) , Lymphocytes (%) (Auto) , Monocytes (%) (Auto) , Eosinophils (%) (Auto) , Basophils (%) (Auto) , Differential Total Cells Counted 100, Neutrophils % ( Manual) 71, Lymphocytes % (Manual) 25, Monocytes % (Manual) 4, Eosinophils % ( Manual) 0, Basophils % (Manual) 0, Band Neutrophils 0, Nucleated Red Blood Cells 4, Platelet Estimate Adequate, Platelet Morphology Normal, Hypochromasia 2 +, Anisocytosis 2+ Height (Feet): 5 Height (Inches): 11.00 Weight (Pounds): 149 Objective WDWN NAD reduced breath sounds bilaterally without rhonchi or wheeze; now improved [id number] without MRG NABS nontender no HSM no CC minimal edema alert and oriented nonfocal Subjective ROS Limited/Unobtainable: No Allergies: Coded Allergies: No Known Allergies (Unverified , 12/05/18) Objective Last 24 Hour Vital Signs Date Time Temp Pulse Resp B/P (MAP) Pulse Ox O2 Delivery O2 Flow Rate FiO2 06/28/19 08:00 97.8 102 18 104/66 (79) 98 06/28/19 04:00 99.4 103 18 120/77 (91) 97 3/4/20 00:00 99.0 109 18 113/71 (85) 97 06/27/19 21:00 Room Air 06/27/19 20:00 99.7 102 18 94/59 (71) 06/27/19 16:00 97.8 93 20 112/65 (81) 98 06/27/19 12:00 97.8 94 20 107/68 (81) 98 Intake and Output 06/27/19 06/28/19 19:00 07:00 Intake Total 192.5 ml 110.0 ml Balance 192.5 ml 110.0 ml IV Total 192.5 ml 110.0 ml # Voids 8 # Bowel Movements 2 Microbiology Date/Time Source Procedure Growth Status 06/27/19 09:23 Stool Clostridium difficile Toxin Assay - Final Complete Laboratory Tests 06/27/19 13:05: Urine Color Pale yellow, Urine Appearance Clear, Urine pH 5, Urine Specific [place] 1.005, Urine Protein Negative, Urine Glucose (UA) 4+H, Urine Ketones Negative, Urine Blood Negative, Urine Nitrite Negative, Urine Bilirubin Negative , Urine Urobilinogen Normal, Urine Leukocyte Esterase Negative 06/28/19 05:56: White Blood Count 21.6H, Red Blood Count 3.21L, Hemoglobin 8.9L, Hematocrit 28.1L, Mean Corpuscular Volume 88, Mean Corpuscular Hemoglobin 27.9, Mean Corpuscular Hemoglobin Concent 31.8L, Red Cell Distribution Width 18.8H, Platelet Count 202, Mean Platelet Volume 6.0L, Neutrophils (%) (Auto) , Lymphocytes (%) (Auto) , Monocytes (%) (Auto) , Eosinophils (%) (Auto) , Basophils (%) (Auto) , Neutrophils % (Manual) [Pending], Lymphocytes % (Manual) [Pending], Platelet Estimate [Pending], Platelet Morphology [Pending] Current Medications Medications (Trade) Dose Ordered Sig/Sanjeev Route PRN Reason Start Time Stop Time Status Last Admin Dose Admin Acetaminophen (Tylenol) 650 mg Q6H PRN ORAL Mild Pain/Temp > 100.5 06/24/19 21:30 07/24/19 21:29 06/27/19 00:08 Ascorbic Acid (Vitamin C) 250 mg TWICE A DAY ORAL 06/25/19 09:00 07/21/19 17:59 06/28/19 08:34 Dextrose (Dextrose 50%) 25 ml Q30M PRN IV Hypoglycemia 06/24/19 21:45 07/19/19 07:44 Dextrose (Dextrose 50%) 50 ml Q30M PRN IV Hypoglycemia 06/24/19 21:45 07/19/19 07:44 Diphenoxylate HCl/ Atropine (Lomotil) 2.5 mg Q6H PRN ORAL Diarrhea 06/24/19 21:30 07/20/19 21:29 06/26/19 20:15 Furosemide (Lasix) 40 mg DAILY IV 06/25/19 09:00 07/19/19 08:59 06/28/19 08:34 Insulin Aspart (NovoLOG) BEFORE MEALS AND HS SUBQ 06/25/19 06:30 07/19/19 11:29 06/28/19 05:49 Insulin Detemir (Levemir) 15 units BID SUBQ 06/25/19 09:00 07/22/19 20:59 06/28/19 08:38 Multivitamins (Multivitamins) 1 tab DAILY ORAL 06/25/19 09:00 07/19/19 08:59 06/28/19 08:34 Piperacillin Sod/ Tazobactam Sod 3.375 gm/Sodium Chloride 110 ml @ 27.5 mls/hr EVERY 8 HOURS IVPB 06/27/19 14:00 06/30/19 15:59 06/28/19 05:34 Potassium Chloride (K-Dur) 40 meq DAILY ORAL 06/25/19 09:00 07/19/19 11:59 06/28/19 08:33 Zolpidem Tartrate (Ambien) 5 mg HSPRN PRN ORAL Insomnia 06/24/19 21:30 07/01/19 21:29 06/27/19 20:16 Mamadou Charles MD Jun 28, 2019 10:23
--- NOTE | 2019-06-28 10:37 | Infectious Diseases Prog Note ---
Assessment/Plan Assessment/Plan antibiotics : zosyn A 1. UTI 2. pneumonia 3. pleural effusions s/p thoracentesis 4. leucocytosis improving 5. metastatic prostate cancer 6. fever improving P 1. continue zosyn 2. will follow up cultures Subjective Constitutional: Denies: fever, chills Respiratory: Denies: shortness of breath, dry cough Gastrointestinal/Abdominal: Reports: diarrhea - mild; Denies: nausea, vomiting Musculoskeletal: Denies: pain Allergies: Coded Allergies: No Known Allergies (Unverified , 12/05/18) Objective Vital Signs Last 24 Hour Vital Signs Date Time Temp Pulse Resp B/P (MAP) Pulse Ox O2 Delivery O2 Flow Rate FiO2 06/28/19 08:00 97.8 102 18 104/66 (79) 98 06/28/19 04:00 99.4 103 18 120/77 (91) 97 06/28/19 00:00 99.0 109 18 113/71 (85) 97 06/27/19 21:00 Room Air 06/27/19 20:00 99.7 102 18 94/59 (71) 06/27/19 16:00 97.8 93 20 112/65 (81) 98 06/27/19 12:00 97.8 94 20 107/68 (81) 98 Height (Feet): 5 Height (Inches): 11.00 Weight (Pounds): 123 Respiratory/Chest: lungs clear Cardiovascular: normal rate, regular rhythm, no gallop/murmur Abdomen: soft, non tender Extremities: no edema Microbiology Date/Time Source Procedure Growth Status 06/27/19 09:23 Stool Clostridium difficile Toxin Assay - Final Complete Laboratory Tests Test 06/27/19 13:05 06/28/19 05:56 Urine Color Pale yellow Urine Appearance Clear Urine pH 5 (4.5-8.0) Urine Specific [place] 1.005 (1.005-1.035) Urine Protein Negative (NEGATIVE) Urine Glucose (UA) 4+ (NEGATIVE) H Urine Ketones Negative (NEGATIVE) Urine Blood Negative (NEGATIVE) Urine Nitrite Negative (NEGATIVE) Urine Bilirubin Negative (NEGATIVE) Urine Urobilinogen Normal MG/DL (0.0-1.0) Urine Leukocyte Esterase Negative (NEGATIVE) White Blood Count 21.6 K/UL (4.8-10.8) H Red Blood Count 3.21 M/UL (4.70-6.10) L Hemoglobin 8.9 G/DL (14.2-18.0) L Hematocrit 28.1 % (42.0-52.0) L Mean Corpuscular Volume 88 FL (80-99) Mean Corpuscular Hemoglobin 27.9 PG (27.0-31.0) Mean Corpuscular Hemoglobin Concent 31.8 G/DL (32.0-36.0) L Red Cell Distribution Width 18.8 % (11.6-14.8) H Platelet Count 202 K/UL (150-450) Mean Platelet Volume 6.0 FL (6.5-10.1) L Neutrophils (%) (Auto) % (45.0-75.0) Lymphocytes (%) (Auto) % (20.0-45.0) Monocytes (%) (Auto) % (1.0-10.0) Eosinophils (%) (Auto) % (0.0-3.0) Basophils (%) (Auto) % (0.0-2.0) Neutrophils % (Manual) Pending Lymphocytes % (Manual) Pending Platelet Estimate Pending Platelet Morphology Pending Current Medications Medications (Trade) Dose Ordered Sig/Sanjeev Route PRN Reason Start Time Stop Time Status Last Admin Dose Admin Acetaminophen (Tylenol) 650 mg Q6H PRN ORAL Mild Pain/Temp > 100.5 06/24/19 21:30 07/24/19 21:29 06/27/19 00:08 Ascorbic Acid (Vitamin C) 250 mg TWICE A DAY ORAL 06/25/19 09:00 07/21/19 17:59 06/28/19 08:34 Dextrose (Dextrose 50%) 25 ml Q30M PRN IV Hypoglycemia 06/24/19 21:45 07/19/19 07:44 Dextrose (Dextrose 50%) 50 ml Q30M PRN IV Hypoglycemia 06/24/19 21:45 07/19/19 07:44 Diphenoxylate HCl/ Atropine (Lomotil) 2.5 mg Q6H PRN ORAL Diarrhea 06/24/19 21:30 07/20/19 21:29 06/26/19 20:15 Furosemide (Lasix) 40 mg DAILY IV 06/25/19 09:00 07/19/19 08:59 06/28/19 08:34 Insulin Aspart (NovoLOG) BEFORE MEALS AND HS SUBQ 06/25/19 06:30 07/19/19 11:29 06/28/19 05:49 Insulin Detemir (Levemir) 15 units BID SUBQ 06/25/19 09:00 07/22/19 20:59 06/28/19 08:38 Multivitamins (Multivitamins) 1 tab DAILY ORAL 06/25/19 09:00 07/19/19 08:59 06/28/19 08:34 Piperacillin Sod/ Tazobactam Sod 3.375 gm/Sodium Chloride 110 ml @ 27.5 mls/hr EVERY 8 HOURS IVPB 06/27/19 14:00 06/30/19 15:59 06/28/19 05:34 Potassium Chloride (K-Dur) 40 meq DAILY ORAL 06/25/19 09:00 07/19/19 11:59 06/28/19 08:33 Zolpidem Tartrate (Ambien) 5 mg HSPRN PRN ORAL Insomnia 06/24/19 21:30 07/01/19 21:29 06/27/19 20:16 Gumaro Barakat MD Jun 28, 2019 10:37
--- NOTE | 2019-06-28 10:45 | Hematology/Onc Progress Note ---
Assessment/Plan Assessment/Plan Assessment and Recs: # Leukocytosis/elevated white blood cell count, unspecified likely related to underlying stress reaction, smoking v more likely infection (has had a persistent uti/pna) --> ALSO may be malignancy related(but less likely because when came in 04/2019 was wnl, now elevated, more likely infection related --> have reviewed peripheral smear and bandemia/neutrophilia noted(does have some early nucleated cells) --> continue antibiotics if they have been started by ID team --> monitor for resolution --> will hold off FLOW CYTOMETRY given infection more likely cause --> wbc 25-->22-->20-->21.8 --> f/u cultures --> abx: zosyn # Stage IV prostate cancer, on admission poa --> outpatient management, will review treatment course --> trend psa is 94 --> has received chemo at [facility] x 4 weeks --> has received lupron in the past --> return to outpatient oncology # Pneumonia --> is now on abx --> as per id # Pleural effusions s/p thoracentesis --> repeat thora s per pulm --> cytology reviewed, is neg for malignancy # UTi s/p abx # Decub ulceration The timing of this note does not necessarily reflect the time of the patient was seen. Greatly appreciate consultation. Subjective Allergies: Coded Allergies: No Known Allergies (Unverified , 12/05/18) Subjective 06/26: no events, no bleeding, psa is 94, no events, no changes, dw him re chemo 06/27: Objective Objective Current Medications Medications (Trade) Dose Ordered Sig/Sanjeev Route PRN Reason Start Time Stop Time Status Last Admin Dose Admin Acetaminophen (Tylenol) 650 mg Q6H PRN ORAL Mild Pain/Temp > 100.5 06/24/19 21:30 07/24/19 21:29 06/27/19 00:08 Ascorbic Acid (Vitamin C) 250 mg TWICE A DAY ORAL 06/25/19 09:00 07/21/19 17:59 06/28/19 08:34 Dextrose (Dextrose 50%) 25 ml Q30M PRN IV Hypoglycemia 06/24/19 21:45 07/19/19 07:44 Dextrose (Dextrose 50%) 50 ml Q30M PRN IV Hypoglycemia 06/24/19 21:45 07/19/19 07:44 Diphenoxylate HCl/ Atropine (Lomotil) 2.5 mg Q6H PRN ORAL Diarrhea 06/24/19 21:30 07/20/19 21:29 06/26/19 20:15 Furosemide (Lasix) 40 mg DAILY IV 06/25/19 09:00 07/19/19 08:59 06/28/19 08:34 Insulin Aspart (NovoLOG) BEFORE MEALS AND HS SUBQ 06/25/19 06:30 07/19/19 11:29 06/28/19 05:49 Insulin Detemir (Levemir) 15 units BID SUBQ 06/25/19 09:00 07/22/19 20:59 06/28/19 08:38 Multivitamins (Multivitamins) 1 tab DAILY ORAL 06/25/19 09:00 07/19/19 08:59 06/28/19 08:34 Piperacillin Sod/ Tazobactam Sod 3.375 gm/Sodium Chloride 110 ml @ 27.5 mls/hr EVERY 8 HOURS IVPB 06/27/19 14:00 06/30/19 15:59 06/28/19 05:34 Potassium Chloride (K-Dur) 40 meq DAILY ORAL 06/25/19 09:00 07/19/19 11:59 06/28/19 08:33 Zolpidem Tartrate (Ambien) 5 mg HSPRN PRN ORAL Insomnia 06/24/19 21:30 07/01/19 21:29 06/27/19 20:16 Last 24 Hour Vital Signs Date Time Temp Pulse Resp B/P (MAP) Pulse Ox O2 Delivery O2 Flow Rate FiO2 06/28/19 08:00 97.8 102 18 104/66 (79) 98 06/28/19 04:00 99.4 103 18 120/77 (91) 97 06/28/19 00:00 99.0 109 18 113/71 (85) 97 06/27/19 21:00 Room Air 06/27/19 20:00 99.7 102 18 94/59 (71) 06/27/19 16:00 97.8 93 20 112/65 (81) 98 06/27/19 12:00 97.8 94 20 107/68 (81) 98 06/27/19 09:00 Room Air 06/27/19 08:00 98.0 94 20 110/62 (78) 98 06/27/19 04:00 99.0 94 20 112/74 (87) 99 06/27/19 01:00 99.5 06/27/19 00:00 101.0 91 20 112/66 (81) 99 06/26/19 21:58 Room Air 06/26/19 20:00 98.1 78 20 125/65 (85) 99 06/26/19 16:00 97.7 98 18 98/66 (77) 99 06/26/19 12:00 98.0 97 18 128/83 (98) 98 Intake and Output 06/27/19 06/28/19 19:00 07:00 Intake Total 192.5 ml 110.0 ml Balance 192.5 ml 110.0 ml IV Total 192.5 ml 110.0 ml # Voids 8 # Bowel Movements 2 Labs Test 06/25/19 11:05 06/26/19 08:35 06/26/19 17:20 06/27/19 04:35 White Blood Count 25.3 K/UL (4.8-10.8) 21.8 K/UL (4.8-10.8) 20.3 K/UL (4.8-10.8) Red Blood Count 3.27 M/UL (4.70-6.10) 3.25 M/UL (4.70-6.10) 3.17 M/UL (4.70-6.10) Hemoglobin 9.1 G/DL (14.2-18.0) 9.1 G/DL (14.2-18.0) 8.9 G/DL (14.2-18.0) Hematocrit 28.7 % (42.0-52.0) 28.3 % (42.0-52.0) 27.7 % (42.0-52.0) Mean Corpuscular Volume 88 FL (80-99) 87 FL (80-99) 87 FL (80-99) Mean Corpuscular Hemoglobin 27.9 PG (27.0-31.0) 28.0 PG (27.0-31.0) 28.1 PG (27.0-31.0) Mean Corpuscular Hemoglobin Concent 31.8 G/DL (32.0-36.0) 32.3 G/DL (32.0-36.0) 32.2 G/DL (32.0-36.0) Red Cell Distribution Width 20.0 % (11.6-14.8) 20.2 % (11.6-14.8) 19.8 % (11.6-14.8) Platelet Count 177 K/UL (150-450) 176 K/UL (150-450) 190 K/UL (150-450) Mean Platelet Volume 6.1 FL (6.5-10.1) 6.2 FL (6.5-10.1) 7.8 FL (6.5-10.1) Neutrophils (%) (Auto) % (45.0-75.0) % (45.0-75.0) % (45.0-75.0) Lymphocytes (%) (Auto) % (20.0-45.0) % (20.0-45.0) % (20.0-45.0) Monocytes (%) (Auto) % (1.0-10.0) % (1.0-10.0) % (1.0-10.0) Eosinophils (%) (Auto) % (0.0-3.0) % (0.0-3.0) % (0.0-3.0) Basophils (%) (Auto) % (0.0-2.0) % (0.0-2.0) % (0.0-2.0) Differential Total Cells Counted 100 100 100 Neutrophils % (Manual) 71 % (45-75) 77 % (45-75) 80 % (45-75) Lymphocytes % (Manual) 25 % (20-45) 18 % (20-45) 14 % (20-45) Monocytes % (Manual) 4 % (1-10) 4 % (1-10) 5 % (1-10) Eosinophils % (Manual) 0 % (0-3) 1 % (0-3) 1 % (0-3) Basophils % (Manual) 0 % (0-2) 0 % (0-2) 0 % (0-2) Band Neutrophils 0 % (0-8) 0 % (0-8) 0 % (0-8) Nucleated Red Blood Cells 4 /100 WBC Platelet Estimate Adequate Adequate Adequate Platelet Morphology Normal Normal Normal Hypochromasia 2+ 2+ 1+ Anisocytosis 2+ 2+ 1+ Other Cell Type Pathologist review Reticulocyte Count 2.1 % (0.5-2.0) Prothrombin Time 11.3 SEC (9.30-11.50) Prothromb Time International Ratio 1.1 (0.9-1.1) Iron Level 23 ug/dL (50-175) Total Iron Binding Capacity 210 ug/dL (250-450) Percent Iron Saturation 11 % (15-50) Unsaturated Iron Binding 187 ug/dL (112-346) Ferritin 1031 NG/ML (8-388) Carcinoembryonic Antigen 31.4 ng/mL (0.0-4.7) Prostate Specific Antigen 93.29 ng/mL (0.13-4.0) Thyroid Stimulating Hormone (TSH) 2.858 uiU/mL (0.358-3.740) Polychromasia Test 06/27/19 09:23 06/27/19 13:05 06/28/19 05:56 Urine Color Pale yellow Urine Appearance Clear Urine pH 5 (4.5-8.0) Urine Specific [place] 1.005 (1.005-1.035) Urine Protein Negative (NEGATIVE) Urine Glucose (UA) 4+ (NEGATIVE) Urine Ketones Negative (NEGATIVE) Urine Blood Negative (NEGATIVE) Urine Nitrite Negative (NEGATIVE) Urine Bilirubin Negative (NEGATIVE) Urine Urobilinogen Normal MG/DL (0.0-1.0) Urine Leukocyte Esterase Negative (NEGATIVE) White Blood Count 21.6 K/UL (4.8-10.8) Red Blood Count 3.21 M/UL (4.70-6.10) Hemoglobin 8.9 G/DL (14.2-18.0) Hematocrit 28.1 % (42.0-52.0) Mean Corpuscular Volume 88 FL (80-99) Mean Corpuscular Hemoglobin 27.9 PG (27.0-31.0) Mean Corpuscular Hemoglobin Concent 31.8 G/DL (32.0-36.0) Red Cell Distribution Width 18.8 % (11.6-14.8) Platelet Count 202 K/UL (150-450) Mean Platelet Volume 6.0 FL (6.5-10.1) Neutrophils (%) (Auto) % (45.0-75.0) Lymphocytes (%) (Auto) % (20.0-45.0) Monocytes (%) (Auto) % (1.0-10.0) Eosinophils (%) (Auto) % (0.0-3.0) Basophils (%) (Auto) % (0.0-2.0) Height (Feet): 5 Height (Inches): 11.00 Weight (Pounds): 123 Objective Vitals: reviewed General: NAD HEENT: nc, at Neck: supple Chest: clear breath sounds bilaterally Cardiovascular: RRR, no s3, s4 Abd: soft, nt, nd Ext: no cce Eliseo Biggs MD Jun 28, 2019 10:45
[2019-06-28 12:00] VITALS: BP 110/71
--- NOTE | 2019-06-28 14:48 | Surgery Progress Note ---
Surgery Progress Note Subjective Symptoms: improved, tolerating diet, passing flatus Additional Comments no complaints has root beer at bedside now lots of snacks Objective Last 24 Hour Vital Signs Date Time Temp Pulse Resp B/P (MAP) Pulse Ox O2 Delivery O2 Flow Rate FiO2 06/28/19 12:00 97.7 98 18 110/71 (84) 95 06/28/19 09:00 Room Air 06/28/19 08:00 97.8 102 18 104/66 (79) 98 06/28/19 04:00 99.4 103 18 120/77 (91) 97 06/28/19 00:00 99.0 109 18 113/71 (85) 97 06/27/19 21:00 Room Air 06/27/19 20:00 99.7 102 18 94/59 (71) 06/27/19 16:00 97.8 93 20 112/65 (81) 98 I&O Intake and Output 06/27/19 06/28/19 19:00 07:00 Intake Total 192.5 ml 137.5 ml Balance 192.5 ml 137.5 ml IV Total 192.5 ml 137.5 ml # Voids 8 # Bowel Movements 2 Dressing: other Wound: other Drains: other Cardiovascular: RSR Respiratory: decreased breath sounds Abdomen: soft, present bowel sounds Extremities: no cyanosis Laboratory Tests Test 06/28/19 05:56 White Blood Count 21.6 K/UL (4.8-10.8) H Red Blood Count 3.21 M/UL (4.70-6.10) L Hemoglobin 8.9 G/DL (14.2-18.0) L Hematocrit 28.1 % (42.0-52.0) L Mean Corpuscular Volume 88 FL (80-99) Mean Corpuscular Hemoglobin 27.9 PG (27.0-31.0) Mean Corpuscular Hemoglobin Concent 31.8 G/DL (32.0-36.0) L Red Cell Distribution Width 18.8 % (11.6-14.8) H Platelet Count 202 K/UL (150-450) Mean Platelet Volume 6.0 FL (6.5-10.1) L Neutrophils (%) (Auto) % (45.0-75.0) Lymphocytes (%) (Auto) % (20.0-45.0) Monocytes (%) (Auto) % (1.0-10.0) Eosinophils (%) (Auto) % (0.0-3.0) Basophils (%) (Auto) % (0.0-2.0) Neutrophils % (Manual) Pending Lymphocytes % (Manual) Pending Platelet Estimate Pending Platelet Morphology Pending Plan Problems: (1) Leukocytosis Assessment & Plan: Patient presents with leukocytosis abnormal labs. Bilateral lower extremity edema. Multiple decubitus ulcers. UTI. UTI likely etiology of patient's leukocytosis and infectious process. The wounds were evaluated and unlikely etiology. Lower extremity edema unlikely cellulitis. We will continue to follow the recommendations monitor. Antibiotics as per ID. Trend labs. The liver is unremarkable. Doppler interrogation of the main portal vein shows patency with hepatopedal, monophasic flow. There is no biliary ductal dilatation identified. Gallbladder is unremarkable. CBD is 4 mm. Bilateral pleural effusions are demonstrated. There is trace ascites. There is prominence in the area of the pancreatic head. There demonstrated part of the aorta and IVC show no definite abnormalities. Both kidneys appear echogenic. There is no hydronephrosis. IMPRESSION: Bilateral pleural effusions Prominent pancreatic head. This may be related to body habitus. Consider further evaluation with contrast CT. Trace ascites IMPRESSION: Bilateral moderate to large pleural effusions. Resultant compressive atelectatic changes of both lower lobes Groundglass opacity throughout much of the upper and lower lobes, likely reflects parenchymal edema, but could also represent infectious/inflammatory process. Correlate with clinical findings Evidence of anasarca elsewhere, with diffuse edema of the subcutaneous, mediastinal, and mesenteric and pelvic fat Irregular left upper lung opacities with architectural distortion, probably an area of scarring/cicatrization. Mass or infiltrate much less likely Diffuse osteosclerosis, consistent with stated clinical history of metastatic prostate carcinoma Endplate irregularity of the mid thoracic spine as describe. This is probably due to degenerative change. Infectious spondylitis and less likely but not completely excludable. Correlate with clinical findings, consider MRI if there is clinical suspicion for such Evidence of interim right colon surgery. Evidence of right hip surgery, also previously noted Coronary artery calcifications (2) Decubitus skin ulcer Assessment & Plan: Patient presents on admission with multiple decubitus ulcer. Stage III a somewhat resolving sacral decubitus ulcer 2 cm x 1 cm x 5 mm deep no active drainage no signs of active acute infection. Right trochanteric resolving deep tissue injury with Skin changes Bilateral heel boggy nontender Patient is very tall and feet hanging over the side of the bed occasionally and states that when he is not in the hospital his feet are occasionally on the bedpost. Discussed this with patient and information given as well as care plan. Wash sacral decubitus ulcer daily with normal saline apply Thera honey followed by protective foam dressing. Skin protectant to bilateral trochanteric hips followed by foam dressing Keep heels elevated with pillows. Do not allow heels to be on the bedpost but extension necessary Foam dressings for heels thank you will follow with recommendations Nutritional optimization presented on admission with full thickness sacral pressure injury (L)1.1cm x (W) 0.5cm x (D)0.6cm. Base of wound is moist and pink. Borders are macerated. Periwound is black and fluctuant. Pt complained of tenderness when palpated. Full thickness stage 3 pressure injury R hip. Biofilm at base of wound. Edges adherent to base of wound. Periwound is black without induration or fluctuance.( L)0.6cm x (W)0.7cm. Wound L knee with semi-detached necrotic cap, moist erythematous borders. No exudate noted. Periwound without erythema induration or fluctuance (L)8cm x (W) 8.3cm. Unstageable pressure injury lateral R malleolus. Base of wound has 100% dry yellow cap. Edges adherent to base of wound. Periwound is black and indurated with marginal erythema.(L)2cm x (W)2cm. Both heels are dry, firm and blanchable. Tx.plan: Cleanse Sacral wound with Saline. Apply Therahoney. Apply Moisture Barrier periwound.Cover with Optifoam drsg every 3 days and prn. Cleanse wound R hip with Saline. Apply Therahoney. Apply Cavilon Periwound. Cover with Optifoam drsg every 3 days and prn. Apply Betadine to R knee. Cover with Optifoam drsg. Change every 3days and prn. Apply Betadine to R lateral malleolus. Cover with Optifoam drsg. Change every 3 days and prn. Apply Cavilon Skin Barrier to both heels.Cover each heel with Optifoam drsg. Change every 7 days and prn. Reposition at least every 2hours or as tolerated. Off-load heels with pillow. nutritional optimization improving d/c planning (3) Malnutrition Assessment & Plan: DAILY ESTIMATED NEEDS: Needs based on CA, 68.2kg 30-35 kcals/kg 7419-5409 total kcals 1-2 g protein/kg 68-136 g total protein 25-30 mL/kg 9601-8294 total fluid mLs NUTRITION DIAGNOSIS: Increased kcal/prot needs R/T catabolic dx and underweight status as evidenced by h/o stage IV Prostate cancer s/p chemotherapy, pt @87% IBW. CURRENT DIET: Cardiac PO DIET RECOMMENDATIONS--->>> CCHO MED/ texture as tolerated + Glucerna TID w/ meals ADDITIONAL RECOMMENDATIONS: * Calibrated bed scale wt for accurate CBW * Monitor po intake, need for snacks -h/o stage 4 CA, w/ chemo * BG in the 300's, consider increasing levemir -> rec HgA1C * WOUND CARE: add JERRY BID + Vit C 250mg daily F/up w/ WC eval moderate given condition bmi 20, hx cancer nutritional optimization alb 2 (4) Deep tissue injury Juan Carlos Tucker Jun 28, 2019 14:48
[2019-06-28 16:00] VITALS: BP 113/75
--- NOTE | 2019-06-28 19:12 | NUR ---
HAND-OFF: Report given to VINCENT Do
--- NOTE | 2019-06-28 19:30 | NUR ---
NURSE NOTES: Patient asleep in bed, no complaints at this time. Bed in lowest, lock engaged and alarm on. Will continue to monitor.
[2019-06-28 20:00] VITALS: BP 101/55
[2019-06-28] MEDS: Zolpidem 5mg tab ORAL PRN (21:00)
[2019-06-29] VITALS (10 sets, daily range): BP systolic 96–125; BP diastolic 61–85
[2019-06-29] MEDS: Piperacillin/Tazobactam 3.375 GM in NS 110 ML IVPB SCH ×3 (05:47→21:24)
[2019-06-29] MEDS: NovoLOG Insulin Flexpen SUBQ SCH ×4 (05:53→20:16)
--- NOTE | 2019-06-29 06:30 | Hematology/Onc Progress Note ---
Assessment/Plan Assessment/Plan Assessment and Recs: # Leukocytosis/elevated white blood cell count, unspecified likely related to underlying stress reaction, smoking v more likely infection (has had a persistent uti/pna) --> ALSO may be malignancy related(but less likely because when came in 04/2019 was wnl, now elevated, more likely infection related --> have reviewed peripheral smear and bandemia/neutrophilia noted(does have some early nucleated cells) --> continue antibiotics if they have been started by ID team --> monitor for resolution --> will hold off FLOW CYTOMETRY given infection more likely cause --> wbc 25-->22-->20-->21.8-->21 --> f/u cultures --> abx: zosyn # Stage IV prostate cancer, on admission poa --> outpatient management, will review treatment course --> trend psa is 94 --> has received chemo at [facility] x 4 weeks --> has received lupron in the past --> return to outpatient oncology --> cea also elevated 34 # Anemia due likely to recent chemo --> hgb trend as needed 8.9 --> ferritin is 1031 # Pneumonia --> is now on abx --> as per id # Pleural effusions s/p thoracentesis --> repeat thora as per pulm --> cytology reviewed, is neg for malignancy # UTi s/p abx # Decub ulceration The timing of this note does not necessarily reflect the time of the patient was seen. Greatly appreciate consultation. Subjective Constitutional: Denies: no symptoms, chills, fever, malaise, weakness, other HEENT: Denies: no symptoms, eye pain, blurred vision, tearing, double vision, ear pain, ear discharge, nose pain, nose congestion, throat pain, throat swelling, mouth pain, mouth swelling, other Cardiovascular: Denies: no symptoms, chest pain, edema, irregular heart rate, lightheadedness, palpitations, syncope, other Respiratory: Denies: no symptoms, cough, shortness of breath, SOB with excertion, SOB at rest, sputum, wheezing, other Gastrointestinal/Abdominal: Denies: no symptoms, abdomen distended, abdominal pain, black stools, tarry stools, blood in stool, constipated, diarrhea, difficulty swallowing, nausea, poor appetite, poor fluid intake, rectal bleeding , vomiting, other Genitourinary: Denies: no symptoms, burning, discharge, frequency, flank pain, hematuria, incontinence, pain, urgency, other Neurologic/Psychiatric: Denies: no symptoms, anxiety, depressed, emotional problems, headache, numbness, paresthesia, pre-existing deficit, seizure, tingling, tremors, weakness, other Endocrine: Denies: no symptoms, excessive sweating, flushing, intolerance to cold, intolerance to heat, increased hunger, increased thirst, increased urine, unexplained weight gain, unexplained weight loss, other Hematologic/Lymphatic: Denies: no symptoms, anemia, easy bleeding, easy bruising, adenopathy, other Allergies: Coded Allergies: No Known Allergies (Unverified , 12/05/18) Subjective 06/26: no events, no bleeding, psa is 94, no events, no changes, dw him re chemo 06/27: no events, not eating much, labs noted 06/28: no f/c, seen by surg, tumor markers reviewed Objective Objective Current Medications Medications (Trade) Dose Ordered Sig/Sanjeev Route PRN Reason Start Time Stop Time Status Last Admin Dose Admin Acetaminophen (Tylenol) 650 mg Q6H PRN ORAL Mild Pain/Temp > 100.5 06/24/19 21:30 07/24/19 21:29 06/27/19 00:08 Ascorbic Acid (Vitamin C) 250 mg TWICE A DAY ORAL 06/25/19 09:00 07/21/19 17:59 06/28/19 17:28 Dextrose (Dextrose 50%) 25 ml Q30M PRN IV Hypoglycemia 06/24/19 21:45 07/19/19 07:44 Dextrose (Dextrose 50%) 50 ml Q30M PRN IV Hypoglycemia 06/24/19 21:45 07/19/19 07:44 Diphenoxylate HCl/ Atropine (Lomotil) 2.5 mg Q6H PRN ORAL Diarrhea 06/24/19 21:30 07/20/19 21:29 06/26/19 20:15 Furosemide (Lasix) 40 mg DAILY IV 06/25/19 09:00 07/19/19 08:59 06/28/19 08:34 Insulin Aspart (NovoLOG) BEFORE MEALS AND HS SUBQ 06/25/19 06:30 3/25/20 11:29 06/29/19 05:53 Insulin Detemir (Levemir) 15 units BID SUBQ 06/25/19 09:00 07/22/19 20:59 06/28/19 17:30 Multivitamins (Multivitamins) 1 tab DAILY ORAL 06/25/19 09:00 07/19/19 08:59 06/28/19 08:34 Piperacillin Sod/ Tazobactam Sod 3.375 gm/Sodium Chloride 110 ml @ 27.5 mls/hr EVERY 8 HOURS IVPB 06/27/19 14:00 06/30/19 15:59 06/29/19 05:47 Potassium Chloride (K-Dur) 40 meq DAILY ORAL 06/25/19 09:00 07/19/19 11:59 06/28/19 08:33 Zolpidem Tartrate (Ambien) 5 mg HSPRN PRN ORAL Insomnia 06/24/19 21:30 07/01/19 21:29 06/28/19 21:00 Last 24 Hour Vital Signs Date Time Temp Pulse Resp B/P (MAP) Pulse Ox O2 Delivery O2 Flow Rate FiO2 06/29/19 04:00 99.0 98 16 113/77 (89) 100 06/29/19 00:00 99.0 106 18 123/70 (87) 95 06/28/19 21:00 Room Air 06/28/19 20:00 97.6 103 18 101/55 (70) 98 06/28/19 16:00 98.0 101 18 113/75 (88) 97 06/28/19 12:00 97.7 98 18 110/71 (84) 95 06/28/19 09:00 Room Air 06/28/19 08:00 97.8 102 18 104/66 (79) 98 06/28/19 04:00 99.4 103 18 120/77 (91) 97 06/28/19 00:00 99.0 109 18 113/71 (85) 97 06/27/19 21:00 Room Air 06/27/19 20:00 99.7 102 18 94/59 (71) 06/27/19 16:00 97.8 93 20 112/65 (81) 98 06/27/19 12:00 97.8 94 20 107/68 (81) 98 06/27/19 09:00 Room Air 06/27/19 08:00 98.0 94 20 110/62 (78) 98 Intake and Output 06/28/19 06/29/19 19:00 07:00 Intake Total 1385.0 ml Balance 1385.0 ml Intake Oral 1220 ml IV Total 165.0 ml # Voids 10 # Bowel Movements 1 Labs Test 06/26/19 08:35 06/26/19 17:20 06/27/19 04:35 06/27/19 09:23 White Blood Count 21.8 K/UL (4.8-10.8) 20.3 K/UL (4.8-10.8) Red Blood Count 3.25 M/UL (4.70-6.10) 3.17 M/UL (4.70-6.10) Hemoglobin 9.1 G/DL (14.2-18.0) 8.9 G/DL (14.2-18.0) Hematocrit 28.3 % (42.0-52.0) 27.7 % (42.0-52.0) Mean Corpuscular Volume 87 FL (80-99) 87 FL (80-99) Mean Corpuscular Hemoglobin 28.0 PG (27.0-31.0) 28.1 PG (27.0-31.0) Mean Corpuscular Hemoglobin Concent 32.3 G/DL (32.0-36.0) 32.2 G/DL (32.0-36.0) Red Cell Distribution Width 20.2 % (11.6-14.8) 19.8 % (11.6-14.8) Platelet Count 176 K/UL (150-450) 190 K/UL (150-450) Mean Platelet Volume 6.2 FL (6.5-10.1) 7.8 FL (6.5-10.1) Neutrophils (%) (Auto) % (45.0-75.0) % (45.0-75.0) Lymphocytes (%) (Auto) % (20.0-45.0) % (20.0-45.0) Monocytes (%) (Auto) % (1.0-10.0) % (1.0-10.0) Eosinophils (%) (Auto) % (0.0-3.0) % (0.0-3.0) Basophils (%) (Auto) % (0.0-2.0) % (0.0-2.0) Differential Total Cells Counted 100 100 Neutrophils % (Manual) 77 % (45-75) 80 % (45-75) Lymphocytes % (Manual) 18 % (20-45) 14 % (20-45) Monocytes % (Manual) 4 % (1-10) 5 % (1-10) Eosinophils % (Manual) 1 % (0-3) 1 % (0-3) Basophils % (Manual) 0 % (0-2) 0 % (0-2) Band Neutrophils 0 % (0-8) 0 % (0-8) Other Cell Type Pathologist review Platelet Estimate Adequate Adequate Platelet Morphology Normal Normal Hypochromasia 2+ 1+ Anisocytosis 2+ 1+ Reticulocyte Count 2.1 % (0.5-2.0) Prothrombin Time 11.3 SEC (9.30-11.50) Prothromb Time International Ratio 1.1 (0.9-1.1) Iron Level 23 ug/dL (50-175) Total Iron Binding Capacity 210 ug/dL (250-450) Percent Iron Saturation 11 % (15-50) Unsaturated Iron Binding 187 ug/dL (112-346) Ferritin 1031 NG/ML (8-388) Carcinoembryonic Antigen 31.4 ng/mL (0.0-4.7) Prostate Specific Antigen 93.29 ng/mL (0.13-4.0) Thyroid Stimulating Hormone (TSH) 2.858 uiU/mL (0.358-3.740) Polychromasia Stool Occult Blood Negative (NEGATIVE) Test 06/27/19 13:05 06/28/19 05:56 Urine Color Pale yellow Urine Appearance Clear Urine pH 5 (4.5-8.0) Urine Specific [place] 1.005 (1.005-1.035) Urine Protein Negative (NEGATIVE) Urine Glucose (UA) 4+ (NEGATIVE) Urine Ketones Negative (NEGATIVE) Urine Blood Negative (NEGATIVE) Urine Nitrite Negative (NEGATIVE) Urine Bilirubin Negative (NEGATIVE) Urine Urobilinogen Normal MG/DL (0.0-1.0) Urine Leukocyte Esterase Negative (NEGATIVE) White Blood Count 21.6 K/UL (4.8-10.8) Red Blood Count 3.21 M/UL (4.70-6.10) Hemoglobin 8.9 G/DL (14.2-18.0) Hematocrit 28.1 % (42.0-52.0) Mean Corpuscular Volume 88 FL (80-99) Mean Corpuscular Hemoglobin 27.9 PG (27.0-31.0) Mean Corpuscular Hemoglobin Concent 31.8 G/DL (32.0-36.0) Red Cell Distribution Width 18.8 % (11.6-14.8) Platelet Count 202 K/UL (150-450) Mean Platelet Volume 6.0 FL (6.5-10.1) Neutrophils (%) (Auto) % (45.0-75.0) Lymphocytes (%) (Auto) % (20.0-45.0) Monocytes (%) (Auto) % (1.0-10.0) Eosinophils (%) (Auto) % (0.0-3.0) Basophils (%) (Auto) % (0.0-2.0) Differential Total Cells Counted 100 Neutrophils % (Manual) 74 % (45-75) Lymphocytes % (Manual) 20 % (20-45) Monocytes % (Manual) 6 % (1-10) Eosinophils % (Manual) 0 % (0-3) Basophils % (Manual) 0 % (0-2) Band Neutrophils 0 % (0-8) Platelet Estimate Adequate Platelet Morphology Normal Hypochromasia 1+ Anisocytosis 1+ Height (Feet): 5 Height (Inches): 11.00 Weight (Pounds): 123 Objective Vitals: reviewed General: NAD HEENT: nc, at Neck: supple Chest: clear breath sounds bilaterally Cardiovascular: RRR, no s3, s4 Abd: soft, nt, nd Ext: no cce Eliseo Biggs MD Jun 29, 2019 06:30
[2019-06-29 07:35] LABS: HEMATOCRIT 29.4 % (42.0-52.0); HEMOGLOBIN 9.4 G/DL (14.2-18.0); MEAN CORPUSCULAR VOLUME 87 FL (80-99); PLATELET COUNT 211 K/UL (150-450); RED BLOOD COUNT 3.37 M/UL (4.70-6.10); RED CELL DISTRIBUTION WIDTH 19.2 % (11.6-14.8); WHITE BLOOD COUNT 18.8 K/UL (4.8-10.8)
--- NOTE | 2019-06-29 07:46 | NUR ---
HAND-OFF: Report given to VINCENT Soares.
--- NOTE | 2019-06-29 07:58 | NUR ---
NURSE NOTES: received report from VINCENT Do. patient in bed. A&Ox4. verbally responsive. no respiratory distress noted. no pain at this time. IV on LFA 22g saline intact inserted 06/29/19. wound dressing intact. contact isolation. PPE at all times. temperature 100.2. provide cool environment. light clothing. will continue to monitor temperature. bed in the lowest position and locked. call light within reach. will continue to provide plan of care.
--- NOTE | 2019-06-29 08:05 | CDS Physician Query ---
Clarification is required for compliance, coding accuracy, and to reflect severity of illness for this patient Dear Dr. Garcia, Date: 06.29.19 CDS Name: Sharla Cerrato Please respond to the following question: Successful ultrasound-guided thoracentesis, yielding 1100 milliliters of fluid performed on 06.22.19. Please document which cavity the procedure was performed on. [ ] Pleural Cavity, Left [x ] Pleural Cavity Right [ ] Other Physician signature Date Please also document in your Progress Notes and/or Discharge Summary and indicate if the condition was present on admission. PIPED
[2019-06-29] MEDS: Levemir Flexpen SUBQ SCH ×2 (08:29→18:27)
[2019-06-29] MEDS: Ascorbic Acid 500mg tab ORAL SCH ×2 (08:29→17:08)
--- NOTE | 2019-06-29 09:29 | Surgery Progress Note ---
Surgery Progress Note Subjective Symptoms: improved, pain absent, tolerating diet, passing flatus Objective Last 24 Hour Vital Signs Date Time Temp Pulse Resp B/P (MAP) Pulse Ox O2 Delivery O2 Flow Rate FiO2 06/29/19 08:00 100.2 79 18 111/70 (84) 100 06/29/19 04:00 99.0 98 16 113/77 (89) 100 06/29/19 00:00 99.0 106 18 123/70 (87) 95 06/28/19 21:00 Room Air 06/28/19 20:00 97.6 103 18 101/55 (70) 98 06/28/19 16:00 98.0 101 18 113/75 (88) 97 06/28/19 12:00 97.7 98 18 110/71 (84) 95 I&O Intake and Output 06/28/19 06/29/19 19:00 07:00 Intake Total 1385.0 ml 500 ml Balance 1385.0 ml 500 ml Intake Oral 1220 ml IV Total 165.0 ml Other 500 ml # Voids 10 4 # Bowel Movements 1 1 Dressing: other Wound: other Cardiovascular: RSR Respiratory: clear Abdomen: soft, present bowel sounds Extremities: no cyanosis Laboratory Tests Test 06/29/19 05:25 White Blood Count 18.8 K/UL (4.8-10.8) H Red Blood Count 3.37 M/UL (4.70-6.10) L Hemoglobin 9.4 G/DL (14.2-18.0) L Hematocrit 29.4 % (42.0-52.0) L Mean Corpuscular Volume 87 FL (80-99) Mean Corpuscular Hemoglobin 27.8 PG (27.0-31.0) Mean Corpuscular Hemoglobin Concent 31.9 G/DL (32.0-36.0) L Red Cell Distribution Width 19.2 % (11.6-14.8) H Platelet Count 211 K/UL (150-450) Mean Platelet Volume 6.0 FL (6.5-10.1) L Neutrophils (%) (Auto) % (45.0-75.0) Lymphocytes (%) (Auto) % (20.0-45.0) Monocytes (%) (Auto) % (1.0-10.0) Eosinophils (%) (Auto) % (0.0-3.0) Basophils (%) (Auto) % (0.0-2.0) Neutrophils % (Manual) Pending Lymphocytes % (Manual) Pending Platelet Estimate Pending Platelet Morphology Pending Plan Problems: (1) Leukocytosis Assessment & Plan: Patient presents with leukocytosis abnormal labs. Bilateral lower extremity edema. Multiple decubitus ulcers. UTI. UTI likely etiology of patient's leukocytosis and infectious process. The wounds were evaluated and unlikely etiology. Lower extremity edema unlikely cellulitis. We will continue to follow the recommendations monitor. Antibiotics as per ID. Trend labs. The liver is unremarkable. Doppler interrogation of the main portal vein shows patency with hepatopedal, monophasic flow. There is no biliary ductal dilatation identified. Gallbladder is unremarkable. CBD is 4 mm. Bilateral pleural effusions are demonstrated. There is trace ascites. There is prominence in the area of the pancreatic head. There demonstrated part of the aorta and IVC show no definite abnormalities. Both kidneys appear echogenic. There is no hydronephrosis. IMPRESSION: Bilateral pleural effusions Prominent pancreatic head. This may be related to body habitus. Consider further evaluation with contrast CT. Trace ascites IMPRESSION: Bilateral moderate to large pleural effusions. Resultant compressive atelectatic changes of both lower lobes Groundglass opacity throughout much of the upper and lower lobes, likely reflects parenchymal edema, but could also represent infectious/inflammatory process. Correlate with clinical findings Evidence of anasarca elsewhere, with diffuse edema of the subcutaneous, mediastinal, and mesenteric and pelvic fat Irregular left upper lung opacities with architectural distortion, probably an area of scarring/cicatrization. Mass or infiltrate much less likely Diffuse osteosclerosis, consistent with stated clinical history of metastatic prostate carcinoma Endplate irregularity of the mid thoracic spine as describe. This is probably due to degenerative change. Infectious spondylitis and less likely but not completely excludable. Correlate with clinical findings, consider MRI if there is clinical suspicion for such Evidence of interim right colon surgery. Evidence of right hip surgery, also previously noted Coronary artery calcifications (2) Decubitus skin ulcer Assessment & Plan: Patient presents on admission with multiple decubitus ulcer. Stage III a somewhat resolving sacral decubitus ulcer 2 cm x 1 cm x 5 mm deep no active drainage no signs of active acute infection. Right trochanteric resolving deep tissue injury with Skin changes Bilateral heel boggy nontender Patient is very tall and feet hanging over the side of the bed occasionally and states that when he is not in the hospital his feet are occasionally on the bedpost. Discussed this with patient and information given as well as care plan. Wash sacral decubitus ulcer daily with normal saline apply Thera honey followed by protective foam dressing. Skin protectant to bilateral trochanteric hips followed by foam dressing Keep heels elevated with pillows. Do not allow heels to be on the bedpost but extension necessary Foam dressings for heels thank you will follow with recommendations Nutritional optimization presented on admission with full thickness sacral pressure injury (L)1.1cm x (W) 0.5cm x (D)0.6cm. Base of wound is moist and pink. Borders are macerated. Periwound is black and fluctuant. Pt complained of tenderness when palpated. Full thickness stage 3 pressure injury R hip. Biofilm at base of wound. Edges adherent to base of wound. Periwound is black without induration or fluctuance.( L)0.6cm x (W)0.7cm. Wound L knee with semi-detached necrotic cap, moist erythematous borders. No exudate noted. Periwound without erythema induration or fluctuance (L)8cm x (W) 8.3cm. Unstageable pressure injury lateral R malleolus. Base of wound has 100% dry yellow cap. Edges adherent to base of wound. Periwound is black and indurated with marginal erythema.(L)2cm x (W)2cm. Both heels are dry, firm and blanchable. Tx.plan: Cleanse Sacral wound with Saline. Apply Therahoney. Apply Moisture Barrier periwound.Cover with Optifoam drsg every 3 days and prn. Cleanse wound R hip with Saline. Apply Therahoney. Apply Cavilon Periwound. Cover with Optifoam drsg every 3 days and prn. Apply Betadine to R knee. Cover with Optifoam drsg. Change every 3days and prn. Apply Betadine to R lateral malleolus. Cover with Optifoam drsg. Change every 3 days and prn. Apply Cavilon Skin Barrier to both heels.Cover each heel with Optifoam drsg. Change every 7 days and prn. Reposition at least every 2hours or as tolerated. Off-load heels with pillow. nutritional optimization improving d/c planning (3) Malnutrition Assessment & Plan: DAILY ESTIMATED NEEDS: Needs based on CA, 68.2kg 30-35 kcals/kg 7880-9319 total kcals 1-2 g protein/kg 68-136 g total protein 25-30 mL/kg 2580-5179 total fluid mLs NUTRITION DIAGNOSIS: Increased kcal/prot needs R/T catabolic dx and underweight status as evidenced by h/o stage IV Prostate cancer s/p chemotherapy, pt @87% IBW. CURRENT DIET: Cardiac PO DIET RECOMMENDATIONS--->>> CCHO MED/ texture as tolerated + Glucerna TID w/ meals ADDITIONAL RECOMMENDATIONS: * Calibrated bed scale wt for accurate CBW * Monitor po intake, need for snacks -h/o stage 4 CA, w/ chemo * BG in the 300's, consider increasing levemir -> rec HgA1C * WOUND CARE: add JERRY BID + Vit C 250mg daily F/up w/ WC eval moderate given condition bmi 20, hx cancer nutritional optimization alb 2 (4) Deep tissue injury Juan Carlos Tucker Jun 29, 2019 09:29
--- NOTE | 2019-06-29 10:11 | General Progress Note ---
Assessment/Plan Assessment/Plan: 1. Anemia. 2. Congestive heart failure. 3. Lower extremity edema, 4. Prostate cancer. with mets to bone 5. Leukocytosis, possibly leukemoid. 6. Diabetes. 7. Low potassium. 8. pleural effusions s/p tap; persistent 9. anasarca PLAN monitor blood sugars and adjust insulin further repeat labs for today pending ID - on antibiotics monitor HH wound care as is dc planning I hope today impression, plan, and exam edited and reviewed in detail care discussed with RN Subjective Allergies: Coded Allergies: No Known Allergies (Unverified , 12/05/18) Subjective wbc elevated nontoxic on antibiotics alert oncology noted Objective Last 24 Hour Vital Signs Date Time Temp Pulse Resp B/P (MAP) Pulse Ox O2 Delivery O2 Flow Rate FiO2 06/29/19 09:00 Room Air 06/29/19 08:00 100.2 79 18 111/70 (84) 100 06/29/19 04:00 99.0 98 16 113/77 (89) 100 06/29/19 00:00 99.0 106 18 123/70 (87) 95 06/28/19 21:00 Room Air 06/28/19 20:00 97.6 103 18 101/55 (70) 98 06/28/19 16:00 98.0 101 18 113/75 (88) 97 06/28/19 12:00 97.7 98 18 110/71 (84) 95 Intake and Output 06/28/19 06/29/19 19:00 07:00 Intake Total 1385.0 ml 500 ml Balance 1385.0 ml 500 ml Intake Oral 1220 ml IV Total 165.0 ml Other 500 ml # Voids 10 4 # Bowel Movements 1 1 Laboratory Tests 06/29/19 05:25: White Blood Count 18.8H, Red Blood Count 3.37L, Hemoglobin 9.4L, Hematocrit 29.4L, Mean Corpuscular Volume 87, Mean Corpuscular Hemoglobin 27.8, Mean Corpuscular Hemoglobin Concent 31.9L, Red Cell Distribution Width 19.2H, Platelet Count 211, Mean Platelet Volume 6.0L, Neutrophils (%) (Auto) , Lymphocytes (%) (Auto) , Monocytes (%) (Auto) , Eosinophils (%) (Auto) , Basophils (%) (Auto) , Neutrophils % (Manual) [Pending], Lymphocytes % (Manual) [Pending], Platelet Estimate [Pending], Platelet Morphology [Pending] Height (Feet): 5 Height (Inches): 11.00 Weight (Pounds): 123 Objective WDWN NAD reduced breath sounds bilaterally without rhonchi or wheeze; now improved [id number] without MRG NABS nontender no HSM no CC minimal edema alert and oriented nonfocal Jason Garcia MD Jun 29, 2019 10:11
--- NOTE | 2019-06-29 13:19 | Infectious Diseases Prog Note ---
Assessment/Plan Assessment/Plan 1. UTI 2. pneumonia 3. pleural effusions, s/p thoracentesis 4. leucocytosis improving 5. prostate cancer 6. 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 Continue Zosyn 2. f/u CBC 3.will follow up cultures Subjective ROS Limited/Unobtainable: No Constitutional: Reports: fever, other - low grade Respiratory: Reports: no symptoms Cardiovascular: Reports: no symptoms Gastrointestinal/Abdominal: Reports: no symptoms Genitourinary: Reports: no symptoms Allergies: Coded Allergies: No Known Allergies (Unverified , 12/05/18) Objective Vital Signs Last 24 Hour Vital Signs Date Time Temp Pulse Resp B/P (MAP) Pulse Ox O2 Delivery O2 Flow Rate FiO2 06/29/19 12:00 99.1 98 18 111/61 (78) 100 06/29/19 09:00 Room Air 06/29/19 08:00 100.2 79 18 111/70 (84) 100 06/29/19 04:00 99.0 98 16 113/77 (89) 100 06/29/19 00:00 99.0 106 18 123/70 (87) 95 06/28/19 21:00 Room Air 06/28/19 20:00 97.6 103 18 101/55 (70) 98 06/28/19 16:00 98.0 101 18 113/75 (88) 97 Height (Feet): 5 Height (Inches): 11.00 Weight (Pounds): 123 General Appearance: no acute distress HEENT: mucous membranes moist Respiratory/Chest: lungs clear Cardiovascular: normal rate Abdomen: soft, non tender Extremities: no edema Neurologic/Psychiatric: alert, oriented x 3, responsive Microbiology Date/Time Source Procedure Growth Status 06/27/19 11:40 Blood Blood Culture - Preliminary NO GROWTH AFTER 24 HOURS Resulted 06/27/19 09:23 Stool Clostridium difficile Toxin Assay - Final Complete Laboratory Tests Test 06/29/19 05:25 White Blood Count 18.8 K/UL (4.8-10.8) H Red Blood Count 3.37 M/UL (4.70-6.10) L Hemoglobin 9.4 G/DL (14.2-18.0) L Hematocrit 29.4 % (42.0-52.0) L Mean Corpuscular Volume 87 FL (80-99) Mean Corpuscular Hemoglobin 27.8 PG (27.0-31.0) Mean Corpuscular Hemoglobin Concent 31.9 G/DL (32.0-36.0) L Red Cell Distribution Width 19.2 % (11.6-14.8) H Platelet Count 211 K/UL (150-450) Mean Platelet Volume 6.0 FL (6.5-10.1) L Neutrophils (%) (Auto) % (45.0-75.0) Lymphocytes (%) (Auto) % (20.0-45.0) Monocytes (%) (Auto) % (1.0-10.0) Eosinophils (%) (Auto) % (0.0-3.0) Basophils (%) (Auto) % (0.0-2.0) Differential Total Cells Counted 100 Neutrophils % (Manual) 73 % (45-75) Lymphocytes % (Manual) 18 % (20-45) L Monocytes % (Manual) 7 % (1-10) Eosinophils % (Manual) 1 % (0-3) Basophils % (Manual) 1 % (0-2) Band Neutrophils 0 % (0-8) Platelet Estimate Adequate Platelet Morphology Normal Anisocytosis 2+ Current Medications Medications (Trade) Dose Ordered Sig/Sanjeev Route PRN Reason Start Time Stop Time Status Last Admin Dose Admin Acetaminophen (Tylenol) 650 mg Q6H PRN ORAL Mild Pain/Temp > 100.5 06/24/19 21:30 07/24/19 21:29 06/27/19 00:08 Ascorbic Acid (Vitamin C) 250 mg TWICE A DAY ORAL 06/25/19 09:00 07/21/19 17:59 06/29/19 08:29 Dextrose (Dextrose 50%) 25 ml Q30M PRN IV Hypoglycemia 06/24/19 21:45 07/19/19 07:44 Dextrose (Dextrose 50%) 50 ml Q30M PRN IV Hypoglycemia 06/24/19 21:45 07/19/19 07:44 Diphenoxylate HCl/ Atropine (Lomotil) 2.5 mg Q6H PRN ORAL Diarrhea 06/24/19 21:30 07/20/19 21:29 06/26/19 20:15 Furosemide (Lasix) 40 mg DAILY IV 06/25/19 09:00 07/19/19 08:59 06/29/19 08:30 Insulin Aspart (NovoLOG) BEFORE MEALS AND HS SUBQ 06/25/19 06:30 07/19/19 11:29 06/29/19 12:09 Insulin Detemir (Levemir) 20 units BID SUBQ 06/29/19 18:00 07/22/19 20:59 Multivitamins (Multivitamins) 1 tab DAILY ORAL 06/25/19 09:00 07/19/19 08:59 06/29/19 08:29 Piperacillin Sod/ Tazobactam Sod 3.375 gm/Sodium Chloride 110 ml @ 27.5 mls/hr EVERY 8 HOURS IVPB 06/27/19 14:00 06/30/19 15:59 06/29/19 05:47 Potassium Chloride (K-Dur) 40 meq DAILY ORAL 06/25/19 09:00 07/19/19 11:59 06/29/19 08:29 Zolpidem Tartrate (Ambien) 5 mg HSPRN PRN ORAL Insomnia 06/24/19 21:30 07/01/19 21:29 06/28/19 21:00 Rod Carballo MD Jun 29, 2019 13:19
--- NOTE | 2019-06-29 14:29 | NUR ---
CASE MANAGEMENT: REVIEW 06/29/19 SI:SP THORACENTESIS . BILATERAL PLEURAL EFFUSION . TRACE ASCITES . CHF EXACERBATION . DM . ANEMIA . UTI . BILATERAL LE EDEMA 100.2 79 18 111/70 100% ON RA WBC 18.8 H/H 9.4/29.4 OB STOOL (-) IS:IV ZOSYN TID IV LASIX QD K-DUR PO QD LEVEMIR SQ BID NOVOLOG SQ AC&HS TYLENOL Q6HR.PRN MTV PO QD \: RETURNING TO [facility] WHEN STABLE PLAN: CONTROL FEVER CONTROL DIARRHEA CASE MANAGEMENT: REVIEW 06/28/19 SI:SP THORACENTESIS . BILATERAL PLEURAL EFFUSION . TRACE ASCITES . CHF EXACERBATION . DM . ANEMIA . UTI . BILATERAL LE EDEMA 99.4 103 18 120/77 97% ON RA WBC 21.6 H/H 8.9/28.1 OB STOOL (-) IS:IV ZOSYN TID IV LASIX QD K-DUR PO QD LEVEMIR SQ BID NOVOLOG SQ AC&HS TYLENOL Q6HR.PRN MTV PO QD \: RETURNING TO [facility] WHEN STABLE PLAN: CONTROL FEVER CONTROL DIARRHEA
--- NOTE | 2019-06-29 19:12 | NUR ---
HAND-OFF: Report given to VINCENT borges.
--- NOTE | 2019-06-29 19:30 | NUR ---
NURSE NOTES: Patient asleep in bed, no signs of pain. Not in acute respiratory distress. Bed in lowest, lock and alarm on. Will continue to monitor.
[2019-06-29] MEDS: Zolpidem 5mg tab ORAL PRN (20:12)
--- NOTE | 2019-06-29 22:35 | NUR ---
RAPID RESPONSE: Responded to rapid response at this time. patient noted to be lying on the floor. When I asked him if he hit his head, patient denies any hit on the head or anywhere else. Blood noted on the floor from IV site that was pulled out. Assessment done and Vital signs were taken Bp 96/63 HR 105, Temp 97.3, Pain 0. Patient able to respond to simple commands. AOx2. According to primary RN this is his baseline. Bed was moved and patient was assisted back to bed. Skin assessment done, did not notice any signs of trauma. According to patient he got out of bed to grab his belonging when he walked further away from the bed he felt his IV site pull and he lost balance. He then landed on his buttocks. Patient continues to deny any pain or discomfort at this time and denies hitting his head. Blood sugar was check and noted to be 63. Dunn juice given. Post fall vital signs : Bp 96/64 HR 101 Sat 98%. Notified Charge nurse Trey that BS 63 and patient BS to be reassessed after 15 min, recommended patient be moved closer to nurse station. Primary Nurse to bob Garcia
--- NOTE | 2019-06-29 23:00 | NUR ---
NURSE NOTES: Found patient naked lying on the floor with minimal blood present from pulled IV access. Per patient, he used his walker and was attempting to reach for his belongings under the TV. Once he reached for his belongings, patient noted saying that his IV line pulled him back and lost his balance.Patient said he hit his sacral during the fall and denied hitting the head when asked multiple times. No injuries noted. Neurological checks done. No abrasion, cuts, or apparent injury noted at this time. No pain or discomfort. Vital signs checked. SENIOR WINDOWS SYSTEMS ENGINEER was called. Letterer informed. Post fall assessment done. Educated patient regarding using call light. Yellow gown, yellow socks and fall risk band was put on. Bed alarm on. Fall risk sign on the room. Informed charge nurse. Will move patient closer to the nursing station.
--- NOTE | 2019-06-29 23:02 | NUR ---
NURSE NOTES: Called Dr. Garcia about patient's fall. Waiting for call back.
--- NOTE | 2019-06-29 23:05 | NUR ---
NURSE NOTES: Called next of kin Mamadou De La Rosa on facesheet and left message.
--- NOTE | 2019-06-29 23:30 | NUR ---
NURSE NOTES: Called Dr. Garcia for the second time and left message. Waiting for call back.
--- NOTE | 2019-06-29 23:58 | NUR ---
NURSE NOTES: Still waiting for MD's call back. Lead C Developer and charge nurse made aware.
[2019-06-30] VITALS (10 sets, daily range): BP systolic 94–106; BP diastolic 61–74
--- NOTE | 2019-06-30 00:39 | NUR ---
NURSE NOTES: Registry Nurse Deya Link spoke with Dr. Garcia. No new orders at this time. Follow the hospital protocol at the moment and observe patient. Educated patient at bedside.
[2019-06-30] MEDS: Piperacillin/Tazobactam 3.375 GM in NS 110 ML IVPB SCH (05:19)
[2019-06-30] MEDS: NovoLOG Insulin Flexpen SUBQ SCH ×4 (05:22→20:23)
--- NOTE | 2019-06-30 05:50 | NUR ---
NURSE NOTES: Monitored patient accordingly. Followed post fall protocol.
--- NOTE | 2019-06-30 06:45 | NUR ---
NURSE NOTES: Called Dr. Garcia for patient's AM blood sugar and left message.
--- NOTE | 2019-06-30 07:20 | NUR ---
HAND-OFF: Report given to VINCENT Petty. Endorsed that patient is a fall risk.
--- NOTE | 2019-06-30 07:25 | NUR ---
NURSE NOTES: Received report VINCENT Do. Patient in bed, eating breakfast. A&Ox4. On room air, no signs of distress or labored breathing. IV intact, patent, and saline locked. Patient's own walker at bedside. Bed in lowest position with call light in reach. Reminded patient to use call light for help. Bed alarm on. Will continue with plan of care.
--- NOTE | 2019-06-30 08:48 | General Progress Note ---
Assessment/Plan Assessment/Plan: 1. Anemia. 2. Congestive heart failure. 3. Lower extremity edema, 4. Prostate cancer. with mets to bone 5. Leukocytosis, possibly leukemoid. 6. Diabetes. 7. Low potassium. 8. pleural effusions s/p tap; persistent 9. anasarca 10. s/p fall PLAN monitor blood sugars and adjust insulin further if needed monitor for injuries; d/w nursing repeat labs noted ID clearance monitor HH wound care as is dc planning to snf impression, plan, and exam edited and reviewed in detail care discussed with RN Subjective Allergies: Coded Allergies: No Known Allergies (Unverified , 12/05/18) Subjective wbc elevated had a fall no clear injuries at present Objective Last 24 Hour Vital Signs Date Time Temp Pulse Resp B/P (MAP) Pulse Ox O2 Delivery O2 Flow Rate FiO2 06/30/19 03:03 98.4 104 20 94/61 (72) 96 06/30/19 02:14 98.9 104 19 97/64 (75) 96 06/30/19 01:15 98.6 103 20 98/62 (74) 98 06/30/19 00:15 97.9 102 19 105/73 (84) 95 06/29/19 23:45 98.7 99 18 108/71 (83) 97 06/29/19 23:30 97.3 98 Room Air 06/29/19 23:15 98.4 102 18 116/77 (90) 99 06/29/19 22:45 97.3 105 19 96/63 (74) 98 06/29/19 21:00 Room Air 06/29/19 20:00 100.0 105 16 102/69 (80) 100 06/29/19 16:00 98.1 75 18 125/85 (98) 95 06/29/19 12:00 99.1 98 18 111/61 (78) 100 06/29/19 09:00 Room Air Intake and Output 06/29/19 06/30/19 19:00 07:00 Intake Total 1665.0 ml 1000 ml Balance 1665.0 ml 1000 ml Intake Oral 1500 ml 1000 ml IV Total 165.0 ml # Voids 8 5 # Bowel Movements 2 4 Labs Test 06/27/19 09:23 06/27/19 13:05 06/28/19 05:56 3/5/20 05:25 Stool Occult Blood Negative (NEGATIVE) Urine Color Pale yellow Urine Appearance Clear Urine pH 5 (4.5-8.0) Urine Specific [place] 1.005 (1.005-1.035) Urine Protein Negative (NEGATIVE) Urine Glucose (UA) 4+ (NEGATIVE) Urine Ketones Negative (NEGATIVE) Urine Blood Negative (NEGATIVE) Urine Nitrite Negative (NEGATIVE) Urine Bilirubin Negative (NEGATIVE) Urine Urobilinogen Normal MG/DL (0.0-1.0) Urine Leukocyte Esterase Negative (NEGATIVE) White Blood Count 21.6 K/UL (4.8-10.8) 18.8 K/UL (4.8-10.8) Red Blood Count 3.21 M/UL (4.70-6.10) 3.37 M/UL (4.70-6.10) Hemoglobin 8.9 G/DL (14.2-18.0) 9.4 G/DL (14.2-18.0) Hematocrit 28.1 % (42.0-52.0) 29.4 % (42.0-52.0) Mean Corpuscular Volume 88 FL (80-99) 87 FL (80-99) Mean Corpuscular Hemoglobin 27.9 PG (27.0-31.0) 27.8 PG (27.0-31.0) Mean Corpuscular Hemoglobin Concent 31.8 G/DL (32.0-36.0) 31.9 G/DL (32.0-36.0) Red Cell Distribution Width 18.8 % (11.6-14.8) 19.2 % (11.6-14.8) Platelet Count 202 K/UL (150-450) 211 K/UL (150-450) Mean Platelet Volume 6.0 FL (6.5-10.1) 6.0 FL (6.5-10.1) Neutrophils (%) (Auto) % (45.0-75.0) % (45.0-75.0) Lymphocytes (%) (Auto) % (20.0-45.0) % (20.0-45.0) Monocytes (%) (Auto) % (1.0-10.0) % (1.0-10.0) Eosinophils (%) (Auto) % (0.0-3.0) % (0.0-3.0) Basophils (%) (Auto) % (0.0-2.0) % (0.0-2.0) Differential Total Cells Counted 100 100 Neutrophils % (Manual) 74 % (45-75) 73 % (45-75) Lymphocytes % (Manual) 20 % (20-45) 18 % (20-45) Monocytes % (Manual) 6 % (1-10) 7 % (1-10) Eosinophils % (Manual) 0 % (0-3) 1 % (0-3) Basophils % (Manual) 0 % (0-2) 1 % (0-2) Band Neutrophils 0 % (0-8) 0 % (0-8) Platelet Estimate Adequate Adequate Platelet Morphology Normal Normal Hypochromasia 1+ Anisocytosis 1+ 2+ Height (Feet): 5 Height (Inches): 11.00 Weight (Pounds): 123 Objective WDWN NAD reduced breath sounds bilaterally without rhonchi or wheeze; C0H2PQR without MRG NABS nontender no HSM no CC minimal edema alert and oriented no bruising noted nonfocal Jason Garcia MD Jun 30, 2019 08:48
[2019-06-30] MEDS: Ascorbic Acid 500mg tab ORAL SCH ×2 (09:23→17:35)
[2019-06-30] MEDS: Levemir Flexpen SUBQ SCH ×2 (09:26→17:38)
--- NOTE | 2019-06-30 10:18 | Infectious Diseases Prog Note ---
Assessment/Plan Assessment/Plan antibiotics : zosyn A 1. UTI s/p rx 2. pneumonia s/p rx 3. pleural effusions s/p thoracentesis 4. leucocytosis improving 5. metastatic prostate cancer 6. fever improving P 1. d/c zosyn 2. observe off antibiotics Subjective Constitutional: Denies: fever, chills Respiratory: Denies: shortness of breath, dry cough Gastrointestinal/Abdominal: Reports: diarrhea - decreased; Denies: nausea, vomiting Musculoskeletal: Denies: pain Allergies: Coded Allergies: No Known Allergies (Unverified , 12/05/18) Objective Vital Signs Last 24 Hour Vital Signs Date Time Temp Pulse Resp B/P (MAP) Pulse Ox O2 Delivery O2 Flow Rate FiO2 06/30/19 03:03 98.4 104 20 94/61 (72) 96 06/30/19 02:14 98.9 104 19 97/64 (75) 96 06/30/19 01:15 98.6 103 20 98/62 (74) 98 06/30/19 00:15 97.9 102 19 105/73 (84) 95 06/29/19 23:45 98.7 99 18 108/71 (83) 97 06/29/19 23:30 97.3 98 Room Air 06/29/19 23:15 98.4 102 18 116/77 (90) 99 06/29/19 22:45 97.3 105 19 96/63 (74) 98 06/29/19 21:00 Room Air 06/29/19 20:00 100.0 105 16 102/69 (80) 100 06/29/19 16:00 98.1 75 18 125/85 (98) 95 06/29/19 12:00 99.1 98 18 111/61 (78) 100 Height (Feet): 5 Height (Inches): 11.00 Weight (Pounds): 123 Respiratory/Chest: lungs clear Cardiovascular: normal rate, regular rhythm, no gallop/murmur Abdomen: soft, non tender Extremities: no edema Microbiology Date/Time Source Procedure Growth Status 06/27/19 11:40 Blood Blood Culture - Preliminary NO GROWTH AFTER 24 HOURS Resulted Current Medications Medications (Trade) Dose Ordered Sig/Sanjeev Route PRN Reason Start Time Stop Time Status Last Admin Dose Admin Acetaminophen (Tylenol) 650 mg Q6H PRN ORAL Mild Pain/Temp > 100.5 2/29/20 21:30 07/24/19 21:29 06/27/19 00:08 Ascorbic Acid (Vitamin C) 250 mg TWICE A DAY ORAL 06/25/19 09:00 07/21/19 17:59 06/30/19 09:23 Dextrose (Dextrose 50%) 25 ml Q30M PRN IV Hypoglycemia 06/24/19 21:45 07/19/19 07:44 Dextrose (Dextrose 50%) 50 ml Q30M PRN IV Hypoglycemia 06/24/19 21:45 07/19/19 07:44 Diphenoxylate HCl/ Atropine (Lomotil) 2.5 mg Q6H PRN ORAL Diarrhea 06/24/19 21:30 07/20/19 21:29 06/26/19 20:15 Furosemide (Lasix) 40 mg DAILY IV 06/25/19 09:00 07/19/19 08:59 06/30/19 09:22 Insulin Aspart (NovoLOG) BEFORE MEALS AND HS SUBQ 06/25/19 06:30 07/19/19 11:29 06/29/19 20:16 Insulin Detemir (Levemir) 20 units BID SUBQ 06/29/19 18:00 07/22/19 20:59 06/30/19 09:26 Multivitamins (Multivitamins) 1 tab DAILY ORAL 06/25/19 09:00 07/19/19 08:59 06/30/19 09:24 Piperacillin Sod/ Tazobactam Sod 3.375 gm/Sodium Chloride 110 ml @ 27.5 mls/hr EVERY 8 HOURS IVPB 06/27/19 14:00 06/30/19 15:59 06/30/19 05:19 Potassium Chloride (K-Dur) 40 meq DAILY ORAL 06/25/19 09:00 07/19/19 11:59 06/30/19 09:23 Zolpidem Tartrate (Ambien) 5 mg HSPRN PRN ORAL Insomnia 06/24/19 21:30 07/01/19 21:29 06/29/19 20:12 Gumaro Barakat MD Jun 30, 2019 10:18
--- NOTE | 2019-06-30 12:26 | NUR ---
CASE MANAGEMENT: REVIEW 06/30/19 SI:SP THORACENTESIS . BILATERAL PLEURAL EFFUSION . TRACE ASCITES . CHF EXACERBATION . DM . ANEMIA . UTI . BILATERAL LE EDEMA 97.5 190 18 98/70 97% ON RA IS:IV LASIX QD K-DUR PO QD LEVEMIR SQ BID NOVOLOG SQ AC&HS TYLENOL Q6HR.PRN MTV PO QD \: RETURNING TO [facility] WHEN STABLE PLAN: FEVER BETTER CONTROLLED S/P FALL WITH NO INJURY MOVED PATIENT CLOSER TO NURSES STATION FOR OBSERVATION
--- NOTE | 2019-06-30 13:38 | NUR ---
RD ASSESSMENT & RECOMMENDATIONS SEE CARE ACTIVITY FOR COMPLETE ASSESSMENT DAILY ESTIMATED NEEDS: Needs based on CA, wound 68.2kg 30-35 kcals/kg 0346-5078 total kcals 1.25-2 g protein/kg 85-136 g total protein 25-30 mL/kg 5536-3175 total fluid mLs NUTRITION DIAGNOSIS: Increased kcal/prot needs R/T catabolic dx, wound, and underweight status as evidenced by h/o stage IV Prostate cancer s/p chemotherapy, pt @87% IBW, pt w/ stage 3 sacral wound. CURRENT DIET: Regular-> now CCHO MED W/ HIGH PROT. PO DIET RECOMMENDATIONS: CCHO MED/ texture as tolerated + 2X proteins ADDITIONAL RECOMMENDATIONS: * Calibrated bed scale wt for accurate CBW (on lasix as well) * Monitor po intake, need for snacks- Pt w/ good po intake -h/o stage 4 CA, w/ chemo * BG in the 300's, consider increasing levemir- now at 20units BID * WOUND CARE: add JERRY BID + Vit C 250mg BID, continue MVI qd * Updated chem panel while on lasix for eval of lytes .
--- NOTE | 2019-06-30 13:41 | Hematology/Onc Progress Note ---
Assessment/Plan Assessment/Plan Assessment and Recs: # Leukocytosis/elevated white blood cell count, unspecified likely related to underlying stress reaction, smoking v more likely infection (has had a persistent uti/pna) --> ALSO may be malignancy related(but less likely because when came in 04/2019 was wnl, now elevated, more likely infection related --> have reviewed peripheral smear and bandemia/neutrophilia noted(does have some early nucleated cells) --> continue antibiotics if they have been started by ID team --> monitor for resolution --> will hold off FLOW CYTOMETRY given infection more likely cause --> wbc 25-->22-->20-->21.8-->21->18 --> f/u cultures --> abx: zosyn # Stage IV prostate cancer, on admission poa --> outpatient management, will review treatment course --> trend psa is 94 --> has received chemo at [facility] x 4 weeks --> has received lupron in the past --> return to outpatient oncology --> cea also elevated 34 # Anemia due likely to recent chemo --> hgb trend as needed 8.9->9.4 --> ferritin is 1031 # Pneumonia --> is now on abx --> as per id # Pleural effusions s/p thoracentesis --> repeat thora as per pulm --> cytology reviewed, is neg for malignancy # UTi s/p abx # Decub ulceration The timing of this note does not necessarily reflect the time of the patient was seen. Greatly appreciate consultation. Subjective Constitutional: Denies: no symptoms, chills, fever, malaise, weakness, other HEENT: Denies: no symptoms, eye pain, blurred vision, tearing, double vision, ear pain, ear discharge, nose pain, nose congestion, throat pain, throat swelling, mouth pain, mouth swelling, other Cardiovascular: Denies: no symptoms, chest pain, edema, irregular heart rate, lightheadedness, palpitations, syncope, other Respiratory: Denies: no symptoms, cough, shortness of breath, SOB with excertion, SOB at rest, sputum, wheezing, other Genitourinary: Denies: no symptoms, burning, discharge, frequency, flank pain, hematuria, incontinence, pain, urgency, other Neurologic/Psychiatric: Denies: no symptoms, anxiety, depressed, emotional problems, headache, numbness, paresthesia, pre-existing deficit, seizure, tingling, tremors, weakness, other Endocrine: Denies: no symptoms, excessive sweating, flushing, intolerance to cold, intolerance to heat, increased hunger, increased thirst, increased urine, unexplained weight gain, unexplained weight loss, other Allergies: Coded Allergies: No Known Allergies (Unverified , 12/05/18) Subjective 06/26: no events, no bleeding, psa is 94, no events, no changes, dw him re chemo 06/27: no events, not eating much, labs noted 06/28: no f/c, seen by surg, tumor markers reviewed 06/29: hgb remains low, 9.4, with mets to bone, dc planning Objective Objective Current Medications Medications (Trade) Dose Ordered Sig/Sanjeev Route PRN Reason Start Time Stop Time Status Last Admin Dose Admin Acetaminophen (Tylenol) 650 mg Q6H PRN ORAL Mild Pain/Temp > 100.5 06/24/19 21:30 07/24/19 21:29 06/27/19 00:08 Ascorbic Acid (Vitamin C) 250 mg TWICE A DAY ORAL 06/25/19 09:00 07/21/19 17:59 06/30/19 09:23 Dextrose (Dextrose 50%) 25 ml Q30M PRN IV Hypoglycemia 06/24/19 21:45 07/19/19 07:44 Dextrose (Dextrose 50%) 50 ml Q30M PRN IV Hypoglycemia 06/24/19 21:45 07/19/19 07:44 Diphenoxylate HCl/ Atropine (Lomotil) 2.5 mg Q6H PRN ORAL Diarrhea 06/24/19 21:30 07/20/19 21:29 06/26/19 20:15 Furosemide (Lasix) 40 mg DAILY IV 06/25/19 09:00 07/19/19 08:59 06/30/19 09:22 Insulin Aspart (NovoLOG) BEFORE MEALS AND HS SUBQ 06/25/19 06:30 07/19/19 11:29 06/30/19 12:12 Insulin Detemir (Levemir) 20 units BID SUBQ 06/29/19 18:00 07/22/19 20:59 06/30/19 09:26 Multivitamins (Multivitamins) 1 tab DAILY ORAL 06/25/19 09:00 07/19/19 08:59 06/30/19 09:24 Potassium Chloride (K-Dur) 40 meq DAILY ORAL 06/25/19 09:00 07/19/19 11:59 06/30/19 09:23 Zolpidem Tartrate (Ambien) 5 mg HSPRN PRN ORAL Insomnia 06/24/19 21:30 07/01/19 21:29 06/29/19 20:12 Last 24 Hour Vital Signs Date Time Temp Pulse Resp B/P (MAP) Pulse Ox O2 Delivery O2 Flow Rate FiO2 06/30/19 08:00 97.5 190 18 98/70 (79) 97 06/30/19 03:03 98.4 104 20 94/61 (72) 96 06/30/19 02:14 98.9 104 19 97/64 (75) 96 06/30/19 01:15 98.6 103 20 98/62 (74) 98 06/30/19 00:15 97.9 102 19 105/73 (84) 95 06/29/19 23:45 98.7 99 18 108/71 (83) 97 06/29/19 23:30 97.3 98 Room Air 06/29/19 23:15 98.4 102 18 116/77 (90) 99 06/29/19 22:45 97.3 105 19 96/63 (74) 98 06/29/19 21:00 Room Air 06/29/19 20:00 100.0 105 16 102/69 (80) 100 06/29/19 16:00 98.1 75 18 125/85 (98) 95 06/29/19 12:00 99.1 98 18 111/61 (78) 100 06/29/19 09:00 Room Air 06/29/19 08:00 100.2 79 18 111/70 (84) 100 06/29/19 04:00 99.0 98 16 113/77 (89) 100 06/29/19 00:00 99.0 106 18 123/70 (87) 95 06/28/19 21:00 Room Air 06/28/19 20:00 97.6 103 18 101/55 (70) 98 06/28/19 16:00 98.0 101 18 113/75 (88) 97 Intake and Output 06/29/19 06/30/19 19:00 07:00 Intake Total 1665.0 ml 1000 ml Balance 1665.0 ml 1000 ml Intake Oral 1500 ml 1000 ml IV Total 165.0 ml # Voids 8 5 # Bowel Movements 2 4 Labs Test 06/28/19 05:56 06/29/19 05:25 White Blood Count 21.6 K/UL (4.8-10.8) 18.8 K/UL (4.8-10.8) Red Blood Count 3.21 M/UL (4.70-6.10) 3.37 M/UL (4.70-6.10) Hemoglobin 8.9 G/DL (14.2-18.0) 9.4 G/DL (14.2-18.0) Hematocrit 28.1 % (42.0-52.0) 29.4 % (42.0-52.0) Mean Corpuscular Volume 88 FL (80-99) 87 FL (80-99) Mean Corpuscular Hemoglobin 27.9 PG (27.0-31.0) 27.8 PG (27.0-31.0) Mean Corpuscular Hemoglobin Concent 31.8 G/DL (32.0-36.0) 31.9 G/DL (32.0-36.0) Red Cell Distribution Width 18.8 % (11.6-14.8) 19.2 % (11.6-14.8) Platelet Count 202 K/UL (150-450) 211 K/UL (150-450) Mean Platelet Volume 6.0 FL (6.5-10.1) 6.0 FL (6.5-10.1) Neutrophils (%) (Auto) % (45.0-75.0) % (45.0-75.0) Lymphocytes (%) (Auto) % (20.0-45.0) % (20.0-45.0) Monocytes (%) (Auto) % (1.0-10.0) % (1.0-10.0) Eosinophils (%) (Auto) % (0.0-3.0) % (0.0-3.0) Basophils (%) (Auto) % (0.0-2.0) % (0.0-2.0) Differential Total Cells Counted 100 100 Neutrophils % (Manual) 74 % (45-75) 73 % (45-75) Lymphocytes % (Manual) 20 % (20-45) 18 % (20-45) Monocytes % (Manual) 6 % (1-10) 7 % (1-10) Eosinophils % (Manual) 0 % (0-3) 1 % (0-3) Basophils % (Manual) 0 % (0-2) 1 % (0-2) Band Neutrophils 0 % (0-8) 0 % (0-8) Platelet Estimate Adequate Adequate Platelet Morphology Normal Normal Hypochromasia 1+ Anisocytosis 1+ 2+ Height (Feet): 5 Height (Inches): 11.00 Weight (Pounds): 123 Objective Vitals: reviewed General: NAD HEENT: nc, at Neck: supple Chest: clear breath sounds bilaterally Cardiovascular: RRR, no s3, s4 Abd: soft, nt, nd Ext: no cce Eliseo Biggs MD Jun 30, 2019 13:41
--- NOTE | 2019-06-30 14:18 | Surgery Progress Note ---
Surgery Progress Note Subjective Symptoms: improved, pain absent, tolerating diet, passing flatus Objective Last 24 Hour Vital Signs Date Time Temp Pulse Resp B/P (MAP) Pulse Ox O2 Delivery O2 Flow Rate FiO2 06/30/19 08:00 97.5 190 18 98/70 (79) 97 06/30/19 03:03 98.4 104 20 94/61 (72) 96 06/30/19 02:14 98.9 104 19 97/64 (75) 96 06/30/19 01:15 98.6 103 20 98/62 (74) 98 06/30/19 00:15 97.9 102 19 105/73 (84) 95 06/29/19 23:45 98.7 99 18 108/71 (83) 97 06/29/19 23:30 97.3 98 Room Air 06/29/19 23:15 98.4 102 18 116/77 (90) 99 06/29/19 22:45 97.3 105 19 96/63 (74) 98 06/29/19 21:00 Room Air 06/29/19 20:00 100.0 105 16 102/69 (80) 100 06/29/19 16:00 98.1 75 18 125/85 (98) 95 I&O Intake and Output 06/29/19 06/30/19 19:00 07:00 Intake Total 1665.0 ml 1000 ml Balance 1665.0 ml 1000 ml Intake Oral 1500 ml 1000 ml IV Total 165.0 ml # Voids 8 5 # Bowel Movements 2 4 Dressing: dry Wound: clean Cardiovascular: RSR Respiratory: clear Abdomen: soft, non-tender, present bowel sounds Plan Problems: (1) Leukocytosis Assessment & Plan: Patient presents with leukocytosis abnormal labs. Bilateral lower extremity edema. Multiple decubitus ulcers. UTI. UTI likely etiology of patient's leukocytosis and infectious process. The wounds were evaluated and unlikely etiology. Lower extremity edema unlikely cellulitis. We will continue to follow the recommendations monitor. Antibiotics as per ID. Trend labs. The liver is unremarkable. Doppler interrogation of the main portal vein shows patency with hepatopedal, monophasic flow. There is no biliary ductal dilatation identified. Gallbladder is unremarkable. CBD is 4 mm. Bilateral pleural effusions are demonstrated. There is trace ascites. There is prominence in the area of the pancreatic head. There demonstrated part of the aorta and IVC show no definite abnormalities. Both kidneys appear echogenic. There is no hydronephrosis. IMPRESSION: Bilateral pleural effusions Prominent pancreatic head. This may be related to body habitus. Consider further evaluation with contrast CT. Trace ascites IMPRESSION: Bilateral moderate to large pleural effusions. Resultant compressive atelectatic changes of both lower lobes Groundglass opacity throughout much of the upper and lower lobes, likely reflects parenchymal edema, but could also represent infectious/inflammatory process. Correlate with clinical findings Evidence of anasarca elsewhere, with diffuse edema of the subcutaneous, mediastinal, and mesenteric and pelvic fat Irregular left upper lung opacities with architectural distortion, probably an area of scarring/cicatrization. Mass or infiltrate much less likely Diffuse osteosclerosis, consistent with stated clinical history of metastatic prostate carcinoma Endplate irregularity of the mid thoracic spine as describe. This is probably due to degenerative change. Infectious spondylitis and less likely but not completely excludable. Correlate with clinical findings, consider MRI if there is clinical suspicion for such Evidence of interim right colon surgery. Evidence of right hip surgery, also previously noted Coronary artery calcifications (2) Decubitus skin ulcer Assessment & Plan: Patient presents on admission with multiple decubitus ulcer. Stage III a somewhat resolving sacral decubitus ulcer 2 cm x 1 cm x 5 mm deep no active drainage no signs of active acute infection. Right trochanteric resolving deep tissue injury with Skin changes Bilateral heel boggy nontender Patient is very tall and feet hanging over the side of the bed occasionally and states that when he is not in the hospital his feet are occasionally on the bedpost. Discussed this with patient and information given as well as care plan. Wash sacral decubitus ulcer daily with normal saline apply Thera honey followed by protective foam dressing. Skin protectant to bilateral trochanteric hips followed by foam dressing Keep heels elevated with pillows. Do not allow heels to be on the bedpost but extension necessary Foam dressings for heels thank you will follow with recommendations Nutritional optimization presented on admission with full thickness sacral pressure injury (L)1.1cm x (W) 0.5cm x (D)0.6cm. Base of wound is moist and pink. Borders are macerated. Periwound is black and fluctuant. Pt complained of tenderness when palpated. Full thickness stage 3 pressure injury R hip. Biofilm at base of wound. Edges adherent to base of wound. Periwound is black without induration or fluctuance.( L)0.6cm x (W)0.7cm. Wound L knee with semi-detached necrotic cap, moist erythematous borders. No exudate noted. Periwound without erythema induration or fluctuance (L)8cm x (W) 8.3cm. Unstageable pressure injury lateral R malleolus. Base of wound has 100% dry yellow cap. Edges adherent to base of wound. Periwound is black and indurated with marginal erythema.(L)2cm x (W)2cm. Both heels are dry, firm and blanchable. Tx.plan: Cleanse Sacral wound with Saline. Apply Therahoney. Apply Moisture Barrier periwound.Cover with Optifoam drsg every 3 days and prn. Cleanse wound R hip with Saline. Apply Therahoney. Apply Cavilon Periwound. Cover with Optifoam drsg every 3 days and prn. Apply Betadine to R knee. Cover with Optifoam drsg. Change every 3days and prn. Apply Betadine to R lateral malleolus. Cover with Optifoam drsg. Change every 3 days and prn. Apply Cavilon Skin Barrier to both heels.Cover each heel with Optifoam drsg. Change every 7 days and prn. Reposition at least every 2hours or as tolerated. Off-load heels with pillow. nutritional optimization improving d/c planning (3) Malnutrition Assessment & Plan: DAILY ESTIMATED NEEDS: Needs based on CA, 68.2kg 30-35 kcals/kg 5291-0281 total kcals 1-2 g protein/kg 68-136 g total protein 25-30 mL/kg 6167-4317 total fluid mLs NUTRITION DIAGNOSIS: Increased kcal/prot needs R/T catabolic dx and underweight status as evidenced by h/o stage IV Prostate cancer s/p chemotherapy, pt @87% IBW. CURRENT DIET: Cardiac PO DIET RECOMMENDATIONS--->>> CCHO MED/ texture as tolerated + Glucerna TID w/ meals ADDITIONAL RECOMMENDATIONS: * Calibrated bed scale wt for accurate CBW * Monitor po intake, need for snacks -h/o stage 4 CA, w/ chemo * BG in the 300's, consider increasing levemir -> rec HgA1C * WOUND CARE: add JERRY BID + Vit C 250mg daily F/up w/ WC eval moderate given condition bmi 20, hx cancer nutritional optimization alb 2 (4) Deep tissue injury Juan Carlos Tucker Jun 30, 2019 14:18
--- NOTE | 2019-06-30 19:10 | NUR ---
NURSE NOTES: Received patient on bed,awake. verbally responsive. no sob. no complaints of pain or discomfort. pt is s/p fall from last night. advised to use the call light for assistance. bed locked and in lowest position. call light and light button within easy reach. bed alarm on. with iv line on the left hand saline lock. with urinal on the bedside. still on monitoring for post fall assessment, will accomplish through out the shift. will ensure safety. will continue plan of care.
--- NOTE | 2019-06-30 19:16 | NUR ---
HAND-OFF: Report given to Nohelia Calderon RN. Rounds done. Endorsed to RN that patient is a high fall risk and that yellow post fall form needs to be completed.
[2019-06-30] MEDS: Zolpidem 5mg tab ORAL PRN (20:21)
[2019-07-01 04:00] VITALS: BP 112/70
[2019-07-01] MEDS: NovoLOG Insulin Flexpen SUBQ SCH ×4 (06:02→20:44)
--- NOTE | 2019-07-01 07:20 | NUR ---
NURSE NOTES:Handoff received from VINCENT Pozo. Patient received awake and alert and able to make needs known, patient observed eating breakfast, no acute signs of distress noted. patient has left hand iv site clean dry and intact, saline locked. bed in the low and locked position with call light within reach, will continue to monitor patient.
--- NOTE | 2019-07-01 07:25 | NUR ---
HAND-OFF Report given to flaquito aj. endorsed that the pt is s/p fall. reiterated to observe fall risk precautions. bed alarm on. call light and light button within easy reach.
[2019-07-01 07:30] LABS: BASOPHILS % (AUTO) 0.6 % (0.0-2.0); EOSINOPHILS % (AUTO) 0.2 % (0.0-3.0); HEMATOCRIT 28.5 % (42.0-52.0); HEMOGLOBIN 9.1 G/DL (14.2-18.0); LYMPHOCYTES % (AUTO) 20.5 % (20.0-45.0); MEAN CORPUSCULAR VOLUME 86 FL (80-99); MONOCYTES % (AUTO) 6.9 % (1.0-10.0); NEUTROPHILS % (AUTO) 71.7 % (45.0-75.0); PLATELET COUNT 235 K/UL (150-450); RED CELL DISTRIBUTION WIDTH 18.8 % (11.6-14.8); WHITE BLOOD COUNT 15.5 K/UL (4.8-10.8)
[2019-07-01 08:00] VITALS: BP 123/67
[2019-07-01] MEDS: Levemir Flexpen SUBQ SCH ×2 (09:18→17:14)
[2019-07-01] MEDS: Ascorbic Acid 500mg tab ORAL SCH ×2 (09:19→17:14)
[2019-07-01 12:00] VITALS: BP 107/73
[2019-07-01 16:00] VITALS: BP 97/66
--- NOTE | 2019-07-01 16:03 | Pulmonology Progress Note ---
Assessment/Plan Assessment/Plan Pulmonary Progress Note Assessment/Plan: 1. Anemia. 2. Congestive heart failure. 3. Lower extremity edema, 4. Prostate cancer. with mets to bone 5. Leukocytosis, possibly leukemoid. 6. Diabetes. 7. Low potassium. 8. pleural effusions s/p tap; persistent 9. anasarca 10. s/p fall PLAN monitor blood sugars and adjust insulin further if needed monitor for injuries; d/w nursing repeat labs noted ID clearance monitor HH wound care as is dc planning to snf impression, plan, and exam edited and reviewed in detail care discussed with RN Subjective Allergies: Coded Allergies: No Known Allergies (Unverified , 12/05/18) Subjective wbc elevated nontoxic on antibiotics alert Objective Vital Signs Noted Laboratory Tests Noted Height (Feet): 5 Height (Inches): 11.00 Weight (Pounds): 149 Objective WDWN NAD reduced breath sounds bilaterally without rhonchi or wheeze; now improved [id number] without MRG NABS nontender no HSM no CC minimal edema alert and oriented nonfocal Subjective ROS Limited/Unobtainable: No Allergies: Coded Allergies: No Known Allergies (Unverified , 12/05/18) Objective Last 24 Hour Vital Signs Date Time Temp Pulse Resp B/P (MAP) Pulse Ox O2 Delivery O2 Flow Rate FiO2 07/01/19 12:00 98.9 97 18 107/73 (84) 99 07/01/19 09:00 Room Air 07/01/19 08:00 99.3 101 19 123/67 (85) 97 07/01/19 04:00 98.8 98 20 112/70 (84) 99 06/30/19 23:52 98.4 105 20 100/67 (78) 97 06/30/19 23:25 98.4 97 Room Air 06/30/19 21:00 Room Air 06/30/19 20:00 98.6 101 20 106/70 (82) 96 Intake and Output 06/30/19 07/01/19 19:00 07:00 Intake Total 1200 ml 950 ml Output Total 900 ml 1200 ml Balance 300 ml -250 ml Intake Oral 950 ml Other 1200 ml Output Urine Total 900 ml 1200 ml # Bowel Movements 1 Laboratory Tests 07/01/19 06:30: White Blood Count 15.5H, Red Blood Count 3.30L, Hemoglobin 9.1L, Hematocrit 28.5L, Mean Corpuscular Volume 86, Mean Corpuscular Hemoglobin 27.7, Mean Corpuscular Hemoglobin Concent 32.1, Red Cell Distribution Width 18.8H, Platelet Count 235, Mean Platelet Volume 6.1L, Neutrophils (%) (Auto) 71.7, Lymphocytes (%) (Auto) 20.5, Monocytes (%) (Auto) 6.9, Eosinophils (%) (Auto) 0.2, Basophils (%) (Auto) 0.6 Current Medications Medications (Trade) Dose Ordered Sig/Sanjeev Route PRN Reason Start Time Stop Time Status Last Admin Dose Admin Acetaminophen (Tylenol) 650 mg Q6H PRN ORAL Mild Pain/Temp > 100.5 06/24/19 21:30 07/24/19 21:29 06/27/19 00:08 Ascorbic Acid (Vitamin C) 250 mg TWICE A DAY ORAL 06/25/19 09:00 07/21/19 17:59 07/01/19 09:19 Dextrose (Dextrose 50%) 25 ml Q30M PRN IV Hypoglycemia 06/24/19 21:45 07/19/19 07:44 Dextrose (Dextrose 50%) 50 ml Q30M PRN IV Hypoglycemia 06/24/19 21:45 07/19/19 07:44 Diphenoxylate HCl/ Atropine (Lomotil) 2.5 mg Q6H PRN ORAL Diarrhea 06/24/19 21:30 07/20/19 21:29 06/26/19 20:15 Furosemide (Lasix) 40 mg DAILY IV 06/25/19 09:00 07/19/19 08:59 07/01/19 09:18 Insulin Aspart (NovoLOG) BEFORE MEALS AND HS SUBQ 06/25/19 06:30 07/19/19 11:29 07/01/19 12:15 Insulin Detemir (Levemir) 20 units BID SUBQ 06/29/19 18:00 07/22/19 20:59 07/01/19 09:18 Multivitamins (Multivitamins) 1 tab DAILY ORAL 06/25/19 09:00 07/19/19 08:59 07/01/19 09:17 Potassium Chloride (K-Dur) 40 meq DAILY ORAL 06/25/19 09:00 07/19/19 11:59 07/01/19 09:17 Zolpidem Tartrate (Ambien) 5 mg HSPRN PRN ORAL Insomnia 06/24/19 21:30 07/01/19 21:29 06/30/19 20:21 Mamadou Charles MD Jul 01, 2019 16:03
--- NOTE | 2019-07-01 19:24 | NUR ---
HAND-OFF: Report given to VINCENT Pozo.informed RN that patient is high fall risk so that close monitoring of patient can continue.
--- NOTE | 2019-07-01 19:25 | NUR ---
NURSE NOTES: Received patient on bed, awake and verbally responsive. no sob. denies any pain or discomfort. with iv line on the left forearm, saline lock. uses urinal. per patient "he had a loose bowel movement today and he wants medicine to stop it". advised patient to use call light or ask for help for assistance. bed lock and in lowest position. call light and light button within easy reach. will continue plan of care.
[2019-07-01 20:00] VITALS: BP 105/60
[2019-07-01] MEDS: Zolpidem 5mg tab ORAL PRN (20:43)
[2019-07-01] MEDS: Lomotil 2.5mg tab ORAL PRN (20:43)
--- NOTE | 2019-07-01 22:06 | Surgery Progress Note ---
Surgery Progress Note Subjective Additional Comments no acute events comfortable stable Objective Last 24 Hour Vital Signs Date Time Temp Pulse Resp B/P (MAP) Pulse Ox O2 Delivery O2 Flow Rate FiO2 07/01/19 20:00 98.5 100 19 105/60 (75) 97 07/01/19 16:00 98.3 100 20 97/66 (76) 97 07/01/19 12:00 98.9 97 18 107/73 (84) 99 07/01/19 09:00 Room Air 07/01/19 08:00 99.3 101 19 123/67 (85) 97 07/01/19 04:00 98.8 98 20 112/70 (84) 99 06/30/19 23:52 98.4 105 20 100/67 (78) 97 06/30/19 23:25 98.4 97 Room Air I&O Intake and Output 06/30/19 07/01/19 19:00 07:00 Intake Total 1200 ml 950 ml Output Total 900 ml 1200 ml Balance 300 ml -250 ml Intake Oral 950 ml Other 1200 ml Output Urine Total 900 ml 1200 ml # Bowel Movements 1 Cardiovascular: RSR Respiratory: clear, decreased breath sounds Abdomen: soft, non-tender, present bowel sounds Extremities: no cyanosis Laboratory Tests Test 07/01/19 06:30 White Blood Count 15.5 K/UL (4.8-10.8) H Red Blood Count 3.30 M/UL (4.70-6.10) L Hemoglobin 9.1 G/DL (14.2-18.0) L Hematocrit 28.5 % (42.0-52.0) L Mean Corpuscular Volume 86 FL (80-99) Mean Corpuscular Hemoglobin 27.7 PG (27.0-31.0) Mean Corpuscular Hemoglobin Concent 32.1 G/DL (32.0-36.0) Red Cell Distribution Width 18.8 % (11.6-14.8) H Platelet Count 235 K/UL (150-450) Mean Platelet Volume 6.1 FL (6.5-10.1) L Neutrophils (%) (Auto) 71.7 % (45.0-75.0) Lymphocytes (%) (Auto) 20.5 % (20.0-45.0) Monocytes (%) (Auto) 6.9 % (1.0-10.0) Eosinophils (%) (Auto) 0.2 % (0.0-3.0) Basophils (%) (Auto) 0.6 % (0.0-2.0) Plan Problems: (1) Leukocytosis Assessment & Plan: Patient presents with leukocytosis abnormal labs. Bilateral lower extremity edema. Multiple decubitus ulcers. UTI. UTI likely etiology of patient's leukocytosis and infectious process. The wounds were evaluated and unlikely etiology. Lower extremity edema unlikely cellulitis. We will continue to follow the recommendations monitor. Antibiotics as per ID. Trend labs. wbc 15k trending down The liver is unremarkable. Doppler interrogation of the main portal vein shows patency with hepatopedal, monophasic flow. There is no biliary ductal dilatation identified. Gallbladder is unremarkable. CBD is 4 mm. Bilateral pleural effusions are demonstrated. There is trace ascites. There is prominence in the area of the pancreatic head. There demonstrated part of the aorta and IVC show no definite abnormalities. Both kidneys appear echogenic. There is no hydronephrosis. IMPRESSION: Bilateral pleural effusions Prominent pancreatic head. This may be related to body habitus. Consider further evaluation with contrast CT. Trace ascites IMPRESSION: Bilateral moderate to large pleural effusions. Resultant compressive atelectatic changes of both lower lobes Groundglass opacity throughout much of the upper and lower lobes, likely reflects parenchymal edema, but could also represent infectious/inflammatory process. Correlate with clinical findings Evidence of anasarca elsewhere, with diffuse edema of the subcutaneous, mediastinal, and mesenteric and pelvic fat Irregular left upper lung opacities with architectural distortion, probably an area of scarring/cicatrization. Mass or infiltrate much less likely Diffuse osteosclerosis, consistent with stated clinical history of metastatic prostate carcinoma Endplate irregularity of the mid thoracic spine as describe. This is probably due to degenerative change. Infectious spondylitis and less likely but not completely excludable. Correlate with clinical findings, consider MRI if there is clinical suspicion for such Evidence of interim right colon surgery. Evidence of right hip surgery, also previously noted Coronary artery calcifications (2) Decubitus skin ulcer Assessment & Plan: Patient presents on admission with multiple decubitus ulcer. Stage III a somewhat resolving sacral decubitus ulcer 2 cm x 1 cm x 5 mm deep no active drainage no signs of active acute infection. Right trochanteric resolving deep tissue injury with Skin changes Bilateral heel boggy nontender Patient is very tall and feet hanging over the side of the bed occasionally and states that when he is not in the hospital his feet are occasionally on the bedpost. Discussed this with patient and information given as well as care plan. Wash sacral decubitus ulcer daily with normal saline apply Thera honey followed by protective foam dressing. Skin protectant to bilateral trochanteric hips followed by foam dressing Keep heels elevated with pillows. Do not allow heels to be on the bedpost but extension necessary Foam dressings for heels thank you will follow with recommendations Nutritional optimization presented on admission with full thickness sacral pressure injury (L)1.1cm x (W) 0.5cm x (D)0.6cm. Base of wound is moist and pink. Borders are macerated. Periwound is black and fluctuant. Pt complained of tenderness when palpated. Full thickness stage 3 pressure injury R hip. Biofilm at base of wound. Edges adherent to base of wound. Periwound is black without induration or fluctuance.( L)0.6cm x (W)0.7cm. Wound L knee with semi-detached necrotic cap, moist erythematous borders. No exudate noted. Periwound without erythema induration or fluctuance (L)8cm x (W) 8.3cm. Unstageable pressure injury lateral R malleolus. Base of wound has 100% dry yellow cap. Edges adherent to base of wound. Periwound is black and indurated with marginal erythema.(L)2cm x (W)2cm. Both heels are dry, firm and blanchable. Tx.plan: Cleanse Sacral wound with Saline. Apply Therahoney. Apply Moisture Barrier periwound.Cover with Optifoam drsg every 3 days and prn. Cleanse wound R hip with Saline. Apply Therahoney. Apply Cavilon Periwound. Cover with Optifoam drsg every 3 days and prn. Apply Betadine to R knee. Cover with Optifoam drsg. Change every 3days and prn. Apply Betadine to R lateral malleolus. Cover with Optifoam drsg. Change every 3 days and prn. Apply Cavilon Skin Barrier to both heels.Cover each heel with Optifoam drsg. Change every 7 days and prn. Reposition at least every 2hours or as tolerated. Off-load heels with pillow. nutritional optimization improving d/c planning (3) Malnutrition Assessment & Plan: DAILY ESTIMATED NEEDS: Needs based on CA, 68.2kg 30-35 kcals/kg [id number] total kcals 1-2 g protein/kg 68-136 g total protein 25-30 mL/kg 8325-3892 total fluid mLs NUTRITION DIAGNOSIS: Increased kcal/prot needs R/T catabolic dx and underweight status as evidenced by h/o stage IV Prostate cancer s/p chemotherapy, pt @87% IBW. CURRENT DIET: Cardiac PO DIET RECOMMENDATIONS--->>> CCHO MED/ texture as tolerated + Glucerna TID w/ meals ADDITIONAL RECOMMENDATIONS: * Calibrated bed scale wt for accurate CBW * Monitor po intake, need for snacks -h/o stage 4 CA, w/ chemo * BG in the 300's, consider increasing levemir -> rec HgA1C * WOUND CARE: add JERRY BID + Vit C 250mg daily F/up w/ WC eval moderate given condition bmi 20, hx cancer nutritional optimization alb 2 (4) Deep tissue injury Juan Carlos Tucker Jul 01, 2019 22:06
[2019-07-01 23:35] VITALS: BP 102/63
[2019-07-02] VITALS: BP 108/71
[2019-07-02 04:00] VITALS: BP 102/59
[2019-07-02] MEDS: NovoLOG Insulin Flexpen SUBQ SCH ×4 (06:15→20:36)
--- NOTE | 2019-07-02 07:25 | NUR ---
NURSE NOTES:Handoff received from VINCENT Pozo. Patient has not had any more bouts of diarrhea. Patient received sleeping in bed, no acute signs of distress noted. IV site is clean dry and intact, saline locked. Bed in the low and locked position with call light within reach, bed alarm on. patient is on room air. patient is status post fall, endorsed to other members of the care team, so that closer monitoring of the patient can continue.
--- NOTE | 2019-07-02 07:27 | NUR ---
HAND-OFF: Report given to flaquito aj. endorsed that the pt is high risk for fall. reiterated to observe fall risk precautions. bed alarm on. call light nad light button within easy reach.
[2019-07-02 08:00] VITALS: BP 98/64
[2019-07-02 08:28] LABS: BASOPHILS % (AUTO) 1.1 % (0.0-2.0); EOSINOPHILS % (AUTO) 0.3 % (0.0-3.0); HEMATOCRIT 30.8 % (42.0-52.0); LYMPHOCYTES % (AUTO) 20.3 % (20.0-45.0); MEAN CORPUSCULAR VOLUME 85 FL (80-99); MONOCYTES % (AUTO) 8.8 % (1.0-10.0); NEUTROPHILS % (AUTO) 69.5 % (45.0-75.0); PLATELET COUNT 251 K/UL (150-450); RED BLOOD COUNT 3.61 M/UL (4.70-6.10); RED CELL DISTRIBUTION WIDTH 19.1 % (11.6-14.8); WHITE BLOOD COUNT 15.1 K/UL (4.8-10.8)
[2019-07-02] MEDS: Ascorbic Acid 500mg tab ORAL SCH ×2 (08:36→17:35)
[2019-07-02] MEDS: Levemir Flexpen SUBQ SCH ×2 (08:41→17:37)
--- NOTE | 2019-07-02 09:05 | Hematology/Onc Progress Note ---
Assessment/Plan Assessment/Plan Assessment and Recs: # Leukocytosis/elevated white blood cell count, unspecified likely related to underlying stress reaction, smoking v more likely infection (has had a persistent uti/pna) --> ALSO may be malignancy related(but less likely because when came in 04/2019 was wnl, now elevated, more likely infection related --> have reviewed peripheral smear and bandemia/neutrophilia noted(does have some early nucleated cells) --> continue antibiotics if they have been started by ID team --> monitor for resolution --> will hold off FLOW CYTOMETRY given infection more likely cause --> wbc 25-->22-->20-->21.8-->21->18-->15.1 --> f/u cultures --> abx: zosyn # Stage IV prostate cancer, on admission poa --> outpatient management, will review treatment course --> trend psa is 94 --> has received chemo at [facility] x 4 weeks --> has received lupron in the past --> return to outpatient oncology --> cea also elevated 34 # Anemia due likely to recent chemo --> hgb trend as needed 8.9->9.4-->10 --> ferritin is 1031 # Pneumonia --> is now on abx --> as per id # Pleural effusions s/p thoracentesis --> repeat thora as per pulm --> cytology reviewed, is neg for malignancy # UTi s/p abx # Decub ulceration The timing of this note does not necessarily reflect the time of the patient was seen. Greatly appreciate consultation. Subjective Allergies: Coded Allergies: No Known Allergies (Unverified , 12/05/18) Subjective 06/26: no events, no bleeding, psa is 94, no events, no changes, dw him re chemo 06/27: no events, not eating much, labs noted 06/28: no f/c, seen by surg, tumor markers reviewed 06/29: hgb remains low, 9.4, with mets to bone, dc planning 07/01: confused, bp on low end, h/h stable, room air Objective Objective Current Medications Medications (Trade) Dose Ordered Sig/Sanjeev Route PRN Reason Start Time Stop Time Status Last Admin Dose Admin Acetaminophen (Tylenol) 650 mg Q6H PRN ORAL Mild Pain/Temp > 100.5 06/24/19 21:30 07/24/19 21:29 06/27/19 00:08 Ascorbic Acid (Vitamin C) 250 mg TWICE A DAY ORAL 06/25/19 09:00 07/21/19 17:59 07/02/19 08:36 Dextrose (Dextrose 50%) 25 ml Q30M PRN IV Hypoglycemia 06/24/19 21:45 07/19/19 07:44 Dextrose (Dextrose 50%) 50 ml Q30M PRN IV Hypoglycemia 06/24/19 21:45 07/19/19 07:44 Diphenoxylate HCl/ Atropine (Lomotil) 2.5 mg Q6H PRN ORAL Diarrhea 06/24/19 21:30 07/20/19 21:29 07/01/19 20:43 Furosemide (Lasix) 40 mg DAILY IV 06/25/19 09:00 07/19/19 08:59 07/02/19 08:37 Insulin Aspart (NovoLOG) BEFORE MEALS AND HS SUBQ 06/25/19 06:30 07/19/19 11:29 07/01/19 20:44 Insulin Detemir (Levemir) 20 units BID SUBQ 06/29/19 18:00 07/22/19 20:59 07/02/19 08:41 Multivitamins (Multivitamins) 1 tab DAILY ORAL 06/25/19 09:00 07/19/19 08:59 07/02/19 08:35 Potassium Chloride (K-Dur) 40 meq DAILY ORAL 06/25/19 09:00 07/19/19 11:59 07/02/19 08:36 Last 24 Hour Vital Signs Date Time Temp Pulse Resp B/P (MAP) Pulse Ox O2 Delivery O2 Flow Rate FiO2 07/02/19 08:50 Room Air 07/02/19 08:00 99.0 104 19 98/64 (75) 99 07/02/19 04:00 98.0 100 20 102/59 (73) 99 07/02/19 00:00 98.7 103 19 108/71 (83) 99 07/01/19 23:35 98.5 97 Room Air 07/01/19 21:00 Room Air 07/01/19 20:00 98.5 100 19 105/60 (75) 97 07/01/19 16:00 98.3 100 20 97/66 (76) 97 07/01/19 12:00 98.9 97 18 107/73 (84) 99 07/01/19 09:00 Room Air 07/01/19 08:00 99.3 101 19 123/67 (85) 97 07/01/19 04:00 98.8 98 20 112/70 (84) 99 06/30/19 23:52 98.4 105 20 100/67 (78) 97 06/30/19 23:25 98.4 97 Room Air 06/30/19 21:00 Room Air 06/30/19 20:00 98.6 101 20 106/70 (82) 96 06/30/19 16:00 98.1 99 19 100/74 (83) 97 06/30/19 12:00 97.9 104 18 95/64 (74) 98 Intake and Output 07/01/19 07/02/19 19:00 07:00 Intake Total 1200 ml 750 ml Output Total 1400 ml 1200 ml Balance -200 ml -450 ml Intake Oral 1200 ml 750 ml Output Urine Total 1400 ml 1200 ml # Bowel Movements 1 Labs Test 07/01/19 06:30 07/02/19 06:22 White Blood Count 15.5 K/UL (4.8-10.8) 15.1 K/UL (4.8-10.8) Red Blood Count 3.30 M/UL (4.70-6.10) 3.61 M/UL (4.70-6.10) Hemoglobin 9.1 G/DL (14.2-18.0) 10.0 G/DL (14.2-18.0) Hematocrit 28.5 % (42.0-52.0) 30.8 % (42.0-52.0) Mean Corpuscular Volume 86 FL (80-99) 85 FL (80-99) Mean Corpuscular Hemoglobin 27.7 PG (27.0-31.0) 27.7 PG (27.0-31.0) Mean Corpuscular Hemoglobin Concent 32.1 G/DL (32.0-36.0) 32.5 G/DL (32.0-36.0) Red Cell Distribution Width 18.8 % (11.6-14.8) 19.1 % (11.6-14.8) Platelet Count 235 K/UL (150-450) 251 K/UL (150-450) Mean Platelet Volume 6.1 FL (6.5-10.1) 5.4 FL (6.5-10.1) Neutrophils (%) (Auto) 71.7 % (45.0-75.0) 69.5 % (45.0-75.0) Lymphocytes (%) (Auto) 20.5 % (20.0-45.0) 20.3 % (20.0-45.0) Monocytes (%) (Auto) 6.9 % (1.0-10.0) 8.8 % (1.0-10.0) Eosinophils (%) (Auto) 0.2 % (0.0-3.0) 0.3 % (0.0-3.0) Basophils (%) (Auto) 0.6 % (0.0-2.0) 1.1 % (0.0-2.0) Height (Feet): 5 Height (Inches): 11.00 Weight (Pounds): 123 Objective Vitals: reviewed General: NAD HEENT: nc, at Neck: supple Chest: clear breath sounds bilaterally Cardiovascular: RRR, no s3, s4 Abd: soft, nt, nd Ext: no cce Eliseo Biggs MD Jul 02, 2019 09:05
--- NOTE | 2019-07-02 11:52 | Infectious Diseases Prog Note ---
Assessment/Plan Assessment/Plan A; 1. UTI treated 2. pneumonia treated 3. pleural effusions, s/p thoracentesis 4. leucocytosis improving 5. prostate cancer 6. 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 Observe off antibiotic 2. f/u CBC Subjective ROS Limited/Unobtainable: No Constitutional: Reports: anorexia Respiratory: Reports: no symptoms; Denies: dry cough, productive cough Cardiovascular: Reports: no symptoms Gastrointestinal/Abdominal: Reports: no symptoms Genitourinary: Reports: no symptoms Musculoskeletal: Reports: pain, other - chest wall pain with deepbreading Allergies: Coded Allergies: No Known Allergies (Unverified , 12/05/18) Objective Vital Signs Last 24 Hour Vital Signs Date Time Temp Pulse Resp B/P (MAP) Pulse Ox O2 Delivery O2 Flow Rate FiO2 07/02/19 08:50 Room Air 07/02/19 08:00 99.0 104 19 98/64 (75) 99 07/02/19 04:00 98.0 100 20 102/59 (73) 99 07/02/19 00:00 98.7 103 19 108/71 (83) 99 07/01/19 23:35 98.5 97 Room Air 07/01/19 21:00 Room Air 07/01/19 20:00 98.5 100 19 105/60 (75) 97 07/01/19 16:00 98.3 100 20 97/66 (76) 97 07/01/19 12:00 98.9 97 18 107/73 (84) 99 Height (Feet): 5 Height (Inches): 11.00 Weight (Pounds): 123 General Appearance: no acute distress, cachetic HEENT: mucous membranes moist Respiratory/Chest: lungs clear Cardiovascular: normal rate Abdomen: soft, non tender Extremities: no edema Skin: ulcers Neurologic/Psychiatric: alert, oriented x 3, responsive Musculoskeletal: atrophy Laboratory Tests Test 07/02/19 06:22 White Blood Count 15.1 K/UL (4.8-10.8) H Red Blood Count 3.61 M/UL (4.70-6.10) L Hemoglobin 10.0 G/DL (14.2-18.0) L Hematocrit 30.8 % (42.0-52.0) L Mean Corpuscular Volume 85 FL (80-99) Mean Corpuscular Hemoglobin 27.7 PG (27.0-31.0) Mean Corpuscular Hemoglobin Concent 32.5 G/DL (32.0-36.0) Red Cell Distribution Width 19.1 % (11.6-14.8) H Platelet Count 251 K/UL (150-450) Mean Platelet Volume 5.4 FL (6.5-10.1) L Neutrophils (%) (Auto) 69.5 % (45.0-75.0) Lymphocytes (%) (Auto) 20.3 % (20.0-45.0) Monocytes (%) (Auto) 8.8 % (1.0-10.0) Eosinophils (%) (Auto) 0.3 % (0.0-3.0) Basophils (%) (Auto) 1.1 % (0.0-2.0) Current Medications Medications (Trade) Dose Ordered Sig/Sanjeev Route PRN Reason Start Time Stop Time Status Last Admin Dose Admin Acetaminophen (Tylenol) 650 mg Q6H PRN ORAL Mild Pain/Temp > 100.5 06/24/19 21:30 07/24/19 21:29 06/27/19 00:08 Ascorbic Acid (Vitamin C) 250 mg TWICE A DAY ORAL 06/25/19 09:00 07/21/19 17:59 07/02/19 08:36 Dextrose (Dextrose 50%) 25 ml Q30M PRN IV Hypoglycemia 06/24/19 21:45 07/19/19 07:44 Dextrose (Dextrose 50%) 50 ml Q30M PRN IV Hypoglycemia 06/24/19 21:45 07/19/19 07:44 Diphenoxylate HCl/ Atropine (Lomotil) 2.5 mg Q6H PRN ORAL Diarrhea 06/24/19 21:30 07/20/19 21:29 07/01/19 20:43 Furosemide (Lasix) 40 mg DAILY IV 06/25/19 09:00 07/19/19 08:59 07/02/19 08:37 Insulin Aspart (NovoLOG) BEFORE MEALS AND HS SUBQ 06/25/19 06:30 07/19/19 11:29 07/01/19 20:44 Insulin Detemir (Levemir) 20 units BID SUBQ 06/29/19 18:00 07/22/19 20:59 07/02/19 08:41 Multivitamins (Multivitamins) 1 tab DAILY ORAL 06/25/19 09:00 07/19/19 08:59 07/02/19 08:35 Potassium Chloride (K-Dur) 40 meq DAILY ORAL 06/25/19 09:00 07/19/19 11:59 07/02/19 08:36 Rod Carballo MD Jul 02, 2019 11:52
[2019-07-02 12:00] VITALS: BP 98/67
--- NOTE | 2019-07-02 13:19 | Surgery Progress Note ---
Surgery Progress Note Subjective Additional Comments wbc slowly trending down no acute events Objective Last 24 Hour Vital Signs Date Time Temp Pulse Resp B/P (MAP) Pulse Ox O2 Delivery O2 Flow Rate FiO2 07/02/19 12:00 98.6 96 20 98/67 (77) 98 07/02/19 08:50 Room Air 07/02/19 08:00 99.0 104 19 98/64 (75) 99 07/02/19 04:00 98.0 100 20 102/59 (73) 99 07/02/19 00:00 98.7 103 19 108/71 (83) 99 07/01/19 23:35 98.5 97 Room Air 07/01/19 21:00 Room Air 07/01/19 20:00 98.5 100 19 105/60 (75) 97 07/01/19 16:00 98.3 100 20 97/66 (76) 97 I&O Intake and Output 07/01/19 07/02/19 19:00 07:00 Intake Total 1200 ml 750 ml Output Total 1400 ml 1200 ml Balance -200 ml -450 ml Intake Oral 1200 ml 750 ml Output Urine Total 1400 ml 1200 ml # Bowel Movements 1 Dressing: dry Wound: other Cardiovascular: RSR Respiratory: clear Abdomen: soft, non-tender, present bowel sounds Extremities: no cyanosis Laboratory Tests Test 07/02/19 06:22 White Blood Count 15.1 K/UL (4.8-10.8) H Red Blood Count 3.61 M/UL (4.70-6.10) L Hemoglobin 10.0 G/DL (14.2-18.0) L Hematocrit 30.8 % (42.0-52.0) L Mean Corpuscular Volume 85 FL (80-99) Mean Corpuscular Hemoglobin 27.7 PG (27.0-31.0) Mean Corpuscular Hemoglobin Concent 32.5 G/DL (32.0-36.0) Red Cell Distribution Width 19.1 % (11.6-14.8) H Platelet Count 251 K/UL (150-450) Mean Platelet Volume 5.4 FL (6.5-10.1) L Neutrophils (%) (Auto) 69.5 % (45.0-75.0) Lymphocytes (%) (Auto) 20.3 % (20.0-45.0) Monocytes (%) (Auto) 8.8 % (1.0-10.0) Eosinophils (%) (Auto) 0.3 % (0.0-3.0) Basophils (%) (Auto) 1.1 % (0.0-2.0) Plan Problems: (1) Leukocytosis Assessment & Plan: Patient presents with leukocytosis abnormal labs. Bilateral lower extremity edema. Multiple decubitus ulcers. UTI. UTI likely etiology of patient's leukocytosis and infectious process. The wounds were evaluated and unlikely etiology. Lower extremity edema unlikely cellulitis. We will continue to follow the recommendations monitor. Antibiotics as per ID. Trend labs. wbc 15k trending down The liver is unremarkable. Doppler interrogation of the main portal vein shows patency with hepatopedal, monophasic flow. There is no biliary ductal dilatation identified. Gallbladder is unremarkable. CBD is 4 mm. Bilateral pleural effusions are demonstrated. There is trace ascites. There is prominence in the area of the pancreatic head. There demonstrated part of the aorta and IVC show no definite abnormalities. Both kidneys appear echogenic. There is no hydronephrosis. IMPRESSION: Bilateral pleural effusions Prominent pancreatic head. This may be related to body habitus. Consider further evaluation with contrast CT. Trace ascites IMPRESSION: Bilateral moderate to large pleural effusions. Resultant compressive atelectatic changes of both lower lobes Groundglass opacity throughout much of the upper and lower lobes, likely reflects parenchymal edema, but could also represent infectious/inflammatory process. Correlate with clinical findings Evidence of anasarca elsewhere, with diffuse edema of the subcutaneous, mediastinal, and mesenteric and pelvic fat Irregular left upper lung opacities with architectural distortion, probably an area of scarring/cicatrization. Mass or infiltrate much less likely Diffuse osteosclerosis, consistent with stated clinical history of metastatic prostate carcinoma Endplate irregularity of the mid thoracic spine as describe. This is probably due to degenerative change. Infectious spondylitis and less likely but not completely excludable. Correlate with clinical findings, consider MRI if there is clinical suspicion for such Evidence of interim right colon surgery. Evidence of right hip surgery, also previously noted Coronary artery calcifications (2) Decubitus skin ulcer Assessment & Plan: Patient presents on admission with multiple decubitus ulcer. Stage III a somewhat resolving sacral decubitus ulcer 2 cm x 1 cm x 5 mm deep no active drainage no signs of active acute infection. Right trochanteric resolving deep tissue injury with Skin changes Bilateral heel boggy nontender Patient is very tall and feet hanging over the side of the bed occasionally and states that when he is not in the hospital his feet are occasionally on the bedpost. Discussed this with patient and information given as well as care plan. Wash sacral decubitus ulcer daily with normal saline apply Thera honey followed by protective foam dressing. Skin protectant to bilateral trochanteric hips followed by foam dressing Keep heels elevated with pillows. Do not allow heels to be on the bedpost but extension necessary Foam dressings for heels thank you will follow with recommendations Nutritional optimization presented on admission with full thickness sacral pressure injury (L)1.1cm x (W) 0.5cm x (D)0.6cm. Base of wound is moist and pink. Borders are macerated. Periwound is black and fluctuant. Pt complained of tenderness when palpated. Full thickness stage 3 pressure injury R hip. Biofilm at base of wound. Edges adherent to base of wound. Periwound is black without induration or fluctuance.( L)0.6cm x (W)0.7cm. Wound L knee with semi-detached necrotic cap, moist erythematous borders. No exudate noted. Periwound without erythema induration or fluctuance (L)8cm x (W) 8.3cm. Unstageable pressure injury lateral R malleolus. Base of wound has 100% dry yellow cap. Edges adherent to base of wound. Periwound is black and indurated with marginal erythema.(L)2cm x (W)2cm. Both heels are dry, firm and blanchable. Tx.plan: Cleanse Sacral wound with Saline. Apply Therahoney. Apply Moisture Barrier periwound.Cover with Optifoam drsg every 3 days and prn. Cleanse wound R hip with Saline. Apply Therahoney. Apply Cavilon Periwound. Cover with Optifoam drsg every 3 days and prn. Apply Betadine to R knee. Cover with Optifoam drsg. Change every 3days and prn. Apply Betadine to R lateral malleolus. Cover with Optifoam drsg. Change every 3 days and prn. Apply Cavilon Skin Barrier to both heels.Cover each heel with Optifoam drsg. Change every 7 days and prn. Reposition at least every 2hours or as tolerated. Off-load heels with pillow. nutritional optimization improving d/c planning (3) Malnutrition Assessment & Plan: DAILY ESTIMATED NEEDS: Needs based on CA, 68.2kg 30-35 kcals/kg 7916-0736 total kcals 1-2 g protein/kg 68-136 g total protein 25-30 mL/kg 2753-7919 total fluid mLs NUTRITION DIAGNOSIS: Increased kcal/prot needs R/T catabolic dx and underweight status as evidenced by h/o stage IV Prostate cancer s/p chemotherapy, pt @87% IBW. CURRENT DIET: Cardiac PO DIET RECOMMENDATIONS--->>> CCHO MED/ texture as tolerated + Glucerna TID w/ meals ADDITIONAL RECOMMENDATIONS: * Calibrated bed scale wt for accurate CBW * Monitor po intake, need for snacks -h/o stage 4 CA, w/ chemo * BG in the 300's, consider increasing levemir -> rec HgA1C * WOUND CARE: add JERRY BID + Vit C 250mg daily F/up w/ WC eval moderate given condition bmi 20, hx cancer nutritional optimization alb 2 (4) Deep tissue injury Juan Carlos Tucker Jul 02, 2019 13:19
[2019-07-02 16:00] VITALS: BP 91/56
--- NOTE | 2019-07-02 16:30 | Pulmonology Progress Note ---
Assessment/Plan Assessment/Plan Pulmonary Progress Note Assessment/Plan: 1. Anemia. 2. Congestive heart failure. 3. Lower extremity edema, 4. Prostate cancer. with mets to bone 5. Leukocytosis, possibly leukemoid. 6. Diabetes. 7. Low potassium. 8. pleural effusions s/p tap; persistent 9. anasarca 10. s/p fall PLAN monitor for injuries; d/w nursing monitor labs BS ID clearance monitor HH wound care as is dc planning to snf impression, plan, and exam edited and reviewed in detail care discussed with RN Subjective Allergies: Coded Allergies: No Known Allergies (Unverified , 12/05/18) Subjective wbc elevated nontoxic on antibiotics alert Objective Vital Signs Noted Laboratory Tests Noted Height (Feet): 5 Height (Inches): 11.00 Weight (Pounds): 149 Objective WDWN NAD reduced breath sounds bilaterally without rhonchi or wheeze; now improved [id number] without MRG NABS nontender no HSM no CC minimal edema alert and oriented nonfocal Subjective ROS Limited/Unobtainable: No Allergies: Coded Allergies: No Known Allergies (Unverified , 12/05/18) Objective Last 24 Hour Vital Signs Date Time Temp Pulse Resp B/P (MAP) Pulse Ox O2 Delivery O2 Flow Rate FiO2 07/02/19 12:00 98.6 96 20 98/67 (77) 98 07/02/19 08:50 Room Air 07/02/19 08:00 99.0 104 19 98/64 (75) 99 07/02/19 04:00 98.0 100 20 102/59 (73) 99 07/02/19 00:00 98.7 103 19 108/71 (83) 99 07/01/19 23:35 98.5 97 Room Air 07/01/19 21:00 Room Air 07/01/19 20:00 98.5 100 19 105/60 (75) 97 Intake and Output 07/01/19 07/02/19 19:00 07:00 Intake Total 1200 ml 750 ml Output Total 1400 ml 1200 ml Balance -200 ml -450 ml Intake Oral 1200 ml 750 ml Output Urine Total 1400 ml 1200 ml # Bowel Movements 1 Laboratory Tests 07/02/19 06:22: White Blood Count 15.1H, Red Blood Count 3.61L, Hemoglobin 10.0L, Hematocrit 30.8L, Mean Corpuscular Volume 85, Mean Corpuscular Hemoglobin 27.7, Mean Corpuscular Hemoglobin Concent 32.5, Red Cell Distribution Width 19.1H, Platelet Count 251, Mean Platelet Volume 5.4L, Neutrophils (%) (Auto) 69.5, Lymphocytes (%) (Auto) 20.3, Monocytes (%) (Auto) 8.8, Eosinophils (%) (Auto) 0.3, Basophils (%) (Auto) 1.1 Current Medications Medications (Trade) Dose Ordered Sig/Sanjeev Route PRN Reason Start Time Stop Time Status Last Admin Dose Admin Acetaminophen (Tylenol) 650 mg Q6H PRN ORAL Mild Pain/Temp > 100.5 06/24/19 21:30 07/24/19 21:29 06/27/19 00:08 Ascorbic Acid (Vitamin C) 250 mg TWICE A DAY ORAL 06/25/19 09:00 07/21/19 17:59 07/02/19 08:36 Dextrose (Dextrose 50%) 25 ml Q30M PRN IV Hypoglycemia 06/24/19 21:45 07/19/19 07:44 Dextrose (Dextrose 50%) 50 ml Q30M PRN IV Hypoglycemia 06/24/19 21:45 07/19/19 07:44 Diphenoxylate HCl/ Atropine (Lomotil) 2.5 mg Q6H PRN ORAL Diarrhea 06/24/19 21:30 07/20/19 21:29 07/01/19 20:43 Furosemide (Lasix) 40 mg DAILY IV 06/25/19 09:00 07/19/19 08:59 07/02/19 08:37 Insulin Aspart (NovoLOG) BEFORE MEALS AND HS SUBQ 06/25/19 06:30 07/19/19 11:29 07/02/19 16:24 Insulin Detemir (Levemir) 20 units BID SUBQ 06/29/19 18:00 07/22/19 20:59 07/02/19 08:41 Multivitamins (Multivitamins) 1 tab DAILY ORAL 06/25/19 09:00 07/19/19 08:59 07/02/19 08:35 Potassium Chloride (K-Dur) 40 meq DAILY ORAL 06/25/19 09:00 07/19/19 11:59 07/02/19 08:36 Mamadou Charles MD Jul 02, 2019 16:30
--- NOTE | 2019-07-02 16:48 | NUR ---
NURSE NOTES:patient BP trending down, 16:00 BP 91/[address] Garcia to make him aware. Patient is asymptomatic at this time.
--- NOTE | 2019-07-02 17:21 | NUR ---
NURSE NOTES: Received phone call from Dr Charles for new orders for patient. Telephone order read back for bolus of 250ML NS over 4 hours, then NS@40ml hour for 6 hours, Lasix also discontinued, per MD.
[2019-07-02] MEDS ORDERED: NS 250 ML IVPB ONE (17:41)
--- NOTE | 2019-07-02 19:15 | NUR ---
HAND-OFF: Report given to VINCENT Panda.
[2019-07-02 20:00] VITALS: BP 104/66
--- NOTE | 2019-07-02 20:00 | NUR ---
NURSE NOTES: Received patient awake in bed verbally responsive. no sob. no complaints of pain or discomfort. Advised to use the call light for assistance. bed locked and in lowest position. call light and light button within easy reach. bed alarm on. with iv line on the left hand saline lock. with urinal on the bedside.
[2019-07-02] MEDS ORDERED: Zolpidem 5mg tab ORAL PRN (20:30)
[2019-07-02] MEDS ORDERED: NS 240 ML IVPB ONE (21:30)
[2019-07-03] VITALS: BP 105/70
[2019-07-03] MEDS: Lomotil 2.5mg tab ORAL PRN (01:34)
[2019-07-03 04:00] VITALS: BP 98/58
[2019-07-03] MEDS: NovoLOG Insulin Flexpen SUBQ SCH ×2 (06:04→11:49)
--- NOTE | 2019-07-03 07:15 | NUR ---
NURSE NOTES: Handoff received from VINCENT Panda. Patient received awake and alert eating breakfast in bed, able to make needs known, no acute signs of distress noted. IV site is clean dry and intact, saline locked, PM shift stated patient had 2 loose bowel movements. bed in the low and locked position with call light within reach. Patient is high fall risk, floor staff aware and informed to help keep a close eye on patient to prevent recurring falls, patient advised to use call light and not to get up without assistance, patient verbalized understanding and agreed to use call light, will continue to monitor patient.
--- NOTE | 2019-07-03 07:21 | NUR ---
HAND-OFF: Report given to VINCENT Alfaro.
[2019-07-03 08:00] VITALS: BP 105/68
[2019-07-03 08:11] LABS: EOSINOPHILS % (AUTO) 0.5 % (0.0-3.0); HEMATOCRIT 29.3 % (42.0-52.0); HEMOGLOBIN 9.6 G/DL (14.2-18.0); LYMPHOCYTES % (AUTO) 20.7 % (20.0-45.0); MEAN CORPUSCULAR VOLUME 86 FL (80-99); MONOCYTES % (AUTO) 8.7 % (1.0-10.0); PLATELET COUNT 225 K/UL (150-450); RED BLOOD COUNT 3.43 M/UL (4.70-6.10); RED CELL DISTRIBUTION WIDTH 18.7 % (11.6-14.8); WHITE BLOOD COUNT 14.1 K/UL (4.8-10.8)
[2019-07-03 08:19] LABS: ANION GAP 10 mmol/L (5-15); BLOOD UREA NITROGEN 25 mg/dL (7-18); CALCIUM 8.6 MG/DL (8.5-10.1); CARBON DIOXIDE 25 MMOL/L (21-32); CHLORIDE 97 MMOL/L (98-107); CREATININE 0.9 MG/DL (0.55-1.30); POTASSIUM 4.6 MMOL/L (3.5-5.1); SODIUM 131 MMOL/L (136-145)
--- NOTE | 2019-07-03 08:54 | General Progress Note ---
Assessment/Plan Assessment/Plan: 1. Anemia. 2. Congestive heart failure. 3. Lower extremity edema, 4. Prostate cancer. with mets to bone 5. Leukocytosis, possibly leukemoid. 6. Diabetes. 7. Low potassium. 8. pleural effusions s/p tap; persistent 9. anasarca 10. s/p fall PLAN insulin as is off antibiotics monitor wbc outpatient onc follow up dc planning to snf impression, plan, and exam edited and reviewed in detail care discussed with RN Subjective Allergies: Coded Allergies: No Known Allergies (Unverified , 12/05/18) Subjective wbc better cleared by ID Objective Last 24 Hour Vital Signs Date Time Temp Pulse Resp B/P (MAP) Pulse Ox O2 Delivery O2 Flow Rate FiO2 07/03/19 04:00 97.9 101 20 98/58 (71) 97 07/03/19 00:00 98.9 104 18 105/70 (82) 97 07/02/19 20:51 Room Air 07/02/19 20:00 98.3 103 18 104/66 (79) 98 07/02/19 16:00 97.9 104 18 91/56 (68) 99 07/02/19 12:00 98.6 96 20 98/67 (77) 98 Intake and Output 07/02/19 07/03/19 19:00 07:00 Intake Total 1300 ml Output Total 750 ml Balance 1300 ml -750 ml Other 1300 ml Output Urine Total 750 ml # Voids 3 # Bowel Movements 1 Laboratory Tests 07/03/19 05:46: White Blood Count 14.1H, Red Blood Count 3.43L, Hemoglobin 9.6L, Hematocrit 29.3L, Mean Corpuscular Volume 86, Mean Corpuscular Hemoglobin 27.9, Mean Corpuscular Hemoglobin Concent 32.6, Red Cell Distribution Width 18.7H, Platelet Count 225, Mean Platelet Volume 5.5L, Neutrophils (%) (Auto) 69.0, Lymphocytes (%) (Auto) 20.7, Monocytes (%) (Auto) 8.7, Eosinophils (%) (Auto) 0.5, Basophils (%) (Auto) 1.0, Sodium Level 131L, Potassium Level 4.6, Chloride Level 97L, Carbon Dioxide Level 25, Anion Gap 10, Blood Urea Nitrogen 25H, Creatinine 0.9, Estimat Glomerular Filtration Rate > 60, Glucose Level 290H, Calcium Level 8.6 Height (Feet): 5 Height (Inches): 11.00 Weight (Pounds): 123 Objective WDWN NAD reduced breath sounds bilaterally without rhonchi or wheeze; [id number] without MRG NABS nontender no HSM no CC minimal edema alert and oriented no bruising noted nonfocal Jason Garcia MD Jul 03, 2019 08:54
--- NOTE | 2019-07-03 09:44 | NUR ---
*-*DISCHARGE PLANNING*-* PATIENT HAS BEEN REFERRED BACK TO: [facility] P: [phone] F: [phone]
[2019-07-03] MEDS: Ascorbic Acid 500mg tab ORAL SCH (09:54)
[2019-07-03] MEDS: Levemir Flexpen SUBQ SCH (09:57)
--- NOTE | 2019-07-03 10:51 | Infectious Diseases Prog Note ---
Assessment/Plan Assessment/Plan antibiotics : none A 1. UTI s/p rx 2. pneumonia s/p rx 3. pleural effusions s/p thoracentesis 4. leucocytosis improving 5. metastatic prostate cancer 6. fever improving P 1. observe off antibiotics Subjective Constitutional: Denies: fever, chills Respiratory: Denies: shortness of breath, dry cough Gastrointestinal/Abdominal: Reports: diarrhea - decreased; Denies: nausea, vomiting Musculoskeletal: Denies: pain Allergies: Coded Allergies: No Known Allergies (Unverified , 12/05/18) Objective Vital Signs Last 24 Hour Vital Signs Date Time Temp Pulse Resp B/P (MAP) Pulse Ox O2 Delivery O2 Flow Rate FiO2 07/03/19 09:00 Room Air 07/03/19 08:00 99.0 97 19 105/68 (80) 97 07/03/19 04:00 97.9 101 20 98/58 (71) 97 07/03/19 00:00 98.9 104 18 105/70 (82) 97 07/02/19 20:51 Room Air 07/02/19 20:00 98.3 103 18 104/66 (79) 98 07/02/19 16:00 97.9 104 18 91/56 (68) 99 07/02/19 12:00 98.6 96 20 98/67 (77) 98 Height (Feet): 5 Height (Inches): 11.00 Weight (Pounds): 123 Respiratory/Chest: lungs clear Cardiovascular: normal rate, regular rhythm, no gallop/murmur Abdomen: soft, non tender Extremities: no edema Laboratory Tests Test 07/03/19 05:46 White Blood Count 14.1 K/UL (4.8-10.8) H Red Blood Count 3.43 M/UL (4.70-6.10) L Hemoglobin 9.6 G/DL (14.2-18.0) L Hematocrit 29.3 % (42.0-52.0) L Mean Corpuscular Volume 86 FL (80-99) Mean Corpuscular Hemoglobin 27.9 PG (27.0-31.0) Mean Corpuscular Hemoglobin Concent 32.6 G/DL (32.0-36.0) Red Cell Distribution Width 18.7 % (11.6-14.8) H Platelet Count 225 K/UL (150-450) Mean Platelet Volume 5.5 FL (6.5-10.1) L Neutrophils (%) (Auto) 69.0 % (45.0-75.0) Lymphocytes (%) (Auto) 20.7 % (20.0-45.0) Monocytes (%) (Auto) 8.7 % (1.0-10.0) Eosinophils (%) (Auto) 0.5 % (0.0-3.0) Basophils (%) (Auto) 1.0 % (0.0-2.0) Sodium Level 131 MMOL/L (136-145) L Potassium Level 4.6 MMOL/L (3.5-5.1) Chloride Level 97 MMOL/L (98-107) L Carbon Dioxide Level 25 MMOL/L (21-32) Anion Gap 10 mmol/L (5-15) Blood Urea Nitrogen 25 mg/dL (7-18) H Creatinine 0.9 MG/DL (0.55-1.30) Estimat Glomerular Filtration Rate > 60 mL/min (>60) Glucose Level 290 MG/DL (74-106) H Calcium Level 8.6 MG/DL (8.5-10.1) Current Medications Medications (Trade) Dose Ordered Sig/Sanjeev Route PRN Reason Start Time Stop Time Status Last Admin Dose Admin Acetaminophen (Tylenol) 650 mg Q6H PRN ORAL Mild Pain/Temp > 100.5 06/24/19 21:30 07/24/19 21:29 06/27/19 00:08 Ascorbic Acid (Vitamin C) 250 mg TWICE A DAY ORAL 06/25/19 09:00 07/21/19 17:59 07/03/19 09:54 Dextrose (Dextrose 50%) 25 ml Q30M PRN IV Hypoglycemia 06/24/19 21:45 07/19/19 07:44 Dextrose (Dextrose 50%) 50 ml Q30M PRN IV Hypoglycemia 06/24/19 21:45 07/19/19 07:44 Diphenoxylate HCl/ Atropine (Lomotil) 2.5 mg Q6H PRN ORAL Diarrhea 06/24/19 21:30 07/20/19 21:29 07/03/19 01:34 Insulin Aspart (NovoLOG) BEFORE MEALS AND HS SUBQ 06/25/19 06:30 3/25/20 11:29 07/03/19 06:04 Insulin Detemir (Levemir) 20 units BID SUBQ 06/29/19 18:00 07/22/19 20:59 07/03/19 09:57 Multivitamins (Multivitamins) 1 tab DAILY ORAL 06/25/19 09:00 07/19/19 08:59 07/03/19 09:55 Potassium Chloride (K-Dur) 40 meq DAILY ORAL 06/25/19 09:00 07/19/19 11:59 07/03/19 09:55 Zolpidem Tartrate (Ambien) 5 mg HSPRN PRN ORAL Insomnia 07/02/19 20:30 07/09/19 20:29 07/02/19 20:37 Gumaro Barakat MD Jul 03, 2019 10:51
[2019-07-03 12:00] VITALS: BP 118/77
--- NOTE | 2019-07-03 12:01 | NUR ---
*-*DISCHARGE PLANNED*-* PATIENT IS BEING ACCEPTED AND DISCHARGED BACK TO: [facility] P: [phone] F: [phone] RM# [id number].[facility] [id number] ETA 12:30PM
--- NOTE | 2019-07-03 12:22 | NUR ---
NURSE NOTES: called and spoke to Dr Barakat regarding patient's MRSA, confirmed patient is colonized.
--- NOTE | 2019-07-03 12:23 | Surgery Progress Note ---
Surgery Progress Note Subjective Symptoms: improved, tolerating diet, passing flatus, BM Objective Last 24 Hour Vital Signs Date Time Temp Pulse Resp B/P (MAP) Pulse Ox O2 Delivery O2 Flow Rate FiO2 07/03/19 09:00 Room Air 07/03/19 08:00 99.0 97 19 105/68 (80) 97 07/03/19 04:00 97.9 101 20 98/58 (71) 97 07/03/19 00:00 98.9 104 18 105/70 (82) 97 07/02/19 20:51 Room Air 07/02/19 20:00 98.3 103 18 104/66 (79) 98 07/02/19 16:00 97.9 104 18 91/56 (68) 99 I&O Intake and Output 07/02/19 07/03/19 19:00 07:00 Intake Total 1300 ml Output Total 750 ml Balance 1300 ml -750 ml Other 1300 ml Output Urine Total 750 ml # Voids 3 # Bowel Movements 1 Dressing: other Wound: other Cardiovascular: RSR Respiratory: decreased breath sounds Abdomen: soft, non-tender, present bowel sounds Extremities: no tenderness, no cyanosis, other Laboratory Tests Test 07/03/19 05:46 White Blood Count 14.1 K/UL (4.8-10.8) H Red Blood Count 3.43 M/UL (4.70-6.10) L Hemoglobin 9.6 G/DL (14.2-18.0) L Hematocrit 29.3 % (42.0-52.0) L Mean Corpuscular Volume 86 FL (80-99) Mean Corpuscular Hemoglobin 27.9 PG (27.0-31.0) Mean Corpuscular Hemoglobin Concent 32.6 G/DL (32.0-36.0) Red Cell Distribution Width 18.7 % (11.6-14.8) H Platelet Count 225 K/UL (150-450) Mean Platelet Volume 5.5 FL (6.5-10.1) L Neutrophils (%) (Auto) 69.0 % (45.0-75.0) Lymphocytes (%) (Auto) 20.7 % (20.0-45.0) Monocytes (%) (Auto) 8.7 % (1.0-10.0) Eosinophils (%) (Auto) 0.5 % (0.0-3.0) Basophils (%) (Auto) 1.0 % (0.0-2.0) Sodium Level 131 MMOL/L (136-145) L Potassium Level 4.6 MMOL/L (3.5-5.1) Chloride Level 97 MMOL/L (98-107) L Carbon Dioxide Level 25 MMOL/L (21-32) Anion Gap 10 mmol/L (5-15) Blood Urea Nitrogen 25 mg/dL (7-18) H Creatinine 0.9 MG/DL (0.55-1.30) Estimat Glomerular Filtration Rate > 60 mL/min (>60) Glucose Level 290 MG/DL (74-106) H Calcium Level 8.6 MG/DL (8.5-10.1) Plan Problems: (1) Leukocytosis Assessment & Plan: Patient presents with leukocytosis abnormal labs. Bilateral lower extremity edema. Multiple decubitus ulcers. UTI. UTI likely etiology of patient's leukocytosis and infectious process. The wounds were evaluated and unlikely etiology. Lower extremity edema unlikely cellulitis. We will continue to follow the recommendations monitor. Antibiotics as per ID. Trend labs. wbc 14k trending down The liver is unremarkable. Doppler interrogation of the main portal vein shows patency with hepatopedal, monophasic flow. There is no biliary ductal dilatation identified. Gallbladder is unremarkable. CBD is 4 mm. Bilateral pleural effusions are demonstrated. There is trace ascites. There is prominence in the area of the pancreatic head. There demonstrated part of the aorta and IVC show no definite abnormalities. Both kidneys appear echogenic. There is no hydronephrosis. IMPRESSION: Bilateral pleural effusions Prominent pancreatic head. This may be related to body habitus. Consider further evaluation with contrast CT. Trace ascites IMPRESSION: Bilateral moderate to large pleural effusions. Resultant compressive atelectatic changes of both lower lobes Groundglass opacity throughout much of the upper and lower lobes, likely reflects parenchymal edema, but could also represent infectious/inflammatory process. Correlate with clinical findings Evidence of anasarca elsewhere, with diffuse edema of the subcutaneous, mediastinal, and mesenteric and pelvic fat Irregular left upper lung opacities with architectural distortion, probably an area of scarring/cicatrization. Mass or infiltrate much less likely Diffuse osteosclerosis, consistent with stated clinical history of metastatic prostate carcinoma Endplate irregularity of the mid thoracic spine as describe. This is probably due to degenerative change. Infectious spondylitis and less likely but not completely excludable. Correlate with clinical findings, consider MRI if there is clinical suspicion for such Evidence of interim right colon surgery. Evidence of right hip surgery, also previously noted Coronary artery calcifications (2) Decubitus skin ulcer Assessment & Plan: Patient presents on admission with multiple decubitus ulcer. Stage III a somewhat resolving sacral decubitus ulcer 2 cm x 1 cm x 5 mm deep no active drainage no signs of active acute infection. Right trochanteric resolving deep tissue injury with Skin changes Bilateral heel boggy nontender Patient is very tall and feet hanging over the side of the bed occasionally and states that when he is not in the hospital his feet are occasionally on the bedpost. Discussed this with patient and information given as well as care plan. Wash sacral decubitus ulcer daily with normal saline apply Thera honey followed by protective foam dressing. Skin protectant to bilateral trochanteric hips followed by foam dressing Keep heels elevated with pillows. Do not allow heels to be on the bedpost but extension necessary Foam dressings for heels thank you will follow with recommendations Nutritional optimization presented on admission with full thickness sacral pressure injury (L)1.1cm x (W) 0.5cm x (D)0.6cm. Base of wound is moist and pink. Borders are macerated. Periwound is black and fluctuant. Pt complained of tenderness when palpated. Full thickness stage 3 pressure injury R hip. Biofilm at base of wound. Edges adherent to base of wound. Periwound is black without induration or fluctuance.( L)0.6cm x (W)0.7cm. Wound L knee with semi-detached necrotic cap, moist erythematous borders. No exudate noted. Periwound without erythema induration or fluctuance (L)8cm x (W) 8.3cm. Unstageable pressure injury lateral R malleolus. Base of wound has 100% dry yellow cap. Edges adherent to base of wound. Periwound is black and indurated with marginal erythema.(L)2cm x (W)2cm. Both heels are dry, firm and blanchable. Tx.plan: Cleanse Sacral wound with Saline. Apply Therahoney. Apply Moisture Barrier periwound.Cover with Optifoam drsg every 3 days and prn. Cleanse wound R hip with Saline. Apply Therahoney. Apply Cavilon Periwound. Cover with Optifoam drsg every 3 days and prn. Apply Betadine to R knee. Cover with Optifoam drsg. Change every 3days and prn. Apply Betadine to R lateral malleolus. Cover with Optifoam drsg. Change every 3 days and prn. Apply Cavilon Skin Barrier to both heels.Cover each heel with Optifoam drsg. Change every 7 days and prn. Reposition at least every 2hours or as tolerated. Off-load heels with pillow. nutritional optimization improving d/c planning (3) Malnutrition Assessment & Plan: DAILY ESTIMATED NEEDS: Needs based on CA, 68.2kg 30-35 kcals/kg 9090-0594 total kcals 1-2 g protein/kg 68-136 g total protein 25-30 mL/kg 5918-5145 total fluid mLs NUTRITION DIAGNOSIS: Increased kcal/prot needs R/T catabolic dx and underweight status as evidenced by h/o stage IV Prostate cancer s/p chemotherapy, pt @87% IBW. CURRENT DIET: Cardiac PO DIET RECOMMENDATIONS--->>> CCHO MED/ texture as tolerated + Glucerna TID w/ meals ADDITIONAL RECOMMENDATIONS: * Calibrated bed scale wt for accurate CBW * Monitor po intake, need for snacks -h/o stage 4 CA, w/ chemo * BG in the 300's, consider increasing levemir -> rec HgA1C * WOUND CARE: add JERRY BID + Vit C 250mg daily F/up w/ WC eval moderate given condition bmi 20, hx cancer nutritional optimization alb 2 (4) Deep tissue injury Additional Comments d/c planning Juan Carlos Tucker Jul 03, 2019 12:23
--- NOTE | 2019-07-03 12:29 | NUR ---
NURSE NOTES: Called Reta mehta and gave report to
[2019-07-03] MEDS ORDERED: ASCORBIC ACID500 MG ORAL (12:42)
[2019-07-03] MEDS ORDERED: LOMOTIL TABLET1 EACH ORAL (12:43)
[2019-07-03] MEDS ORDERED: LEVEMIR FL100 UNIT/1 SUBQ (12:44)
[2019-07-03] MEDS ORDERED: K-TAB10 MEQ PO (12:47)
[2019-07-03] MEDS ORDERED: AMBIEN5 MG ORAL (12:48)
--- NOTE | 2019-07-03 13:23 | NUR ---
NURSE NOTES: Patient discharged and left with EMS personnel, vitals stable, no acute signs of distress noted. IV removed no bleeding or hematoma noted. Patient signed the belongings list and left via gurney.
--- NOTE | 2019-07-03 16:59 | NUR ---
CASE MANAGEMENT: REVIEW 07/01/19 SI:SP THORACENTESIS . BILATERAL PLEURAL EFFUSION . TRACE ASCITES . CHF EXACERBATION . DM . ANEMIA . UTI . BILATERAL LE EDEMA 99.3 101 19 123/67 97% ON RA WBC 15.5 H/H 9.8/28.5 IS:IV LASIX QD K-DUR PO QD LEVEMIR SQ BID NOVOLOG SQ AC&HS TYLENOL Q6HR.PRN MTV PO QD \: RETURNING TO [facility] [place] WHEN STABLE PLAN: FEVER BETTER CONTROLLED S/P FALL WITH NO INJURY MOVED PATIENT CLOSER TO NURSES STATION FOR OBSERVATION CASE MANAGEMENT: REVIEW 07/02/19 SI:SP THORACENTESIS . BILATERAL PLEURAL EFFUSION . TRACE ASCITES . CHF EXACERBATION . DM . ANEMIA . UTI . BILATERAL LE EDEMA 99.0 104 19 98/64 99% ON RA WBC 15.1 H/H 10.0/30.8 IS:IV LASIX QD IV NS BOLUS X2 K-DUR PO QD LEVEMIR SQ BID NOVOLOG SQ AC&HS TYLENOL Q6HR.PRN MTV PO QD \: RETURNING TO [facility] [place] WHEN STABLE PLAN: FEVER BETTER CONTROLLED S/P FALL WITH NO INJURY MOVED PATIENT CLOSER TO NURSES STATION FOR OBSERVATION
--- NOTE | 2019-07-03 17:29 | Hematology/Onc Progress Note ---
Assessment/Plan Assessment/Plan Assessment and Recs: # Leukocytosis/elevated white blood cell count, unspecified likely related to underlying stress reaction, smoking v more likely infection (has had a persistent uti/pna) --> ALSO may be malignancy related(but less likely because when came in 04/2019 was wnl, now elevated, more likely infection related --> have reviewed peripheral smear and bandemia/neutrophilia noted(does have some early nucleated cells) --> continue antibiotics if they have been started by ID team --> monitor for resolution --> will hold off FLOW CYTOMETRY given infection more likely cause --> wbc 25-->22-->20-->21.8-->21->18-->15.1 --> f/u cultures --> abx: zosyn # Stage IV prostate cancer, on admission poa --> outpatient management, will review treatment course --> trend psa is 94 --> has received chemo at [facility] x 4 weeks --> has received lupron in the past --> return to outpatient oncology --> cea also elevated 34 # Anemia due likely to recent chemo --> hgb trend as needed 8.9->9.4-->10 --> ferritin is 1031 # Pneumonia --> is now on abx --> as per id # Pleural effusions s/p thoracentesis --> repeat thora as per pulm --> cytology reviewed, is neg for malignancy # UTi s/p abx # Decub ulceration The timing of this note does not necessarily reflect the time of the patient was seen. Greatly appreciate consultation. Subjective Allergies: Coded Allergies: No Known Allergies (Unverified , 12/05/18) Subjective 06/26: no events, no bleeding, psa is 94, no events, no changes, dw him re chemo 06/27: no events, not eating much, labs noted 06/28: no f/c, seen by surg, tumor markers reviewed 06/29: hgb remains low, 9.4, with mets to bone, dc planning 07/01: confused, bp on low end, h/h stable, room air 07/02: awake and alert, no acute events, dc to snf planning Objective Objective Last 24 Hour Vital Signs Date Time Temp Pulse Resp B/P (MAP) Pulse Ox O2 Delivery O2 Flow Rate FiO2 07/03/19 12:00 99.0 99 19 118/77 (91) 97 07/03/19 09:00 Room Air 07/03/19 08:00 99.0 97 19 105/68 (80) 97 07/03/19 04:00 97.9 101 20 98/58 (71) 97 07/03/19 00:00 98.9 104 18 105/70 (82) 97 07/02/19 20:51 Room Air 07/02/19 20:00 98.3 103 18 104/66 (79) 98 07/02/19 16:00 97.9 104 18 91/56 (68) 99 07/02/19 12:00 98.6 96 20 98/67 (77) 98 07/02/19 08:50 Room Air 07/02/19 08:00 99.0 104 19 98/64 (75) 99 07/02/19 04:00 98.0 100 20 102/59 (73) 99 07/02/19 00:00 98.7 103 19 108/71 (83) 99 07/01/19 23:35 98.5 97 Room Air 07/01/19 21:00 Room Air 07/01/19 20:00 98.5 100 19 105/60 (75) 97 Intake and Output 07/02/19 07/03/19 19:00 07:00 Intake Total 1300 ml Output Total 750 ml Balance 1300 ml -750 ml Other 1300 ml Output Urine Total 750 ml # Voids 3 # Bowel Movements 1 Labs Test 07/01/19 06:30 07/02/19 06:22 07/03/19 05:46 White Blood Count 15.5 K/UL (4.8-10.8) 15.1 K/UL (4.8-10.8) 14.1 K/UL (4.8-10.8) Red Blood Count 3.30 M/UL (4.70-6.10) 3.61 M/UL (4.70-6.10) 3.43 M/UL (4.70-6.10) Hemoglobin 9.1 G/DL (14.2-18.0) 10.0 G/DL (14.2-18.0) 9.6 G/DL (14.2-18.0) Hematocrit 28.5 % (42.0-52.0) 30.8 % (42.0-52.0) 29.3 % (42.0-52.0) Mean Corpuscular Volume 86 FL (80-99) 85 FL (80-99) 86 FL (80-99) Mean Corpuscular Hemoglobin 27.7 PG (27.0-31.0) 27.7 PG (27.0-31.0) 27.9 PG (27.0-31.0) Mean Corpuscular Hemoglobin Concent 32.1 G/DL (32.0-36.0) 32.5 G/DL (32.0-36.0) 32.6 G/DL (32.0-36.0) Red Cell Distribution Width 18.8 % (11.6-14.8) 19.1 % (11.6-14.8) 18.7 % (11.6-14.8) Platelet Count 235 K/UL (150-450) 251 K/UL (150-450) 225 K/UL (150-450) Mean Platelet Volume 6.1 FL (6.5-10.1) 5.4 FL (6.5-10.1) 5.5 FL (6.5-10.1) Neutrophils (%) (Auto) 71.7 % (45.0-75.0) 69.5 % (45.0-75.0) 69.0 % (45.0-75.0) Lymphocytes (%) (Auto) 20.5 % (20.0-45.0) 20.3 % (20.0-45.0) 20.7 % (20.0-45.0) Monocytes (%) (Auto) 6.9 % (1.0-10.0) 8.8 % (1.0-10.0) 8.7 % (1.0-10.0) Eosinophils (%) (Auto) 0.2 % (0.0-3.0) 0.3 % (0.0-3.0) 0.5 % (0.0-3.0) Basophils (%) (Auto) 0.6 % (0.0-2.0) 1.1 % (0.0-2.0) 1.0 % (0.0-2.0) Sodium Level 131 MMOL/L (136-145) Potassium Level 4.6 MMOL/L (3.5-5.1) Chloride Level 97 MMOL/L (98-107) Carbon Dioxide Level 25 MMOL/L (21-32) Anion Gap 10 mmol/L (5-15) Blood Urea Nitrogen 25 mg/dL (7-18) Creatinine 0.9 MG/DL (0.55-1.30) Estimat Glomerular Filtration Rate > 60 mL/min (>60) Glucose Level 290 MG/DL (74-106) Calcium Level 8.6 MG/DL (8.5-10.1) Height (Feet): 5 Height (Inches): 11.00 Weight (Pounds): 123 Objective Vitals: reviewed General: NAD HEENT: nc, at Neck: supple Chest: clear breath sounds bilaterally Cardiovascular: RRR, no s3, s4 Abd: soft, nt, nd Ext: no cce Eliseo Biggs MD Jul 03, 2019 17:29
--- NOTE | 2019-07-04 08:56 | Discharge Summary ---
Discharge Summary Discharge Summary _ DATE OF ADMISSION: 06/18/2019 DATE OF DISCHARGE: 07/03/2019 DISCHARGED BY: Dr. Garcia REASON FOR ADMISSION: 64 years old male with past medical history of stage IV prostate cancer, bedbound, hypertension, diabetes mellitus, presented from the [facility] facility with of worsening lower extremity edema. Patient presented for further evaluation and management. Upon evaluation patient was mildly tachycardic, and later developed fever. Laboratory work-up revealed leukocytosis WBC 16.9 ,anemia with hemoglobin 7.4 , hematocrit 22.6, platelet count 150. Potassium 3.3. Chest x-ray revealed bilateral interstitial and airspace base infiltrates versus edema , new since prior study in April 2019. Bilateral pleural effusion. Urine toxicology screen was negative. Patient subsequently admitted for further management. CONSULTANTS: ID specialist Dr. Barakat patron attendant/oncologist Dr. Biggs surgery Dr. Tucker [facility]: Patient admitted . Venous duplex bilateral lower extremity revealed no evidence of acute of DVT. Patient started on empiric antibiotics and diuresis with close monitroing of volumes and cardiorenal parameters. Patient was transfused with 1 unit of packed red blood cells. Echocardiogram done in April 2019 revealed ejection fraction of 45%. Anteroseptal wall hypokinesis. No evidence of left ventricular hypertrophy. No pericardial effusion. Right ventricular systolic pressure of 38 consistent with a mild pulmonary hypertension. Patient undergone ultrasound-guided thoracentesis of right pleural effusion, yielding 1100 mL of pleural fluid. Chest x-ray post thoracentesis revealed markedly decreased right pleural effusion. No radiographically evident complication. Cytology of pleural fluid was negative for malignant cells. Supplemental oxygen provided and titrated to keep pulse oximetry above 92%. Nebulizing treatment with bronchodilator provided as needed. Pulse oximetry remained stable on room air. Urine culture revealed mixed gram-positive organisms. Stool for C. difficile was negative. Sputum culture was negative. Blood cultures were negative. Leukocytosis initially was trending up with the highest 25.3 and then started to trend down. Patient was followed-up with chest x-ray. Patient was treated for UTI and pneumonia. Leukocytosis improved. Patient completed antibiotics while in the hospital. ID specialist recommended to monitor patient off antibiotics and observe closely. CT scan of the chest, abdomen and pelvis revealed generalized anasarca. Bilateral moderate to large pleural effusion with resultant compressive atelectatic changes of both lower lobes. Ground-glass opacity throughout most most of the upper and lower lobe/likely reflecting parenchymal edema. Evidence of anasarca. Pancreas unremarkable. Diffuse osteosclerosis consistent with the clinical history of metastatic prostate carcinoma. Oncologist recommended continue outpatient oncology upon discharge. Patient had chemotherapy at [facility] for 4 weeks. Cancer tumor markers well elevated PSA 94, CEA 34. Anemia was possibly due to recent chemotherapy , improved. Leukocytosis was likely related to infection and improved. Oncologist recommended hold off flow cytometry as infection appears to be likely the course of leukocytosis . Stool for occult blood was negative. Hemoglobin and hematocrit further were closely monitored with goal to keep hemoglobin above 7 ; prior to discharge hemoglobin 9.6 ,hematocrit 29.3. Abdominal ultrasound revealed bilateral pleural effusion. Prominent pancreatic head , possibly related to body habitus. Trace ascites. Suspected medical renal disease. Renal parameters and electrolytes were closely monitored, electrolytes corrected as needed, and nephrotoxins were avoided . Potassium replaced and prior to discharge stable. Creatinine remained stable. Surgeon seen and evaluated patient due to multiply decubitus ulcers, present on admission , including stage III sacral and stage III right hip decubitus ulcer. Wound care provided as per surgeon recommendation. Continue wound care at the facility Blood sugar was managed with long-acting insulin and sliding scale of insulin as needed. Pain management addressed as needed. Supportive care provided. Bowel regimen instituted. Patient clinically stabilized and was ready for discharge to retirement facility for continuation of care. FINAL DIAGNOSES: Acute on chronic systolic heart failure Bilateral pleural effusion , status post thoracentesis of right pleural effusion UTI,status post treatment Pneumonia ,status post treatment Metastatic prostate cancer with mets to bone Moderate protein calorie malnutrition Anemia due to likely to recent chemotherapy Lower extremity edema Diabetes mellitus Hypokalemia Leukocytosis -improved Decubitus ulcers present on admission; stage III sacral decub stage III right hip decub DISCHARGE MEDICATIONS: See Medication Reconciliation list. DISCHARGE INSTRUCTIONS: Patient was discharged to the retirement facility. Follow up with medical doctor at the facility. I have been assigned to dictate discharge summary for this account. I was not involved in the patient's management. Gunjan Moody NP Jul 04, 2019 08:56
== END 2019-07-03 13:25 | DRG 194 ==
LOC: EDBD 22:04 → EDUNIT# 22:04 → EMR 22:34 → 2E 23:22 → EDBEDREQ 23:43 → 4E 06-24 21:00
PROC: 0W993ZZ Drainage of Right Pleural Cavity, Percutaneous Approach (ICD-10-PCS; principal; 2019-06-22)
DX: I11.0 Hypertensive heart disease with heart failure (principal); I50.23 Acute on chronic systolic (congestive) heart failure; N39.0 Urinary tract infection, site not specified; C61 Malignant neoplasm of prostate; L89.153 Pressure ulcer of sacral region, stage 3; E44.0 Moderate protein-calorie malnutrition; Z68.1 Body mass index [BMI] 19.9 or less, adult; J18.9 Pneumonia, unspecified organism; J90 Pleural effusion, not elsewhere classified; R60.1 Generalized edema; C79.51 Secondary malignant neoplasm of bone; E11.9 Type 2 diabetes mellitus without complications; D64.81 Anemia due to antineoplastic chemotherapy; Z79.4 Long term (current) use of insulin; Z22.322 Carrier or suspected carrier of Methicillin resistant Staphylococcus aureus; E87.6 Hypokalemia
CPT/HCPCS: 36415; 71045; 71260; 74177; 76700; 76942; 80048; 80307; 81001; 81003; 82270; 82378; 82728; 82962; 83540; 83550; 83880; 84153; 84443; 84484; 85007; 85025; 85044; 85060; 85610; 85730; 86850; 86900; 86901; 86920; 87040; 87070; 87081; 87086; 87205; 87324; 93005; 93970; 96374; 99285; J1815; J8499; S5561